=== PATIENT | female | born 1975 | race Caucasian/White ===

== ENCOUNTER 2021-10-15 18:42 | Inpatient (IN) | payer OTHER, MEDICAID, SELFPAY ==
--- NOTE | ~2021-10-15 | XR_ITS ---
EXAMINATION: XR CHEST CLINICAL INFORMATION: Fever COMPARISON: None TECHNIQUE: Frontal view of the chest was obtained. FINDINGS: There is a ill-defined 9 mm rounded opacity seen projecting over the left scapula just beneath posterior fifth left rib. A left upper lobe lung nodule cannot be excluded. Heart size normal. No infiltrates or pleural effusions are seen. XR/XR chest 1V IMPRESSION: Question of left upper lobe pulmonary nodule. CT scan is recommended for further evaluation.
--- NOTE | ~2021-10-15 | XR_ITS ---
EXAMINATION: XR CHEST CLINICAL INFORMATION: Shortness of breath COMPARISON: 10/20/2021 TECHNIQUE: 2 views of the chest were obtained. FINDINGS: Lung volumes are symmetric. There is mild hazy opacity at the right base in the region of the lower lobe, concerning for developing pneumonia. Focal nodular density at the left upper lobe identified previously is less conspicuous on the current exam. No evidence of pneumothorax or pleural effusion. The cardiomediastinal contour is unremarkable. No acute osseous findings are seen. XR/XR chest 2V IMPRESSION: 1. Mild haziness at the right lung base, concerning for developing lower lobe pneumonia. Radiographic followup after treatment/resolution of symptoms is recommended. 2. Previously identified nodular density in the left upper lung is slightly less conspicuous on the current exam. However, as previously noted, further assessment with CT is advised for more definitive evaluation.
[2021-10-15 18:47] VITALS: BP 134/96; PULSE 77; RESP 18; TEMP 37; O2SAT 97; BMI 22.1
[2021-10-15 19:07] LABS: MANUAL DIFF FLAG NO
[2021-10-15 19:13] LABS: Basophils Percent Auto 0.5 % (0-2); Eosinophils Percent Auto 0.2 % (0-4); Hematocrit 44.3 % (37.0-47.0); Hemoglobin 14.4 g/dl (12.0-16.0); Imm Gran Abs Auto 0.01 X10*3/uL (0.00-0.03); Imm Gran Pct Auto 0.2 % (0.0-0.4); Lymphocytes Absolute Auto 1.5 X10*3/uL (1.2-4.9); Lymphocytes Percent Auto 23.2 % (20-40); Mean Corpuscular HGB Conc 32.5 g/dl (31.0-35.0); Mean Platelet Volume 9.7 fL (9.4-12.3); Monocytes Absolute Auto 0.3 X10*3/uL (0.1-1.2); Monocytes Percent Auto 4.5 % (2-11); Neutrophils Absolute Auto 4.5 x10*3/uL (2.0-8.3); Neutrophils Percent Auto 71.4 % (45-73); Platelet Count 252 X10*3/uL (160-400); Red Blood Count 5.75 X10*6/uL (4.20-5.50); Red Cell Distribution Width 15.1 % (11.0-16.0); White Blood Count 6.3 X10*3/uL (4.8-10.8)
[2021-10-15 19:20] LABS: Ethanol < 10 mg/dL
[2021-10-15 19:23] LABS: COVID-19 Test Negative (Negative)
[2021-10-15 19:27] LABS: Alanine Aminotransferase 20 U/L (0-31); Alkaline Phosphatase 92 U/L (39-117); Anion Gap 17 (12-20); Aspartate Amino Transferase 28 U/L (5-31); Bilirubin Total 0.8 mg/dL (0.0-1.0); Blood Urea Nitrogen 17 mg/dL (9-16); Calcium 10.7 mg/dL (8.4-10.2); Carbon Dioxide 28 mmol/L (22-29); Chloride 101 mmol/L (96-108); Creatinine Clr Calc Pharmacy 41.3; Estimated Glomerular Filt Rate 41; Glucose Random 94 mg/dL (60-115); Potassium 5.4 mmol/L (3.3-5.1); Sodium 141 mmol/L (135-145); Total Protein 9.2 g/dL (6.5-8.0)
--- NOTE | 2021-10-15 19:35 | ED_ITS ---
HPI - Psych General Chief Complaint: Psychiatric Symptoms Stated Complaint: Crisis Source: patient Mode of arrival: ambulatory Limitations: no limitations History of Present Illness HPI Narrative: 46-year-old female presents for crisis evaluation for suicidal ideation. Patient states that she wants to overdose on a bunch dope, has had increased depression over the past few weeks. She does not report any auditory visual hallucinations. Does not report any chest pain or pressure palpitations shortness of breath, abdominal pain abdominal distention, dysuria, hematuria, or wounds that will not heal. MD complaint: suicidal ideation, feels depressed, anxiety and substance abuse Onset (ago): unknown Duration: constant and getting worse History of same: Yes Relieving factors: none Exacerbating factors: drug use Context: recent drug abuse Associated psychiatric symptoms: depression and suicidal ideation Associated symptoms: denies other symptoms Treatments prior to arrival: none If self harm: admits thoughts of self harm and has plan Related Data Home Medications Medication Instructions Recorded Confirmed quetiapine 50 mg tablet 1 tab PO BEDTIME 10/15/21 10/15/21 zolpidem 10 mg tablet 1 tab PO BEDTIME 10/15/21 10/15/21 Allergies Allergy/AdvReac Type Severity Reaction Status Date / Time azithromycin Allergy Fever Verified 10/15/21 18:47 lamotrigine [From Lamictal] AdvReac Fever Verified 10/15/21 18:47 Review of Systems Review of Systems: Constitutional: No Fever, No Chills ENT/Mouth: No Ear Pain, No Nasal Congestion, No sore throat Eyes: No Eye Pain, No Swelling, No Redness Cardiovascular: No Chest Pain, No SOB Respiratory: No Cough, No Sputum, No Dyspnea Gastrointestinal: No Nausea, No Vomiting, No Diarrhea, No Hematochezia, No Melena Genitourinary: No Dysuria, No Urinary Frequency, No Hematuria Musculoskeletal: No Myalgias Skin: No Skin Lesions, No rash Neuro: No Weakness, No Numbness, No Paresthesias, No Dizziness, No Headache Psych: positive Anxiety, positive Depression, positive SI, positive polysubstance abuse Heme/Lymph: No Lymphadenopathy Endocrine: No Polyuria, No Polydipsia Yes all other systems are reviewed and are negative PMFSH Past Medical History Attestation statement: The following information was validated with the patient. Source: old records reviewed Social History Social History Advance Directives: No Physical Exam Vital Signs: Vital Signs: Last Vital Signs Temp 98.6 F 10/15/21 18:47 Pulse 77 10/15/21 18:47 Resp 18 10/15/21 18:47 BP 134/96 H 10/15/21 18:47 Pulse Ox 97 10/15/21 18:47 O2 Del Method 10/15/21 18:47 BMI result Body Mass Index 22.1 Appearance: Alert. Oriented X3. Moderate emotional distress. Eyes: Pupils equal, round and reactive to light. Sclera nonicteric. ENT: Pharynx normal. Moist mucous membranes. Neck: Normal inspection. Neck supple. CVS: Normal heart rate and rhythm. Pulses normal. Respiratory: No respiratory distress. Breath sounds normal. Abdomen: Soft and nontender. Skin: Skin warm and dry. Normal skin color. Normal skin turgor. Extremities: No lower extremity edema. Gait well-balanced well coordinated. Neuro: No motor deficit. No sensory deficit. Cranial nerves 2-12 intact. Course Course Course Narrative: 46-year-old female presents for crisis evaluation for suicidal ideation. Patient has a plan to shoot bunch of dope planning to overdose and kill herself. She does have a substance abuse problem, uses opioids and cocaine. She has not presented to this facility for this concern in the past however has presented to multiple area facilities for similar circumstances. Patient will consider detox. Does not report any medical concerns at this time. Will order labs, and crisis eval. 01:40 labs are unremarkable. Toxicology positive for cocaine, fentanyl, and opiates. COVID test is negative. Physician observation started this time. N consult pending. MDM - Psych Differential Diagnosis Differential diagnosis: Likely acute psychosis, suicidal ideation, bipolar disorder, depression, drug-induced psychotic disorder, acute anxiety, post- traumatic stress disorder, substance abuse and mood disorder Medical Records Attestation: I reviewed the patient's medical records. Lab Data Attestation: I reviewed the patient's lab results. Result diagrams: 10/15/21 19:00 10/15/21 19:00 Labs: Lab Results 10/15/21 10/15/21 10/15/21 Range/Units 19:00 19:00 19:00 WBC 6.3 (4.8-10.8) X10*3/uL RBC 5.75 H (4.20-5.50) X10*6/uL Hgb 14.4 (12.0-16.0) g/dl Hct 44.3 (37.0-47.0) % MCV 77.0 L (80.0-98.0) fL MCH 25.0 L (27.0-33.0) pg MCHC 32.5 (31.0-35.0) g/dl RDW 15.1 (11.0-16.0) % Plt Count 252 (160-400) X10*3/uL MPV 9.7 (9.4-12.3) fL Immature Gran % (Auto) 0.2 (0.0-0.4) % Neut % (Auto) 71.4 (45-73) % Lymph % (Auto) 23.2 (20-40) % [place] % (Auto) 4.5 (2-11) % Eos % (Auto) 0.2 (0-4) % Baso % (Auto) 0.5 (0-2) % Lymph # (Auto) 1.5 (1.2-4.9) X10*3/uL [place] # (Auto) 0.3 (0.1-1.2) X10*3/uL Eos # (Auto) 0.0 (0.0-0.4) X10*3/uL Baso # (Auto) 0.0 (0.0-0.2) X10*3/uL Abs Immat Gran (auto) 0.01 (0.00-0.03) X10*3/uL Absolute Neuts (auto) 4.5 (2.0-8.3) x10*3/uL Absolute Nucleated RBC 0.000 (0.0-0.012) X10*3/uL Nucleated RBC % (auto) 0.0 (0.0-0.2) /100WBC Sodium 141 (135-145) mmol/L Potassium 5.4 H (3.3-5.1) mmol/L Chloride 101 (96-108) mmol/L Carbon Dioxide 28 (22-29) mmol/L Anion Gap 17 (12-20) BUN 17 H (9-16) mg/dL Creatinine 1.39 (0.5-1.4) mg/dL Estim Creat Clear Calc 41.3 Estimated GFR 41 Random Glucose 94 (60-115) mg/dL Calcium 10.7 H (8.4-10.2) mg/dL Total Bilirubin 0.8 (0.0-1.0) mg/dL AST 28 (5-31) U/L ALT 20 (0-31) U/L Alkaline Phosphatase 92 (39-117) U/L Total Protein 9.2 H (6.5-8.0) g/dL Albumin 5.0 (3.5-5.0) g/dL Urine Color Urine Appearance Urine pH (5.0-8.0) Ur Specific [place] (1.005-1.025) Urine Protein (NEG-TRACE) MG/DL Urine Glucose (UA) (NEG) MG/DL Urine Ketones (NEG) MG/DL Urine Blood (NEG) Urine Nitrite (NEG) Ur Leukocyte Esterase (NEG) Urine Test (NEGATIVE) Urine Opiates Screen (Not Detect) Urine Fentanyl Screen (Not Detect) Ur Barbiturates Screen (Not Detect) Ur Phencyclidine Scrn (Not Detect) Ur Amphetamines Screen (Not Detect) U Benzodiazepines Scrn (Not Detect) Urine Cocaine Screen (Not Detect) U Marijuana (THC) Screen (Not Detect) Ethyl Alcohol mg/dL COVID-19 (LARS) Negative (Negative) COVID-19 Clin Com See Note 10/15/21 10/15/21 10/15/21 Range/Units 19:00 19:27 19:27 WBC (4.8-10.8) X10*3/uL RBC (4.20-5.50) X10*6/uL Hgb (12.0-16.0) g/dl Hct (37.0-47.0) % MCV (80.0-98.0) fL MCH (27.0-33.0) pg MCHC (31.0-35.0) g/dl RDW (11.0-16.0) % Plt Count (160-400) X10*3/uL MPV (9.4-12.3) fL Immature Gran % (Auto) (0.0-0.4) % Neut % (Auto) (45-73) % Lymph % (Auto) (20-40) % [place] % (Auto) (2-11) % Eos % (Auto) (0-4) % Baso % (Auto) (0-2) % Lymph # (Auto) (1.2-4.9) X10*3/uL [place] # (Auto) (0.1-1.2) X10*3/uL Eos # (Auto) (0.0-0.4) X10*3/uL Baso # (Auto) (0.0-0.2) X10*3/uL Abs Immat Gran (auto) (0.00-0.03) X10*3/uL Absolute Neuts (auto) (2.0-8.3) x10*3/uL Absolute Nucleated RBC (0.0-0.012) X10*3/uL Nucleated RBC % (auto) (0.0-0.2) /100WBC Sodium (135-145) mmol/L Potassium (3.3-5.1) mmol/L Chloride (96-108) mmol/L Carbon Dioxide (22-29) mmol/L Anion Gap (12-20) BUN (9-16) mg/dL Creatinine (0.5-1.4) mg/dL Estim Creat Clear Calc Estimated GFR Random Glucose (60-115) mg/dL Calcium (8.4-10.2) mg/dL Total Bilirubin (0.0-1.0) mg/dL AST (5-31) U/L ALT (0-31) U/L Alkaline Phosphatase (39-117) U/L Total Protein (6.5-8.0) g/dL Albumin (3.5-5.0) g/dL Urine Color YELLOW Urine Appearance CLEAR Urine pH 6.0 (5.0-8.0) Ur Specific [place] >= 1.030 H (1.005-1.025) Urine Protein TRACE (NEG-TRACE) MG/DL Urine Glucose (UA) NEG (NEG) MG/DL Urine Ketones NEG (NEG) MG/DL Urine Blood NEG (NEG) Urine Nitrite NEG (NEG) Ur Leukocyte Esterase NEG (NEG) Urine Test NEGATIVE (NEGATIVE) Urine Opiates Screen (Not Detect) Urine Fentanyl Screen (Not Detect) Ur Barbiturates Screen (Not Detect) Ur Phencyclidine Scrn (Not Detect) Ur Amphetamines Screen (Not Detect) U Benzodiazepines Scrn (Not Detect) Urine Cocaine Screen (Not Detect) U Marijuana (THC) Screen (Not Detect) Ethyl Alcohol < 10 mg/dL COVID-19 (LARS) (Negative) COVID-19 Clin Com 10/15/21 Range/Units 19:27 WBC (4.8-10.8) X10*3/uL RBC (4.20-5.50) X10*6/uL Hgb (12.0-16.0) g/dl Hct (37.0-47.0) % MCV (80.0-98.0) fL MCH (27.0-33.0) pg MCHC (31.0-35.0) g/dl RDW (11.0-16.0) % Plt Count (160-400) X10*3/uL MPV (9.4-12.3) fL Immature Gran % (Auto) (0.0-0.4) % Neut % (Auto) (45-73) % Lymph % (Auto) (20-40) % [place] % (Auto) (2-11) % Eos % (Auto) (0-4) % Baso % (Auto) (0-2) % Lymph # (Auto) (1.2-4.9) X10*3/uL [place] # (Auto) (0.1-1.2) X10*3/uL Eos # (Auto) (0.0-0.4) X10*3/uL Baso # (Auto) (0.0-0.2) X10*3/uL Abs Immat Gran (auto) (0.00-0.03) X10*3/uL Absolute Neuts (auto) (2.0-8.3) x10*3/uL Absolute Nucleated RBC (0.0-0.012) X10*3/uL Nucleated RBC % (auto) (0.0-0.2) /100WBC Sodium (135-145) mmol/L Potassium (3.3-5.1) mmol/L Chloride (96-108) mmol/L Carbon Dioxide (22-29) mmol/L Anion Gap (12-20) BUN (9-16) mg/dL Creatinine (0.5-1.4) mg/dL Estim Creat Clear Calc Estimated GFR Random Glucose (60-115) mg/dL Calcium (8.4-10.2) mg/dL Total Bilirubin (0.0-1.0) mg/dL AST (5-31) U/L ALT (0-31) U/L Alkaline Phosphatase (39-117) U/L Total Protein (6.5-8.0) g/dL Albumin (3.5-5.0) g/dL Urine Color Urine Appearance Urine pH (5.0-8.0) Ur Specific [place] (1.005-1.025) Urine Protein (NEG-TRACE) MG/DL Urine Glucose (UA) (NEG) MG/DL Urine Ketones (NEG) MG/DL Urine Blood (NEG) Urine Nitrite (NEG) Ur Leukocyte Esterase (NEG) Urine Test (NEGATIVE) Urine Opiates Screen POSITIVE H (Not Detect) Urine Fentanyl Screen POSITIVE H (Not Detect) Ur Barbiturates Screen Not Detected (Not Detect) Ur Phencyclidine Scrn Not Detected (Not Detect) Ur Amphetamines Screen Not Detected (Not Detect) U Benzodiazepines Scrn Not Detected (Not Detect) Urine Cocaine Screen POSITIVE H (Not Detect) U Marijuana (THC) Screen Not Detected (Not Detect) Ethyl Alcohol mg/dL COVID-19 (LARS) (Negative) COVID-19 Clin Com Discharge Plan Discharge Clinical Impression: Suicidal ideation, Depression, Drug-induced psychotic disorder, Acute anxiety Patient Disposition: Still a Patient Instructions: Depression (ED), Anxiety (ED), Suicide Prevention (ED) Additional Instructions: Please follow-up with outpatient psychiatry. Please consider detox. Thank you for choosing this emergency department for evaluation. Please follow-up with primary care physician as needed. Return to the emergency department for any new, concerning, or worsening symptoms. Prescriptions: No Action zolpidem 10 mg tablet 1 tab PO BEDTIME quetiapine 50 mg tablet 1 tab PO BEDTIME
[2021-10-15 20:10] LABS: Appearance Urine CLEAR; Color Urine YELLOW; Glucose Urine UA NEG (NEG); Leukocyte Esterase Urine NEG (NEG); Nitrite Urine NEG (NEG); Specific Gravity - Urine >= 1.030 (1.005-1.025); Urine Blood NEG (NEG); Urine Ketones NEG (NEG); Urine Protein TRACE MG/DL (NEG-TRACE)
[2021-10-15 20:31] LABS: Amphetamine Screen Urine Not Detected (Not Detect); Barbiturates, Urine Not Detected (Not Detect); Benzodiazepines Screen Urine Not Detected (Not Detect); Cannabinoid Screen Urine Not Detected (Not Detect); Cocaine Screen Urine POSITIVE (Not Detect); Fentanyl, urine POSITIVE (Not Detect); Opiate Screen Urine POSITIVE (Not Detect); Phencyclidine Screen Urine Not Detected (Not Detect)
[2021-10-15 20:39] LABS: UPreg QC Valid YES; Urine Pregnancy NEGATIVE (NEGATIVE)
--- NOTE | 2021-10-16 05:33 | PC.NURSE ---
Patient slept through the night, no distress observed/reported, well engaged with [facility] clinician, disposition per [facility] is section 12 inpatient bed search, med rec completed/pending provider's approval, behavior appropriate and non concerning at this time, will continue to monitor.
[2021-10-16 06:15] VITALS: BP 124/90; PULSE 59; RESP 16; O2SAT 98
--- NOTE | 2021-10-16 09:28 | PC.NURSE ---
called [facility] to verify patient methadone dose. No response as of . Consulted with Dr. Koch for order. Requesting assistance from recovery team to verify dose.
--- NOTE | 2021-10-16 09:44 | MHC.RECOVSUP ---
Recovery Support note: Patient is a 46 year old Ghanaian speaking female who presented to [facility] due to SI. This leader writer assisted patient's RN in confirming her methadone dose. Deanna at [facility] OT in [place] reports Miladis last dosed yesterday, 10/15, and received 80mg. Form faxed to pharmacy. Discussed with patient's ED provider. Patient's dose will be continued while in the hospital.
[2021-10-16] MEDS: methADONE HCl 20 MG/2 ML ORAL.CONC 80 MG PO (10:19)
[2021-10-16] MEDS: LORazepam 0.5 MG TABLET PO (17:44)
[2021-10-16 20:35] VITALS: BP 119/82; PULSE 61; RESP 20; TEMP 36.7; O2SAT 98
[2021-10-16] MEDS: QUEtiapine Fumarate 50 MG TABLET PO (21:01)
[2021-10-16] MEDS: Zolpidem Tartrate 5 MG TABLET PO (21:01)
--- NOTE | 2021-10-17 | ECG_ITS ---
Test Reason : medical clearance Blood Pressure : / mmHG Vent. Rate : 054 BPM Atrial Rate : 054 BPM P-R Int : 106 ms QRS Dur : 082 ms QT Int : 460 ms P-R-T Axes : 030 046 049 degrees QTc Int : 436 ms Sinus bradycardia with short NM Otherwise normal ECG No previous ECGs available Referred By: Eugenie Harrison Electronically Signed By:ROSALINDA MASTERSON
[2021-10-17 04:23] VITALS: BP 122/65; PULSE 78; RESP 19; TEMP 37.1; O2SAT 98
--- NOTE | 2021-10-17 06:01 | PC.NURSE ---
Patient slept through the night, no distress observed/reported, medication compliant, disposition per [facility] is section 12 inpatient bed search, behavior appropriate and non concerning at this time, VSS, will continue to monitor.
--- NOTE | 2021-10-17 07:36 | PC.NURSE ---
Bkfst eaten. Watching tv in room. alert and oriented
[2021-10-17 07:59] VITALS: BP 109/79; PULSE 72; RESP 15; TEMP 36.7; O2SAT 100
[2021-10-17] MEDS: methADONE HCl 20 MG/2 ML ORAL.CONC 80 MG PO (08:25)
[2021-10-17 09:45] LABS: COVID-19 Test Negative (Negative); IDNOW Serial# 9DB6401D
[2021-10-17] MEDS: LORazepam 0.5 MG TABLET PO ×2 (10:07→17:49)
[2021-10-17 18:00] VITALS: PULSE 61; RESP 18; TEMP 36.3; O2SAT 99
--- NOTE | 2021-10-17 18:11 | PC.NURSE ---
pt requested PRN medication for anxiety, medicated with PRN ativan, resting in bed at this time
--- NOTE | 2021-10-17 18:48 | PC.NURSE ---
pt ate dinner, resting in bed at this time.
[2021-10-17 19:12] VITALS: BP 114/86; PULSE 68; RESP 16; TEMP 36.7; O2SAT 99
[2021-10-17] MEDS: Zolpidem Tartrate 5 MG TABLET PO (22:02)
[2021-10-17] MEDS: QUEtiapine Fumarate 50 MG TABLET PO (22:02)
[2021-10-18 06:28] VITALS: BP 102/60; PULSE 67; RESP 16; TEMP 36.6; O2SAT 98
[2021-10-18 08:35] LABS: Estimated Average Glucose 94 mg/dL; Hemoglobin A1c % 4.9 %
[2021-10-18] MEDS: methADONE HCl 20 MG/2 ML ORAL.CONC 80 MG PO (08:50)
[2021-10-18 08:51] LABS: Cholesterol 170 mg/dL; HDL Cholesterol 28 mg/dL; LDL Cholesterol Calculated 103 mg/dl; Magnesium 1.9 mg/dL (1.6-2.6); Triglycerides 198 mg/dL
[2021-10-18] MEDS: LORazepam 0.5 MG TABLET PO (08:54)
[2021-10-18 09:14] LABS: Free T4 (Free Thyroxine) 0.93 ng/dL (0.71-1.85); Thyroid Stimulating Hormone 6.35 uIU/mL (0.32-4.0)
[2021-10-18 09:59] LABS: Folate 18.6 ng/mL (> or = 4.0); Vitamin B12 613 pg/mL (200-900)
[2021-10-18] MEDS: Sulfamethox/Trimeth 800/160 TABLET 1 TAB PO (14:21)
[2021-10-18] MEDS: Gabapentin 400 MG CAPSULE PO ×2 (14:21→20:11)
[2021-10-18] MEDS: clonazePAM 0.5 MG TABLET PO ×2 (14:21→20:17)
--- NOTE | 2021-10-18 15:46 | P.HPPS_ITS ---
HPI Date of Service: 10/18/21 Chief Complaint: Depression with SI, opiate, cocaine use d/o Sources of Information: patient interviewed, chart reviewed and crisis/core team assessment reviewed HPI Subjective Notes: [place] Warning and Conditional Voluntary Healthcare Proxy: No Guardianship: No Medical Problems Affecting Mental Status: No Narrative: 46 yo female with a history of opiate use disorder, bipolar disorder, PTSD presents to [facility] ER with reports of feeling an increase of depressive sx and SI with plan. Reports OD attempt the day prior to presenting. Recent 12 weeks admission for pulmonary emboli with sepsis. After this long admission she lost much of her life and relapsed on crack/heroin after 5 years of sobriety. She had been living in [place], [place] to be close to her partner of 6 years. She also reports loss of her therapist due to the extended hospitalization. Asking for help and medication adjustments. Pt reports she sniffed 2 bags of heroin herminio use I feel that no one cares about me, no one loves me, I am a burden. Pt asks that we assist her in getting meds back on track, with referrals for new out pt providers and if possible a 14-28 day program for addiction so she can get her sobriety back to baseline. Past Psychiatric History: IP: 3, most recently [place], August 2021 OP: None at this time Detox- hx of 30 day program Medical Evaluation Reviewed: Yes PMF Narrative: Recent admission for 12 weeks for pulmonary emboli. Family History: Substance abuse Mental Health issues Social History: Pt is an only child. Describes her childhood as difficult and traumatic Both parents had substance abuse issues. Father had mental health issues One child, a son Substance History: Heroin, Cocaine, Crack age 23 initiated 2 bags used on 10/15 Trauma History: Affirms, beginning in her childhood Diagnostics Vital Signs (24Hr): Vital Signs - 24 hr 10/17/21 19:12 10/17/21 18:00 10/18/21 06:28 Temperature 98.1 F 97.3 F 97.8 F Pulse Rate 68 61 67 Respiratory Rate 16 18 16 Blood Pressure 114/86 102/60 Pulse Oximetry 99 99 98 Oxygen Delivery Method Room Air Room Air Room Air BMI result Body Mass Index 22.1 Labs Results: 10/15/21 19:00 10/15/21 19:00 Labs: Laboratory Results - last 48 hr 10/17/21 10/18/21 10/18/21 09:21 07:54 07:54 Estimat Average Glucose 94 Hemoglobin A1c % 4.9 Magnesium 1.9 Triglycerides 198 Cholesterol 170 LDL Cholesterol, Calc 103 HDL Cholesterol 28 Vitamin B12 Folate TSH 6.35 H Free T4 0.93 COVID-19 (LARS) Negative COVID-19 Clin Com See Note 10/18/21 07:54 Estimat Average Glucose Hemoglobin A1c % Magnesium Triglycerides Cholesterol LDL Cholesterol, Calc HDL Cholesterol Vitamin B12 613 Folate 18.6 TSH Free T4 COVID-19 (LARS) COVID-19 Clin Com Meds/Allergies Meds Home Medications Medication Instructions Recorded Confirmed Type quetiapine 50 mg tablet 1 tab PO BEDTIME 10/15/21 10/15/21 History zolpidem 10 mg tablet 1 tab PO BEDTIME 10/15/21 10/15/21 History methadone 10 mg tablet 80 mg PO DAILY 10/17/21 10/17/21 History Allergies Allergies Allergy/AdvReac Type Severity Reaction Status Date / Time azithromycin Allergy Fever Verified 10/15/21 18:47 lamotrigine [From Lamictal] AdvReac Fever Verified 10/15/21 18:47 Mental Status Exam Mental Status Exam Patient Appearance: Fatigued Patient Orientation: Person, Place, Time and Situation Level of Consciousness: Alert Patient Behavior: Talkative and Good Eye Contact Mood Description: Withdrawn and Depressed Affect Description: Flat Patient Cognition Impaired: No Ability to Follow Directions: Good Speech Pattern: Spontaneous Speech Memory Description: Intact Hallucinations: None Delusions: Not Present Perceptual Disturbances: Depersonalization and Derealization Thought Process: Rumination Thought Content: positive for [place], positive for Circumstantial, positive for Perseveration and positive for Suicidal Ideation Depressive Symptoms: Diff. Making Decisions, Thoughts of /Suicide and Low Self Esteem Judgement: Fair Assessment & Plan Assessment & Plan (1) Bipolar disorder: Status: Acute Code(s): F31.9 - Bipolar disorder, unspecified (2) PTSD (post-traumatic stress disorder): Status: Acute Code(s): F43.10 - Post-traumatic stress disorder, unspecified (3) Opioid abuse with opioid-induced disorder: Status: Acute Code(s): F11.19 - Opioid abuse with unspecified opioid-induced disorder Plan 46 yo female, s/p suicide attempt prior to admission with relapse of heroin, endorsing SI upon ER admit. Precipitant was a 12 weeks admission for mgt of pulmonary emboli with several resulting losses. Pt hopes to have a full med eval, referrals for out pt care and residential referral if possible. Plan: Re-establish regime Symptom management Current UTI sx with UA that is WNL- Bactrim x 1 dose and re-evaluate. Levothyroxine 50 mcg daily Continue Wellbutrin, Gabapentin, Klonopin, Seroquel, Topiramate, Ambien-last taken 2 weeks ago, will titrate as tolerated. Diagnostics Collateral contacts per pt request. Patient educated on: medication risk/benefits and therapeutic strategies Informed Consent: understands and further education needed Reason for continued inpatient stay Substantial Risk for: harm to self, inability to function, rapid decompensation and med/psych decompensation
[2021-10-18 16:00] VITALS: BP 97/64; PULSE 80; RESP 16; TEMP 36.7; O2SAT 97
[2021-10-18] MEDS: QUEtiapine Fumarate 100 MG TABLET PO (20:11)
[2021-10-18] MEDS: Zolpidem Tartrate 5 MG TABLET PO (20:11)
[2021-10-18 20:15] VITALS: TEMP 38.1
[2021-10-18] MEDS: Acetaminophen 325 MG TABLET 650 MG PO (20:16)
[2021-10-18 23:56] VITALS: TEMP 37.1
--- NOTE | 2021-10-18 23:57 | PC.NURSE ---
Patient approached medication window and c/o mid to upper back pain 6/10 and feeling feverish . Her temporal artery scan temperature showed 100.5 F. Tylenol 650 mg po given and temperature rechecked at the end of 2nd shift, temperature 98.7.
[2021-10-19] MEDS: traZODone HCL 50 MG TABLET PO (00:07)
[2021-10-19] MEDS: LORazepam 0.5 MG TABLET PO ×3 (00:07→17:12)
[2021-10-19] MEDS: hydrOXYzine HCL 25 MG TABLET PO (00:07)
[2021-10-19] MEDS: Levothyroxine Sodium 50 MCG TABLET PO (06:14)
[2021-10-19 06:38] VITALS: BP 107/65; PULSE 90; TEMP 36.8; O2SAT 94
[2021-10-19] MEDS: methADONE HCl 20 MG/2 ML ORAL.CONC 80 MG PO (08:42)
[2021-10-19] MEDS: buPROPion HCl XL 150 MG TAB.ER.24H PO (08:43)
[2021-10-19] MEDS: Topiramate 25 MG TABLET PO (08:43)
[2021-10-19] MEDS: Gabapentin 400 MG CAPSULE PO ×3 (08:43→20:35)
[2021-10-19] MEDS: Ondansetron ODT 8 MG TAB.RAPDIS TRANSLINGU (09:36)
[2021-10-19] MEDS: Nicotine 21 MG PATCH.TD24 TRANSDERMA (11:17)
[2021-10-19] MEDS: clonazePAM 0.5 MG TABLET PO (15:01)
--- NOTE | 2021-10-19 16:01 | P.PNPSI_ITS ---
Subjective Subjective Date of Service: 10/19/21 Reason For Visit: Depression with SI, opiate, cocaine use d/o Subjective Notes: Conditional Voluntary Healthcare Proxy: No Guardianship: No Medical Problems Affecting Mental Status: No Interim History: Reports weakness, T 100.5 this a.m. UTI sx with UA wnl. Discussed Prazosin-BP is not supportive of this currently. [facility] Reports she is currently please with plan of care. Medication Compliance: Yes Side effects from medications: No Attending Groups: Intermittent Review of Systems Acute medical concerns: No Medical Review of Systems: unchanged Review of Systems Psychiatric: Reports anxiety, Reports depression and Reports hopelessness Mental Status Exam Mental Status Exam Patient Appearance: Fatigued Patient Orientation: Person, Place, Time and Situation Level of Consciousness: Alert Patient Behavior: Talkative and Good Eye Contact Mood Description: Withdrawn and Depressed Affect Description: Flat Patient Cognition Impaired: No Ability to Follow Directions: Good Speech Pattern: Spontaneous Speech Memory Description: Intact Hallucinations: None Delusions: Not Present Perceptual Disturbances: Depersonalization and Derealization Thought Process: Rumination Thought Content: positive for [place], positive for Circumstantial, positive for Perseveration and positive for Suicidal Ideation Depressive Symptoms: Diff. Making Decisions, Thoughts of /Suicide and Low Self Esteem Judgement: Fair Diagnostics Vital Signs (24Hr): Vital Signs - 24 hr 10/18/21 23:56 10/18/21 20:15 10/19/21 06:38 Temperature 98.7 F 100.5 F H 98.2 F Pulse Rate 90 Blood Pressure 107/65 Pulse Oximetry 94 BMI result Body Mass Index 22.1 Labs Results: 10/20/21 10:38 10/20/21 10:38 Labs: Laboratory Results - last 48 hr 10/18/21 10/18/21 10/18/21 07:54 07:54 07:54 Estimat Average Glucose 94 Hemoglobin A1c % 4.9 Magnesium 1.9 Triglycerides 198 Cholesterol 170 LDL Cholesterol, Calc 103 HDL Cholesterol 28 Vitamin B12 613 Folate 18.6 TSH 6.35 H Free T4 0.93 Medications Medications Current Medications Acetaminophen (Acetaminophen 325 Mg Tablet) 650 mg PO Q6H PRN PRN Reason: Headache/Pain Mild Scale (1-3) Last Admin: 10/18/21 20:16 Dose: 650 mg Al Hydroxide/Mg Hydroxide (Magnesium Hydrox/Alum Hydrox 30 Ml Oral.Susp) 30 ml PO Q6H PRN PRN Reason: Heartburn/Nausea Bupropion HCl (Bupropion Hcl Xl 150 Mg Tab.Er.24h) 150 mg PO DAILY [facility] Last Admin: 10/19/21 08:43 Dose: 150 mg Clonazepam (Clonazepam 0.5 Mg Tablet) 0.5 mg PO BID PRN PRN Reason: Anxiety Last Admin: 10/19/21 15:01 Dose: 0.5 mg Gabapentin (Gabapentin 400 Mg Capsule) 400 mg PO TID [facility] Last Admin: 10/19/21 15:00 Dose: 400 mg Hydroxyzine HCl (Hydroxyzine Hcl 25 Mg Tablet) 25 mg PO BEDTIME PRN PRN Reason: Anxiety Last Admin: 10/19/21 00:07 Dose: 25 mg Levothyroxine Sodium (Levothyroxine Sodium 50 Mcg Tablet) 50 mcg PO DAILY@0600 [facility] Last Admin: 10/19/21 06:14 Dose: 50 mcg Lorazepam (Lorazepam 0.5 Mg Tablet) 0.5 mg PO Q6H PRN PRN Reason: Anxiety Last Admin: 10/19/21 09:36 Dose: 0.5 mg Magnesium Hydroxide (Milk Of Magnesia 30 Ml Oral.Susp) 30 ml PO DAILY PRN PRN Reason: Constipation Methadone HCl (Methadone Hcl 20 Mg/2 Ml Oral.Conc) 80 mg PO DAILY [facility] Last Admin: 10/19/21 08:42 Dose: 80 mg Nicotine (Nicotine 21 Mg Patch.Td24) 21 mg TRANSDERMA DAILY [facility] Last Admin: 10/19/21 11:17 Dose: 21 mg Nicotine Polacrilex (Nicotine Polacrilex Lozenge 4 Mg Lozenge) 4 mg BUCCAL Q1H PRN PRN Reason: Nicotine Cravings Ondansetron HCl (Ondansetron Odt 8 Mg Tab.Rapdis) 8 mg TRANSLINGU Q8H PRN PRN Reason: nausea Last Admin: 10/19/21 09:36 Dose: 8 mg Quetiapine Fumarate (Quetiapine Fumarate 100 Mg Tablet) 100 mg PO BEDTIME [facility] Last Admin: 10/18/21 20:11 Dose: 100 mg Topiramate (Topiramate 25 Mg Tablet) 25 mg PO DAILY [facility] Last Admin: 10/19/21 08:43 Dose: 25 mg Trazodone HCl (Trazodone Hcl 50 Mg Tablet) 50 mg PO BEDTIME PRN PRN Reason: Insomnia Last Admin: 10/19/21 00:07 Dose: 50 mg Zolpidem Tartrate (Zolpidem Tartrate 5 Mg Tablet) 5 mg PO BEDTIME [facility] Last Admin: 10/18/21 20:11 Dose: 5 mg Allergies Allergies Allergy/AdvReac Type Severity Reaction Status Date / Time azithromycin Allergy Fever Verified 10/15/21 18:47 lamotrigine [From Lamictal] AdvReac Fever Verified 10/15/21 18:47 Assessment & Plan Assessment & Plan (1) Bipolar disorder: Status: Acute Code(s): F31.9 - Bipolar disorder, unspecified (2) PTSD (post-traumatic stress disorder): Status: Acute Code(s): F43.10 - Post-traumatic stress disorder, unspecified (3) Opioid abuse with opioid-induced disorder: Status: Acute Code(s): F11.19 - Opioid abuse with unspecified opioid-induced disorder Plan 46 yo female, s/p suicide attempt prior to admission with relapse of heroin, endorsing SI upon ER admit. Precipitant was a 12 weeks admission for mgt of pulmonary emboli with several resulting losses. Pt hopes to have a full med eval, referrals for out pt care and residential referral if possible. Plan: Re-establish regime Symptom management Current UTI sx with UA that is WNL- Bactrim x 1 dose and re-evaluate. Levothyroxine 50 mcg daily Continue Wellbutrin, Gabapentin, Klonopin, Seroquel, Topiramate, Ambien-last taken 2 weeks ago, will titrate as tolerated. Diagnostics Collateral contacts per pt request. 10/19/21 Continue plan of care. Monitor physical sx. I spent minutes with the patient and/or on the patient floor today, greater than?50% of which was spent counseling/coordinating care. Patient educated on: therapeutic strategies and medical condition Informed Consent: understands and further education needed Reason for contiued inpatient stay Substantial Risk for: med/psych decompensation
[2021-10-19] MEDS: Magnesium Hydrox/Alum Hydrox 30 ML ORAL.SUSP PO (17:12)
[2021-10-19] MEDS: Nicotine Polacrilex Lozenge 4 MG LOZENGE BUCCAL (17:12)
[2021-10-19 18:00] VITALS: BP 100/60; PULSE 97; TEMP 36.4; O2SAT 96
[2021-10-19] MEDS: QUEtiapine Fumarate 100 MG TABLET PO (20:35)
[2021-10-19] MEDS: Zolpidem Tartrate 5 MG TABLET PO (20:35)
[2021-10-20] MEDS: Levothyroxine Sodium 50 MCG TABLET PO (06:29)
[2021-10-20] MEDS: LORazepam 0.5 MG TABLET PO ×2 (06:36→16:01)
[2021-10-20 06:42] VITALS: BP 84/53; PULSE 88; RESP 16; TEMP 37.9; O2SAT 95
[2021-10-20 07:00] VITALS: BMI 22.8
[2021-10-20] MEDS: buPROPion HCl XL 150 MG TAB.ER.24H PO (08:53)
[2021-10-20] MEDS: methADONE HCl 20 MG/2 ML ORAL.CONC 80 MG PO (08:53)
[2021-10-20] MEDS: Gabapentin 400 MG CAPSULE PO ×4 (08:53→20:39)
[2021-10-20] MEDS: Topiramate 25 MG TABLET PO (08:53)
[2021-10-20] MEDS: clonazePAM 0.5 MG TABLET PO ×2 (09:24→21:47)
[2021-10-20] MEDS: Acetaminophen 325 MG TABLET 650 MG PO (09:24)
[2021-10-20 09:44] VITALS: TEMP 39.1
[2021-10-20 10:21] VITALS: BP 115/75; PULSE 110; RESP 18; TEMP 38.4
[2021-10-20 10:42] LABS: MANUAL DIFF FLAG NO
[2021-10-20 10:46] LABS: Basophils Percent Auto 0.2 % (0-2); Eosinophils Absolute Auto 0.1 X10*3/uL (0.0-0.4); Eosinophils Percent Auto 0.9 % (0-4); Hematocrit 38.1 % (37.0-47.0); Hemoglobin 12.3 g/dl (12.0-16.0); Imm Gran Abs Auto 0.01 X10*3/uL (0.00-0.03); Imm Gran Pct Auto 0.2 % (0.0-0.4); Lymphocytes Absolute Auto 0.9 X10*3/uL (1.2-4.9); Lymphocytes Percent Auto 13.8 % (20-40); Mean Corpuscular HGB Conc 32.3 g/dl (31.0-35.0); Mean Corpuscular Hemoglobin 25.6 pg (27.0-33.0); Mean Corpuscular Volume 79.4 fL (80.0-98.0); Mean Platelet Volume 10.3 fL (9.4-12.3); Monocytes Absolute Auto 0.3 X10*3/uL (0.1-1.2); Monocytes Percent Auto 4.9 % (2-11); Neutrophils Absolute Auto 5.2 x10*3/uL (2.0-8.3); Platelet Count 132 X10*3/uL (160-400); Red Cell Distribution Width 14.7 % (11.0-16.0); White Blood Count 6.5 X10*3/uL (4.8-10.8)
[2021-10-20 10:54] LABS: Lactic Acid 1.8 mmol/L (0.5-2.0)
[2021-10-20 11:05] LABS: Alanine Aminotransferase 17 U/L (0-31); Albumin Level 3.8 g/dL (3.5-5.0); Alkaline Phosphatase 79 U/L (39-117); Anion Gap 13 (12-20); Aspartate Amino Transferase 25 U/L (5-31); Bilirubin Direct < 0.2 mg/dL (0.0-0.5); Bilirubin Total 0.3 mg/dL (0.0-1.0); Blood Urea Nitrogen 12 mg/dL (9-16); Calcium 8.8 mg/dL (8.4-10.2); Carbon Dioxide 26 mmol/L (22-29); Chloride 100 mmol/L (96-108); Creatinine Clr Calc Pharmacy 58.1; Estimated Glomerular Filt Rate > 60; Glucose Random 132 mg/dL (60-115); Potassium 4.1 mmol/L (3.3-5.1); Sodium 135 mmol/L (135-145)
[2021-10-20 11:48] LABS: Appearance Urine HAZY; Color Urine YELLOW; Glucose Urine UA NEG (NEG); Leukocyte Esterase Urine TRACE (NEG); Nitrite Urine POS (NEG); PH 8.5 (5.0-8.0); UACC Culture Trigger YES; Urine Blood NEG (NEG); Urine Ketones NEG (NEG); Urine Protein NEG (NEG-TRACE)
[2021-10-20 11:55] LABS: Renal Epithelial Cells Urine 1+ /LPF; Squamous Epithelial Cell Urine 2+ /LPF
[2021-10-20 11:56] LABS: Bacteria Urine 2+ /LPF; RBC Urine 0 /HPF (0)
[2021-10-20 12:43] VITALS: BP 101/64; PULSE 85; RESP 20; TEMP 36.9
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
[2021-10-20 13:27] LABS: Adenovirus PCR Not Detected (Not Detect.); Bordetella parapertussis PCR Not Detected (Not Detect.); Bordetella pertussis PCR Not Detected (Not Detect.); Chlamydia pneumoniae PCR Not Detected (Not Detect.); Coronavirus 229E PCR Not Detected (Not Detect.); Coronavirus HKU1 PCR Not Detected (Not Detect.); Coronavirus NL63 PCR Not Detected (Not Detect.); Coronavirus OC43 PCR Not Detected (Not Detect.); Influenza A PCR Not Detected (Not Detect.); Influenza B PCR Not Detected (Not Detect.); SARS-CoV-2 PCR Not Detected (Not Detect.)
[2021-10-20 13:28] LABS: Human metapneumovirus PCR Not Detected (Not Detect.); Mycoplasma pneumoniae PCR Not Detected (Not Detect.); Parainfluenza 1 PCR Not Detected (Not Detect.); Parainfluenza 2 PCR Not Detected (Not Detect.); Parainfluenza 3 PCR Not Detected (Not Detect.); Parainfluenza 4 PCR Not Detected (Not Detect.); RSV PCR Not Detected (Not Detect.); Rhino/Enterovirus PCR Not Detected (Not Detect.)
[2021-10-20] MEDS: 0.9 % Sodium Chloride 1,000 ML 999 ML IVCONT (15:27)
[2021-10-20] MEDS: cefTRIAXone sodium 1 GM in 0.9 % Sodium Chloride 50 ML IV (15:28)
--- NOTE | 2021-10-20 15:43 | PC.NURSE ---
Iv med and fluids hung at 1529, will be monitored by next shift may THORPE to monitor equipment.
--- NOTE | 2021-10-20 17:31 | PC.NURSE ---
Pt alert and oriented. vss. IV antibiotics (Rocephin) 1gm, done IV line taken off. Lung sounds clear bilaterally. No sign of fluid overload noted.
[2021-10-20 18:00] VITALS: BP 122/79; PULSE 99; RESP 16; TEMP 36.4; O2SAT 99
--- NOTE | 2021-10-20 18:09 | HO.PSYCHPN ---
Subjective Subjective Date of Service: 10/20/21 Reason For Visit: Depression with SI, opiate, cocaine use d/o Subjective Notes: Conditional Voluntary Healthcare Proxy: No Guardianship: No Medical Problems Affecting Mental Status: No Interim History: Pt with elevated temp, chest discomfort. Seen by Dr. Hudson which is much appreciated. +UTI, IV fluids, antibiotics ordered. PLEASE CALL THE HOSPITALIST IF ---FEVER IS > 100.9 ---HYPOTENSIVE WITH SYSTOLIC < 90 ---TACHYCARDIA Pt reports feeling improved-talking with residential programs today, visited by her partner-fluids encouraged. Seroquel will decrease to 75 mg hs per pt request due to daytime sedation. Medication Compliance: Yes Side effects from medications: No Attending Groups: Intermittent Review of Systems UTI, recent PE Medical Review of Systems: unchanged Review of Systems Psychiatric: Reports no additional psychiatric complaints Diagnostics Vital Signs (24Hr): Vital Signs - 24 hr 10/20/21 06:42 10/20/21 09:44 10/20/21 10:21 Temperature 100.2 F 102.4 F H 101.2 F H Pulse Rate 88 110 H Respiratory Rate 16 18 Blood Pressure 84/53 L 115/75 Pulse Oximetry 95 Oxygen Delivery Method Room Air 10/20/21 12:43 Temperature 98.4 F Pulse Rate 85 Respiratory Rate 20 Blood Pressure 101/64 Pulse Oximetry Oxygen Delivery Method BMI result Body Mass Index 22.8 Labs Results: 10/20/21 10:38 10/20/21 10:38 Labs: Laboratory Results - last 48 hr 10/20/21 10/20/21 10/20/21 10:38 10:38 10:38 WBC 6.5 RBC 4.80 Hgb 12.3 Hct 38.1 MCV 79.4 L MCH 25.6 L MCHC 32.3 RDW 14.7 Plt Count 132 L D MPV 10.3 Immature Gran % (Auto) 0.2 Neut % (Auto) 80.0 H Lymph % (Auto) 13.8 L [place] % (Auto) 4.9 Eos % (Auto) 0.9 Baso % (Auto) 0.2 Lymph # (Auto) 0.9 L [place] # (Auto) 0.3 Eos # (Auto) 0.1 Baso # (Auto) 0.0 Abs Immat Gran (auto) 0.01 Absolute Neuts (auto) 5.2 Absolute Nucleated RBC 0.000 Nucleated RBC % (auto) 0.0 Sodium 135 Potassium 4.1 D Chloride 100 Carbon Dioxide 26 Anion Gap 13 BUN 12 Creatinine 0.99 Estim Creat Clear Calc 58.1 Estimated GFR > 60 Random Glucose 132 H Lactic Acid 1.8 Calcium 8.8 D Total Bilirubin 0.3 Direct Bilirubin < 0.2 AST 25 ALT 17 Alkaline Phosphatase 79 Total Protein 7.0 D Albumin 3.8 D Urine Color Urine Appearance Urine pH Ur Specific [place] Urine Protein Urine Glucose (UA) Urine Ketones Urine Blood Urine Nitrite Ur Leukocyte Esterase Urine RBC Urine WBC Ur Squamous Epith Cells Ur Renal Epithelial Cell Urine Bacteria Urine Yeast Respiratory Panel Rinaldi Adenovirus (Rapid PCR) B.pert (TEM-PCR) B.parapertussis DNA PCR C. pneumoniae DNA (PCR) Coronavirus OC43 (PCR) Coronavirus HKU1 (PCR) Coronavirus 229E (PCR) Coronavirus NL63 (PCR) Human Metapneumovir PCR Influenza A (RT-PCR) Influenza B (RT-PCR) M. pneumoniae (PCR) Parainfluenza 1 (PCR) Parainfluenza 2 (PCR) Parainfluenza 3 (PCR) Parainfluenza 4 (PCR) RSV (PCR) Entero/Rhino (PCR) SARS-CoV-2 RNA (RT-PCR) 10/20/21 10/20/21 11:27 11:51 WBC RBC Hgb Hct MCV MCH MCHC RDW Plt Count MPV Immature Gran % (Auto) Neut % (Auto) Lymph % (Auto) [place] % (Auto) Eos % (Auto) Baso % (Auto) Lymph # (Auto) [place] # (Auto) Eos # (Auto) Baso # (Auto) Abs Immat Gran (auto) Absolute Neuts (auto) Absolute Nucleated RBC Nucleated RBC % (auto) Sodium Potassium Chloride Carbon Dioxide Anion Gap BUN Creatinine Estim Creat Clear Calc Estimated GFR Random Glucose Lactic Acid Calcium Total Bilirubin Direct Bilirubin AST ALT Alkaline Phosphatase Total Protein Albumin Urine Color YELLOW Urine Appearance HAZY Urine pH 8.5 H Ur Specific [place] 1.010 Urine Protein NEG Urine Glucose (UA) NEG Urine Ketones NEG Urine Blood NEG Urine Nitrite POS H Ur Leukocyte Esterase TRACE H Urine RBC 0 Urine WBC 10-14 H Ur Squamous Epith Cells 2+ Ur Renal Epithelial Cell 1+ Urine Bacteria 2+ Urine Yeast TRACE Respiratory Panel Rinaldi See Note Adenovirus (Rapid PCR) Not Detected B.pert (TEM-PCR) Not Detected B.parapertussis DNA PCR Not Detected C. pneumoniae DNA (PCR) Not Detected Coronavirus OC43 (PCR) Not Detected Coronavirus HKU1 (PCR) Not Detected Coronavirus 229E (PCR) Not Detected Coronavirus NL63 (PCR) Not Detected Human Metapneumovir PCR Not Detected Influenza A (RT-PCR) Not Detected Influenza B (RT-PCR) Not Detected M. pneumoniae (PCR) Not Detected Parainfluenza 1 (PCR) Not Detected Parainfluenza 2 (PCR) Not Detected Parainfluenza 3 (PCR) Not Detected Parainfluenza 4 (PCR) Not Detected RSV (PCR) Not Detected Entero/Rhino (PCR) Not Detected SARS-CoV-2 RNA (RT-PCR) Not Detected Imaging Radiology Impressions: ITS Impressions Chest X-Ray 10/20/21 10:40 IMPRESSION: Question of left upper lobe pulmonary nodule. CT scan is recommended for further evaluation. Medications Medications Current Medications Acetaminophen (Acetaminophen 325 Mg Tablet) 650 mg PO Q6H PRN PRN Reason: Headache/Pain Mild Scale (1-3) Last Admin: 10/20/21 09:24 Dose: 650 mg Al Hydroxide/Mg Hydroxide (Magnesium Hydrox/Alum Hydrox 30 Ml Oral.Susp) 30 ml PO Q6H PRN PRN Reason: Heartburn/Nausea Last Admin: 10/19/21 17:12 Dose: 30 ml Bupropion HCl (Bupropion Hcl Xl 150 Mg Tab.Er.24h) 150 mg PO DAILY [facility] Last Admin: 10/20/21 08:53 Dose: 150 mg Cefuroxime Axetil (Cefuroxime Axetil 250 Mg Tablet) 250 mg PO Q12H [facility] Stop: 10/26/21 20:01 Clonazepam (Clonazepam 0.5 Mg Tablet) 0.5 mg PO BID PRN PRN Reason: Anxiety Last Admin: 10/20/21 09:24 Dose: 0.5 mg Gabapentin (Gabapentin 400 Mg Capsule) 400 mg PO TID [facility] Last Admin: 10/20/21 14:36 Dose: 400 mg Hydroxyzine HCl (Hydroxyzine Hcl 25 Mg Tablet) 25 mg PO BEDTIME PRN PRN Reason: Anxiety Last Admin: 10/19/21 00:07 Dose: 25 mg Levothyroxine Sodium (Levothyroxine Sodium 50 Mcg Tablet) 50 mcg PO DAILY@0600 [facility] Last Admin: 10/20/21 06:29 Dose: 50 mcg Lorazepam (Lorazepam 0.5 Mg Tablet) 0.5 mg PO Q6H PRN PRN Reason: Anxiety Last Admin: 10/20/21 16:01 Dose: 0.5 mg Magnesium Hydroxide (Milk Of Magnesia 30 Ml Oral.Susp) 30 ml PO DAILY PRN PRN Reason: Constipation Methadone HCl (Methadone Hcl 20 Mg/2 Ml Oral.Conc) 80 mg PO DAILY [facility] Last Admin: 10/20/21 08:53 Dose: 80 mg Nicotine (Nicotine 21 Mg Patch.Td24) 21 mg TRANSDERMA DAILY [facility] Last Admin: 10/20/21 09:25 Dose: Not Given Nicotine Polacrilex (Nicotine Polacrilex Lozenge 4 Mg Lozenge) 4 mg BUCCAL Q1H PRN PRN Reason: Nicotine Cravings Last Admin: 10/19/21 17:12 Dose: 4 mg Omeprazole (Omeprazole 20 Mg Capsule.Dr) 20 mg PO DAILY@30 [facility] Ondansetron HCl (Ondansetron Odt 8 Mg Tab.Rapdis) 8 mg TRANSLINGU Q8H PRN PRN Reason: nausea Last Admin: 10/19/21 09:36 Dose: 8 mg Quetiapine Fumarate (Quetiapine Fumarate 25 Mg Tablet) 75 mg PO BEDTIME [facility] Topiramate (Topiramate 25 Mg Tablet) 25 mg PO DAILY [facility] Last Admin: 10/20/21 08:53 Dose: 25 mg Trazodone HCl (Trazodone Hcl 50 Mg Tablet) 50 mg PO BEDTIME PRN PRN Reason: Insomnia Last Admin: 10/19/21 00:07 Dose: 50 mg Zolpidem Tartrate (Zolpidem Tartrate 5 Mg Tablet) 5 mg PO BEDTIME [facility] Last Admin: 10/19/21 20:35 Dose: 5 mg Allergies Allergies Allergy/AdvReac Type Severity Reaction Status Date / Time azithromycin Allergy Fever Verified 10/15/21 18:47 lamotrigine [From Lamictal] AdvReac Fever Verified 10/15/21 18:47 Assessment & Plan Assessment & Plan (1) Bipolar disorder: Status: Acute Code(s): F31.9 - Bipolar disorder, unspecified (2) PTSD (post-traumatic stress disorder): Status: Acute Code(s): F43.10 - Post-traumatic stress disorder, unspecified (3) Opioid abuse with opioid-induced disorder: Status: Acute Code(s): F11.19 - Opioid abuse with unspecified opioid-induced disorder Plan 46 yo female, s/p suicide attempt prior to admission with relapse of heroin, endorsing SI upon ER admit. Precipitant was a 12 weeks admission for mgt of pulmonary emboli with several resulting losses. Pt hopes to have a full med eval, referrals for out pt care and residential referral if possible. Plan: Re-establish regime Symptom management Current UTI sx with UA that is WNL- Bactrim x 1 dose and re-evaluate. Levothyroxine 50 mcg daily Continue Wellbutrin, Gabapentin, Klonopin, Seroquel, Topiramate, Ambien-last taken 2 weeks ago, will titrate as tolerated. Diagnostics Collateral contacts per pt request. 10/19/21 Continue plan of care. Monitor physical sx. 10/20/21 Decrease Seroquel to 75 mg hs Monitor for exacerbation of medical symptoms I spent minutes with the patient and/or on the patient floor today, greater than?50% of which was spent counseling/coordinating care. Patient educated on: medication risk/benefits and therapeutic strategies Informed Consent: understands and further education needed Reason for contiued inpatient stay Substantial Risk for: med/psych decompensation
[2021-10-20] MEDS: QUEtiapine Fumarate 25 MG TABLET 75 MG PO ×2 (19:42→20:39)
[2021-10-20] MEDS: Zolpidem Tartrate 5 MG TABLET PO ×2 (19:42→20:39)
[2021-10-21 06:00] VITALS: BP 108/63; PULSE 68; RESP 16; TEMP 36.3; O2SAT 97
[2021-10-21] MEDS: Omeprazole 20 MG CAPSULE.DR PO (06:32)
[2021-10-21] MEDS: Levothyroxine Sodium 50 MCG TABLET PO (06:32)
[2021-10-21] MEDS: buPROPion HCl XL 150 MG TAB.ER.24H PO (08:50)
[2021-10-21] MEDS: Topiramate 25 MG TABLET PO (08:50)
[2021-10-21] MEDS: Gabapentin 400 MG CAPSULE PO ×3 (08:51→20:14)
[2021-10-21] MEDS: methADONE HCl 20 MG/2 ML ORAL.CONC 80 MG PO (08:51)
[2021-10-21] MEDS: LORazepam 0.5 MG TABLET PO (09:32)
[2021-10-21] MEDS: clonazePAM 0.5 MG TABLET PO ×2 (14:46→20:13)
--- NOTE | 2021-10-21 15:17 | HO.PSYCHPN ---
Subjective Subjective Date of Service: 10/21/21 Reason For Visit: Depression with SI, opiate, cocaine use d/o Subjective Notes: Conditional Voluntary Healthcare Proxy: No Guardianship: No Medical Problems Affecting Mental Status: No Interim History: Tearful-reports physically feeling improved. Anxious. Pt reports she is on the list for several programs and hopes one will accept her. Medication Compliance: Yes Side effects from medications: No Attending Groups: Yes Review of Systems Acute medical concerns: No Medical Review of Systems: unchanged Review of Systems Psychiatric: Reports anxiety, Reports depression, Reports difficulty concentrating, Reports hopelessness, Reports anhedonia and Reports mood swings Mental Status Exam Mental Status Exam Patient Appearance: Appropriate Patient Orientation: Person, Place, Time and Situation Level of Consciousness: Alert Patient Behavior: Appropriate, Talkative, Cooperative, Good Eye Contact and Crying Mood Description: Depressed Affect Description: Flat Patient Cognition Impaired: No Ability to Follow Directions: Good Speech Pattern: Spontaneous Speech Memory Description: Episodic Impaired Hallucinations: None Delusions: Not Present Perceptual Disturbances: Depersonalization and Derealization Thought Process: Distracted and Rumination Thought Content: positive for Circumstantial and positive for Perseveration Depressive Symptoms: Increased Anxiety, Crying Spells, Loss of Int. in Activity, Increased Fatigue, Thoughts of /Suicide (denies), Low Self Esteem and Difficulty Concentrating Abnormal Motor Activity Signs and Symptoms: Restlessness Judgement: Fair Diagnostics Vital Signs (24Hr): Vital Signs - 24 hr 10/20/21 18:00 10/21/21 06:00 Temperature 97.6 F 97.4 F Pulse Rate 99 68 Respiratory Rate 16 16 Blood Pressure 122/79 108/63 Pulse Oximetry 99 97 Oxygen Delivery Method Room Air BMI result Body Mass Index 22.8 Labs Results: 10/20/21 10:38 10/20/21 10:38 Labs: Laboratory Results - last 48 hr 10/20/21 10/20/21 10/20/21 10:38 10:38 10:38 WBC 6.5 RBC 4.80 Hgb 12.3 Hct 38.1 MCV 79.4 L MCH 25.6 L MCHC 32.3 RDW 14.7 Plt Count 132 L D MPV 10.3 Immature Gran % (Auto) 0.2 Neut % (Auto) 80.0 H Lymph % (Auto) 13.8 L [place] % (Auto) 4.9 Eos % (Auto) 0.9 Baso % (Auto) 0.2 Lymph # (Auto) 0.9 L [place] # (Auto) 0.3 Eos # (Auto) 0.1 Baso # (Auto) 0.0 Abs Immat Gran (auto) 0.01 Absolute Neuts (auto) 5.2 Absolute Nucleated RBC 0.000 Nucleated RBC % (auto) 0.0 Sodium 135 Potassium 4.1 D Chloride 100 Carbon Dioxide 26 Anion Gap 13 BUN 12 Creatinine 0.99 Estim Creat Clear Calc 58.1 Estimated GFR > 60 Random Glucose 132 H Lactic Acid 1.8 Calcium 8.8 D Total Bilirubin 0.3 Direct Bilirubin < 0.2 AST 25 ALT 17 Alkaline Phosphatase 79 Total Protein 7.0 D Albumin 3.8 D Urine Color Urine Appearance Urine pH Ur Specific [place] Urine Protein Urine Glucose (UA) Urine Ketones Urine Blood Urine Nitrite Ur Leukocyte Esterase Urine RBC Urine WBC Ur Squamous Epith Cells Ur Renal Epithelial Cell Urine Bacteria Urine Yeast Respiratory Panel Rinaldi Adenovirus (Rapid PCR) B.pert (TEM-PCR) B.parapertussis DNA PCR C. pneumoniae DNA (PCR) Coronavirus OC43 (PCR) Coronavirus HKU1 (PCR) Coronavirus 229E (PCR) Coronavirus NL63 (PCR) Human Metapneumovir PCR Influenza A (RT-PCR) Influenza B (RT-PCR) M. pneumoniae (PCR) Parainfluenza 1 (PCR) Parainfluenza 2 (PCR) Parainfluenza 3 (PCR) Parainfluenza 4 (PCR) RSV (PCR) Entero/Rhino (PCR) SARS-CoV-2 RNA (RT-PCR) 10/20/21 10/20/21 11:27 11:51 WBC RBC Hgb Hct MCV MCH MCHC RDW Plt Count MPV Immature Gran % (Auto) Neut % (Auto) Lymph % (Auto) [place] % (Auto) Eos % (Auto) Baso % (Auto) Lymph # (Auto) [place] # (Auto) Eos # (Auto) Baso # (Auto) Abs Immat Gran (auto) Absolute Neuts (auto) Absolute Nucleated RBC Nucleated RBC % (auto) Sodium Potassium Chloride Carbon Dioxide Anion Gap BUN Creatinine Estim Creat Clear Calc Estimated GFR Random Glucose Lactic Acid Calcium Total Bilirubin Direct Bilirubin AST ALT Alkaline Phosphatase Total Protein Albumin Urine Color YELLOW Urine Appearance HAZY Urine pH 8.5 H Ur Specific [place] 1.010 Urine Protein NEG Urine Glucose (UA) NEG Urine Ketones NEG Urine Blood NEG Urine Nitrite POS H Ur Leukocyte Esterase TRACE H Urine RBC 0 Urine WBC 10-14 H Ur Squamous Epith Cells 2+ Ur Renal Epithelial Cell 1+ Urine Bacteria 2+ Urine Yeast TRACE Respiratory Panel Rinaldi See Note Adenovirus (Rapid PCR) Not Detected B.pert (TEM-PCR) Not Detected B.parapertussis DNA PCR Not Detected C. pneumoniae DNA (PCR) Not Detected Coronavirus OC43 (PCR) Not Detected Coronavirus HKU1 (PCR) Not Detected Coronavirus 229E (PCR) Not Detected Coronavirus NL63 (PCR) Not Detected Human Metapneumovir PCR Not Detected Influenza A (RT-PCR) Not Detected Influenza B (RT-PCR) Not Detected M. pneumoniae (PCR) Not Detected Parainfluenza 1 (PCR) Not Detected Parainfluenza 2 (PCR) Not Detected Parainfluenza 3 (PCR) Not Detected Parainfluenza 4 (PCR) Not Detected RSV (PCR) Not Detected Entero/Rhino (PCR) Not Detected SARS-CoV-2 RNA (RT-PCR) Not Detected Imaging Radiology Impressions: ITS Impressions Chest X-Ray 10/20/21 10:40 IMPRESSION: Question of left upper lobe pulmonary nodule. CT scan is recommended for further evaluation. Medications Medications Current Medications Acetaminophen (Acetaminophen 325 Mg Tablet) 650 mg PO Q6H PRN PRN Reason: Headache/Pain Mild Scale (1-3) Last Admin: 10/20/21 09:24 Dose: 650 mg Al Hydroxide/Mg Hydroxide (Magnesium Hydrox/Alum Hydrox 30 Ml Oral.Susp) 30 ml PO Q6H PRN PRN Reason: Heartburn/Nausea Last Admin: 10/19/21 17:12 Dose: 30 ml Bupropion HCl (Bupropion Hcl Xl 150 Mg Tab.Er.24h) 150 mg PO DAILY [facility] Last Admin: 10/21/21 08:50 Dose: 150 mg Cefuroxime Axetil (Cefuroxime Axetil 250 Mg Tablet) 250 mg PO Q12H [facility] Stop: 10/26/21 20:01 Last Admin: 10/21/21 08:51 Dose: 250 mg Clonazepam (Clonazepam 0.5 Mg Tablet) 0.5 mg PO BID PRN PRN Reason: Anxiety Last Admin: 10/21/21 14:46 Dose: 0.5 mg Gabapentin (Gabapentin 400 Mg Capsule) 400 mg PO TID [facility] Last Admin: 10/21/21 14:46 Dose: 400 mg Hydroxyzine HCl (Hydroxyzine Hcl 25 Mg Tablet) 25 mg PO BEDTIME PRN PRN Reason: Anxiety Last Admin: 10/19/21 00:07 Dose: 25 mg Levothyroxine Sodium (Levothyroxine Sodium 50 Mcg Tablet) 50 mcg PO DAILY@0600 [facility] Last Admin: 10/21/21 06:32 Dose: 50 mcg Lorazepam (Lorazepam 0.5 Mg Tablet) 0.5 mg PO Q6H PRN PRN Reason: Anxiety Last Admin: 10/21/21 09:32 Dose: 0.5 mg Magnesium Hydroxide (Milk Of Magnesia 30 Ml Oral.Susp) 30 ml PO DAILY PRN PRN Reason: Constipation Methadone HCl (Methadone Hcl 20 Mg/2 Ml Oral.Conc) 80 mg PO DAILY [facility] Last Admin: 10/21/21 08:51 Dose: 80 mg Nicotine (Nicotine 21 Mg Patch.Td24) 21 mg TRANSDERMA DAILY [facility] Last Admin: 10/21/21 10:22 Dose: Not Given Nicotine Polacrilex (Nicotine Polacrilex Lozenge 4 Mg Lozenge) 4 mg BUCCAL Q1H PRN PRN Reason: Nicotine Cravings Last Admin: 10/19/21 17:12 Dose: 4 mg Omeprazole (Omeprazole 20 Mg Capsule.Dr) 20 mg PO DAILY@0630 [facility] Last Admin: 10/21/21 06:32 Dose: 20 mg Ondansetron HCl (Ondansetron Odt 8 Mg Tab.Rapdis) 8 mg TRANSLINGU Q8H PRN PRN Reason: nausea Last Admin: 10/19/21 09:36 Dose: 8 mg Quetiapine Fumarate (Quetiapine Fumarate 25 Mg Tablet) 75 mg PO BEDTIME [facility] Last Admin: 10/20/21 20:39 Dose: 75 mg Topiramate (Topiramate 25 Mg Tablet) 25 mg PO DAILY [facility] Last Admin: 10/21/21 08:50 Dose: 25 mg Trazodone HCl (Trazodone Hcl 50 Mg Tablet) 50 mg PO BEDTIME PRN PRN Reason: Insomnia Last Admin: 10/19/21 00:07 Dose: 50 mg Zolpidem Tartrate (Zolpidem Tartrate 5 Mg Tablet) 5 mg PO BEDTIME [facility] Last Admin: 10/20/21 20:39 Dose: 5 mg Allergies Allergies Allergy/AdvReac Type Severity Reaction Status Date / Time azithromycin Allergy Fever Verified 10/15/21 18:47 lamotrigine [From Lamictal] AdvReac Fever Verified 10/15/21 18:47 Assessment & Plan Assessment & Plan (1) Bipolar disorder: Status: Acute Code(s): F31.9 - Bipolar disorder, unspecified (2) PTSD (post-traumatic stress disorder): Status: Acute Code(s): F43.10 - Post-traumatic stress disorder, unspecified (3) Opioid abuse with opioid-induced disorder: Status: Acute Code(s): F11.19 - Opioid abuse with unspecified opioid-induced disorder Plan 46 yo female, s/p suicide attempt prior to admission with relapse of heroin, endorsing SI upon ER admit. Precipitant was a 12 weeks admission for mgt of pulmonary emboli with several resulting losses. Pt hopes to have a full med eval, referrals for out pt care and residential referral if possible. Plan: Re-establish regime Symptom management Current UTI sx with UA that is WNL- Bactrim x 1 dose and re-evaluate. Levothyroxine 50 mcg daily Continue Wellbutrin, Gabapentin, Klonopin, Seroquel, Topiramate, Ambien-last taken 2 weeks ago, will titrate as tolerated. Diagnostics Collateral contacts per pt request. 10/19/21 Continue plan of care. Monitor physical sx. 10/20/21 Decrease Seroquel to 75 mg hs Monitor for exacerbation of medical symptoms 10/21/21 Discontinue Ambien Lorazeapm. Continue Klonopin I spent minutes with the patient and/or on the patient floor today, greater than?50% of which was spent counseling/coordinating care. Patient educated on: therapeutic strategies Informed Consent: understands and further education needed Reason for contiued inpatient stay Substantial Risk for: inability to function and med/psych decompensation
[2021-10-21 18:33] VITALS: BP 121/82; PULSE 78; RESP 16; TEMP 36.7; O2SAT 97
[2021-10-21] MEDS: traZODone HCL 50 MG TABLET PO (20:13)
[2021-10-21] MEDS: QUEtiapine Fumarate 25 MG TABLET 75 MG PO (20:14)
[2021-10-22] MEDS: Levothyroxine Sodium 50 MCG TABLET PO (05:05)
[2021-10-22] MEDS: Omeprazole 20 MG CAPSULE.DR PO (05:05)
[2021-10-22 06:00] VITALS: BP 102/63; PULSE 89; TEMP 36.6; O2SAT 98
[2021-10-22] MEDS: buPROPion HCl XL 150 MG TAB.ER.24H PO (09:12)
[2021-10-22] MEDS: Gabapentin 400 MG CAPSULE PO ×3 (09:12→20:57)
[2021-10-22] MEDS: methADONE HCl 20 MG/2 ML ORAL.CONC 80 MG PO (09:12)
[2021-10-22] MEDS: Topiramate 25 MG TABLET PO (09:12)
[2021-10-22] MEDS: Ondansetron ODT 8 MG TAB.RAPDIS TRANSLINGU (09:58)
[2021-10-22] MEDS: clonazePAM 0.5 MG TABLET PO ×2 (10:49→20:58)
--- NOTE | 2021-10-22 14:31 | P.PNPSI_ITS ---
Subjective Subjective Date of Service: 10/22/21 Reason For Visit: Depression with SI, opiate, cocaine use d/o Interim History: Met with patient. Chart reviewed. Discussed with Nursing. Overall patient reports that her sleep has been broken. Is finding it difficult to let go of the past get frustrated by same. Reports still feels anxious but depression is better. Intermittent suicidal thoughts but much less frequent and intense. Was asking around Ambien and why this was discontinued. Did note this was discontinued yesterday by primary team and patient can discuss this with him after the weekend. Medication Compliance: Yes Side effects from medications: No Attending Groups: Yes Review of Systems Acute medical concerns: No Review of Systems Review of Systems Unremarkable Mental Status Exam Mental Status Exam Narrative: Pleasant. Engaged. Organized. Anxious. No SI. No HI. No psychosis. No agitation. Insight and judgment okay Diagnostics Vital Signs (24Hr): Vital Signs - 24 hr 10/21/21 18:33 10/22/21 06:00 Temperature 98.1 F 97.8 F Pulse Rate 78 89 Respiratory Rate 16 Blood Pressure 121/82 102/63 Pulse Oximetry 97 98 Oxygen Delivery Method Room Air Room Air BMI result Body Mass Index 22.8 Labs Results: 10/20/21 10:38 10/20/21 10:38 Imaging Radiology Impressions: ITS Impressions Chest X-Ray 10/20/21 10:40 IMPRESSION: Question of left upper lobe pulmonary nodule. CT scan is recommended for further evaluation. Medications Medications Current Medications Acetaminophen (Acetaminophen 325 Mg Tablet) 650 mg PO Q6H PRN PRN Reason: Headache/Pain Mild Scale (1-3) Last Admin: 10/20/21 09:24 Dose: 650 mg Al Hydroxide/Mg Hydroxide (Magnesium Hydrox/Alum Hydrox 30 Ml Oral.Susp) 30 ml PO Q6H PRN PRN Reason: Heartburn/Nausea Last Admin: 10/19/21 17:12 Dose: 30 ml Bupropion HCl (Bupropion Hcl Xl 150 Mg Tab.Er.24h) 150 mg PO DAILY [facility] Last Admin: 10/22/21 09:12 Dose: 150 mg Cefuroxime Axetil (Cefuroxime Axetil 250 Mg Tablet) 250 mg PO Q12H [facility] Stop: 10/26/21 20:01 Last Admin: 10/22/21 09:12 Dose: 250 mg Clonazepam (Clonazepam 0.5 Mg Tablet) 0.5 mg PO BID PRN PRN Reason: Anxiety Last Admin: 10/22/21 10:49 Dose: 0.5 mg Gabapentin (Gabapentin 400 Mg Capsule) 400 mg PO TID [facility] Last Admin: 10/22/21 09:12 Dose: 400 mg Hydroxyzine HCl (Hydroxyzine Hcl 25 Mg Tablet) 25 mg PO BEDTIME PRN PRN Reason: Anxiety Last Admin: 10/19/21 00:07 Dose: 25 mg Levothyroxine Sodium (Levothyroxine Sodium 50 Mcg Tablet) 50 mcg PO DAILY@0600 [facility] Last Admin: 10/22/21 05:05 Dose: 50 mcg Magnesium Hydroxide (Milk Of Magnesia 30 Ml Oral.Susp) 30 ml PO DAILY PRN PRN Reason: Constipation Methadone HCl (Methadone Hcl 20 Mg/2 Ml Oral.Conc) 80 mg PO DAILY [facility] Last Admin: 10/22/21 09:12 Dose: 80 mg Nicotine (Nicotine 21 Mg Patch.Td24) 21 mg TRANSDERMA DAILY [facility] Last Admin: 10/22/21 09:30 Dose: Not Given Nicotine Polacrilex (Nicotine Polacrilex Lozenge 4 Mg Lozenge) 4 mg BUCCAL Q1H PRN PRN Reason: Nicotine Cravings Last Admin: 10/19/21 17:12 Dose: 4 mg Omeprazole (Omeprazole 20 Mg Capsule.Dr) 20 mg PO DAILY@0630 [facility] Last Admin: 10/22/21 05:05 Dose: 20 mg Ondansetron HCl (Ondansetron Odt 8 Mg Tab.Rapdis) 8 mg TRANSLINGU Q8H PRN PRN Reason: nausea Last Admin: 10/22/21 09:58 Dose: 8 mg Quetiapine Fumarate (Quetiapine Fumarate 25 Mg Tablet) 75 mg PO BEDTIME [facility] Last Admin: 10/21/21 20:14 Dose: 75 mg Topiramate (Topiramate 25 Mg Tablet) 25 mg PO DAILY [facility] Last Admin: 10/22/21 09:12 Dose: 25 mg Trazodone HCl (Trazodone Hcl 50 Mg Tablet) 50 mg PO BEDTIME PRN PRN Reason: Insomnia Last Admin: 10/21/21 20:13 Dose: 50 mg Allergies Allergies Allergy/AdvReac Type Severity Reaction Status Date / Time azithromycin Allergy Fever Verified 10/15/21 18:47 lamotrigine [From Lamictal] AdvReac Fever Verified 10/15/21 18:47 Assessment & Plan Assessment & Plan (1) Bipolar disorder: Status: Acute Code(s): F31.9 - Bipolar disorder, unspecified (2) PTSD (post-traumatic stress disorder): Status: Acute Code(s): F43.10 - Post-traumatic stress disorder, unspecified (3) Opioid abuse with opioid-induced disorder: Status: Acute Code(s): F11.19 - Opioid abuse with unspecified opioid-induced disorder Plan 46 yo female, s/p suicide attempt prior to admission with relapse of heroin, endorsing SI upon ER admit. Precipitant was a 12 weeks admission for mgt of pulmonary emboli with several resulting losses. Pt hopes to have a full med eval, referrals for out pt care and residential referral if possible. Plan: Re-establish regime Symptom management Current UTI sx with UA that is WNL- Bactrim x 1 dose and re-evaluate. Levothyroxine 50 mcg daily Continue Wellbutrin, Gabapentin, Klonopin, Seroquel, Topiramate, Ambien-last taken 2 weeks ago, will titrate as tolerated. Diagnostics Collateral contacts per pt request. 10/19/21 Continue plan of care. Monitor physical sx. 10/20/21 Decrease Seroquel to 75 mg hs Monitor for exacerbation of medical symptoms 10/21/21 Discontinue Ambien, Lorazeapm. Continue Klonopin : No changes to current regimen I spent minutes with the patient and/or on the patient floor today, g reater than?50% of which was spent counseling/coordinating care. Reason for contiued inpatient stay Substantial Risk for: harm to self
[2021-10-22] MEDS: hydrOXYzine HCL 25 MG TABLET PO (16:34)
[2021-10-22 18:00] VITALS: BP 100/75; PULSE 89; RESP 18; TEMP 36.6; O2SAT 95
[2021-10-22] MEDS: QUEtiapine Fumarate 25 MG TABLET 75 MG PO (20:58)
[2021-10-23] MEDS: Ondansetron ODT 8 MG TAB.RAPDIS TRANSLINGU (03:20)
[2021-10-23] MEDS: Levothyroxine Sodium 50 MCG TABLET PO (06:23)
[2021-10-23] MEDS: Omeprazole 20 MG CAPSULE.DR PO (06:23)
[2021-10-23 06:44] VITALS: BP 96/57; PULSE 70; RESP 16; TEMP 36.7; O2SAT 94
[2021-10-23] MEDS: Gabapentin 400 MG CAPSULE PO ×3 (08:45→20:08)
[2021-10-23] MEDS: Topiramate 25 MG TABLET PO (08:45)
[2021-10-23] MEDS: methADONE HCl 20 MG/2 ML ORAL.CONC 80 MG PO (08:45)
[2021-10-23] MEDS: buPROPion HCl XL 150 MG TAB.ER.24H PO (08:45)
[2021-10-23] MEDS: clonazePAM 0.5 MG TABLET PO (10:09)
--- NOTE | 2021-10-23 12:11 | P.PNPSI_ITS ---
Subjective Subjective Date of Service: 10/23/21 Reason For Visit: Depression with SI, opiate, cocaine use d/o Interim History: Sleep remains problematic. Aware that she can discuss Ambien medication with primary team on Sunday. Reports to prazosin was helpful in the past and we will schedule this tonight at 2 mg. Also reports clonidine helpful for anxiety in the past. Reports trazodone gives restless leg syndrome. Otherwise, still feels anxious but depression is better. Intermittent suicidal thoughts but much less frequent and intense. . Medication Compliance: Yes Side effects from medications: No Attending Groups: Yes Review of Systems Acute medical concerns: No Review of Systems Review of Systems Unremarkable Mental Status Exam Mental Status Exam Narrative: Pleasant. Engaged. Organized. Anxious. No SI. No HI. No psychosis. No agitation. Insight and judgment okay Diagnostics Vital Signs (24Hr): Vital Signs - 24 hr 10/22/21 18:00 10/23/21 06:44 Temperature 98 F 98.1 F Pulse Rate 89 70 Respiratory Rate 18 16 Blood Pressure 100/75 96/57 L Pulse Oximetry 95 94 Oxygen Delivery Method Room Air Room Air BMI result Body Mass Index 22.8 Labs Results: 10/20/21 10:38 10/20/21 10:38 Imaging Radiology Impressions: ITS Impressions Chest X-Ray 10/20/21 10:40 IMPRESSION: Question of left upper lobe pulmonary nodule. CT scan is recommended for further evaluation. Medications Medications Current Medications Acetaminophen (Acetaminophen 325 Mg Tablet) 650 mg PO Q6H PRN PRN Reason: Headache/Pain Mild Scale (1-3) Last Admin: 10/20/21 09:24 Dose: 650 mg Al Hydroxide/Mg Hydroxide (Magnesium Hydrox/Alum Hydrox 30 Ml Oral.Susp) 30 ml PO Q6H PRN PRN Reason: Heartburn/Nausea Last Admin: 10/19/21 17:12 Dose: 30 ml Bupropion HCl (Bupropion Hcl Xl 150 Mg Tab.Er.24h) 150 mg PO DAILY PATRICK Last Admin: 10/23/21 08:45 Dose: 150 mg Cefuroxime Axetil (Cefuroxime Axetil 250 Mg Tablet) 250 mg PO Q12H [facility] Stop: 10/26/21 20:01 Last Admin: 10/23/21 08:45 Dose: 250 mg Clonazepam (Clonazepam 0.5 Mg Tablet) 0.5 mg PO BID PRN PRN Reason: Anxiety Last Admin: 10/23/21 10:09 Dose: 0.5 mg Gabapentin (Gabapentin 400 Mg Capsule) 400 mg PO TID [facility] Last Admin: 10/23/21 08:45 Dose: 400 mg Hydroxyzine HCl (Hydroxyzine Hcl 25 Mg Tablet) 25 mg PO BEDTIME PRN PRN Reason: Anxiety Last Admin: 10/22/21 16:34 Dose: 25 mg Levothyroxine Sodium (Levothyroxine Sodium 50 Mcg Tablet) 50 mcg PO DAILY@0600 [facility] Last Admin: 10/23/21 06:23 Dose: 50 mcg Magnesium Hydroxide (Milk Of Magnesia 30 Ml Oral.Susp) 30 ml PO DAILY PRN PRN Reason: Constipation Methadone HCl (Methadone Hcl 20 Mg/2 Ml Oral.Conc) 80 mg PO DAILY [facility] Last Admin: 10/23/21 08:45 Dose: 80 mg Nicotine (Nicotine 21 Mg Patch.Td24) 21 mg TRANSDERMA DAILY [facility] Last Admin: 10/23/21 08:58 Dose: Not Given Nicotine Polacrilex (Nicotine Polacrilex Lozenge 4 Mg Lozenge) 4 mg BUCCAL Q1H PRN PRN Reason: Nicotine Cravings Last Admin: 10/19/21 17:12 Dose: 4 mg Omeprazole (Omeprazole 20 Mg Capsule.Dr) 20 mg PO DAILY@0630 [facility] Last Admin: 10/23/21 06:23 Dose: 20 mg Ondansetron HCl (Ondansetron Odt 8 Mg Tab.Rapdis) 8 mg TRANSLINGU Q8H PRN PRN Reason: nausea Last Admin: 10/23/21 03:20 Dose: 8 mg Quetiapine Fumarate (Quetiapine Fumarate 25 Mg Tablet) 75 mg PO BEDTIME [facility] Last Admin: 10/22/21 20:58 Dose: 75 mg Topiramate (Topiramate 25 Mg Tablet) 25 mg PO DAILY [facility] Last Admin: 10/23/21 08:45 Dose: 25 mg Trazodone HCl (Trazodone Hcl 50 Mg Tablet) 50 mg PO BEDTIME PRN PRN Reason: Insomnia Last Admin: 10/21/21 20:13 Dose: 50 mg Allergies Allergies Allergy/AdvReac Type Severity Reaction Status Date / Time azithromycin Allergy Fever Verified 10/15/21 18:47 lamotrigine [From Lamictal] AdvReac Fever Verified 10/15/21 18:47 Assessment & Plan Assessment & Plan (1) Bipolar disorder: Status: Acute Code(s): F31.9 - Bipolar disorder, unspecified (2) PTSD (post-traumatic stress disorder): Status: Acute Code(s): F43.10 - Post-traumatic stress disorder, unspecified (3) Opioid abuse with opioid-induced disorder: Status: Acute Code(s): F11.19 - Opioid abuse with unspecified opioid-induced disorder Plan 46 yo female, s/p suicide attempt prior to admission with relapse of heroin, endorsing SI upon ER admit. Precipitant was a 12 weeks admission for mgt of pulmonary emboli with several resulting losses. Pt hopes to have a full med eval, referrals for out pt care and residential referral if possible. Plan: Re-establish regime Symptom management Current UTI sx with UA that is WNL- Bactrim x 1 dose and re-evaluate. Levothyroxine 50 mcg daily Continue Wellbutrin, Gabapentin, Klonopin, Seroquel, Topiramate, Ambien-last taken 2 weeks ago, will titrate as tolerated. Diagnostics Collateral contacts per pt request. 10/19/21 Continue plan of care. Monitor physical sx. 10/20/21 Decrease Seroquel to 75 mg hs Monitor for exacerbation of medical symptoms 10/21/21 Discontinue Jose Quintanillaeapm. Continue Klonopin 10/23/2021: At prazosin 2 mg at bedtime and clonidine 0.1 mg as needed. Discontinue trazodone as reports restlessness on same in the past. I spent minutes with the patient and/or on the patient floor today, greater than?50% of which was spent counseling/coordinating care. Reason for contiued inpatient stay Substantial Risk for: inability to function
[2021-10-23] MEDS: cloNIDine HCL 0.1 MG TABLET PO (17:03)
[2021-10-23 17:04] VITALS: BP 107/74; PULSE 78; RESP 16; TEMP 36.8; O2SAT 98
[2021-10-23] MEDS: Prazosin HCL 1 MG CAPSULE 2 MG PO (20:08)
[2021-10-23] MEDS: QUEtiapine Fumarate 25 MG TABLET 75 MG PO (20:09)
[2021-10-24 06:00] VITALS: BP 82/49; PULSE 68; TEMP 36.5; O2SAT 96
[2021-10-24] MEDS: Levothyroxine Sodium 50 MCG TABLET PO (06:34)
[2021-10-24] MEDS: Omeprazole 20 MG CAPSULE.DR PO (06:34)
[2021-10-24] MEDS: buPROPion HCl XL 150 MG TAB.ER.24H PO (08:44)
[2021-10-24] MEDS: methADONE HCl 20 MG/2 ML ORAL.CONC 80 MG PO (08:44)
[2021-10-24] MEDS: Topiramate 25 MG TABLET PO (08:44)
[2021-10-24] MEDS: Gabapentin 400 MG CAPSULE PO ×3 (08:44→20:17)
[2021-10-24] MEDS: clonazePAM 0.5 MG TABLET PO (09:53)
[2021-10-24] MEDS: cloNIDine HCL 0.1 MG TABLET PO (14:29)
[2021-10-24 14:32] VITALS: BP 111/69; PULSE 95
--- NOTE | 2021-10-24 15:45 | HO.PSYCHPN ---
Subjective Subjective Date of Service: 10/24/21 Reason For Visit: Depression with SI, opiate, cocaine use d/o Interim History: Sleep remains problematic, With prazosin and Seroquel 75 mg. Aware that she can discuss Ambien medication with primary team on Sunday. Otherwise, still feels anxious but depression is better. no psychosis. No agitation. Getting on well with roommate. Intermittent suicidal thoughts but much less frequent and intense. Medication Compliance: Yes Side effects from medications: No Attending Groups: Yes Review of Systems Acute medical concerns: No Review of Systems Review of Systems Unremarkable Mental Status Exam Mental Status Exam Narrative: Pleasant. Engaged. Organized. Anxious. No SI. No HI. No psychosis. No agitation. Insight and judgment okay Diagnostics Vital Signs (24Hr): Vital Signs - 24 hr 10/23/21 17:04 10/24/21 06:00 10/24/21 14:32 Temperature 98.2 F 97.7 F Pulse Rate 78 68 95 Respiratory Rate 16 Blood Pressure 107/74 82/49 L 111/69 Pulse Oximetry 98 96 Oxygen Delivery Method Room Air Room Air BMI result Body Mass Index 22.8 Labs Results: 10/20/21 10:38 10/20/21 10:38 Imaging Radiology Impressions: ITS Impressions Chest X-Ray 10/20/21 10:40 IMPRESSION: Question of left upper lobe pulmonary nodule. CT scan is recommended for further evaluation. Medications Medications Current Medications Acetaminophen (Acetaminophen 325 Mg Tablet) 650 mg PO Q6H PRN PRN Reason: Headache/Pain Mild Scale (1-3) Last Admin: 10/20/21 09:24 Dose: 650 mg Al Hydroxide/Mg Hydroxide (Magnesium Hydrox/Alum Hydrox 30 Ml Oral.Susp) 30 ml PO Q6H PRN PRN Reason: Heartburn/Nausea Last Admin: 10/19/21 17:12 Dose: 30 ml Bupropion HCl (Bupropion Hcl Xl 150 Mg Tab.Er.24h) 150 mg PO DAILY PATRICK Last Admin: 10/24/21 08:44 Dose: 150 mg Cefuroxime Axetil (Cefuroxime Axetil 250 Mg Tablet) 250 mg PO Q12H [facility] Stop: 10/26/21 20:01 Last Admin: 10/24/21 08:44 Dose: 250 mg Clonazepam (Clonazepam 0.5 Mg Tablet) 0.5 mg PO BID PRN PRN Reason: Anxiety Last Admin: 10/24/21 09:53 Dose: 0.5 mg Clonidine HCl (Clonidine Hcl 0.1 Mg Tablet) 0.1 mg PO TID PRN; Protocol PRN Reason: agitation Last Admin: 10/24/21 14:29 Dose: 0.1 mg Gabapentin (Gabapentin 400 Mg Capsule) 400 mg PO TID [facility] Last Admin: 10/24/21 14:26 Dose: 400 mg Hydroxyzine HCl (Hydroxyzine Hcl 25 Mg Tablet) 25 mg PO BEDTIME PRN PRN Reason: Anxiety Last Admin: 10/22/21 16:34 Dose: 25 mg Levothyroxine Sodium (Levothyroxine Sodium 50 Mcg Tablet) 50 mcg PO DAILY@0600 [facility] Last Admin: 10/24/21 06:34 Dose: 50 mcg Magnesium Hydroxide (Milk Of Magnesia 30 Ml Oral.Susp) 30 ml PO DAILY PRN PRN Reason: Constipation Methadone HCl (Methadone Hcl 20 Mg/2 Ml Oral.Conc) 80 mg PO DAILY [facility] Last Admin: 10/24/21 08:44 Dose: 80 mg Nicotine (Nicotine 21 Mg Patch.Td24) 21 mg TRANSDERMA DAILY [facility] Last Admin: 10/24/21 08:45 Dose: Not Given Nicotine Polacrilex (Nicotine Polacrilex Lozenge 4 Mg Lozenge) 4 mg BUCCAL Q1H PRN PRN Reason: Nicotine Cravings Last Admin: 10/19/21 17:12 Dose: 4 mg Omeprazole (Omeprazole 20 Mg Capsule.Dr) 20 mg PO DAILY@0630 [facility] Last Admin: 10/24/21 06:34 Dose: 20 mg Ondansetron HCl (Ondansetron Odt 8 Mg Tab.Rapdis) 8 mg TRANSLINGU Q8H PRN PRN Reason: nausea Last Admin: 10/23/21 03:20 Dose: 8 mg Prazosin HCl (Prazosin Hcl 1 Mg Capsule) 2 mg PO BEDTIME [facility]; Protocol Last Admin: 10/23/21 20:08 Dose: 2 mg Quetiapine Fumarate (Quetiapine Fumarate 25 Mg Tablet) 75 mg PO BEDTIME [facility] Last Admin: 10/23/21 20:09 Dose: 75 mg Topiramate (Topiramate 25 Mg Tablet) 25 mg PO DAILY [facility] Last Admin: 10/24/21 08:44 Dose: 25 mg Allergies Allergies Allergy/AdvReac Type Severity Reaction Status Date / Time azithromycin Allergy Fever Verified 10/15/21 18:47 lamotrigine [From Lamictal] AdvReac Fever Verified 10/15/21 18:47 Assessment & Plan Assessment & Plan (1) Bipolar disorder: Status: Acute Code(s): F31.9 - Bipolar disorder, unspecified (2) PTSD (post-traumatic stress disorder): Status: Acute Code(s): F43.10 - Post-traumatic stress disorder, unspecified (3) Opioid abuse with opioid-induced disorder: Status: Acute Code(s): F11.19 - Opioid abuse with unspecified opioid-induced disorder Plan 46 yo female, s/p suicide attempt prior to admission with relapse of heroin, endorsing SI upon ER admit. Precipitant was a 12 weeks admission for mgt of pulmonary emboli with several resulting losses. Pt hopes to have a full med eval, referrals for out pt care and residential referral if possible. Plan: Re-establish regime Symptom management Current UTI sx with UA that is WNL- Bactrim x 1 dose and re-evaluate. Levothyroxine 50 mcg daily Continue Wellbutrin, Gabapentin, Klonopin, Seroquel, Topiramate, Ambien-last taken 2 weeks ago, will titrate as tolerated. Diagnostics Collateral contacts per pt request. 10/19/21 Continue plan of care. Monitor physical sx. 10/20/21 Decrease Seroquel to 75 mg hs Monitor for exacerbation of medical symptoms 10/21/21 Discontinue Ambien, Lorazeapm. Continue Klonopin 10/23/2021: At prazosin 2 mg at bedtime and clonidine 0.1 mg as needed. Discontinue trazodone as reports restlessness on same in the past. 10/24: Increase Seroquel to 100 mg at bedtime I spent minutes with the patient and/or on the patient floor today, greater than?50% of which was spent counseling/coordinating care. Reason for contiued inpatient stay Substantial Risk for: harm to self
[2021-10-24 16:54] VITALS: BP 113/66; PULSE 75; RESP 16; TEMP 36.5; O2SAT 99
[2021-10-24] MEDS: QUEtiapine Fumarate 100 MG TABLET PO (20:16)
[2021-10-24] MEDS: Prazosin HCL 1 MG CAPSULE 2 MG PO (20:17)
[2021-10-25 06:00] VITALS: BP 98/60; PULSE 68; RESP 16; TEMP 36.6; O2SAT 97
[2021-10-25] MEDS: Omeprazole 20 MG CAPSULE.DR PO (06:58)
[2021-10-25] MEDS: Levothyroxine Sodium 50 MCG TABLET PO (06:58)
[2021-10-25] MEDS: methADONE HCl 20 MG/2 ML ORAL.CONC 80 MG PO (08:14)
[2021-10-25] MEDS: Topiramate 25 MG TABLET PO (08:14)
[2021-10-25] MEDS: buPROPion HCl XL 150 MG TAB.ER.24H PO (08:14)
[2021-10-25] MEDS: Gabapentin 400 MG CAPSULE PO ×3 (08:14→20:51)
[2021-10-25] MEDS: clonazePAM 0.5 MG TABLET PO (10:08)
--- NOTE | 2021-10-25 17:04 | P.PNPSI_ITS ---
Subjective Subjective Date of Service: 10/25/21 Reason For Visit: Depression with SI, opiate, cocaine use d/o Subjective Notes: Conditional Voluntary Healthcare Proxy: No Guardianship: No Medical Problems Affecting Mental Status: No Interim History: Anxious about placement- Are you going to throw me out on the street . I am afraid . Pt accepted for an interview this afternoon-reports great relief and a decrease in her anxiety. Medication Compliance: Yes Side effects from medications: No Attending Groups: Yes Review of Systems Acute medical concerns: No Medical Review of Systems: unchanged Review of Systems Psychiatric: Reports anxiety, Reports difficulty concentrating and Reports mood swings Mental Status Exam Mental Status Exam Patient Appearance: Appropriate Patient Orientation: Person, Place, Time and Situation Level of Consciousness: Alert Patient Behavior: Talkative and Good Eye Contact Mood Description: Anxious and Apprehensive Affect Description: Apprehensive Patient Cognition Impaired: No Ability to Follow Directions: Good Speech Pattern: Spontaneous Speech Memory Description: Intact Hallucinations: None Delusions: Not Present Perceptual Disturbances: Derealization Thought Process: Distracted Thought Content: positive for Circumstantial Depressive Symptoms: Increased Anxiety Abnormal Motor Activity Signs and Symptoms: Restlessness Judgement: Good Diagnostics Vital Signs (24Hr): Vital Signs - 24 hr 10/25/21 06:00 Temperature 97.9 F Pulse Rate 68 Respiratory Rate 16 Blood Pressure 98/60 Pulse Oximetry 97 BMI result Body Mass Index 22.8 Labs Results: 10/20/21 10:38 10/20/21 10:38 Imaging Radiology Impressions: ITS Impressions Chest X-Ray 10/20/21 10:40 IMPRESSION: Question of left upper lobe pulmonary nodule. CT scan is recommended for further evaluation. Medications Medications Current Medications Acetaminophen (Acetaminophen 325 Mg Tablet) 650 mg PO Q6H PRN PRN Reason: Headache/Pain Mild Scale (1-3) Last Admin: 10/20/21 09:24 Dose: 650 mg Al Hydroxide/Mg Hydroxide (Magnesium Hydrox/Alum Hydrox 30 Ml Oral.Susp) 30 ml PO Q6H PRN PRN Reason: Heartburn/Nausea Last Admin: 10/19/21 17:12 Dose: 30 ml Bupropion HCl (Bupropion Hcl Xl 150 Mg Tab.Er.24h) 150 mg PO DAILY PATRICK Last Admin: 10/25/21 08:14 Dose: 150 mg Cefuroxime Axetil (Cefuroxime Axetil 250 Mg Tablet) 250 mg PO Q12H [facility] Stop: 10/26/21 20:01 Last Admin: 10/25/21 08:14 Dose: 250 mg Clonazepam (Clonazepam 0.5 Mg Tablet) 0.5 mg PO BID PRN PRN Reason: Anxiety Last Admin: 10/25/21 10:08 Dose: 0.5 mg Clonidine HCl (Clonidine Hcl 0.1 Mg Tablet) 0.1 mg PO TID PRN; Protocol PRN Reason: agitation Last Admin: 10/24/21 14:29 Dose: 0.1 mg Gabapentin (Gabapentin 400 Mg Capsule) 400 mg PO TID PATRICK Last Admin: 10/25/21 14:20 Dose: 400 mg Hydroxyzine HCl (Hydroxyzine Hcl 25 Mg Tablet) 25 mg PO BEDTIME PRN PRN Reason: Anxiety Last Admin: 10/22/21 16:34 Dose: 25 mg Levothyroxine Sodium (Levothyroxine Sodium 50 Mcg Tablet) 50 mcg PO DAILY@0600 [facility] Last Admin: 10/25/21 06:58 Dose: 50 mcg Magnesium Hydroxide (Milk Of Magnesia 30 Ml Oral.Susp) 30 ml PO DAILY PRN PRN Reason: Constipation Methadone HCl (Methadone Hcl 20 Mg/2 Ml Oral.Conc) 80 mg PO DAILY [facility] Last Admin: 10/25/21 08:14 Dose: 80 mg Nicotine (Nicotine 21 Mg Patch.Td24) 21 mg TRANSDERMA DAILY [facility] Last Admin: 10/25/21 08:15 Dose: Not Given Nicotine Polacrilex (Nicotine Polacrilex Lozenge 4 Mg Lozenge) 4 mg BUCCAL Q1H PRN PRN Reason: Nicotine Cravings Last Admin: 10/19/21 17:12 Dose: 4 mg Omeprazole (Omeprazole 20 Mg Capsule.Dr) 20 mg PO DAILY@0630 [facility] Last Admin: 10/25/21 06:58 Dose: 20 mg Ondansetron HCl (Ondansetron Odt 8 Mg Tab.Rapdis) 8 mg TRANSLINGU Q8H PRN PRN Reason: nausea Last Admin: 10/23/21 03:20 Dose: 8 mg Prazosin HCl (Prazosin Hcl 1 Mg Capsule) 2 mg PO BEDTIME [facility]; Protocol Last Admin: 10/24/21 20:17 Dose: 2 mg Quetiapine Fumarate (Quetiapine Fumarate 100 Mg Tablet) 100 mg PO BEDTIME [facility] Last Admin: 10/24/21 20:16 Dose: 100 mg Topiramate (Topiramate 25 Mg Tablet) 25 mg PO DAILY [facility] Last Admin: 10/25/21 08:14 Dose: 25 mg Allergies Allergies Allergy/AdvReac Type Severity Reaction Status Date / Time azithromycin Allergy Fever Verified 10/15/21 18:47 lamotrigine [From Lamictal] AdvReac Fever Verified 10/15/21 18:47 Assessment & Plan Assessment & Plan (1) Bipolar disorder: Status: Acute Code(s): F31.9 - Bipolar disorder, unspecified (2) PTSD (post-traumatic stress disorder): Status: Acute Code(s): F43.10 - Post-traumatic stress disorder, unspecified (3) Opioid abuse with opioid-induced disorder: Status: Acute Code(s): F11.19 - Opioid abuse with unspecified opioid-induced disorder Plan 46 yo female, s/p suicide attempt prior to admission with relapse of heroin, endorsing SI upon ER admit. Precipitant was a 12 weeks admission for mgt of pulmonary emboli with several resulting losses. Pt hopes to have a full med eval, referrals for out pt care and residential referral if possible. Plan: Re-establish regime Symptom management Current UTI sx with UA that is WNL- Bactrim x 1 dose and re-evaluate. Levothyroxine 50 mcg daily Continue Wellbutrin, Gabapentin, Klonopin, Seroquel, Topiramate, Ambien-last taken 2 weeks ago, will titrate as tolerated. Diagnostics Collateral contacts per pt request. 10/19/21 Continue plan of care. Monitor physical sx. 10/20/21 Decrease Seroquel to 75 mg hs Monitor for exacerbation of medical symptoms 10/21/21 Discontinue Ambien, Lorazeapm. Continue Klonopin 10/23/2021: At prazosin 2 mg at bedtime and clonidine 0.1 mg as needed. Di scontinue trazodone as reports restlessness on same in the past. 10/24: Increase Seroquel to 100 mg at bedtime 10/25/21: Continue current regime I spent minutes with the patient and/or on the patient floor today, greater than?50% of which was spent counseling/coordinating care. Patient educated on: medication risk/benefits and therapeutic strategies Informed Consent: understands Reason for contiued inpatient stay Substantial Risk for: inability to function and rapid decompensation
[2021-10-25] MEDS: cloNIDine HCL 0.1 MG TABLET PO (18:02)
[2021-10-25 20:39] VITALS: BP 102/62; PULSE 81; TEMP 36.4
[2021-10-25] MEDS: QUEtiapine Fumarate 100 MG TABLET PO (20:51)
[2021-10-25] MEDS: Prazosin HCL 1 MG CAPSULE 2 MG PO (20:51)
[2021-10-26] MEDS: hydrOXYzine HCL 25 MG TABLET PO (00:48)
[2021-10-26] MEDS: clonazePAM 0.5 MG TABLET PO ×3 (00:48→17:00)
[2021-10-26 06:00] VITALS: BP 103/68; PULSE 69; TEMP 36.5; O2SAT 96
[2021-10-26] MEDS: Omeprazole 20 MG CAPSULE.DR PO (06:37)
[2021-10-26] MEDS: Levothyroxine Sodium 50 MCG TABLET PO (06:37)
[2021-10-26] MEDS: methADONE HCl 20 MG/2 ML ORAL.CONC 80 MG PO (09:09)
[2021-10-26] MEDS: Gabapentin 400 MG CAPSULE PO (09:09)
[2021-10-26] MEDS: Topiramate 25 MG TABLET PO (09:09)
[2021-10-26] MEDS: buPROPion HCl XL 150 MG TAB.ER.24H PO (09:10)
[2021-10-26] MEDS: Gabapentin 300 MG CAPSULE 600 MG PO ×2 (14:05→20:11)
--- NOTE | 2021-10-26 15:59 | P.PNPSI_ITS ---
Subjective Subjective Date of Service: 10/26/21 Reason For Visit: Depression with SI, opiate, cocaine use d/o Subjective Notes: Conditional Voluntary Healthcare Proxy: No Guardianship: No Medical Problems Affecting Mental Status: No Interim History: Pt accepted for placement on 10/28. She is relieved. Reports to team of SOB during the night, describes GERD sx however, hx asthma. Discussed increasing Seroquel to 150 mg and Gabapentin to 600 mg tid. Reports she is sleeping better overall with d/c of Trazodone (restless legs) Medication Compliance: Yes Side effects from medications: No Attending Groups: Yes Review of Systems Acute medical concerns: No Review of Systems Psychiatric: Reports no additional psychiatric complaints Mental Status Exam Mental Status Exam Patient Appearance: Appropriate Patient Orientation: Person, Place, Time and Situation Level of Consciousness: Alert Patient Behavior: Cooperative and Good Eye Contact Mood Description: Appropriate Affect Description: Appropriate Patient Cognition Impaired: No Ability to Follow Directions: Good Speech Pattern: Spontaneous Speech Memory Description: Intact Hallucinations: None Delusions: Not Present Thought Process: Goal Oriented Thought Content: positive for Goal Oriented Judgement: Good Diagnostics Vital Signs (24Hr): Vital Signs - 24 hr 10/25/21 20:39 10/26/21 06:00 Temperature 97.5 F 97.7 F Pulse Rate 81 69 Blood Pressure 102/62 103/68 Pulse Oximetry 96 Oxygen Delivery Method Room Air BMI result Body Mass Index 22.8 Labs Results: 10/20/21 10:38 10/20/21 10:38 Imaging Radiology Impressions: ITS Impressions Chest X-Ray 10/20/21 10:40 IMPRESSION: Question of left upper lobe pulmonary nodule. CT scan is recommended for further evaluation. Medications Medications Current Medications Acetaminophen (Acetaminophen 325 Mg Tablet) 650 mg PO Q6H PRN PRN Reason: Headache/Pain Mild Scale (1-3) Last Admin: 10/20/21 09:24 Dose: 650 mg Al Hydroxide/Mg Hydroxide (Magnesium Hydrox/Alum Hydrox 30 Ml Oral.Susp) 30 ml PO Q6H PRN PRN Reason: Heartburn/Nausea Last Admin: 10/19/21 17:12 Dose: 30 ml Bupropion HCl (Bupropion Hcl Xl 150 Mg Tab.Er.24h) 150 mg PO DAILY PATRICK Last Admin: 10/26/21 09:10 Dose: 150 mg Cefuroxime Axetil (Cefuroxime Axetil 250 Mg Tablet) 250 mg PO Q12H [facility] Stop: 10/26/21 20:01 Last Admin: 10/26/21 09:09 Dose: 250 mg Clonazepam (Clonazepam 0.5 Mg Tablet) 0.5 mg PO BID PRN PRN Reason: Anxiety Last Admin: 10/26/21 10:18 Dose: 0.5 mg Clonidine HCl (Clonidine Hcl 0.1 Mg Tablet) 0.1 mg PO TID PRN; Protocol PRN Reason: agitation Last Admin: 10/25/21 18:02 Dose: 0.1 mg Gabapentin (Gabapentin 300 Mg Capsule) 600 mg PO TID PATRICK Last Admin: 10/26/21 14:05 Dose: 600 mg Hydroxyzine HCl (Hydroxyzine Hcl 25 Mg Tablet) 25 mg PO BEDTIME PRN PRN Reason: Anxiety Last Admin: 10/26/21 00:48 Dose: 25 mg Levothyroxine Sodium (Levothyroxine Sodium 50 Mcg Tablet) 50 mcg PO DAILY@0600 [facility] Last Admin: 10/26/21 06:37 Dose: 50 mcg Magnesium Hydroxide (Milk Of Magnesia 30 Ml Oral.Susp) 30 ml PO DAILY PRN PRN Reason: Constipation Methadone HCl (Methadone Hcl 20 Mg/2 Ml Oral.Conc) 80 mg PO DAILY [facility] Last Admin: 10/26/21 09:09 Dose: 80 mg Nicotine (Nicotine 21 Mg Patch.Td24) 21 mg TRANSDERMA DAILY [facility] Last Admin: 10/26/21 09:15 Dose: Not Given Nicotine Polacrilex (Nicotine Polacrilex Lozenge 4 Mg Lozenge) 4 mg BUCCAL Q1H PRN PRN Reason: Nicotine Cravings Last Admin: 10/19/21 17:12 Dose: 4 mg Omeprazole (Omeprazole 20 Mg Capsule.Dr) 20 mg PO DAILY@0630 [facility] Last Admin: 10/26/21 06:37 Dose: 20 mg Ondansetron HCl (Ondansetron Odt 8 Mg Tab.Rapdis) 8 mg TRANSLINGU Q8H PRN PRN Reason: nausea Last Admin: 10/23/21 03:20 Dose: 8 mg Prazosin HCl (Prazosin Hcl 1 Mg Capsule) 2 mg PO BEDTIME [facility]; Protocol Last Admin: 10/25/21 20:51 Dose: 2 mg Quetiapine Fumarate (Quetiapine Fumarate 50 Mg Tablet) 150 mg PO BEDTIME [facility] Topiramate (Topiramate 25 Mg Tablet) 25 mg PO DAILY [facility] Last Admin: 10/26/21 09:09 Dose: 25 mg Allergies Allergies Allergy/AdvReac Type Severity Reaction Status Date / Time azithromycin Allergy Fever Verified 10/15/21 18:47 lamotrigine [From Lamictal] AdvReac Fever Verified 10/15/21 18:47 Assessment & Plan Assessment & Plan (1) Bipolar disorder: Status: Acute Code(s): F31.9 - Bipolar disorder, unspecified (2) PTSD (post-traumatic stress disorder): Status: Acute Code(s): F43.10 - Post-traumatic stress disorder, unspecified (3) Opioid abuse with opioid-induced disorder: Status: Acute Code(s): F11.19 - Opioid abuse with unspecified opioid-induced disorder Plan 46 yo female, s/p suicide attempt prior to admission with relapse of heroin, endorsing SI upon ER admit. Precipitant was a 12 weeks admission for mgt of pulmonary emboli with several resulting losses. Pt hopes to have a full med eval, referrals for out pt care and residential referral if possible. Plan: Re-establish regime Symptom management Current UTI sx with UA that is WNL- Bactrim x 1 dose and re-evaluate. Levothyroxine 50 mcg daily Continue Wellbutrin, Gabapentin, Klonopin, Seroquel, Topiramate, Ambien-last taken 2 weeks ago, will titrate as tolerated. Diagnostics Collateral contacts per pt request. 10/19/21 Continue plan of care. Monitor physical sx. 10/20/21 Decrease Seroquel to 75 mg hs Monitor for exacerbation of medical symptoms 10/21/21 Discontinue Ambien, Lorazeapm. Continue Klonopin 10/23/2021: At prazosin 2 mg at bedtime and clonidine 0.1 mg as needed. Discontinue trazodone as reports restlessness on same in the past. 10/24: Increase Seroquel to 100 mg at bedtime 10/26/21: Increase Seroquel to 150 mg, Increase Gabapentin to 600 mg tid I spent minutes with the patient and/or on the patient floor today, greater than?50% of which was spent counseling/coordinating care. Patient educated on: medication risk/benefits and therapeutic strategies Informed Consent: understands Reason for contiued inpatient stay Substantial Risk for: inability to function and rapid decompensation
[2021-10-26 17:48] LABS: COVID-19 Test Negative (Negative); IDNOW Serial# 16C4AD1C
[2021-10-26 18:00] VITALS: BP 104/67; PULSE 84; TEMP 36.7; O2SAT 98
[2021-10-26] MEDS: QUEtiapine Fumarate 50 MG TABLET 150 MG PO (20:11)
[2021-10-26] MEDS: Prazosin HCL 1 MG CAPSULE 2 MG PO (20:11)
--- NOTE | 2021-10-27 | ECG_ITS ---
Test Reason : SOB Blood Pressure : / mmHG Vent. Rate : 082 BPM Atrial Rate : 082 BPM P-R Int : 122 ms QRS Dur : 084 ms QT Int : 400 ms P-R-T Axes : 026 033 028 degrees QTc Int : 467 ms Normal sinus rhythm Normal ECG When compared with ECG of 17-OCT-2021 10:00, Vent. rate has increased BY 28 BPM Referred By: Keeley Stanley Electronically Signed By:Merritt Sutton
[2021-10-27 06:00] VITALS: BP 220/63; PULSE 82; TEMP 37.3; O2SAT 94
[2021-10-27] MEDS: Levothyroxine Sodium 50 MCG TABLET PO (06:22)
[2021-10-27] MEDS: Omeprazole 20 MG CAPSULE.DR PO (06:22)
[2021-10-27] MEDS: buPROPion HCl XL 150 MG TAB.ER.24H PO (09:12)
[2021-10-27] MEDS: Gabapentin 300 MG CAPSULE 600 MG PO ×3 (09:12→20:05)
[2021-10-27] MEDS: Topiramate 25 MG TABLET PO (09:13)
[2021-10-27] MEDS: clonazePAM 0.5 MG TABLET PO ×2 (09:22→20:06)
[2021-10-27] MEDS: methADONE HCl 20 MG/2 ML ORAL.CONC 80 MG PO (09:55)
--- NOTE | 2021-10-27 13:19 | P.PNIM_ITS ---
Subjective Subjective Date of Service: 10/27/21 Interval History: re-consulted for respiratory symptoms / chest pain. Pt seen and examined on the unit. Her RN is present. Pt reports feeling unwell since I last saw her. She reports breathing issues. She states that she was on albuterol and a maintenance inhaler (which she cannot remember) for her asthma. She reports a cough which occurs at night. Endorses a sour taste in her mouth as well. Denies prior diagnosis of GERD. Also she denies any chest pain, reports it is more soreness in the back. Denies anginal symptoms. Review of Systems negative except interval history Physical Exam Vital Signs: Vital Signs: Last Vital Signs Temp 99.2 F 10/27/21 06:00 Pulse 82 10/27/21 06:00 Resp 16 10/25/21 06:00 BP 220/63 H 10/27/21 06:00 Pulse Ox 94 10/27/21 06:00 O2 Del Method 10/27/21 06:00 BMI result Body Mass Index 22.8 Const: Other: General - no acute distress, appears comfortable Cardiovascular - regular rate and rhythm, S1-S2 Lungs - normal respiratory effort, clear to auscultation bilaterally, no wheezing Abdomen - soft, nontender, no rebound or guarding Extremities - no edema bilaterally Neuro - awake and alert, no focal deficits Objective Data Active Medications Acetaminophen (Acetaminophen 325 Mg Tablet) 650 mg PO Q6H PRN PRN Reason: Headache/Pain Mild Scale (1-3) Last Admin: 10/20/21 09:24 Dose: 650 mg Documented By: ROHAN Al Hydroxide/Mg Hydroxide (Magnesium Hydrox/Alum Hydrox 30 Ml Oral.Susp) 30 ml PO Q6H PRN PRN Reason: Heartburn/Nausea Last Admin: 10/19/21 17:12 Dose: 30 ml Documented By: RENE Bupropion HCl (Bupropion Hcl Xl 150 Mg Tab.Er.24h) 150 mg PO DAILY PATRICK Last Admin: 10/27/21 09:12 Dose: 150 mg Documented By: DESIRE Clonazepam (Clonazepam 0.5 Mg Tablet) 0.5 mg PO BID PRN PRN Reason: Anxiety Last Admin: 10/27/21 09:22 Dose: 0.5 mg Documented By: DESIRE Clonidine HCl (Clonidine Hcl 0.1 Mg Tablet) 0.1 mg PO TID PRN; Protocol PRN Reason: agitation Last Admin: 10/25/21 18:02 Dose: 0.1 mg Documented By: KELLI Comments: 105/72, 76 Gabapentin (Gabapentin 300 Mg Capsule) 600 mg PO TID [facility] Last Admin: 10/27/21 09:12 Dose: 600 mg Documented By: DESIRE Hydroxyzine HCl (Hydroxyzine Hcl 25 Mg Tablet) 25 mg PO BEDTIME PRN PRN Reason: Anxiety Last Admin: 10/26/21 00:48 Dose: 25 mg Documented By: KARLEE Levothyroxine Sodium (Levothyroxine Sodium 50 Mcg Tablet) 50 mcg PO DAILY@0600 [facility] Last Admin: 10/27/21 06:22 Dose: 50 mcg Documented By: SHAVON Magnesium Hydroxide (Milk Of Magnesia 30 Ml Oral.Susp) 30 ml PO DAILY PRN PRN Reason: Constipation Methadone HCl (Methadone Hcl 20 Mg/2 Ml Oral.Conc) 80 mg PO DAILY [facility] Last Admin: 10/27/21 09:55 Dose: 80 mg Documented By: DESIRE Nicotine (Nicotine 21 Mg Patch.Td24) 21 mg TRANSDERMA DAILY [facility] Last Admin: 10/27/21 09:19 Dose: Not Given Documented By: DESIRE Non-Admin Reason: Patient Refused Nicotine Polacrilex (Nicotine Polacrilex Lozenge 4 Mg Lozenge) 4 mg BUCCAL Q1H PRN PRN Reason: Nicotine Cravings Last Admin: 10/19/21 17:12 Dose: 4 mg Documented By: RENE Omeprazole (Omeprazole 20 Mg Capsule.Dr) 20 mg PO DAILY@0630 [facility] Last Admin: 10/27/21 06:22 Dose: 20 mg Documented By: SHAVON Ondansetron HCl (Ondansetron Odt 8 Mg Tab.Rapdis) 8 mg TRANSLINGU Q8H PRN PRN Reason: nausea Last Admin: 10/23/21 03:20 Dose: 8 mg Documented By: YOSEF Prazosin HCl (Prazosin Hcl 1 Mg Capsule) 2 mg PO BEDTIME [facility]; Protocol Last Admin: 10/26/21 20:11 Dose: 2 mg Documented By: KARLEE Quetiapine Fumarate (Quetiapine Fumarate 50 Mg Tablet) 150 mg PO BEDTIME [facility] Last Admin: 10/26/21 20:11 Dose: 150 mg Documented By: KARLEE Topiramate (Topiramate 25 Mg Tablet) 25 mg PO DAILY [facility] Last Admin: 10/27/21 09:13 Dose: 25 mg Documented By: DESIRE Labs CBC & Chem 7: 10/27/21 13:14 10/27/21 13:14 Labs: Laboratory Results - last 24 hr 10/26/21 17:15 COVID-19 (LARS) Negative COVID-19 Clin Com See Note Assessment and Plan (1) Pneumonia: Status: Acute Plan 46 yo F who is admitted to . Medical consult requested for multiple issues. Patient's lung are clear on exam. CXR completed and pending official read, but I do not see any major infiltrates. As far has her cough goes -- this seems to be triggered by GERD symptoms. Can continue PPI In regards to her asthma -- she was on a PRN albuterol and an inhalers which she cannot recall the name of previously. Her med claim history does not show either. She is not wheezing -- can use PRN albuterol INH (ordered). Lastly, the patients blood pressure this morning was reported as 220/63. I think this is a false reading as BP taken during my exam was in her usual range of low 100s/60s-70s range. Addendum: CXR read as concerning for developing RLL pneumonia. Clinically she does not have signs/symptoms to suggest this as she is afebrile, has no leukocytosis, is not tachypneic/hypoxic, no productive cough. However she is a smoker and does complain of back pain. Can give doxy 100mg bid x 7 days empirically. Monitor for fevers and deteriorating respiratory status. The above recommendations have been relayed to the primary provider. Will sign off. Please reconsult if any questions Quality Stroke Does the patient have a stroke diagnosis?: No VTE Prior VTE?: No VTE Risk Level:: Medical - low VTE Device Contraindication: Treatment Not Indicated VTE Drug Contraindication: Treatment Not Indicated
[2021-10-27 13:20] LABS: MANUAL DIFF FLAG NO
[2021-10-27 13:21] LABS: Basophils Percent Auto 0.2 % (0-2); Eosinophils Absolute Auto 0.1 X10*3/uL (0.0-0.4); Hematocrit 37.3 % (37.0-47.0); Imm Gran Abs Auto 0.03 X10*3/uL (0.00-0.03); Imm Gran Pct Auto 0.5 % (0.0-0.4); Lymphocytes Absolute Auto 1.5 X10*3/uL (1.2-4.9); Lymphocytes Percent Auto 23.7 % (20-40); Mean Corpuscular HGB Conc 32.2 g/dl (31.0-35.0); Mean Corpuscular Hemoglobin 25.3 pg (27.0-33.0); Mean Corpuscular Volume 78.5 fL (80.0-98.0); Mean Platelet Volume 9.7 fL (9.4-12.3); Monocytes Absolute Auto 0.5 X10*3/uL (0.1-1.2); Monocytes Percent Auto 8.7 % (2-11); Neutrophils Percent Auto 64.9 % (45-73); Platelet Count 178 X10*3/uL (160-400); Red Blood Count 4.75 X10*6/uL (4.20-5.50); Red Cell Distribution Width 14.6 % (11.0-16.0); White Blood Count 6.1 X10*3/uL (4.8-10.8)
[2021-10-27 13:37] LABS: Alanine Aminotransferase 19 U/L (0-31); Albumin Level 4.1 g/dL (3.5-5.0); Alkaline Phosphatase 78 U/L (39-117); Anion Gap 14 (12-20); Aspartate Amino Transferase 24 U/L (5-31); Bilirubin Total 0.5 mg/dL (0.0-1.0); Blood Urea Nitrogen 19 mg/dL (9-16); Calcium 9.6 mg/dL (8.4-10.2); Carbon Dioxide 27 mmol/L (22-29); Chloride 102 mmol/L (96-108); Creatinine Clr Calc Pharmacy 60.5; Estimated Glomerular Filt Rate > 60; Glucose Random 81 mg/dL (60-115); Potassium 4.7 mmol/L (3.3-5.1); Sodium 138 mmol/L (135-145); Total Protein 7.6 g/dL (6.5-8.0)
[2021-10-27] MEDS: cloNIDine HCL 0.1 MG TABLET PO (14:53)
--- NOTE | 2021-10-27 15:08 | P.PNPSI_ITS ---
Subjective Subjective Date of Service: 10/27/21 Reason For Visit: Depression with SI, opiate, cocaine use d/o Subjective Notes: Conditional Voluntary Healthcare Proxy: No Guardianship: No Medical Problems Affecting Mental Status: No Interim History: Pt preparing for discharge to [facility] on 10/28. Reporting physical sx of URI with cough, low grade temp, SOB especially at night, chills. Dr. Hudson consulted with pt. We completed a chest xray and the radiologist believes there to be a developing pneumonia with afebrile status, no hypoxia, no increase in wbc and clear lungs. We decided to begin doxycycline 100 mg bid for 7 days. Pt in agreement-as she just spent several weeks medically admitted with PE. Pt anxious but excited to transition to [facility] program on 10/29. Medication Compliance: Yes Side effects from medications: No Attending Groups: Yes Review of Systems Acute medical concerns: Yes as noted above Medical Review of Systems: unchanged Review of Systems: as noted above Review of Systems Psychiatric: Reports anxiety Mental Status Exam Mental Status Exam Patient Appearance: Appropriate Patient Orientation: Person, Place, Time and Situation Level of Consciousness: Alert Patient Behavior: Talkative and Good Eye Contact Mood Description: Anxious Affect Description: Apprehensive Patient Cognition Impaired: No Ability to Follow Directions: Good Speech Pattern: Spontaneous Speech Memory Description: Intact Hallucinations: None Delusions: Not Present Thought Process: Intact and Goal Oriented Thought Content: positive for Intact and positive for Goal Oriented Judgement: Good Diagnostics Vital Signs (24Hr): Vital Signs - 24 hr 10/26/21 18:00 10/27/21 06:00 Temperature 98.1 F 99.2 F Pulse Rate 84 82 Blood Pressure 104/67 220/63 H Pulse Oximetry 98 94 Oxygen Delivery Method Room Air Room Air BMI result Body Mass Index 22.8 Labs Results: 10/27/21 13:14 10/27/21 13:14 Labs: Laboratory Results - last 48 hr 10/26/21 10/27/21 10/27/21 17:15 13:14 13:14 WBC 6.1 RBC 4.75 Hgb 12.0 Hct 37.3 MCV 78.5 L MCH 25.3 L MCHC 32.2 RDW 14.6 Plt Count 178 D MPV 9.7 Immature Gran % (Auto) 0.5 H Neut % (Auto) 64.9 Lymph % (Auto) 23.7 [place] % (Auto) 8.7 Eos % (Auto) 2.0 Baso % (Auto) 0.2 Lymph # (Auto) 1.5 [place] # (Auto) 0.5 Eos # (Auto) 0.1 Baso # (Auto) 0.0 Abs Immat Gran (auto) 0.03 Absolute Neuts (auto) 4.0 Absolute Nucleated RBC 0.000 Nucleated RBC % (auto) 0.0 Sodium 138 Potassium 4.7 Chloride 102 Carbon Dioxide 27 Anion Gap 14 BUN 19 H D Creatinine 0.95 Estim Creat Clear Calc 60.5 Estimated GFR > 60 Random Glucose 81 Calcium 9.6 D Total Bilirubin 0.5 AST 24 ALT 19 Alkaline Phosphatase 78 Total Protein 7.6 Albumin 4.1 COVID-19 (LARS) Negative COVID-19 Clin Com See Note Imaging Radiology Impressions: ITS Impressions Chest X-Ray 10/20/21 10:40 IMPRESSION: Question of left upper lobe pulmonary nodule. CT scan is recommended for further evaluation. Chest X-Ray 10/27/21 12:38 IMPRESSION: 1. Mild haziness at the right lung base, concerning for developing lower lobe pneumonia. Radiographic followup after treatment/resolution of symptoms is recommended. 2. Previously identified nodular density in the left upper lung is slightly less conspicuous on the current exam. However, as previously noted, further assessment with CT is advised for more definitive evaluation. Medications Medications Current Medications Acetaminophen (Acetaminophen 325 Mg Tablet) 650 mg PO Q6H PRN PRN Reason: Headache/Pain Mild Scale (1-3) Last Admin: 10/20/21 09:24 Dose: 650 mg Al Hydroxide/Mg Hydroxide (Magnesium Hydrox/Alum Hydrox 30 Ml Oral.Susp) 30 ml PO Q6H PRN PRN Reason: Heartburn/Nausea Last Admin: 10/19/21 17:12 Dose: 30 ml Albuterol Sulfate (Albuterol Sulfate 90 Mcg 8 Gm Inhaler) 2 puff INHALE Q6H PRN PRN Reason: Wheezing Bupropion HCl (Bupropion Hcl Xl 150 Mg Tab.Er.24h) 150 mg PO DAILY PATRICK Last Admin: 10/27/21 09:12 Dose: 150 mg Clonazepam (Clonazepam 0.5 Mg Tablet) 0.5 mg PO BID PRN PRN Reason: Anxiety Last Admin: 10/27/21 09:22 Dose: 0.5 mg Clonidine HCl (Clonidine Hcl 0.1 Mg Tablet) 0.1 mg PO TID PRN; Protocol PRN Reason: agitation Last Admin: 10/27/21 14:53 Dose: 0.1 mg Clotrimazole (Clotrimazole 10 Mg Gisselle) 10 mg MUCOUS MEM TID [facility] Doxycycline Hyclate (Doxycycline Hyclate 100 Mg Tablet) 100 mg PO Q12H [facility] Stop: 11/04/21 14:59 Last Admin: 10/27/21 14:47 Dose: 100 mg Gabapentin (Gabapentin 300 Mg Capsule) 600 mg PO TID [facility] Last Admin: 10/27/21 14:47 Dose: 600 mg Hydroxyzine HCl (Hydroxyzine Hcl 25 Mg Tablet) 25 mg PO BEDTIME PRN PRN Reason: Anxiety Last Admin: 10/26/21 00:48 Dose: 25 mg Levothyroxine Sodium (Levothyroxine Sodium 50 Mcg Tablet) 50 mcg PO DAILY@0600 [facility] Last Admin: 10/27/21 06:22 Dose: 50 mcg Magnesium Hydroxide (Milk Of Magnesia 30 Ml Oral.Susp) 30 ml PO DAILY PRN PRN Reason: Constipation Methadone HCl (Methadone Hcl 20 Mg/2 Ml Oral.Conc) 80 mg PO DAILY [facility] Last Admin: 10/27/21 09:55 Dose: 80 mg Nicotine (Nicotine 21 Mg Patch.Td24) 21 mg TRANSDERMA DAILY [facility] Last Admin: 10/27/21 09:19 Dose: Not Given Nicotine Polacrilex (Nicotine Polacrilex Lozenge 4 Mg Lozenge) 4 mg BUCCAL Q1H PRN PRN Reason: Nicotine Cravings Last Admin: 10/19/21 17:12 Dose: 4 mg Omeprazole (Omeprazole 20 Mg Capsule.Dr) 20 mg PO DAILY@0630 [facility] Last Admin: 10/27/21 06:22 Dose: 20 mg Ondansetron HCl (Ondansetron Odt 8 Mg Tab.Rapdis) 8 mg TRANSLINGU Q8H PRN PRN Reason: nausea Last Admin: 10/23/21 03:20 Dose: 8 mg Prazosin HCl (Prazosin Hcl 1 Mg Capsule) 2 mg PO BEDTIME [facility]; Protocol Last Admin: 10/26/21 20:11 Dose: 2 mg Quetiapine Fumarate (Quetiapine Fumarate 50 Mg Tablet) 150 mg PO BEDTIME [facility] Last Admin: 10/26/21 20:11 Dose: 150 mg Topiramate (Topiramate 25 Mg Tablet) 25 mg PO DAILY PATRICK Last Admin: 10/27/21 09:13 Dose: 25 mg Allergies Allergies Allergy/AdvReac Type Severity Reaction Status Date / Time azithromycin Allergy Fever Verified 10/15/21 18:47 lamotrigine [From Lamictal] AdvReac Fever Verified 10/15/21 18:47 trazodone AdvReac Restless Verified 10/26/21 21:27 legs Assessment & Plan Assessment & Plan (1) Pneumonia: Status: Acute Code(s): J18.9 - Pneumonia, unspecified organism Plan 46 yo F who is admitted to . Medical consult requested for multiple issues. Patient's lung are clear on exam. CXR completed and pending official read, but I do not see any major infiltrates. As far has her cough goes -- this seems to be triggered by GERD symptoms. Can continue PPI In regards to her asthma -- she was on a PRN albuterol and an inhalers which she cannot recall the name of previously. Her med claim history does not show either. She is not wheezing -- can use PRN albuterol INH (ordered). Lastly, the patients blood pressure this morning was reported as 220/63. I think this is a false reading as BP taken during my exam was in her usual range of low 100s/60s-70s range. Addendum: CXR read as concerning for developing RLL pneumonia. Clinically she does not have signs/symptoms to suggest this as she is afebrile, has no leukocytosis, is not tachypneic/hypoxic, no productive cough. However she is a smoker and does complain of back pain. Can give doxy 100mg bid x 7 days empirically. Monitor for fevers and deteriorating respiratory status. The above recommendations have been relayed to the primary provider. Will sign off. Please reconsult if any questions 10/27/21: Doxycycline 100 mg bid Discharge to [facility] on 10/28/21 I spent minutes with the patient and/or on the patient floor today, gr eater than?50% of which was spent counseling/coordinating care. Patient educated on: therapeutic strategies Informed Consent: understands Reason for contiued inpatient stay Substantial Risk for: stable for discharge
[2021-10-27] MEDS: hydrOXYzine HCL 25 MG TABLET PO (16:39)
[2021-10-27] MEDS: QUEtiapine Fumarate 50 MG TABLET 150 MG PO (20:04)
[2021-10-27] MEDS: Prazosin HCL 1 MG CAPSULE 2 MG PO (20:05)
[2021-10-27] MEDS: Albuterol Sulfate 90 MCG 8 GM INHALER 2 PUFF INHALE (20:36)
[2021-10-27] MEDS: Ondansetron ODT 8 MG TAB.RAPDIS TRANSLINGU (20:40)
[2021-10-28 06:00] VITALS: BP 112/70; PULSE 87; RESP 16; TEMP 36.5; O2SAT 97
[2021-10-28] MEDS: Levothyroxine Sodium 50 MCG TABLET PO (06:17)
[2021-10-28] MEDS: Omeprazole 20 MG CAPSULE.DR PO (06:17)
[2021-10-28] MEDS: buPROPion HCl XL 150 MG TAB.ER.24H PO (08:39)
[2021-10-28] MEDS: Gabapentin 300 MG CAPSULE 600 MG PO (08:39)
[2021-10-28] MEDS: Topiramate 25 MG TABLET PO (08:39)
[2021-10-28] MEDS: methADONE HCl 20 MG/2 ML ORAL.CONC 80 MG PO (08:39)
[2021-10-28] MEDS: clonazePAM 0.5 MG TABLET PO (09:19)
--- NOTE | 2021-10-28 15:28 | PM.PSYDC ---
DS: Providers Provider Date of Service: 10/28/21 Date of admission: 10/17/21 15:19 Date of discharge: 10/28/21 Primary care physician: Unknown Physician Admitting clinician: Keeley Stanley Attending physician on admission: Jeff Pacheco Consults: 10/20/21 09:08 Consult to Hospitalist Routine Consulting Provider: Hospitalist Reason For Exam: recent PE w/sepsis, fever, CP 10/27/21 11:46 Consult to Hospitalist Routine Consulting Provider: Hospitalist Reason For Exam: Chest discomfort, Recent PE, SOB, hx asthma Attending physician on discharge: Jeff Pacheco Discharging clinician: Keeley Stanley DS: Diagnosis Discharge Diagnosis (1) Pneumonia: Status: Acute DS: Medications Discharge Medications Home Medications: Home Medications Medication Instructions Recorded Confirmed methadone 10 mg tablet 80 mg PO DAILY 10/17/21 10/17/21 Previous Rx's Medication Instructions Recorded albuterol sulfate 90 mcg/actuation 2 puff inhalation Q6H PRN Wheezing 10/28/21 aerosol inhaler (Ventolin HFA) #1 inhaler bupropion HCl 150 mg 24 hr tablet, 150 mg PO DAILY #30 tabs 10/28/21 extended release clonazepam 0.5 mg tablet 0.5 mg PO BID PRN Anxiety #30 tabs 10/28/21 clonidine HCl 0.1 mg tablet 0.1 mg PO TID PRN agitation #90 10/28/21 tabs doxycycline hyclate 100 mg tablet 100 mg PO Q12H #14 tabs 10/28/21 gabapentin 300 mg capsule 600 mg PO TID #90 caps 10/28/21 hydroxyzine HCl 25 mg tablet 25 mg PO BEDTIME PRN Anxiety #30 10/28/21 tabs levothyroxine 50 mcg tablet 50 mcg PO DAILY@0600 #30 tabs 10/28/21 nicotine (polacrilex) 4 mg buccal 4 mg buccal Q1H PRN Nicotine 10/28/21 lozenge Cravings #60 ea nicotine 21 mg/24 hr daily 21 mg transdermal DAILY #30 ea 10/28/21 transdermal patch omeprazole 20 mg capsule,delayed 20 mg PO DAILY@0630 #30 caps 10/28/21 release prazosin 1 mg capsule 2 mg PO BEDTIME #60 caps 10/28/21 quetiapine 50 mg tablet 150 mg PO BEDTIME #90 tabs 10/28/21 topiramate 25 mg tablet 25 mg PO DAILY #30 tabs 10/28/21 Mental Status Exam Mental Status Exam Patient Appearance: Appropriate Patient Orientation: Person, Place, Time and Situation Level of Consciousness: Alert Patient Behavior: Talkative and Good Eye Contact Mood Description: Anxious Affect Description: Apprehensive Patient Cognition Impaired: No Ability to Follow Directions: Good Speech Pattern: Spontaneous Speech Memory Description: Intact Hallucinations: None Delusions: Not Present Thought Process: Intact and Goal Oriented Thought Content: positive for Intact and positive for Goal Oriented Judgement: Good Data Data Completed and Pending Completed studies during hospitalization [Text1]: 10/26/21 10/27/21 10/27/21 17:15 13:14 13:14 WBC 6.1 RBC 4.75 Hgb 12.0 Hct 37.3 MCV 78.5 L MCH 25.3 L MCHC 32.2 RDW 14.6 Plt Count 178 D MPV 9.7 Immature Gran % (Auto) 0.5 H Neut % (Auto) 64.9 Lymph % (Auto) 23.7 [place] % (Auto) 8.7 Eos % (Auto) 2.0 Baso % (Auto) 0.2 Lymph # (Auto) 1.5 [place] # (Auto) 0.5 Eos # (Auto) 0.1 Baso # (Auto) 0.0 Abs Immat Gran (auto) 0.03 Absolute Neuts (auto) 4.0 Absolute Nucleated RBC 0.000 Nucleated RBC % (auto) 0.0 Sodium 138 Potassium 4.7 Chloride 102 Carbon Dioxide 27 Anion Gap 14 BUN 19 H D Creatinine 0.95 Estim Creat Clear Calc 60.5 Estimated GFR > 60 Random Glucose 81 Calcium 9.6 D Total Bilirubin 0.5 AST 24 ALT 19 Alkaline Phosphatase 78 Total Protein 7.6 Albumin 4.1 COVID-19 (LARS) Negative COVID-19 Clin Com See Note 10/20/21 12:20 Blood - Venous Blood Culture - Final No growth after 5 days. 10/20/21 12:20 Blood - Venous Blood Culture - Final No growth after 5 days. 10/20/21 Unknown Urine clean catch - Urine de la cruz top Urine Culture - Final Escherichia coli Imaging Diagnostic Imaging Impressions Chest X-Ray 10/20/21 10:40 IMPRESSION: Question of left upper lobe pulmonary nodule. CT scan is recommended for further evaluation. Chest X-Ray 10/27/21 12:38 IMPRESSION: 1. Mild haziness at the right lung base, concerning for developing lower lobe pneumonia. Radiographic followup after treatment/resolution of symptoms is recommended. 2. Previously identified nodular density in the left upper lung is slightly less conspicuous on the current exam. However, as previously noted, further assessment with CT is advised for more definitive evaluation. DS: Summary Hospital Course Hospital Course: Admission to in patient psychiatry for exacerbation of symptoms of bipolar disorder, PTSD, Opiate Dependence. Pt reported SI in context of a 12 week admission for pulmonary emboli in the [facility]. Reported relapse after 5 years of sobriety due to discouragement from medical issues. Pt requested ongoing medical care, re-establishment of regime and referral to a assisted addiction program to assist her in re-establishing a sober pattern of living. Pt was followed carefully by hospitalist team with antibiotic therapy, diagnostics and close monitoring post pulmonary emboli. Medications were adjusted for symptom mgt and referrals were made for residential care and out patient ongoing therapy and psychopharmacology. Time spent discussing smoking cessation with patient: 3 to 10 minutes Status at Discharge Functional status at discharge: independent ambulation Overall status at discharge: patient is progressing back to baseline Time Spent with Patient Time attestation: Total time spent providing and/or coordinating discharge services: 35 Time spent: Greater than 30 minutes Discharge Plan Discharge Patient Disposition: Xfer Inpatient Rehab Fac Discharge Diagnosis: Bipolar Disorer PTSD Opiate Use Disorder Pneumonia-resolving Referrals: Physician,Unknown J [Primary Care Provider] - 1 Week (NO APPNT MADE, PT ATTENDING REHAB, ON GOING CARE PROVIDED) Discharge Medications: New clonidine HCl 0.1 mg Tablet 0.1 mg PO TID PRN (Reason: agitation) Qty: 90 0RF Protocol: Hold for SBP< HOLD for SBP < : 90 prazosin 1 mg Capsule 2 mg PO BEDTIME Qty: 60 0RF Protocol: Hold for SBP< HOLD for SBP < : 90 nicotine 21 mg/24 hr Patch 24 Hour 21 mg transdermal DAILY Qty: 30 0RF albuterol sulfate [Ventolin HFA] 90 mcg/actuation Hfa Aerosol Inhaler 2 puff inhalation Q6H PRN (Reason: Wheezing) Qty: 1 0RF doxycycline hyclate 100 mg Tablet 100 mg PO Q12H Qty: 14 0RF nicotine (polacrilex) 4 mg Lozenge 4 mg buccal Q1H PRN (Reason: Nicotine Cravings) Qty: 60 0RF clonazepam 0.5 mg Tablet 0.5 mg PO BID PRN (Reason: Anxiety) Qty: 30 1RF topiramate 25 mg Tablet 25 mg PO DAILY Qty: 30 0RF levothyroxine 50 mcg Tablet 50 mcg PO DAILY@0600 Qty: 30 0RF gabapentin 300 mg Capsule 600 mg PO TID Qty: 90 0RF omeprazole 20 mg Capsule,Delayed Release(Dr/Ec) 20 mg PO DAILY@0630 Qty: 30 0RF hydroxyzine HCl 25 mg Tablet 25 mg PO BEDTIME PRN (Reason: Anxiety) Qty: 30 0RF bupropion HCl 150 mg Tablet Extended Release 24 Hr 150 mg PO DAILY Qty: 30 0RF quetiapine 50 mg Tablet 150 mg PO BEDTIME Qty: 90 0RF Continued methadone 10 mg Tablet 80 mg PO DAILY Discontinued zolpidem 10 mg tablet 1 tab PO BEDTIME quetiapine 50 mg tablet 1 tab PO BEDTIME Discharge Orders: Discharge Order (Routine); Ordered 10/28/21 Ordered By: Keeley Stanley Diet: Advance to usual diet Activity on Discharge: As tolerated Stand Alone Forms: Patient Portal Discharge page, Community Support Activity Restrictions/Additional Instructions: Please follow-up with outpatient psychiatry. Please consider detox. Thank you for choosing this emergency department for evaluation. Please follow-up with primary care physician as needed. Return to the emergency department for any new, concerning, or worsening symptoms. Care Plan Goals: Mood stabilization Sobriety Health Concerns: Bipolar Disorder PTSD Opiate Use Disorder Resolving Pneumonia Plan of Treatment: Take medications as directed Attend follow up appointments Participate in residential program plan of care Call/Return as needed Assessment: non psychotic, non suicidal Patient Instructions: Depression (ED), Anxiety (ED), Suicide Prevention (ED) Discharge Date/Time: 10/28/21 10:24
== END 2021-10-28 10:24 | DRG 753 ==
LOC: HO.ED 10-17 07:10 → HO.PM5 10-17 15:23
PROVIDERS: Emergency Medicine; Family Medicine; Nurse Practitioner Family; Admitting Provider Psychiatry & Neurology Psychiatry; Emergency Provider Emergency Medicine Emergency Medical Services; Visit Provider Clinical Nurse Specialist Psychiatric/Mental Health, Adult
DX: F31.9 Bipolar disorder, unspecified (principal); J18.9 Pneumonia, unspecified organism; R45.851 Suicidal ideations; F11.20 Opioid dependence, uncomplicated; N39.0 Urinary tract infection, site not specified; F43.10 Post-traumatic stress disorder, unspecified; F17.210 Nicotine dependence, cigarettes, uncomplicated; Z71.6 Tobacco abuse counseling; Z20.822 Contact with and (suspected) exposure to COVID-19; Z86.711 Personal history of pulmonary embolism; Z91.51 Personal history of suicidal behavior; Z88.8 Allergy status to other drugs, medicaments and biological substances; Z79.890 Hormone replacement therapy; Z79.899 Other long term (current) drug therapy
CPT/HCPCS: 36415; 71045; 71046; 80048; 80053; 80061; 80076; 80307; 81001; 81003; 81025; 82077; 82607; 82746; 83036; 83605; 83735; 84439; 84443; 85025; 87040; 87086; 87088; 87186; 87633; 87635; 93005; 99285; J0696

== ENCOUNTER 2022-12-11 12:49 | Inpatient (IN) | payer OTHER, SELFPAY ==
--- NOTE | 2022-12-11 | ECG_ITS ---
Test Reason : MEDICAL CLEARANCE Blood Pressure : / mmHG Vent. Rate : 049 BPM Atrial Rate : 049 BPM P-R Int : 144 ms QRS Dur : 086 ms QT Int : 536 ms P-R-T Axes : 030 034 050 degrees QTc Int : 484 ms Sinus bradycardia Prolonged QT Abnormal ECG When compared with ECG of 27-OCT-2021 13:55, Vent. rate has decreased BY 33 BPM Referred By: Nuno Hernandez Electronically Signed By:HELIO CASPER
--- NOTE | ~2022-12-11 | XR_ITS ---
EXAMINATION: XR WRIST, RIGHT XR HAND, RIGHT CLINICAL INFORMATION: Right wrist pain. COMPARISON: None available. TECHNIQUE: 4 views of the right hand/wrist were obtained. FINDINGS: Mildly displaced scaphoid fracture at the level of the waist. Small approximately 2 mm well-corticated osseous fragment adjacent to the ulnar surface of the distal interphalangeal joint of the fourth digit, favoring to represent a degenerative osteophyte. No significant soft tissue abnormality. No unexpected radiopaque foreign bodies. XR/XR hand wrist RT IMPRESSION: 1. Mildly displaced scaphoid fracture. 2. Small 2 mm well-corticated osseous fragment adjacent to the fourth DIP, most likely a degenerative osteophyte, correlate with point tenderness.
--- NOTE | ~2022-12-11 | XR_ITS ---
EXAMINATION: XR CHEST CLINICAL INFORMATION: Follow up with nipple markers. COMPARISON: 12/19/2022, 10/27/2021, and 10/20/2021. TECHNIQUE: 2 views of the chest were obtained. FINDINGS: 2 views of the chest performed with nipple markers in place. There does appear to be a persistence of a 7 mm density overlying the dorsal aspect of the right 9th rib, which does not correspond to the nipple. This could be related to combination of rib and vasculature, however a nodule cannot be excluded and CT scan of the chest would be of help in further evaluation. There is noted to be some scarring along the right minor fissure. No definite acute parenchymal disease identified. No pneumothorax or pleural effusion. Heart normal size. No evidence of pulmonary edema. XR/XR chest 2V IMPRESSION: Persistence of 7 mm density right lower lung, which does not appear to correspond to the right nipple. CT scan would be of help in further evaluation.
--- NOTE | ~2022-12-11 | XR_ITS ---
EXAMINATION: XR CHEST CLINICAL INFORMATION: Cough COMPARISON: Previous chest x-ray October 2021 TECHNIQUE: 2 views of the chest were obtained. FINDINGS: The cardiac and mediastinal contours are stable. The previously questioned left upper lobe nodule is no longer seen. There is a nodular opacity at the right lung base overlying the anterior seventh right rib and diaphragm. This measures 7 mm. The lungs are otherwise clear. No pleural effusion or pneumothorax. Bony structures are unremarkable. XR/XR chest 2V IMPRESSION: Question 7 mm nodule at the right lung base. Follow-up chest x-ray with nipple markers recommended. Previously questioned left upper lobe nodule on 2021 exams no longer appreciated.
[2022-12-11 13:05] VITALS: BP 131/77; PULSE 95; RESP 16; TEMP 36.1; O2SAT 95; BMI 22.9
--- NOTE | 2022-12-11 13:16 | PC.NURSE ---
pt here reporting SI with plan due to significant life stressor. pt has depression and SI hx. 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 pt moved to the area 2 years ago with her boyfriend from [place], stating she has no friends or family to lean on right now. pt reports hx of heroin use to which she has been clean x3 years. pt admits to relapsing 2 weeks ago and using crack when her boyfriend left her, with last use 3-4 days ago. pt is on methadone, took her dose today and brought lock box with methadone - secured in pt's locker. pt sts getting methadone from [facility]. pt has been sleeping more and has had decreased PO intake stating she thinks she has lost about 20 lbs. pt a&o x4, pleasant, calm, and cooperative. pt changed over to hospital attire and pt belongings secured in Locker [address]. currently in Room 3, in bed, watching tv. awaiting provider for evaluation. all pt needs met graham
[2022-12-11 13:27] VITALS: RESP 16
[2022-12-11 14:00] VITALS: RESP 14
[2022-12-11 14:03] LABS: Appearance Urine Cloudy; Color Urine Dark Yellow; Glucose Urine UA Negative (Negative); Leukocyte Esterase Urine Trace (Negative); Nitrite Urine Negative (Negative); PH 5.5 (5.0-9.0); Specific Gravity - Urine 1.025 (1.005-1.025); UMIC TRIGGER UACC YES; Urine Blood Negative (Negative); Urine Ketones Trace mg/dL (Negative); Urine Protein Trace mg/dL (Neg-Trace)
[2022-12-11 14:08] LABS: Bacteria Urine 4+ (None Seen); RBC Urine 0-2 /HPF (0-2); Squamous Epithelial Cell Urine >20 /HPF (0-2); UACC Culture Trigger YES
[2022-12-11 14:16] LABS: Acetaminophen LAB < 17 mcg/mL (<30); Alanine Aminotransferase 10 U/L (0-31); Albumin Level 3.8 g/dL (3.5-5.0); Alkaline Phosphatase 74 U/L (39-117); Anion Gap 14 (12-20); Aspartate Amino Transferase 19 U/L (5-31); Bilirubin Total 0.3 mg/dL (0.0-1.0); Blood Urea Nitrogen 7 mg/dL (9-16); Calcium 9.4 mg/dL (8.4-10.2); Carbon Dioxide 24 mmol/L (22-29); Chloride 108 mmol/L (96-108); Creatinine Clr Calc Pharmacy 61.1; Estimated Glomerular Filt Rate > 60; Ethanol < 10 mg/dL; Glucose Random 64 mg/dL (60-115); Magnesium 1.7 mg/dL (1.6-2.6); Potassium 3.7 mmol/L (3.3-5.1); Salicylate < 5.0 mg/dL (15-30); Sodium 142 mmol/L (135-145)
[2022-12-11 14:35] LABS: Fentanyl, urine Not Detected (Not Detect)
[2022-12-11 14:50] LABS: Amphetamine Screen Urine Not Detected (Not Detect); Barbiturates, Urine Not Detected (Not Detect); Benzodiazepines Screen Urine Not Detected (Not Detect); Cannabinoid Screen Urine POSITIVE (Not Detect); Cocaine Screen Urine POSITIVE (Not Detect); Opiate Screen Urine Not Detected (Not Detect); Phencyclidine Screen Urine Not Detected (Not Detect)
[2022-12-11 14:56] LABS: MANUAL DIFF FLAG NO
[2022-12-11 14:57] LABS: Basophils Percent Auto 0.5 % (0-2); Eosinophils Absolute Auto 0.1 X10*3/uL (0.0-0.4); Eosinophils Percent Auto 3.1 % (0-4); Hematocrit 41.1 % (37.0-47.0); Hemoglobin 13.6 g/dl (12.0-16.0); Lymphocytes Absolute Auto 1.6 X10*3/uL (1.2-4.9); Mean Corpuscular HGB Conc 33.1 g/dl (31.0-35.0); Mean Corpuscular Volume 75.7 fL (80.0-98.0); Mean Platelet Volume 10.6 fL (9.4-12.3); Monocytes Absolute Auto 0.2 X10*3/uL (0.1-1.2); Monocytes Percent Auto 4.8 % (2-11); Neutrophils Absolute Auto 2.3 x10*3/uL (2.0-8.3); Neutrophils Percent Auto 54.6 % (45-73); Platelet Count 159 X10*3/uL (160-400); Red Blood Count 5.43 X10*6/uL (4.20-5.50); Red Cell Distribution Width 14.2 % (11.0-16.0); White Blood Count 4.2 X10*3/uL (4.8-10.8)
--- NOTE | 2022-12-11 15:36 | ED.GENADULT ---
HPI - General Adult General Chief complaint: Psychiatric Symptoms Stated complaint: SI Time Seen by Provider: 12/11/22 13:01 Source: patient Mode of arrival: ambulatory Limitations: no limitations History of Present Illness HPI narrative: Patient is a 47 year old female with a history of PTSD, bipolar disorder, depression and substance abuse presenting with suicidal ideations. Patient explains that she has had depression for many years but has had an increase in her depression and suicidal ideations recently since her boyfriend of 6 years left her. Patient explains that her symptoms include feeling down, sleeping more, and has had suicidal ideations. Patient states she would end her life by doing a lot of dope. Patient has a history of substance abuse but claims she has been clean until one week ago when she relapsed and did crack. Denies homicidal ideations. Patient also states she wants a sore on her back and her right wrist examined which she states is sprained. Patient states she is taking medications for her depression but feels that it is not working. Related Data Home Medications Medication Instructions Recorded Confirmed methadone 10 mg tablet 80 mg PO DAILY 10/17/21 10/17/21 Previous Rx's Medication Instructions Recorded albuterol sulfate 90 mcg/actuation 2 puff inhalation Q6H PRN Wheezing 10/28/21 aerosol inhaler (Ventolin HFA) #1 inhaler bupropion HCl 150 mg 24 hr tablet, 150 mg PO DAILY #30 tabs 10/28/21 extended release clonazepam 0.5 mg tablet 0.5 mg PO BID PRN Anxiety #30 tabs 10/28/21 clonidine HCl 0.1 mg tablet 0.1 mg PO TID PRN agitation #90 10/28/21 tabs doxycycline hyclate 100 mg tablet 100 mg PO Q12H #14 tabs 10/28/21 gabapentin 300 mg capsule 600 mg PO TID #90 caps 10/28/21 hydroxyzine HCl 25 mg tablet 25 mg PO BEDTIME PRN Anxiety #30 10/28/21 tabs levothyroxine 50 mcg tablet 50 mcg PO DAILY@0600 #30 tabs 10/28/21 nicotine (polacrilex) 4 mg buccal 4 mg buccal Q1H PRN Nicotine 10/28/21 lozenge Cravings #60 ea nicotine 21 mg/24 hr daily 21 mg transdermal DAILY #30 ea 10/28/21 transdermal patch omeprazole 20 mg capsule,delayed 20 mg PO DAILY@0630 #30 caps 10/28/21 release prazosin 1 mg capsule 2 mg PO BEDTIME #60 caps 10/28/21 quetiapine 50 mg tablet 150 mg PO BEDTIME #90 tabs 10/28/21 topiramate 25 mg tablet 25 mg PO DAILY #30 tabs 10/28/21 gabapentin 600 mg tablet 600 mg PO TID #15 tabs 11/14/21 Allergies Allergy/AdvReac Type Severity Reaction Status Date / Time azithromycin Allergy Fever Verified 10/15/21 18:47 lamotrigine [From Lamictal] AdvReac Fever Verified 10/15/21 18:47 trazodone AdvReac Restless Verified 10/26/21 21:27 legs Review of Systems Review of Systems: Constitutional : No Weight loss, No Fever, No Chills, No Fatigue, No Malaise ENT/Mouth : No sore throat, No Rhinorrhea Eyes: No Eye Pain, No Swelling, No Redness Cardiovascular : No Chest Pain, No SOB, No Dyspnea on Exertion, No Orthopnea, No Edema, No Palpitations Respiratory : No Cough, No Sputum, No Wheezing Gastrointestinal : No Nausea, No Vomiting, No Diarrhea, No Constipation, No abdominal Pain, No Hematochezia, No Melena Genitourinary : No Dysuria, No Urinary Frequency, No Hematuria, Musculoskeletal : +joint pain of right wrist secondary to sprain, No other joint pain, No Myalgias, No Joint Swelling Skin : +small skin lesions, No rash Neuro : No Weakness, No Numbness, No Dizziness, No Headache Psych : +depression, anxiety, suicidal ideations. No homicidal ideations. All other systems reviewed and are negative Yes all other systems are reviewed and are negative [facility] Past Medical History Attestation statement: The following information was validated with the patient. Source: old records reviewed and nursing notes reviewed Social History Social History Household Members: Significant Other Housing: Apartment Do you presently have visiting nurse or other home services: No Patient Tobacco Use Status: Current everyday Tobacco user Tobacco use type: Cigarette Cigarettes Per Day: 10 Years Smoked: 36 Smoked in Last 30 Days: Yes e-Cigarette/Vaping Use: Never Used Second Hand Smoke Exposure: No Use of substances other than those prescribed or required for medical reasons: Yes Substance Use Type: Crack/Cocaine Last Used Substance: Days (ago) Advance Directives: No service: No Sexual orientation: Straight/Heterosexual Physical Exam ED Vital Signs: Vital Signs - 24 hr 12/11/22 13:05 12/11/22 13:27 12/11/22 14:00 Temperature 97.0 F Pulse Rate 95 Respiratory Rate 16 16 14 Blood Pressure 131/77 Pulse Oximetry 95 Oxygen Delivery Method Room Air BMI result Body Mass Index 22.9 VSS Appearance: Alert.? Oriented X3.? No acute distress.? Head: Normocephalic, atraumatic, no step-offs or deformities Eyes: Pupils equal, round and reactive to light.? CVS: Normal heart rate and rhythm.? Pulses normal.? Respiratory: No respiratory distress.? Breath sounds normal.? Abdomen: Soft and nontender.? Skin: Skin warm and dry.? Normal skin color.? Normal skin turgor.?Small quarter sized abrasion to the lower midback without drainage or signs of infection. Extremities: +THIAGO wrap to the right wrist secondary to a sprain, full range of motion, painless b/l. Radial pulses 2+ and symmetric, cap refil < 2 seconds, motor and sensory function of the extremities intact. No wrist drop. No lower extremity edema.? No calf ttp. 5/5 strength to bilateral upper and lower extremities Back: No midline tenderness, no C-spine tenderness, full range of motion Neuro: Oriented X 3.? No motor deficit.? No sensory deficit. CN 2-12 intact Course Reevaluation(s) Reevaluation #1: CBC unremarkable. Chemistry no acute findings requiring intervention. UA with infection 4+ bacteria, will treat with Ceftin. Salicylates, acetaminophen and ethanol negative. Cocaine and marijuana positive. At this time patient to be placed into observation to allow more time to be evaluated by behavioral health team. At time observation started common cooperative no acute distress will continue monitor Time: 16:07 Reevaluation #2: in patient bed search, SI with plan recent relapse. Time: 16:18 Medical Decision Making Medical Decision Making MDM Narrative: 47 year old female presenting with depression and suicidal ideations with a plan. No acute findings on exam. This is likely depression as patient has a history of depression and is experiencing her typical symptoms. Not likely metabolic or electrolyte derangements as labs are normal. Wrist plain likely sprain or strain unlikely fracture, dislocation, neurovascular compromise, threat to Rinaldi, arterial or venous occlusion. And lesion on back likely small healing abrasion, no signs of osteomyelitis, necrosis, SJS, TEn, gangrene. Plan: Medical clearance Differential Diagnosis Differential Diagnoses: The differential diagnosis associated with the presentation includes This is likely depression as patient has a history of depression and is experiencing her typical symptoms. Not likely metabolic or electrolyte derangements as labs are normal. Wrist plain likely sprain or strain unlikely fracture, dislocation, neurovascular compromise, threat to Rinaldi, arterial or venous occlusion. And lesion on back likely small healing abrasion, no signs of osteomyelitis, necrosis, SJS, TEn, gangrene. Admission/Observation Consideration of admission/observation: Escalation of care including admission/observation considered Not indicated. Lab Data MDM Lab Attestation statement: I reviewed the patient's lab results. CBC and CMP grossly normal. Urine studies significant for a urinary tract infection and patient will be treated. 12/11/22 14:47 12/11/22 13:54 Labs: Lab Results 12/11/22 12/11/22 12/11/22 Range/Units 13:54 13:54 13:54 WBC (4.8-10.8) X10*3/uL RBC (4.20-5.50) X10*6/uL Hgb (12.0-16.0) g/dl Hct (37.0-47.0) % MCV (80.0-98.0) fL MCH (27.0-33.0) pg MCHC (31.0-35.0) g/dl RDW (11.0-16.0) % Plt Count (160-400) X10*3/uL MPV (9.4-12.3) fL Immature Gran % (Auto) (0.0-0.4) % Neut % (Auto) (45-73) % Lymph % (Auto) (20-40) % [place] % (Auto) (2-11) % Eos % (Auto) (0-4) % Baso % (Auto) (0-2) % Lymph # (Auto) (1.2-4.9) X10*3/uL [place] # (Auto) (0.1-1.2) X10*3/uL Eos # (Auto) (0.0-0.4) X10*3/uL Baso # (Auto) (0.0-0.2) X10*3/uL Abs Immat Gran (auto) (0.00-0.03) X10*3/uL Absolute Neuts (auto) (2.0-8.3) x10*3/uL Absolute Nucleated RBC (0.0-0.012) X10*3/uL Nucleated RBC % (auto) (0.0-0.2) /100WBC Sodium 142 (135-145) mmol/L Potassium 3.7 D (3.3-5.1) mmol/L Chloride 108 (96-108) mmol/L Carbon Dioxide 24 (22-29) mmol/L Anion Gap 14 (12-20) BUN 7 L (9-16) mg/dL Creatinine 0.89 (0.5-1.4) mg/dL Estim Creat Clear Calc 61.1 Estimated GFR > 60 Random Glucose 64 (60-115) mg/dL Calcium 9.4 (8.4-10.2) mg/dL Magnesium 1.7 (1.6-2.6) mg/dL Total Bilirubin 0.3 (0.0-1.0) mg/dL AST 19 (5-31) U/L ALT 10 (0-31) U/L Alkaline Phosphatase 74 (39-117) U/L Total Protein 7.0 (6.5-8.0) g/dL Albumin 3.8 (3.5-5.0) g/dL Urine Color Dark Yellow Urine Appearance Cloudy Urine pH 5.5 (5.0-9.0) Ur Specific [place] 1.025 (1.005-1.025) Urine Protein Trace (Neg-Trace) mg/dL Urine Glucose (UA) Negative (Negative) mg/dL Urine Ketones Trace (Negative) mg/dL Urine Blood Negative (Negative) Urine Nitrite Negative (Negative) Ur Leukocyte Esterase Trace H (Negative) Urine RBC 0-2 (0-2) /HPF Urine WBC 11-20 H (0-5) /HPF Ur Squamous Epith Cells >20 (0-2) /HPF Urine Bacteria 4+ (None Seen) Hyaline Casts 3-5 (0-2) /LPF Salicylates < 5.0 L (15-30) mg/dL Urine Opiates Screen (Not Detect) Urine Fentanyl Screen (Not Detect) Acetaminophen < 17 (<30) mcg/mL Ur Barbiturates Screen (Not Detect) Ur Phencyclidine Scrn (Not Detect) Ur Amphetamines Screen (Not Detect) U Benzodiazepines Scrn (Not Detect) Urine Cocaine Screen (Not Detect) U Marijuana (THC) Screen (Not Detect) Ethyl Alcohol < 10 mg/dL 12/11/22 12/11/22 Range/Units 13:54 14:47 WBC 4.2 L (4.8-10.8) X10*3/uL RBC 5.43 (4.20-5.50) X10*6/uL Hgb 13.6 (12.0-16.0) g/dl Hct 41.1 (37.0-47.0) % MCV 75.7 L (80.0-98.0) fL MCH 25.0 L (27.0-33.0) pg MCHC 33.1 (31.0-35.0) g/dl RDW 14.2 (11.0-16.0) % Plt Count 159 L (160-400) X10*3/uL MPV 10.6 (9.4-12.3) fL Immature Gran % (Auto) 0.0 (0.0-0.4) % Neut % (Auto) 54.6 (45-73) % Lymph % (Auto) 37.0 (20-40) % [place] % (Auto) 4.8 (2-11) % Eos % (Auto) 3.1 (0-4) % Baso % (Auto) 0.5 (0-2) % Lymph # (Auto) 1.6 (1.2-4.9) X10*3/uL [place] # (Auto) 0.2 (0.1-1.2) X10*3/uL Eos # (Auto) 0.1 (0.0-0.4) X10*3/uL Baso # (Auto) 0.0 (0.0-0.2) X10*3/uL Abs Immat Gran (auto) 0.00 (0.00-0.03) X10*3/uL Absolute Neuts (auto) 2.3 (2.0-8.3) x10*3/uL Absolute Nucleated RBC 0.000 (0.0-0.012) X10*3/uL Nucleated RBC % (auto) 0.0 (0.0-0.2) /100WBC Sodium (135-145) mmol/L Potassium (3.3-5.1) mmol/L Chloride (96-108) mmol/L Carbon Dioxide (22-29) mmol/L Anion Gap (12-20) BUN (9-16) mg/dL Creatinine (0.5-1.4) mg/dL Estim Creat Clear Calc Estimated GFR Random Glucose (60-115) mg/dL Calcium (8.4-10.2) mg/dL Magnesium (1.6-2.6) mg/dL Total Bilirubin (0.0-1.0) mg/dL AST (5-31) U/L ALT (0-31) U/L Alkaline Phosphatase (39-117) U/L Total Protein (6.5-8.0) g/dL Albumin (3.5-5.0) g/dL Urine Color Urine Appearance Urine pH (5.0-9.0) Ur Specific [place] (1.005-1.025) Urine Protein (Neg-Trace) mg/dL Urine Glucose (UA) (Negative) mg/dL Urine Ketones (Negative) mg/dL Urine Blood (Negative) Urine Nitrite (Negative) Ur Leukocyte Esterase (Negative) Urine RBC (0-2) /HPF Urine WBC (0-5) /HPF Ur Squamous Epith Cells (0-2) /HPF Urine Bacteria (None Seen) Hyaline Casts (0-2) /LPF Salicylates (15-30) mg/dL Urine Opiates Screen Not Detected (Not Detect) Urine Fentanyl Screen Not Detected (Not Detect) Acetaminophen (<30) mcg/mL Ur Barbiturates Screen Not Detected (Not Detect) Ur Phencyclidine Scrn Not Detected (Not Detect) Ur Amphetamines Screen Not Detected (Not Detect) U Benzodiazepines Scrn Not Detected (Not Detect) Urine Cocaine Screen POSITIVE H (Not Detect) U Marijuana (THC) Screen POSITIVE H (Not Detect) Ethyl Alcohol mg/dL Prescription Management I considered prescription management with: Antibiotic One time dose ceftin for UTI. Core Measures AMI core measures followed: Yes Measure exclusions: not indicated Critical Care Time Critical Care Time Critical Care Time: No Discharge Plan Discharge Clinical Impression: Suicidal ideation, Depression Patient Disposition: Still a Patient Instructions: Depression (ED), Suicide Prevention (ED) Additional Instructions: Take your medications as prescribed. If you were prescribed antibiotics today, it is important that you take your medication to their entirety, do not skip any doses, do not finish them early. Follow-up with your primary care provider this week. Return to the emergency department with new or worsening symptoms. Such as fevers, chills, chest pain, shortness of breath, nausea, vomiting, dizziness, headache, vision changes, lethargy In case of emergency call 911 Prescriptions: No Action methadone 10 mg Tablet 80 mg PO DAILY clonidine HCl 0.1 mg Tablet 0.1 mg PO TID PRN (Reason: agitation) Qty: 90 0RF Protocol: Hold for SBP< HOLD for SBP < : 90 prazosin 1 mg Capsule 2 mg PO BEDTIME Qty: 60 0RF Protocol: Hold for SBP< HOLD for SBP < : 90 nicotine 21 mg/24 hr Patch 24 Hour 21 mg transdermal DAILY Qty: 30 0RF albuterol sulfate [Ventolin HFA] 90 mcg/actuation Hfa Aerosol Inhaler 2 puff inhalation Q6H PRN (Reason: Wheezing) Qty: 1 0RF doxycycline hyclate 100 mg Tablet 100 mg PO Q12H Qty: 14 0RF nicotine (polacrilex) 4 mg Lozenge 4 mg buccal Q1H PRN (Reason: Nicotine Cravings) Qty: 60 0RF clonazepam 0.5 mg Tablet 0.5 mg PO BID PRN (Reason: Anxiety) Qty: 30 1RF topiramate 25 mg Tablet 25 mg PO DAILY Qty: 30 0RF levothyroxine 50 mcg Tablet 50 mcg PO DAILY@0600 Qty: 30 0RF gabapentin 300 mg Capsule 600 mg PO TID Qty: 90 0RF omeprazole 20 mg Capsule,Delayed Release(Dr/Ec) 20 mg PO DAILY@0630 Qty: 30 0RF hydroxyzine HCl 25 mg Tablet 25 mg PO BEDTIME PRN (Reason: Anxiety) Qty: 30 0RF bupropion HCl 150 mg Tablet Extended Release 24 Hr 150 mg PO DAILY Qty: 30 0RF quetiapine 50 mg Tablet 150 mg PO BEDTIME Qty: 90 0RF gabapentin 600 mg tablet 600 mg PO TID Qty: 15 0RF Interventions: [place]-Suicide Risk Severity Scale Last Done: 12/11/22 13:12
--- NOTE | 2022-12-11 16:32 | PC.NURSE ---
pt at x-ray with [facility] [employer] and security
[2022-12-11 19:29] LABS: COVID-19 Test Negative (Negative); IDNOW Serial# 08D9AD1C
--- NOTE | 2022-12-11 19:57 | HE.PHANOTE ---
Methadone verification Pharmacy has received the methadone verification from [facility]. Patient brought in take home bottles from [facility] for 12/07/22-12/12/22. Patient last took methadone 130 mg on 12/11/22. Katty Lopez, PharmD
[2022-12-11 20:09] VITALS: BP 126/88; PULSE 50; RESP 16; TEMP 36.6; O2SAT 97
[2022-12-11 23:00] VITALS: BP 153/93; PULSE 70; RESP 16; TEMP 35.8; O2SAT 97
[2022-12-11] MEDS: hydrOXYzine HCL 25 MG TABLET PO (23:53)
[2022-12-11] MEDS: Acetaminophen 325 MG TABLET 650 MG PO (23:53)
--- NOTE | 2022-12-12 | ECG_ITS ---
Test Reason : qtc check Blood Pressure : / mmHG Vent. Rate : 043 BPM Atrial Rate : 043 BPM P-R Int : 126 ms QRS Dur : 084 ms QT Int : 522 ms P-R-T Axes : 022 044 047 degrees QTc Int : 441 ms Marked sinus bradycardia Abnormal ECG When compared with ECG of 11-DEC-2022 19:53, QT has shortened Heart rate has decreased Referred By: Emelina Avila Electronically Signed By:HELIO CASPER
[2022-12-12 00:36] VITALS: BMI 24.0
--- NOTE | 2022-12-12 03:05 | PC.ADMIT ---
Patient admitted to [facility] from [facility] on 12/11/22 on a CV for SI with plan to overdose on heroin. Patient has recent stressors including breaking? up with her boyfriend of 6 years. She reports that she has been clean from all narcotics up until one week ago, when she started using crack/cocaine. Patient is on methadone daily (130mg). She has had multiple suicide attempts in the past, and last inpatient admission being Summer 2021.? She reports severe depression, poor appetite, losing 20 pounds within the last few months. She continues to have suicidal thoughts, but acknowledges that she is safe here. Denies HI/AH/VH. Upon arrival to the unit, patient is pleasant and cooperative with admission process. Releases of information completed. Patient declines to participate in a safety tool, stating ?I don?t think I will need that.? Skin and contraband check completed, patient has raised red area on low back, just above coccyx area. Med compliant. Methadone verification form completed.
--- NOTE | 2022-12-12 06:36 | HE.PHANOTE ---
METHADONE VERIFICATION FORM RECEIVED FOR 130MG FROM [facility]. LAST DOSE 12/11
[2022-12-12] MEDS: Omeprazole 20 MG CAPSULE.DR PO (07:56)
[2022-12-12] MEDS: Levothyroxine Sodium 50 MCG TABLET PO (07:57)
[2022-12-12] MEDS: buPROPion HCl XL 300 MG TAB.ER.24H PO (07:57)
[2022-12-12] MEDS: methADONE HCl 20 MG/2 ML ORAL.CONC 130 MG PO (08:00)
[2022-12-12 08:03] VITALS: BP 142/86; PULSE 52; RESP 14; TEMP 36; O2SAT 100
[2022-12-12] MEDS: hydrOXYzine HCL 25 MG TABLET PO (08:55)
[2022-12-12 09:01] LABS: Estimated Average Glucose 97 mg/dL
[2022-12-12 09:06] LABS: Alanine Aminotransferase 9 U/L (0-31); Albumin Level 4.1 g/dL (3.5-5.0); Alkaline Phosphatase 75 U/L (39-117); Anion Gap 13 (12-20); Aspartate Amino Transferase 17 U/L (5-31); Bilirubin Total 0.4 mg/dL (0.0-1.0); Blood Urea Nitrogen 12 mg/dL (9-16); Calcium 9.8 mg/dL (8.4-10.2); Carbon Dioxide 28 mmol/L (22-29); Chloride 105 mmol/L (96-108); Cholesterol 135 mg/dL (<200); Creatinine Clr Calc Pharmacy 61.8; Estimated Glomerular Filt Rate > 60; Glucose Fasting 98 mg/dL (60-99); HDL Cholesterol 29 mg/dL (>40); LDL Cholesterol Calculated 68 mg/dL (<100); Potassium 5.1 mmol/L (3.3-5.1); Sodium 141 mmol/L (135-145); Total Protein 7.4 g/dL (6.5-8.0); Triglycerides 191 mg/dL (<150)
[2022-12-12 09:20] LABS: Thyroid Stimulating Hormone 12.04 uIU/mL (0.32-4.0)
[2022-12-12 09:32] LABS: Folate 8.9 ng/mL (> or = 4.0); Vitamin B12 313 pg/mL (200-900)
[2022-12-12] MEDS: Gabapentin 400 MG CAPSULE 800 MG PO ×3 (09:42→20:14)
[2022-12-12] MEDS: clonazePAM 0.5 MG TABLET PO (14:13)
[2022-12-12] MEDS: QUEtiapine Fumarate 25 MG TABLET PO (14:13)
--- NOTE | 2022-12-12 18:24 | HO.PSYADMNOT ---
HPI Date of Service: 12/12/22 Chief Complaint: SI Sources of Information: patient interviewed, chart reviewed and crisis/core team assessment reviewed HPI Subjective Notes: Segura Warning and Conditional Voluntary Healthcare Proxy: No Guardianship: No Medical Problems Affecting Mental Status: No Narrative: 47 yo female to ER with her employment coach reporting SI with plan to overdose on Heroin. Pt reports her partner of six years left their relationship recently for another woman a few days ago. Pt relapsed on crack after being sober for one year. Currently on 130 mg Methadone with take home status. Hx of past attempts, most recent 2017 at her home in [place]. Reports taking medications as prescribed. Recent loss has been such a shock and devastation that pt reports feeling numb and unable to move forward. She moved to this area to be with her ex and supported him during incarceration. She does not know how to recover from this loss. Past Psychiatric History: IP: 3, [place], August 2021,[facility] 2021 OP: No current therapist, sees Dr. Mobley Ladysmith for psychopharmacology Detox- hx of 30 day program Medical Evaluation Reviewed: Yes PMF Family History: Substance abuse Mental Health issues Social History: Pt is an only child. Describes her childhood as difficult and traumatic Both parents had substance abuse issues. Father had mental health issues One child, a son Legal- hx of ~9 years of incarceration for various issues. Substance History: Sober ~ 1 year with relapse recently when her relationship ended Trauma History: Affirms, beginning in her childhood Diagnostics Vital Signs (24Hr): Vital Signs - 24 hr 12/11/22 20:09 12/11/22 23:00 12/12/22 08:03 Temperature 97.8 F 96.5 F L 96.8 F Pulse Rate 50 70 52 Respiratory Rate 16 16 14 Blood Pressure 126/88 153/93 H 142/86 H Pulse Oximetry 97 97 100 Oxygen Delivery Method Room Air Room Air Room Air BMI result Body Mass Index 24.0 Labs 12/11/22 14:47 12/12/22 08:23 Labs: Laboratory Results - last 48 hr 12/11/22 12/11/22 12/11/22 13:54 13:54 13:54 WBC RBC Hgb Hct MCV MCH MCHC RDW Plt Count MPV Immature Gran % (Auto) Neut % (Auto) Lymph % (Auto) [place] % (Auto) Eos % (Auto) Baso % (Auto) Lymph # (Auto) [place] # (Auto) Eos # (Auto) Baso # (Auto) Abs Immat Gran (auto) Absolute Neuts (auto) Absolute Nucleated RBC Nucleated RBC % (auto) Sodium 142 Potassium 3.7 D Chloride 108 Carbon Dioxide 24 Anion Gap 14 BUN 7 L Creatinine 0.89 Estim Creat Clear Calc 61.1 Estimated GFR > 60 Random Glucose 64 Fasting Glucose Estimat Average Glucose Hemoglobin A1c % Calcium 9.4 Magnesium 1.7 Total Bilirubin 0.3 AST 19 ALT 10 Alkaline Phosphatase 74 Total Protein 7.0 Albumin 3.8 Triglycerides Cholesterol LDL Cholesterol, Calc HDL Cholesterol Vitamin B12 Folate TSH Urine Color Dark Yellow Urine Appearance Cloudy Urine pH 5.5 Ur Specific [place] 1.025 Urine Protein Trace Urine Glucose (UA) Negative Urine Ketones Trace Urine Blood Negative Urine Nitrite Negative Ur Leukocyte Esterase Trace H Urine RBC 0-2 Urine WBC 11-20 H Ur Squamous Epith Cells >20 Urine Bacteria 4+ Hyaline Casts 3-5 Salicylates < 5.0 L Urine Opiates Screen Urine Fentanyl Screen Acetaminophen < 17 Ur Barbiturates Screen Ur Phencyclidine Scrn Ur Amphetamines Screen U Benzodiazepines Scrn Urine Cocaine Screen U Marijuana (THC) Screen Ethyl Alcohol < 10 COVID-19 (LARS) COVID-19 Clin Com 12/11/22 12/11/22 12/11/22 13:54 14:47 19:04 WBC 4.2 L RBC 5.43 Hgb 13.6 Hct 41.1 MCV 75.7 L MCH 25.0 L MCHC 33.1 RDW 14.2 Plt Count 159 L MPV 10.6 Immature Gran % (Auto) 0.0 Neut % (Auto) 54.6 Lymph % (Auto) 37.0 [place] % (Auto) 4.8 Eos % (Auto) 3.1 Baso % (Auto) 0.5 Lymph # (Auto) 1.6 [place] # (Auto) 0.2 Eos # (Auto) 0.1 Baso # (Auto) 0.0 Abs Immat Gran (auto) 0.00 Absolute Neuts (auto) 2.3 Absolute Nucleated RBC 0.000 Nucleated RBC % (auto) 0.0 Sodium Potassium Chloride Carbon Dioxide Anion Gap BUN Creatinine Estim Creat Clear Calc Estimated GFR Random Glucose Fasting Glucose Estimat Average Glucose Hemoglobin A1c % Calcium Magnesium Total Bilirubin AST ALT Alkaline Phosphatase Total Protein Albumin Triglycerides Cholesterol LDL Cholesterol, Calc HDL Cholesterol Vitamin B12 Folate TSH Urine Color Urine Appearance Urine pH Ur Specific [place] Urine Protein Urine Glucose (UA) Urine Ketones Urine Blood Urine Nitrite Ur Leukocyte Esterase Urine RBC Urine WBC Ur Squamous Epith Cells Urine Bacteria Hyaline Casts Salicylates Urine Opiates Screen Not Detected Urine Fentanyl Screen Not Detected Acetaminophen Ur Barbiturates Screen Not Detected Ur Phencyclidine Scrn Not Detected Ur Amphetamines Screen Not Detected U Benzodiazepines Scrn Not Detected Urine Cocaine Screen POSITIVE H U Marijuana (THC) Screen POSITIVE H Ethyl Alcohol COVID-19 (LARS) Negative COVID-19 Clin Com See Note 12/12/22 12/12/22 12/12/22 08: 08: 08:23 WBC RBC Hgb Hct MCV MCH MCHC RDW Plt Count MPV Immature Gran % (Auto) Neut % (Auto) Lymph % (Auto) [place] % (Auto) Eos % (Auto) Baso % (Auto) Lymph # (Auto) [place] # (Auto) Eos # (Auto) Baso # (Auto) Abs Immat Gran (auto) Absolute Neuts (auto) Absolute Nucleated RBC Nucleated RBC % (auto) Sodium 141 Potassium 5.1 D Chloride 105 Carbon Dioxide 28 Anion Gap 13 BUN 12 Creatinine 0.88 Estim Creat Clear Calc 61.8 Estimated GFR > 60 Random Glucose Fasting Glucose 98 Estimat Average Glucose 97 Hemoglobin A1c % 5.0 Calcium 9.8 Magnesium Total Bilirubin 0.4 AST 17 ALT 9 Alkaline Phosphatase 75 Total Protein 7.4 Albumin 4.1 Triglycerides 191 H Cholesterol 135 LDL Cholesterol, Calc 68 HDL Cholesterol 29 L Vitamin B12 313 Folate 8.9 TSH 12.04 H Urine Color Urine Appearance Urine pH Ur Specific [place] Urine Protein Urine Glucose (UA) Urine Ketones Urine Blood Urine Nitrite Ur Leukocyte Esterase Urine RBC Urine WBC Ur Squamous Epith Cells Urine Bacteria Hyaline Casts Salicylates Urine Opiates Screen Urine Fentanyl Screen Acetaminophen Ur Barbiturates Screen Ur Phencyclidine Scrn Ur Amphetamines Screen U Benzodiazepines Scrn Urine Cocaine Screen U Marijuana (THC) Screen Ethyl Alcohol COVID-19 (LARS) COVID-19 Clin Com Imaging Radiology Impressions: ITS Impressions Hand/Wrist X-Ray 12/11/22 16:32 IMPRESSION: 1. Mildly displaced scaphoid fracture. 2. Small 2 mm well-corticated osseous fragment adjacent to the fourth DIP, most likely a degenerative osteophyte, correlate with point tenderness. Meds/Allergies Meds Home Medications Medication Instructions Recorded Confirmed Type methadone 10 mg tablet 130 mg PO DAILY 10/17/21 12/11/22 History bupropion HCl 150 mg 24 hr tablet, 150 mg PO DAILY 12/11/22 12/11/22 History extended release bupropion HCl 300 mg 24 hr tablet, 300 mg PO DAILY 12/11/22 12/11/22 History extended release clonazepam 0.5 mg tablet 0.5 mg PO BID 12/11/22 12/11/22 History gabapentin 800 mg tablet 800 mg PO TID 12/11/22 12/11/22 History hydroxyzine pamoate 25 mg capsule 25 mg PO BID 12/11/22 12/11/22 History prazosin 2 mg capsule 2 mg PO BEDTIME 12/11/22 12/11/22 History quetiapine 50 mg tablet 50 mg PO BEDTIME 12/11/22 12/11/22 History Allergies Allergies Allergy/AdvReac Type Severity Reaction Status Date / Time azithromycin Allergy Fever Verified 10/15/21 18:47 lamotrigine [From Lamictal] AdvReac Fever Verified 10/15/21 18:47 trazodone AdvReac Restless Verified 10/26/21 21:27 legs Mental Status Exam Mental Status Exam Patient Appearance: Fatigued Patient Orientation: Person, Place, Time and Situation Level of Consciousness: Alert Patient Behavior: Talkative and Good Eye Contact Mood Description: Withdrawn and Depressed Affect Description: Flat Patient Cognition Impaired: No Ability to Follow Directions: Fair Speech Pattern: Spontaneous Speech Memory Description: Intact Hallucinations: None Delusions: Not Present Perceptual Disturbances: Depersonalization and Derealization Thought Process: Rumination Thought Content: positive for Perseveration and positive for Suicidal Ideation Depressive Symptoms: Isolating-Friends/Family, Increased Fatigue, Thoughts of /Suicide and Loss of Energy Judgement: Fair Assessment & Plan Assessment & Plan (1) PTSD (post-traumatic stress disorder): Status: Acute Code(s): F43.10 - Post-traumatic stress disorder, unspecified (2) Bipolar disorder: Status: Acute Code(s): F31.9 - Bipolar disorder, unspecified (3) Opioid abuse with opioid-induced disorder: Status: Acute Code(s): F11.19 - Opioid abuse with unspecified opioid-induced disorder Plan 47 yo female, history of PTSD, Bipolar depression, Opiate Use Disorder, currently on Methadone with relapse after approximately one year of sobriety due to a precipitous break up with partner of six years. Pt with increase in depression, SI with plan and intent. Plan: Continue current medication regime Full milieu Collateral contacts Review of diagnostics Grief/Loss counseling Patient educated on: therapeutic strategies Informed Consent: understands Reason for continued inpatient stay Substantial Risk for: harm to self and rapid decompensation Statement Statement: I have reviewed the history and physical and performed a pertinent examination on my patient. No changes have occurred unless specified. If the History and Physical was not performed prior to admission, the Hospitalist's service will be consulted for completing the admission physical. Time Spent With Patient Time: Total time managing care of this patient today ____ minutes.
[2022-12-12 19:30] VITALS: BP 133/84; PULSE 51; RESP 16; TEMP 36.3; O2SAT 98
[2022-12-12] MEDS: Prazosin HCL 1 MG CAPSULE 2 MG PO (20:14)
[2022-12-12] MEDS: QUEtiapine Fumarate 100 MG TABLET PO (20:16)
[2022-12-13] MEDS: Levothyroxine Sodium 50 MCG TABLET PO (06:01)
[2022-12-13] MEDS: Gabapentin 400 MG CAPSULE 800 MG PO ×3 (08:33→19:56)
[2022-12-13] MEDS: buPROPion HCl XL 300 MG TAB.ER.24H PO (08:34)
[2022-12-13] MEDS: Omeprazole 20 MG CAPSULE.DR PO (08:34)
[2022-12-13] MEDS: methADONE HCl 20 MG/2 ML ORAL.CONC 130 MG PO (08:35)
[2022-12-13 09:28] VITALS: BP 132/91; PULSE 65; RESP 16; TEMP 36.2; O2SAT 100
[2022-12-13] MEDS: clonazePAM 0.5 MG TABLET PO ×2 (10:51→19:58)
--- NOTE | 2022-12-13 13:01 | P.PNPSI_ITS ---
Subjective Subjective Date of Service: 12/13/22 Reason For Visit: SI Subjective Notes: Conditional Voluntary Healthcare Proxy: No Guardianship: No Medical Problems Affecting Mental Status: No Interim History: I am ready to talk Discussed her loss. Prior to admit reports SIBS-carved ex-boyfriend's initials in her thigh with a razor (no infection noted), picking at tattoo with his name on her arm and scrape it away . Encouraged to have this done professionally. Review of meds. Wellbutrin has not been helpful. Discussed options, review of dosages. Medication Compliance: Yes Side effects from medications: No Attending Groups: Yes Review of Systems Acute medical concerns: No Medical Review of Systems: unchanged Mental Status Exam Mental Status Exam Patient Appearance: Fatigued Patient Orientation: Person, Place, Time and Situation Level of Consciousness: Alert Patient Behavior: Talkative and Good Eye Contact Mood Description: Withdrawn and Depressed Affect Description: Flat Patient Cognition Impaired: No Ability to Follow Directions: Fair Speech Pattern: Spontaneous Speech Memory Description: Intact Hallucinations: None Delusions: Not Present Perceptual Disturbances: Depersonalization and Derealization Thought Process: Rumination Thought Content: positive for Perseveration and positive for Suicidal Ideation Depressive Symptoms: Isolating-Friends/Family, Increased Fatigue, Thoughts of /Suicide and Loss of Energy Judgement: Fair Diagnostics Vital Signs (24Hr): Vital Signs - 24 hr 12/12/22 19:30 12/13/22 09:28 Temperature 97.3 F 97.2 F Pulse Rate 51 65 Respiratory Rate 16 16 Blood Pressure 133/84 132/91 H Pulse Oximetry 98 100 Oxygen Delivery Method Room Air BMI result Body Mass Index 24.0 Labs 12/11/22 14:47 12/12/22 08:23 Labs: Laboratory Results - last 48 hr 12/11/22 12/11/22 12/11/22 13:54 13:54 13:54 WBC RBC Hgb Hct MCV MCH MCHC RDW Plt Count MPV Immature Gran % (Auto) Neut % (Auto) Lymph % (Auto) [place] % (Auto) Eos % (Auto) Baso % (Auto) Lymph # (Auto) [place] # (Auto) Eos # (Auto) Baso # (Auto) Abs Immat Gran (auto) Absolute Neuts (auto) Absolute Nucleated RBC Nucleated RBC % (auto) Sodium 142 Potassium 3.7 D Chloride 108 Carbon Dioxide 24 Anion Gap 14 BUN 7 L Creatinine 0.89 Estim Creat Clear Calc 61.1 Estimated GFR > 60 Random Glucose 64 Fasting Glucose Estimat Average Glucose Hemoglobin A1c % Calcium 9.4 Magnesium 1.7 Total Bilirubin 0.3 AST 19 ALT 10 Alkaline Phosphatase 74 Total Protein 7.0 Albumin 3.8 Triglycerides Cholesterol LDL Cholesterol, Calc HDL Cholesterol Vitamin B12 Folate TSH Urine Color Dark Yellow Urine Appearance Cloudy Urine pH 5.5 Ur Specific [place] 1.025 Urine Protein Trace Urine Glucose (UA) Negative Urine Ketones Trace Urine Blood Negative Urine Nitrite Negative Ur Leukocyte Esterase Trace H Urine RBC 0-2 Urine WBC 11-20 H Ur Squamous Epith Cells >20 Urine Bacteria 4+ Hyaline Casts 3-5 Salicylates < 5.0 L Urine Opiates Screen Urine Fentanyl Screen Acetaminophen < 17 Ur Barbiturates Screen Ur Phencyclidine Scrn Ur Amphetamines Screen U Benzodiazepines Scrn Urine Cocaine Screen U Marijuana (THC) Screen Ethyl Alcohol < 10 COVID-19 (LARS) COVID-19 Clin Com 12/11/22 12/11/22 12/11/22 13:54 14:47 19:04 WBC 4.2 L RBC 5.43 Hgb 13.6 Hct 41.1 MCV 75.7 L MCH 25.0 L MCHC 33.1 RDW 14.2 Plt Count 159 L MPV 10.6 Immature Gran % (Auto) 0.0 Neut % (Auto) 54.6 Lymph % (Auto) 37.0 [place] % (Auto) 4.8 Eos % (Auto) 3.1 Baso % (Auto) 0.5 Lymph # (Auto) 1.6 [place] # (Auto) 0.2 Eos # (Auto) 0.1 Baso # (Auto) 0.0 Abs Immat Gran (auto) 0.00 Absolute Neuts (auto) 2.3 Absolute Nucleated RBC 0.000 Nucleated RBC % (auto) 0.0 Sodium Potassium Chloride Carbon Dioxide Anion Gap BUN Creatinine Estim Creat Clear Calc Estimated GFR Random Glucose Fasting Glucose Estimat Average Glucose Hemoglobin A1c % Calcium Magnesium Total Bilirubin AST ALT Alkaline Phosphatase Total Protein Albumin Triglycerides Cholesterol LDL Cholesterol, Calc HDL Cholesterol Vitamin B12 Folate TSH Urine Color Urine Appearance Urine pH Ur Specific [place] Urine Protein Urine Glucose (UA) Urine Ketones Urine Blood Urine Nitrite Ur Leukocyte Esterase Urine RBC Urine WBC Ur Squamous Epith Cells Urine Bacteria Hyaline Casts Salicylates Urine Opiates Screen Not Detected Urine Fentanyl Screen Not Detected Acetaminophen Ur Barbiturates Screen Not Detected Ur Phencyclidine Scrn Not Detected Ur Amphetamines Screen Not Detected U Benzodiazepines Scrn Not Detected Urine Cocaine Screen POSITIVE H U Marijuana (THC) Screen POSITIVE H Ethyl Alcohol COVID-19 (LARS) Negative COVID-19 Clin Com See Note 12/12/22 12/12/22 12/12/22 08:23 08:23 08:23 WBC RBC Hgb Hct MCV MCH MCHC RDW Plt Count MPV Immature Gran % (Auto) Neut % (Auto) Lymph % (Auto) [place] % (Auto) Eos % (Auto) Baso % (Auto) Lymph # (Auto) [place] # (Auto) Eos # (Auto) Baso # (Auto) Abs Immat Gran (auto) Absolute Neuts (auto) Absolute Nucleated RBC Nucleated RBC % (auto) Sodium 141 Potassium 5.1 D Chloride 105 Carbon Dioxide 28 Anion Gap 13 BUN 12 Creatinine 0.88 Estim Creat Clear Calc 61.8 Estimated GFR > 60 Random Glucose Fasting Glucose 98 Estimat Average Glucose 97 Hemoglobin A1c % 5.0 Calcium 9.8 Magnesium Total Bilirubin 0.4 AST 17 ALT 9 Alkaline Phosphatase 75 Total Protein 7.4 Albumin 4.1 Triglycerides 191 H Cholesterol 135 LDL Cholesterol, Calc 68 HDL Cholesterol 29 L Vitamin B12 313 Folate 8.9 TSH 12.04 H Urine Color Urine Appearance Urine pH Ur Specific [place] Urine Protein Urine Glucose (UA) Urine Ketones Urine Blood Urine Nitrite Ur Leukocyte Esterase Urine RBC Urine WBC Ur Squamous Epith Cells Urine Bacteria Hyaline Casts Salicylates Urine Opiates Screen Urine Fentanyl Screen Acetaminophen Ur Barbiturates Screen Ur Phencyclidine Scrn Ur Amphetamines Screen U Benzodiazepines Scrn Urine Cocaine Screen U Marijuana (THC) Screen Ethyl Alcohol COVID-19 (LARS) COVID-19 Clin Com Imaging Radiology Impressions: ITS Impressions Hand/Wrist X-Ray 12/11/22 16:32 IMPRESSION: 1. Mildly displaced scaphoid fracture. 2. Small 2 mm well-corticated osseous fragment adjacent to the fourth DIP, most likely a degenerative osteophyte, correlate with point tenderness. Medications Medications Current Medications Acetaminophen (Acetaminophen 325 Mg Tablet) 650 mg PO Q6H PRN PRN Reason: Headache/Pain Mild Scale (1-3) Last Admin: 12/11/22 23:53 Dose: 650 mg Al Hydroxide/Mg Hydroxide (Magnesium Hydrox/Alum Hydrox 30 Ml Oral.Susp) 30 ml PO Q6H PRN PRN Reason: Heartburn/Nausea Albuterol Sulfate (Albuterol Sulfate 90 Mcg 8 Gm Inhaler) 2 puff INHALE Q6H PRN PRN Reason: Wheezing Bupropion HCl (Bupropion Hcl Xl 300 Mg Tab.Er.24h) 300 mg PO DAILY [facility] Last Admin: 12/13/22 08:34 Dose: 300 mg Cefuroxime Axetil (Cefuroxime Axetil 250 Mg Tablet) 250 mg PO BID [facility] Last Admin: 12/13/22 08:34 Dose: 250 mg Clonazepam (Clonazepam 0.5 Mg Tablet) 0.5 mg PO BID PRN PRN Reason: Anxiety Last Admin: 12/13/22 10:51 Dose: 0.5 mg Gabapentin (Gabapentin 400 Mg Capsule) 800 mg PO TID [facility] Last Admin: 12/13/22 08:33 Dose: 800 mg Hydroxyzine HCl (Hydroxyzine Hcl 25 Mg Tablet) 25 mg PO Q6H PRN PRN Reason: Anxiety Last Admin: 12/12/22 08:55 Dose: 25 mg Levothyroxine Sodium (Levothyroxine Sodium 50 Mcg Tablet) 50 mcg PO DAILY@0600 [facility] Last Admin: 12/13/22 06:01 Dose: 50 mcg Magnesium Hydroxide (Milk Of Magnesia 30 Ml Oral.Susp) 30 ml PO DAILY PRN PRN Reason: Constipation Methadone HCl (Methadone Hcl 20 Mg/2 Ml Oral.Conc) 130 mg PO DAILY [facility] Last Admin: 12/13/22 08:35 Dose: 130 mg Nicotine (Nicotine 21 Mg Patch.Td24) 21 mg TRANSDERMA DAILY [facility] Last Admin: 12/13/22 09:16 Dose: Not Given Omeprazole (Omeprazole 20 Mg Capsule.Dr) 20 mg PO DAILY [facility] Last Admin: 12/13/22 08:34 Dose: 20 mg Prazosin HCl (Prazosin Hcl 1 Mg Capsule) 2 mg PO BEDTIME [facility]; Protocol Last Admin: 12/12/22 20:14 Dose: 2 mg Quetiapine Fumarate (Quetiapine Fumarate 100 Mg Tablet) 100 mg PO BEDTIME [facility] Last Admin: 12/12/22 20:16 Dose: 100 mg Quetiapine Fumarate (Quetiapine Fumarate 25 Mg Tablet) 25 mg PO QID PRN PRN Reason: anxiety Last Admin: 12/12/22 14:13 Dose: 25 mg Allergies Allergies Allergy/AdvReac Type Severity Reaction Status Date / Time azithromycin Allergy Fever Verified 10/15/21 18:47 lamotrigine [From Lamictal] AdvReac Fever Verified 10/15/21 18:47 trazodone AdvReac Restless Verified 10/26/21 21:27 legs Assessment & Plan Assessment & Plan (1) Suicidal ideation: Status: Acute Code(s): R45.851 - Suicidal ideations (2) PTSD (post-traumatic stress disorder): Status: Acute Code(s): F43.10 - Post-traumatic stress disorder, unspecified (3) Bipolar disorder: Status: Acute Code(s): F31.9 - Bipolar disorder, unspecified Plan 12/13/22 Discontinue Wellbutrin Cymbalta 20 mg a.m. Klonopin 1 mg daily prn in addition to 0.5 mg bid prn Patient educated on: medication risk/benefits and therapeutic strategies Informed Consent: understands Reason for continued inpatient stay Substantial Risk for: harm to self, inability to function and rapid decompensation Time Spent With Patient Time: Total time managing care of this patient today ____ minutes.
[2022-12-13] MEDS: clonazePAM 1 MG TABLET PO (14:11)
[2022-12-13] MEDS: Acetaminophen 325 MG TABLET 650 MG PO (18:02)
[2022-12-13] MEDS: hydrOXYzine HCL 25 MG TABLET PO ×2 (18:03→23:42)
[2022-12-13 19:55] VITALS: BP 114/66; PULSE 61; TEMP 36.4
[2022-12-13] MEDS: QUEtiapine Fumarate 100 MG TABLET PO (19:58)
[2022-12-13] MEDS: Prazosin HCL 1 MG CAPSULE 2 MG PO (20:00)
[2022-12-13] MEDS: QUEtiapine Fumarate 25 MG TABLET PO (23:42)
[2022-12-14] MEDS: Levothyroxine Sodium 50 MCG TABLET PO (06:24)
[2022-12-14 07:00] VITALS: BMI 24.5
[2022-12-14 08:00] VITALS: BP 102/75; PULSE 67; RESP 18; TEMP 36.3; O2SAT 97
[2022-12-14] MEDS: Omeprazole 20 MG CAPSULE.DR PO (08:52)
[2022-12-14] MEDS: Gabapentin 400 MG CAPSULE 800 MG PO ×3 (08:53→20:29)
[2022-12-14] MEDS: DULoxetine HCl 20 MG CAPSULE.DR PO (08:53)
[2022-12-14] MEDS: clonazePAM 1 MG TABLET PO (08:53)
[2022-12-14] MEDS: methADONE HCl 20 MG/2 ML ORAL.CONC 130 MG PO (08:54)
[2022-12-14] MEDS: clonazePAM 0.5 MG TABLET PO (14:29)
[2022-12-14] MEDS: QUEtiapine Fumarate 25 MG TABLET PO (16:45)
--- NOTE | 2022-12-14 17:08 | PC.NURSE ---
Pt C/O anxiety 10/30, PRN Seroquel 25mg given pending results.
[2022-12-14 18:00] VITALS: BP 96/65; PULSE 65; RESP 16; TEMP 35.9; O2SAT 98
--- NOTE | 2022-12-14 18:07 | P.PNPSI_ITS ---
Subjective Subjective Date of Service: 12/14/22 Reason For Visit: SI Subjective Notes: Conditional Voluntary Healthcare Proxy: No Guardianship: No Medical Problems Affecting Mental Status: No Interim History: Pt is talking with team about discharge planning. This is overwhelming for her. Education provided. She remains suicidal. Today difficult as ex-partner is attempting to make contact. Discussed medication options. Demetrius reviewed. Appears sedate from Methadone. Medication Compliance: Yes Side effects from medications: No Attending Groups: Yes Review of Systems Acute medical concerns: No Medical Review of Systems: unchanged Mental Status Exam Mental Status Exam Patient Appearance: Fatigued Patient Orientation: Person, Place, Time and Situation Level of Consciousness: Alert Patient Behavior: Talkative and Good Eye Contact Mood Description: Withdrawn and Depressed Affect Description: Flat Patient Cognition Impaired: No Ability to Follow Directions: Fair Speech Pattern: Spontaneous Speech Memory Description: Intact Hallucinations: None Delusions: Not Present Perceptual Disturbances: Depersonalization and Derealization Thought Process: Rumination Thought Content: positive for Perseveration and positive for Suicidal Ideation Depressive Symptoms: Isolating-Friends/Family, Increased Fatigue, Thoughts of /Suicide and Loss of Energy Judgement: Fair Diagnostics Vital Signs (24Hr): Vital Signs - 24 hr 12/13/22 19:55 12/14/22 08:00 Temperature 97.6 F 97.4 F Pulse Rate 61 67 Respiratory Rate 18 Blood Pressure 114/66 102/75 Pulse Oximetry 97 Oxygen Delivery Method Room Air BMI result Body Mass Index 24.5 Labs 12/11/22 14:47 12/12/22 08:23 Imaging Radiology Impressions: ITS Impressions Hand/Wrist X-Ray 12/11/22 16:32 IMPRESSION: 1. Mildly displaced scaphoid fracture. 2. Small 2 mm well-corticated osseous fragment adjacent to the fourth DIP, most likely a degenerative osteophyte, correlate with point tenderness. Medications Medications Current Medications Acetaminophen (Acetaminophen 325 Mg Tablet) 650 mg PO Q6H PRN PRN Reason: Headache/Pain Mild Scale (1-3) Last Admin: 12/13/22 18:02 Dose: 650 mg Al Hydroxide/Mg Hydroxide (Magnesium Hydrox/Alum Hydrox 30 Ml Oral.Susp) 30 ml PO Q6H PRN PRN Reason: Heartburn/Nausea Albuterol Sulfate (Albuterol Sulfate 90 Mcg 8 Gm Inhaler) 2 puff INHALE Q6H PRN PRN Reason: Wheezing Cefuroxime Axetil (Cefuroxime Axetil 250 Mg Tablet) 250 mg PO BID COUNT [facility]CLUDES [facility] Last Admin: 12/14/22 08:53 Dose: 250 mg Clonazepam (Clonazepam 0.5 Mg Tablet) 0.5 mg PO BID PRN PRN Reason: Anxiety Last Admin: 12/14/22 14:29 Dose: 0.5 mg Clonazepam (Clonazepam 1 Mg Tablet) 1 mg PO DAILY PRN PRN Reason: anxiety Last Admin: 12/14/22 08:53 Dose: 1 mg Duloxetine HCl (Duloxetine Hcl 20 Mg Capsule.Dr) 20 mg PO DAILY [facility] Last Admin: 12/14/22 08:53 Dose: 20 mg Gabapentin (Gabapentin 400 Mg Capsule) 800 mg PO TID COUNT [facility] Last Admin: 12/14/22 14:29 Dose: 800 mg Hydroxyzine HCl (Hydroxyzine Hcl 25 Mg Tablet) 25 mg PO Q6H PRN PRN Reason: Anxiety Last Admin: 12/13/22 23:42 Dose: 25 mg Levothyroxine Sodium (Levothyroxine Sodium 50 Mcg Tablet) 50 mcg PO DAILY@0600 [facility] Last Admin: 12/14/22 06:24 Dose: 50 mcg Magnesium Hydroxide (Milk Of Magnesia 30 Ml Oral.Susp) 30 ml PO DAILY PRN PRN Reason: Constipation Methadone HCl (Methadone Hcl 20 Mg/2 Ml Oral.Conc) 130 mg PO DAILY [facility] Last Admin: 12/14/22 08:54 Dose: 130 mg Nicotine (Nicotine 21 Mg Patch.Td24) 21 mg TRANSDERMA DAILY COUNT [facility] Last Admin: 12/14/22 08:52 Dose: Not Given Omeprazole (Omeprazole 20 Mg Capsule.Dr) 20 mg PO DAILY COUNT [facility]CLUD[facility] Last Admin: 12/14/22 08:52 Dose: 20 mg Prazosin HCl (Prazosin Hcl 1 Mg Capsule) 2 mg PO BEDTIME [facility]; Protocol Last Admin: 12/13/22 20:00 Dose: 2 mg Quetiapine Fumarate (Quetiapine Fumarate 25 Mg Tablet) 25 mg PO QID PRN PRN Reason: anxiety Last Admin: 12/14/22 16:45 Dose: 25 mg Quetiapine Fumarate (Quetiapine Fumarate 50 Mg Tablet) 150 mg PO BEDTIME [facility] Allergies Allergies Allergy/AdvReac Type Severity Reaction Status Date / Time azithromycin Allergy Fever Verified 10/15/21 18:47 lamotrigine [From Lamictal] AdvReac Fever Verified 10/15/21 18:47 trazodone AdvReac Restless Verified 10/26/21 21:27 legs Assessment & Plan Assessment & Plan (1) Suicidal ideation: Status: Acute Code(s): R45.851 - Suicidal ideations (2) PTSD (post-traumatic stress disorder): Status: Acute Code(s): F43.10 - Post-traumatic stress disorder, unspecified (3) Bipolar disorder: Status: Acute Code(s): F31.9 - Bipolar disorder, unspecified Plan 12/13/22 Discontinue Wellbutrin Cymbalta 20 mg a.m. Klonopin 1 mg daily prn in addition to 0.5 mg bid prn 12/14/22 Continue current regime and plan of care. Patient educated on: medication risk/benefits, substance abuse, therapeutic strategies and medical condition Informed Consent: understands Reason for continued inpatient stay Substantial Risk for: rapid decompensation Time Spent With Patient Time: Total time managing care of this patient today ____ minutes.
[2022-12-14] MEDS: QUEtiapine Fumarate 50 MG TABLET 150 MG PO (20:29)
[2022-12-14] MEDS: Prazosin HCL 1 MG CAPSULE 2 MG PO (20:29)
[2022-12-15] MEDS: Levothyroxine Sodium 50 MCG TABLET PO (06:32)
[2022-12-15 08:45] VITALS: BP 102/66; PULSE 89; RESP 16; TEMP 36.8; O2SAT 95
[2022-12-15] MEDS: Omeprazole 20 MG CAPSULE.DR PO (08:48)
[2022-12-15] MEDS: Gabapentin 400 MG CAPSULE 800 MG PO ×3 (08:48→20:00)
[2022-12-15] MEDS: DULoxetine HCl 20 MG CAPSULE.DR PO (08:49)
[2022-12-15] MEDS: methADONE HCl 20 MG/2 ML ORAL.CONC 130 MG PO (08:50)
[2022-12-15] MEDS: clonazePAM 1 MG TABLET PO (09:18)
[2022-12-15] MEDS: Milk of Magnesia 30 ML ORAL.SUSP PO (09:26)
--- NOTE | 2022-12-15 10:23 | P.PNPSI_ITS ---
Subjective Subjective Date of Service: 12/15/22 Reason For Visit: SI Subjective Notes: Conditional Voluntary Healthcare Proxy: No Guardianship: No Medical Problems Affecting Mental Status: No Interim History: I felt so suicidal yesterday Discussed ex partner calling to find her and her mixture of feelings, thoughts, anger on this issue. Reflective on the pros/cons of the relationship. Reports constipation-fleet, dulcolax prn ordered Discussed Geodon-she would like to trial, 20 mg to begin. Medication Compliance: Yes Side effects from medications: Yes (constipation) Attending Groups: Yes Review of Systems Acute medical concerns: No Medical Review of Systems: unchanged Mental Status Exam Mental Status Exam Patient Appearance: Fatigued Patient Orientation: Person, Place, Time and Situation Level of Consciousness: Alert Patient Behavior: Talkative and Good Eye Contact Mood Description: Withdrawn and Depressed Affect Description: Flat Patient Cognition Impaired: No Ability to Follow Directions: Fair Speech Pattern: Spontaneous Speech Memory Description: Intact Hallucinations: None Delusions: Not Present Perceptual Disturbances: Depersonalization and Derealization Thought Process: Rumination Thought Content: positive for Perseveration and positive for Suicidal Ideation Depressive Symptoms: Isolating-Friends/Family, Increased Fatigue, Thoughts of /Suicide and Loss of Energy Judgement: Fair Diagnostics Vital Signs (24Hr): Vital Signs - 24 hr 12/14/22 18:00 12/15/22 08:45 Temperature 96.7 F L 98.3 F Pulse Rate 65 89 Respiratory Rate 16 16 Blood Pressure 96/65 102/66 Pulse Oximetry 98 95 Oxygen Delivery Method Room Air Room Air BMI result Body Mass Index 24.5 Labs 12/11/22 14:47 12/12/22 08:23 Imaging Radiology Impressions: ITS Impressions Hand/Wrist X-Ray 12/11/22 16:32 IMPRESSION: 1. Mildly displaced scaphoid fracture. 2. Small 2 mm well-corticated osseous fragment adjacent to the fourth DIP, most likely a degenerative osteophyte, correlate with point tenderness. Medications Medications Current Medications Acetaminophen (Acetaminophen 325 Mg Tablet) 650 mg PO Q6H PRN PRN Reason: Headache/Pain Mild Scale (1-3) Last Admin: 12/13/22 18:02 Dose: 650 mg Al Hydroxide/Mg Hydroxide (Magnesium Hydrox/Alum Hydrox 30 Ml Oral.Susp) 30 ml PO Q6H PRN PRN Reason: Heartburn/Nausea Albuterol Sulfate (Albuterol Sulfate 90 Mcg 8 Gm Inhaler) 2 puff INHALE Q6H PRN PRN Reason: Wheezing Cefuroxime Axetil (Cefuroxime Axetil 250 Mg Tablet) 250 mg PO BID [facility] Last Admin: 12/15/22 08:48 Dose: 250 mg Clonazepam (Clonazepam 0.5 Mg Tablet) 0.5 mg PO BID PRN PRN Reason: Anxiety Last Admin: 12/14/22 14:29 Dose: 0.5 mg Clonazepam (Clonazepam 1 Mg Tablet) 1 mg PO DAILY PRN PRN Reason: anxiety Last Admin: 12/15/22 09:18 Dose: 1 mg Duloxetine HCl (Duloxetine Hcl 20 Mg Capsule.Dr) 20 mg PO DAILY [facility] Last Admin: 12/15/22 08:49 Dose: 20 mg Gabapentin (Gabapentin 400 Mg Capsule) 800 mg PO TID [facility] Last Admin: 12/15/22 08:48 Dose: 800 mg Hydroxyzine HCl (Hydroxyzine Hcl 25 Mg Tablet) 25 mg PO Q6H PRN PRN Reason: Anxiety Last Admin: 12/13/22 23:42 Dose: 25 mg Levothyroxine Sodium (Levothyroxine Sodium 50 Mcg Tablet) 50 mcg PO DAILY@0600 [facility] Last Admin: 12/15/22 06:32 Dose: 50 mcg Magnesium Hydroxide (Milk Of Magnesia 30 Ml Oral.Susp) 30 ml PO DAILY PRN PRN Reason: Constipation Last Admin: 12/15/22 09:26 Dose: 30 ml Methadone HCl (Methadone Hcl 20 Mg/2 Ml Oral.Conc) 130 mg PO DAILY [facility] Last Admin: 12/15/22 08:50 Dose: 130 mg Nicotine (Nicotine 21 Mg Patch.Td24) 21 mg TRANSDERMA DAILY [facility] Last Admin: 12/15/22 09:40 Dose: Not Given Omeprazole (Omeprazole 20 Mg Capsule.Dr) 20 mg PO DAILY [facility] Last Admin: 12/15/22 08:48 Dose: 20 mg Prazosin HCl (Prazosin Hcl 1 Mg Capsule) 2 mg PO BEDTIME [facility]; Protocol Last Admin: 12/14/22 20:29 Dose: 2 mg Quetiapine Fumarate (Quetiapine Fumarate 25 Mg Tablet) 25 mg PO QID PRN PRN Reason: anxiety Last Admin: 12/14/22 16:45 Dose: 25 mg Quetiapine Fumarate (Quetiapine Fumarate 50 Mg Tablet) 150 mg PO BEDTIME [facility] Last Admin: 12/14/22 20:29 Dose: 150 mg Allergies Allergies Allergy/AdvReac Type Severity Reaction Status Date / Time azithromycin Allergy Fever Verified 10/15/21 18:47 lamotrigine [From Lamictal] AdvReac Fever Verified 10/15/21 18:47 trazodone AdvReac Restless Verified 10/26/21 21:27 legs Assessment & Plan Assessment & Plan (1) Suicidal ideation: Status: Acute Code(s): R45.851 - Suicidal ideations (2) PTSD (post-traumatic stress disorder): Status: Acute Code(s): F43.10 - Post-traumatic stress disorder, unspecified (3) Bipolar disorder: Status: Acute Code(s): F31.9 - Bipolar disorder, unspecified Plan 12/13/22 Discontinue Wellbutrin Cymbalta 20 mg a.m. Klonopin 1 mg daily prn in addition to 0.5 mg bid prn 12/14/22 Continue current regime and plan of care. 12/15/22 Fleet x 1 Dulcolax prn Geodon 20 mg 1900 (trial, with LTG of replacing Seroquel) Patient educated on: medication risk/benefits Informed Consent: understands Reason for continued inpatient stay Substantial Risk for: rapid decompensation Time Spent With Patient Time: Total time managing care of this patient today ____ minutes.
[2022-12-15] MEDS: Mineral OiL enema 133 ML ENEMA PR (14:41)
[2022-12-15] MEDS: QUEtiapine Fumarate 25 MG TABLET PO (14:41)
[2022-12-15] MEDS: clonazePAM 0.5 MG TABLET PO (16:17)
[2022-12-15] MEDS: Ziprasidone 20 MG CAPSULE PO (18:24)
[2022-12-15 19:56] VITALS: BP 119/66; PULSE 61; RESP 16; TEMP 36.1; O2SAT 96
[2022-12-15] MEDS: Prazosin HCL 1 MG CAPSULE 2 MG PO (20:00)
[2022-12-15] MEDS: QUEtiapine Fumarate 50 MG TABLET 150 MG PO (20:00)
[2022-12-15] MEDS: Docusate Sodium 100 MG CAPSULE PO (20:00)
[2022-12-16] MEDS: QUEtiapine Fumarate 25 MG TABLET PO ×2 (01:18→13:23)
[2022-12-16] MEDS: hydrOXYzine HCL 25 MG TABLET PO (01:19)
[2022-12-16] MEDS: Levothyroxine Sodium 50 MCG TABLET PO (06:15)
[2022-12-16] MEDS: Gabapentin 400 MG CAPSULE 800 MG PO ×3 (08:12→20:16)
[2022-12-16] MEDS: Omeprazole 20 MG CAPSULE.DR PO (08:12)
[2022-12-16 08:13] VITALS: BP 114/75; PULSE 67; RESP 16; TEMP 36.6; O2SAT 100
[2022-12-16] MEDS: Docusate Sodium 100 MG CAPSULE PO ×3 (08:13→20:15)
[2022-12-16] MEDS: methADONE HCl 20 MG/2 ML ORAL.CONC 130 MG PO (08:13)
[2022-12-16] MEDS: DULoxetine HCl 20 MG CAPSULE.DR PO (08:13)
[2022-12-16] MEDS: clonazePAM 1 MG TABLET PO (08:25)
[2022-12-16] MEDS: clonazePAM 0.5 MG TABLET PO (13:23)
--- NOTE | 2022-12-16 13:41 | P.PNPSI_ITS ---
Subjective Subjective Date of Service: 12/16/22 Reason For Visit: SI Subjective Notes: Conditional Voluntary Medical Problems Affecting Mental Status: No Interim History: Met with patient. Discussed with Nursing. Chart reviewed. Noted sedation yesterday. Today alert and oriented without issue. Ongoing constipation. Will do another Fleet enema today, increase Colace and add senna at nighttime. Magnesium citrate unavailable due to national shortage. Otherwise back on thyroid medication which he had been off for 3 months which is likely contributing to constipation. Is feeling mood improving. Reports being 100% suicidal when she came in and now 30% suicidal. No hallucinations. No paranoia. Feeling safe and well cared for. No other medication concerns. Medication Compliance: Yes Side effects from medications: No Attending Groups: Yes Review of Systems Acute medical concerns: No Review of Systems Review of Systems Constipation Mental Status Exam Mental Status Exam Patient Appearance: Fatigued Patient Orientation: Person, Place, Time and Situation Level of Consciousness: Alert Patient Behavior: Talkative and Good Eye Contact Mood Description: Withdrawn and Relaxed Affect Description: Anxious Patient Cognition Impaired: No Ability to Follow Directions: Fair Speech Pattern: Spontaneous Speech Memory Description: Intact Hallucinations: None Delusions: Not Present Thought Process: Rumination Thought Content: positive for Perseveration and positive for Suicidal Ideation Depressive Symptoms: Isolating-Friends/Family, Increased Fatigue and Thoughts of /Suicide Judgement: Fair Diagnostics Vital Signs (24Hr): Vital Signs - 24 hr 12/15/22 19:56 12/16/22 08:13 Temperature 97.0 F 98 F Pulse Rate 61 67 Respiratory Rate 16 16 Blood Pressure 119/66 114/75 Pulse Oximetry 96 100 Oxygen Delivery Method Room Air Room Air BMI result Body Mass Index 24.5 Labs 12/11/22 14:47 12/12/22 08:23 Imaging Radiology Impressions: ITS Impressions Hand/Wrist X-Ray 12/11/22 16:32 IMPRESSION: 1. Mildly displaced scaphoid fracture. 2. Small 2 mm well-corticated osseous fragment adjacent to the fourth DIP, most likely a degenerative osteophyte, correlate with point tenderness. Medications Medications Current Medications Acetaminophen (Acetaminophen 325 Mg Tablet) 650 mg PO Q6H PRN PRN Reason: Headache/Pain Mild Scale (1-3) Last Admin: 12/13/22 18:02 Dose: 650 mg Al Hydroxide/Mg Hydroxide (Magnesium Hydrox/Alum Hydrox 30 Ml Oral.Susp) 30 ml PO Q6H PRN PRN Reason: Heartburn/Nausea Albuterol Sulfate (Albuterol Sulfate 90 Mcg 8 Gm Inhaler) 2 puff INHALE Q6H PRN PRN Reason: Wheezing Bisacodyl (Bisacodyl 5 Mg Tablet.Dr) 10 mg PO DAILY PRN PRN Reason: Constipation Cefuroxime Axetil (Cefuroxime Axetil 250 Mg Tablet) 250 mg PO BID [facility] Last Admin: 12/16/22 08:13 Dose: 250 mg Clonazepam (Clonazepam 0.5 Mg Tablet) 0.5 mg PO BID PRN PRN Reason: Anxiety Last Admin: 12/16/22 13:23 Dose: 0.5 mg Clonazepam (Clonazepam 1 Mg Tablet) 1 mg PO DAILY PRN PRN Reason: anxiety Last Admin: 12/16/22 08:25 Dose: 1 mg Docusate Sodium (Docusate Sodium 100 Mg Capsule) 100 mg PO TID [facility] Duloxetine HCl (Duloxetine Hcl 20 Mg Capsule.Dr) 20 mg PO DAILY [facility] Last Admin: 12/16/22 08:13 Dose: 20 mg Gabapentin (Gabapentin 400 Mg Capsule) 800 mg PO TID [facility] Last Admin: 12/16/22 08:12 Dose: 800 mg Hydroxyzine HCl (Hydroxyzine Hcl 25 Mg Tablet) 25 mg PO Q6H PRN PRN Reason: Anxiety Last Admin: 12/16/22 01:19 Dose: 25 mg Levothyroxine Sodium (Levothyroxine Sodium 50 Mcg Tablet) 50 mcg PO DAILY@0600 [facility] Last Admin: 12/16/22 06:15 Dose: 50 mcg Magnesium Hydroxide (Milk Of Magnesia 30 Ml Oral.Susp) 30 ml PO DAILY PRN PRN Reason: Constipation Last Admin: 12/15/22 09:26 Dose: 30 ml Methadone HCl (Methadone Hcl 20 Mg/2 Ml Oral.Conc) 130 mg PO DAILY [facility] Last Admin: 12/16/22 08:13 Dose: 130 mg Nicotine (Nicotine 21 Mg Patch.Td24) 21 mg TRANSDERMA DAILY [facility] Last Admin: 12/16/22 11:12 Dose: Not Given Omeprazole (Omeprazole 20 Mg Capsule.Dr) 20 mg PO DAILY [facility] Last Admin: 12/16/22 08:12 Dose: 20 mg Prazosin HCl (Prazosin Hcl 1 Mg Capsule) 2 mg PO BEDTIME [facility]; Protocol Last Admin: 12/15/22 20:00 Dose: 2 mg Quetiapine Fumarate (Quetiapine Fumarate 25 Mg Tablet) 25 mg PO QID PRN PRN Reason: anxiety Last Admin: 12/16/22 13:23 Dose: 25 mg Quetiapine Fumarate (Quetiapine Fumarate 50 Mg Tablet) 150 mg PO BEDTIME [facility] Last Admin: 12/15/22 20:00 Dose: 150 mg Senna (Senna [place] Extract Oral Syrup 15 Ml Syrup) 15 ml PO BEDTIME [facility] Ziprasidone (Ziprasidone 20 Mg Capsule) 20 mg PO 1900 [facility] Last Admin: 12/15/22 18:24 Dose: 20 mg Allergies Allergies Allergy/AdvReac Type Severity Reaction Status Date / Time azithromycin Allergy Fever Verified 10/15/21 18:47 lamotrigine [From Lamictal] AdvReac Fever Verified 10/15/21 18:47 trazodone AdvReac Restless Verified 10/26/21 21:27 legs Assessment & Plan Assessment & Plan (1) Suicidal ideation: Status: Acute Code(s): R45.851 - Suicidal ideations (2) PTSD (post-traumatic stress disorder): Status: Acute Code(s): F43.10 - Post-traumatic stress disorder, unspecified (3) Bipolar disorder: Status: Acute Code(s): F31.9 - Bipolar disorder, unspecified Plan 12/13/22 Discontinue Wellbutrin Cymbalta 20 mg a.m. Klonopin 1 mg daily prn in addition to 0.5 mg bid prn 12/14/22 Continue current regime and plan of care. 12/15/22 Fleet x 1 Dulcolax prn Geodon 20 mg 1900 (trial, with LTG of replacing Seroquel) 12/16/2022: Increase Colace, scheduled senna, Fleet enema x1. No magnesium citrate due to national shortage. Reason for continued inpatient stay Substantial Risk for: harm to self Time Spent With Patient Time: Total time managing care of this patient today ____ minutes.
[2022-12-16] MEDS: Mineral OiL enema 133 ML ENEMA PR (13:45)
[2022-12-16 18:00] VITALS: BP 124/78; PULSE 68; RESP 16; TEMP 36.6; O2SAT 98
[2022-12-16] MEDS: Prazosin HCL 1 MG CAPSULE 2 MG PO (20:15)
[2022-12-16] MEDS: QUEtiapine Fumarate 50 MG TABLET 150 MG PO (20:15)
[2022-12-16] MEDS: Ziprasidone 20 MG CAPSULE PO (20:17)
[2022-12-17] MEDS: Levothyroxine Sodium 50 MCG TABLET PO (06:15)
[2022-12-17] MEDS: Omeprazole 20 MG CAPSULE.DR PO (08:18)
[2022-12-17] MEDS: DULoxetine HCl 20 MG CAPSULE.DR PO (08:18)
[2022-12-17] MEDS: Gabapentin 400 MG CAPSULE 800 MG PO ×3 (08:18→19:19)
[2022-12-17] MEDS: Docusate Sodium 100 MG CAPSULE PO ×2 (08:18→19:19)
[2022-12-17] MEDS: methADONE HCl 20 MG/2 ML ORAL.CONC 130 MG PO (08:19)
[2022-12-17 08:39] VITALS: BP 130/67; PULSE 77; RESP 16; TEMP 36.3; O2SAT 97
[2022-12-17] MEDS: clonazePAM 1 MG TABLET PO (08:44)
[2022-12-17] MEDS: Acetaminophen 325 MG TABLET 650 MG PO (08:48)
[2022-12-17] MEDS: Benztropine Mesylate 1 MG TABLET PO ×2 (11:43→19:18)
--- NOTE | 2022-12-17 12:35 | HO.PSYCHPN ---
Subjective Subjective Date of Service: 12/17/22 Reason For Visit: SI Interim History: Met with patient. Discussed with Nursing. C/O muscle spasms. discussed agustin PEREZ and give cogentin. Otherwise, alert and oriented without issue, had bowel movement yesterday. Mood gradually improving. Much less suicidal. No hallucinations. No paranoia. Feeling safe and well cared for. No other medication concerns. Medication Compliance: Yes Side effects from medications: No Attending Groups: Yes Review of Systems Acute medical concerns: No Review of Systems Review of Systems muscle spasm Mental Status Exam Mental Status Exam Patient Appearance: Fatigued Patient Orientation: Person, Place, Time and Situation Level of Consciousness: Alert Patient Behavior: Talkative and Good Eye Contact Mood Description: Withdrawn and Relaxed Affect Description: Anxious Patient Cognition Impaired: No Ability to Follow Directions: Fair Speech Pattern: Spontaneous Speech Memory Description: Intact Diagnostics Vital Signs (24Hr): Vital Signs - 24 hr 12/16/22 18:00 12/17/22 08:39 Temperature 97.8 F 97.4 F Pulse Rate 68 77 Respiratory Rate 16 16 Blood Pressure 124/78 130/67 Pulse Oximetry 98 97 Oxygen Delivery Method Room Air Room Air BMI result Body Mass Index 24.5 Labs 12/11/22 14:47 12/12/22 08:23 Imaging Radiology Impressions: ITS Impressions Hand/Wrist X-Ray 12/11/22 16:32 IMPRESSION: 1. Mildly displaced scaphoid fracture. 2. Small 2 mm well-corticated osseous fragment adjacent to the fourth DIP, most likely a degenerative osteophyte, correlate with point tenderness. Medications Medications Current Medications Acetaminophen (Acetaminophen 325 Mg Tablet) 650 mg PO Q6H PRN PRN Reason: Headache/Pain Mild Scale (1-3) Last Admin: 12/17/22 08:48 Dose: 650 mg Al Hydroxide/Mg Hydroxide (Magnesium Hydrox/Alum Hydrox 30 Ml Oral.Susp) 30 ml PO Q6H PRN PRN Reason: Heartburn/Nausea Albuterol Sulfate (Albuterol Sulfate 90 Mcg 8 Gm Inhaler) 2 puff INHALE Q6H PRN PRN Reason: Wheezing Benztropine Mesylate (Benztropine Mesylate 1 Mg Tablet) 1 mg PO BID [facility] Stop: 12/19/22 11:34 Last Admin: 12/17/22 11:43 Dose: 1 mg Bisacodyl (Bisacodyl 5 Mg Tablet.Dr) 10 mg PO DAILY PRN PRN Reason: Constipation Cefuroxime Axetil (Cefuroxime Axetil 250 Mg Tablet) 250 mg PO BID [facility] Last Admin: 12/17/22 08:18 Dose: 250 mg Clonazepam (Clonazepam 0.5 Mg Tablet) 0.5 mg PO BID PRN PRN Reason: Anxiety Last Admin: 12/16/22 13:23 Dose: 0.5 mg Clonazepam (Clonazepam 1 Mg Tablet) 1 mg PO DAILY PRN PRN Reason: anxiety Last Admin: 12/17/22 08:44 Dose: 1 mg Docusate Sodium (Docusate Sodium 100 Mg Capsule) 100 mg PO TID [facility] Last Admin: 12/17/22 08:18 Dose: 100 mg Duloxetine HCl (Duloxetine Hcl 20 Mg Capsule.Dr) 20 mg PO DAILY [facility] Last Admin: 12/17/22 08:18 Dose: 20 mg Gabapentin (Gabapentin 400 Mg Capsule) 800 mg PO TID [facility] Last Admin: 12/17/22 08:18 Dose: 800 mg Hydroxyzine HCl (Hydroxyzine Hcl 25 Mg Tablet) 25 mg PO Q6H PRN PRN Reason: Anxiety Last Admin: 12/16/22 01:19 Dose: 25 mg Ibuprofen (Ibuprofen 600 Mg Tablet) 600 mg PO Q6H PRN PRN Reason: pain not relieved by tylenol Levothyroxine Sodium (Levothyroxine Sodium 50 Mcg Tablet) 50 mcg PO DAILY@0600 [facility] Last Admin: 12/17/22 06:15 Dose: 50 mcg Magnesium Hydroxide (Milk Of Magnesia 30 Ml Oral.Susp) 30 ml PO DAILY PRN PRN Reason: Constipation Last Admin: 12/15/22 09:26 Dose: 30 ml Methadone HCl (Methadone Hcl 20 Mg/2 Ml Oral.Conc) 130 mg PO DAILY [facility] Last Admin: 12/17/22 08:19 Dose: 130 mg Nicotine (Nicotine 21 Mg Patch.Td24) 21 mg TRANSDERMA DAILY [facility] Last Admin: 12/17/22 10:06 Dose: Not Given Omeprazole (Omeprazole 20 Mg Capsule.Dr) 20 mg PO DAILY [facility] Last Admin: 12/17/22 08:18 Dose: 20 mg Prazosin HCl (Prazosin Hcl 1 Mg Capsule) 2 mg PO BEDTIME [facility]; Protocol Last Admin: 12/16/22 20:15 Dose: 2 mg Quetiapine Fumarate (Quetiapine Fumarate 25 Mg Tablet) 25 mg PO QID PRN PRN Reason: anxiety Last Admin: 12/16/22 13:23 Dose: 25 mg Quetiapine Fumarate (Quetiapine Fumarate 50 Mg Tablet) 150 mg PO BEDTIME [facility] Last Admin: 12/16/22 20:15 Dose: 150 mg Senna (Senna [place] Extract Oral Syrup 15 Ml Syrup) 15 ml PO BEDTIME [facility] Last Admin: 12/16/22 20:26 Dose: Not Given Allergies Allergies Allergy/AdvReac Type Severity Reaction Status Date / Time azithromycin Allergy Fever Verified 10/15/21 18:47 lamotrigine [From Lamictal] AdvReac Fever Verified 10/15/21 18:47 trazodone AdvReac Restless Verified 10/26/21 21:27 legs Assessment & Plan Assessment & Plan (1) Suicidal ideation: Status: Acute Code(s): R45.851 - Suicidal ideations (2) PTSD (post-traumatic stress disorder): Status: Acute Code(s): F43.10 - Post-traumatic stress disorder, unspecified (3) Bipolar disorder: Status: Acute Code(s): F31.9 - Bipolar disorder, unspecified Plan 12/13/22 Discontinue Wellbutrin Cymbalta 20 mg a.m. Klonopin 1 mg daily prn in addition to 0.5 mg bid prn 12/14/22 Continue current regime and plan of care. 12/15/22 Fleet x 1 Dulcolax prn Geodon 20 mg 1900 (trial, with LTG of replacing Seroquel) 12/16/2022: Increase Colace, scheduled senna, Fleet enema x1. No magnesium citrate due to national shortage. 12/17: stop geodon (muscle spasm) and give cogentin x 2 days Reason for continued inpatient stay Substantial Risk for: harm to self Time Spent With Patient Time: Total time managing care of this patient today ____ minutes.
[2022-12-17] MEDS: clonazePAM 0.5 MG TABLET PO (14:05)
[2022-12-17 18:00] VITALS: BP 124/68; PULSE 68; RESP 16; TEMP 36.4; O2SAT 98
[2022-12-17] MEDS: QUEtiapine Fumarate 50 MG TABLET 150 MG PO (19:18)
[2022-12-17] MEDS: Prazosin HCL 1 MG CAPSULE 2 MG PO (19:19)
[2022-12-18] MEDS: Levothyroxine Sodium 50 MCG TABLET PO (06:25)
[2022-12-18] MEDS: methADONE HCl 20 MG/2 ML ORAL.CONC 130 MG PO (09:20)
[2022-12-18] MEDS: DULoxetine HCl 20 MG CAPSULE.DR PO (09:21)
[2022-12-18] MEDS: Ibuprofen 600 MG TABLET PO (09:21)
[2022-12-18] MEDS: Docusate Sodium 100 MG CAPSULE PO ×3 (09:21→19:39)
[2022-12-18] MEDS: Gabapentin 400 MG CAPSULE 800 MG PO ×3 (09:21→19:39)
[2022-12-18] MEDS: Benztropine Mesylate 1 MG TABLET PO ×2 (09:22→19:38)
[2022-12-18] MEDS: Omeprazole 20 MG CAPSULE.DR PO (09:22)
[2022-12-18 09:30] VITALS: BP 92/71; PULSE 84; RESP 18; TEMP 36.2; O2SAT 95
[2022-12-18] MEDS: clonazePAM 1 MG TABLET PO (09:53)
[2022-12-18] MEDS: clonazePAM 0.5 MG TABLET PO ×2 (14:57→19:43)
--- NOTE | 2022-12-18 16:25 | P.PNPSI_ITS ---
Subjective Subjective Date of Service: 12/18/22 Reason For Visit: SI Subjective Notes: Conditional Voluntary Healthcare Proxy: No Guardianship: No Medical Problems Affecting Mental Status: No Interim History: Discussed SE from Geodon 20 mg, one dose, over the weekend-reports spasm of muscles, fever reported and headache. Review of SE profile (Annamaria) that was given to her last week. Pt discussed use of Benztropine for two days and discussed a clonidine trial. Will trial 0.1 mg, 1/2 tab in the a.m. to begin 12/19 for focus. Discussed a conversation with her son over the weekend who was accusatory regarding her sobriety. Ex-partner is continuing to contact pt's friends. Discussed discharge, tentative 12/21. Will review with the team. Medication Compliance: Yes Side effects from medications: Yes (Demetrius) Attending Groups: Yes Review of Systems Acute medical concerns: No Medical Review of Systems: unchanged Mental Status Exam Mental Status Exam Patient Appearance: Fatigued Patient Orientation: Person, Place, Time and Situation Level of Consciousness: Alert Patient Behavior: Appropriate, Cooperative and Good Eye Contact Mood Description: Constricted Affect Description: Constricted Patient Cognition Impaired: No Ability to Follow Directions: Good Speech Pattern: Spontaneous Speech Memory Description: Intact Hallucinations: None Delusions: Not Present Perceptual Disturbances: Depersonalization and Derealization Thought Process: Rumination Thought Content: positive for Circumstantial, positive for Perseveration and positive for Suicidal Ideation (denies) Depressive Symptoms: Thoughts of /Suicide (denies) Judgement: Good Diagnostics Vital Signs (24Hr): Vital Signs - 24 hr 12/17/22 18:00 12/18/22 09:30 Temperature 97.6 F 97.2 F Pulse Rate 68 84 Respiratory Rate 16 18 Blood Pressure 124/68 92/71 Pulse Oximetry 98 95 Oxygen Delivery Method Room Air Room Air BMI result Body Mass Index 24.5 Labs 12/11/22 14:47 12/12/22 08:23 Imaging Radiology Impressions: ITS Impressions Hand/Wrist X-Ray 12/11/22 16:32 IMPRESSION: 1. Mildly displaced scaphoid fracture. 2. Small 2 mm well-corticated osseous fragment adjacent to the fourth DIP, most likely a degenerative osteophyte, correlate with point tenderness. Medications Medications Current Medications Acetaminophen (Acetaminophen 325 Mg Tablet) 650 mg PO Q6H PRN PRN Reason: Headache/Pain Mild Scale (1-3) Last Admin: 12/17/22 08:48 Dose: 650 mg Al Hydroxide/Mg Hydroxide (Magnesium Hydrox/Alum Hydrox 30 Ml Oral.Susp) 30 ml PO Q6H PRN PRN Reason: Heartburn/Nausea Albuterol Sulfate (Albuterol Sulfate 90 Mcg 8 Gm Inhaler) 2 puff INHALE Q6H PRN PRN Reason: Wheezing Benztropine Mesylate (Benztropine Mesylate 1 Mg Tablet) 1 mg PO BID [facility] Stop: 12/19/22 11:34 Last Admin: 12/18/22 09:22 Dose: 1 mg Bisacodyl (Bisacodyl 5 Mg Tablet.Dr) 10 mg PO DAILY PRN PRN Reason: Constipation Cefuroxime Axetil (Cefuroxime Axetil 250 Mg Tablet) 250 mg PO BID [facility] Last Admin: 12/18/22 09:22 Dose: 250 mg Clonazepam (Clonazepam 0.5 Mg Tablet) 0.5 mg PO BID PRN PRN Reason: Anxiety Last Admin: 12/18/22 14:57 Dose: 0.5 mg Clonidine HCl (Clonidine Hcl 0.1 Mg Tablet) 0.05 mg PO DAILY [facility]; Protocol Docusate Sodium (Docusate Sodium 100 Mg Capsule) 100 mg PO TID [facility] Last Admin: 12/18/22 14:51 Dose: 100 mg Duloxetine HCl (Duloxetine Hcl 20 Mg Capsule.Dr) 20 mg PO DAILY [facility] Last Admin: 12/18/22 09:21 Dose: 20 mg Gabapentin (Gabapentin 400 Mg Capsule) 800 mg PO TID [facility] Last Admin: 12/18/22 14:51 Dose: 800 mg Hydroxyzine HCl (Hydroxyzine Hcl 25 Mg Tablet) 25 mg PO Q6H PRN PRN Reason: Anxiety Last Admin: 12/16/22 01:19 Dose: 25 mg Ibuprofen (Ibuprofen 600 Mg Tablet) 600 mg PO Q6H PRN PRN Reason: pain not relieved by tylenol Last Admin: 12/18/22 09:21 Dose: 600 mg Levothyroxine Sodium (Levothyroxine Sodium 50 Mcg Tablet) 50 mcg PO DAILY@0600 [facility] Last Admin: 12/18/22 06:25 Dose: 50 mcg Magnesium Hydroxide (Milk Of Magnesia 30 Ml Oral.Susp) 30 ml PO DAILY PRN PRN Reason: Constipation Last Admin: 12/15/22 09:26 Dose: 30 ml Methadone HCl (Methadone Hcl 20 Mg/2 Ml Oral.Conc) 130 mg PO DAILY [facility] Last Admin: 12/18/22 09:20 Dose: 130 mg Nicotine (Nicotine 21 Mg Patch.Td24) 21 mg TRANSDERMA DAILY [facility] Last Admin: 12/18/22 09:22 Dose: Not Given Omeprazole (Omeprazole 20 Mg Capsule.Dr) 20 mg PO DAILY [facility] Last Admin: 12/18/22 09:22 Dose: 20 mg Prazosin HCl (Prazosin Hcl 1 Mg Capsule) 2 mg PO BEDTIME [facility]; Protocol Last Admin: 12/17/22 19:19 Dose: 2 mg Quetiapine Fumarate (Quetiapine Fumarate 25 Mg Tablet) 25 mg PO QID PRN PRN Reason: anxiety Last Admin: 12/16/22 13:23 Dose: 25 mg Quetiapine Fumarate (Quetiapine Fumarate 50 Mg Tablet) 150 mg PO BEDTIME [facility] Last Admin: 12/17/22 19:18 Dose: 150 mg Senna (Senna [place] Extract Oral Syrup 15 Ml Syrup) 15 ml PO BEDTIME [facility] Last Admin: 12/17/22 19:20 Dose: Not Given Allergies Allergies Allergy/AdvReac Type Severity Reaction Status Date / Time azithromycin Allergy Fever Verified 10/15/21 18:47 lamotrigine [From Lamictal] AdvReac Fever Verified 10/15/21 18:47 trazodone AdvReac Restless Verified 10/26/21 21:27 legs Assessment & Plan Assessment & Plan (1) Suicidal ideation: Status: Acute Code(s): R45.851 - Suicidal ideations (2) PTSD (post-traumatic stress disorder): Status: Acute Code(s): F43.10 - Post-traumatic stress disorder, unspecified (3) Bipolar disorder: Status: Acute Code(s): F31.9 - Bipolar disorder, unspecified Plan 12/13/22 Discontinue Wellbutrin Cymbalta 20 mg a.m. Klonopin 1 mg daily prn in addition to 0.5 mg bid prn 12/14/22 Continue current regime and plan of care. 12/15/22 Fleet x 1 Dulcolax prn Geodon 20 mg 1900 (trial, with LTG of replacing Seroquel) 12/16/2022: Increase Colace, scheduled senna, Fleet enema x1. No magnesium citrate due to national shortage. 12/17: stop geodon (muscle spasm) and give cogentin x 2 days 12/18/22 Clonidine 0.05 mg a.m. Patient educated on: therapeutic strategies Informed Consent: understands Reason for continued inpatient stay Substantial Risk for: rapid decompensation Time Spent With Patient Time: Total time managing care of this patient today ____ minutes.
[2022-12-18 18:00] VITALS: BP 132/68; PULSE 96; RESP 16; TEMP 36.6; O2SAT 98
[2022-12-18] MEDS: Prazosin HCL 1 MG CAPSULE 2 MG PO (19:39)
[2022-12-18] MEDS: QUEtiapine Fumarate 50 MG TABLET 150 MG PO (19:39)
[2022-12-19] MEDS: Levothyroxine Sodium 50 MCG TABLET PO (06:30)
[2022-12-19] MEDS: methADONE HCl 20 MG/2 ML ORAL.CONC 130 MG PO (09:01)
[2022-12-19] MEDS: Gabapentin 400 MG CAPSULE 800 MG PO ×3 (09:03→20:33)
[2022-12-19] MEDS: DULoxetine HCl 20 MG CAPSULE.DR PO (09:03)
[2022-12-19] MEDS: clonazePAM 0.5 MG TABLET PO ×2 (09:04→20:40)
[2022-12-19] MEDS: Benztropine Mesylate 1 MG TABLET PO (09:04)
[2022-12-19] MEDS: Omeprazole 20 MG CAPSULE.DR PO ×2 (09:04→17:02)
[2022-12-19] MEDS: Docusate Sodium 100 MG CAPSULE PO ×2 (09:04→14:54)
[2022-12-19 11:45] VITALS: BP 95/63; PULSE 64; RESP 20; O2SAT 98
[2022-12-19] MEDS: Ondansetron ODT 4 MG TAB.RAPDIS TRANSLINGU (14:54)
[2022-12-19 17:51] LABS: COVID-19 Test Negative (Negative); IDNOW Serial# 08D9AD1C
--- NOTE | 2022-12-19 19:25 | HO.PSYCHPN ---
Subjective Subjective Date of Service: 12/19/22 Reason For Visit: SI Subjective Notes: Conditional Voluntary Healthcare Proxy: No Guardianship: No Medical Problems Affecting Mental Status: No Interim History: Pt experiencing sedation, cough, some vomiting, urinary incontinence. COVID ordered, CXR ordered, repeat Urine Culture ordered. Seroquel decreased to 100 mg HS. Await results. Pt has refused CSS. She prefers IOP-team is in process of referral Medication Compliance: Yes Side effects from medications: Yes (??) Attending Groups: Yes Review of Systems Acute medical concerns: No Medical Review of Systems: unchanged Mental Status Exam Mental Status Exam Patient Appearance: Fatigued Patient Orientation: Person, Place, Time and Situation Level of Consciousness: Alert Patient Behavior: Appropriate, Cooperative and Good Eye Contact Mood Description: Constricted Affect Description: Constricted Patient Cognition Impaired: No Ability to Follow Directions: Good Speech Pattern: Spontaneous Speech Memory Description: Intact Hallucinations: None Delusions: Not Present Perceptual Disturbances: Depersonalization and Derealization Thought Process: Rumination Thought Content: positive for Circumstantial, positive for Perseveration and positive for Suicidal Ideation (denies) Depressive Symptoms: Thoughts of /Suicide (denies) Judgement: Good Diagnostics Vital Signs (24Hr): Vital Signs - 24 hr 12/19/22 11:45 Pulse Rate 64 Respiratory Rate 20 Blood Pressure 95/63 Pulse Oximetry 98 Oxygen Delivery Method Room Air BMI result Body Mass Index 24.5 Labs 12/11/22 14:47 12/12/22 08:23 Labs: Laboratory Results - last 48 hr 12/19/22 17:00 COVID-19 ([facility]) Negative COVID-19 Clin Com See Note Imaging Radiology Impressions: ITS Impressions Hand/Wrist X-Ray 12/11/22 16:32 IMPRESSION: 1. Mildly displaced scaphoid fracture. 2. Small 2 mm well-corticated osseous fragment adjacent to the fourth DIP, most likely a degenerative osteophyte, correlate with point tenderness. Medications Medications Current Medications Acetaminophen (Acetaminophen 325 Mg Tablet) 650 mg PO Q6H PRN PRN Reason: Headache/Pain Mild Scale (1-3) Last Admin: 12/17/22 08:48 Dose: 650 mg Al Hydroxide/Mg Hydroxide (Magnesium Hydrox/Alum Hydrox 30 Ml Oral.Susp) 30 ml PO Q6H PRN PRN Reason: Heartburn/Nausea Albuterol Sulfate (Albuterol Sulfate 90 Mcg 8 Gm Inhaler) 2 puff INHALE Q6H PRN PRN Reason: Wheezing Bisacodyl (Bisacodyl 5 Mg Tablet.Dr) 10 mg PO DAILY PRN PRN Reason: Constipation Cefuroxime Axetil (Cefuroxime Axetil 250 Mg Tablet) 250 mg PO BID [facility] Last Admin: 12/19/22 09:04 Dose: 250 mg Clonazepam (Clonazepam 0.5 Mg Tablet) 0.5 mg PO BID PRN PRN Reason: Anxiety Last Admin: 12/19/22 09:04 Dose: 0.5 mg Clonazepam (Clonazepam 1 Mg Tablet) 1 mg PO DAILY PRN PRN Reason: Anxiety Docusate Sodium (Docusate Sodium 100 Mg Capsule) 100 mg PO TID [facility] Last Admin: 12/19/22 14:54 Dose: 100 mg Duloxetine HCl (Duloxetine Hcl 20 Mg Capsule.Dr) 20 mg PO DAILY [facility] Last Admin: 12/19/22 09:03 Dose: 20 mg Gabapentin (Gabapentin 400 Mg Capsule) 800 mg PO TID [facility] Last Admin: 12/19/22 14:54 Dose: 800 mg Hydroxyzine HCl (Hydroxyzine Hcl 25 Mg Tablet) 25 mg PO Q6H PRN PRN Reason: Anxiety Last Admin: 12/16/22 01:19 Dose: 25 mg Ibuprofen (Ibuprofen 600 Mg Tablet) 600 mg PO Q6H PRN PRN Reason: pain not relieved by tylenol Last Admin: 12/18/22 09:21 Dose: 600 mg Levothyroxine Sodium (Levothyroxine Sodium 50 Mcg Tablet) 50 mcg PO DAILY@0600 [facility] Last Admin: 12/19/22 06:30 Dose: 50 mcg Magnesium Hydroxide (Milk Of Magnesia 30 Ml Oral.Susp) 30 ml PO DAILY PRN PRN Reason: Constipation Last Admin: 12/15/22 09:26 Dose: 30 ml Methadone HCl (Methadone Hcl 20 Mg/2 Ml Oral.Conc) 130 mg PO DAILY [facility] Last Admin: 12/19/22 09:01 Dose: 130 mg Nicotine (Nicotine 21 Mg Patch.Td24) 21 mg TRANSDERMA DAILY [facility] Last Admin: 12/19/22 09:07 Dose: Not Given Omeprazole (Omeprazole 20 Mg Capsule.Dr) 20 mg PO BID@0630,1630 [facility] Last Admin: 12/19/22 17:02 Dose: 20 mg Ondansetron HCl (Ondansetron Odt 4 Mg Tab.Rapdis) 4 mg TRANSLINGU Q8H PRN PRN Reason: nausea Last Admin: 12/19/22 14:54 Dose: 4 mg Prazosin HCl (Prazosin Hcl 1 Mg Capsule) 2 mg PO BEDTIME [facility]; Protocol Last Admin: 12/18/22 19:39 Dose: 2 mg Quetiapine Fumarate (Quetiapine Fumarate 25 Mg Tablet) 25 mg PO QID PRN PRN Reason: anxiety Last Admin: 12/16/22 13:23 Dose: 25 mg Quetiapine Fumarate (Quetiapine Fumarate 100 Mg Tablet) 100 mg PO BEDTIME [facility] Senna (Senna [place] Extract Oral Syrup 15 Ml Syrup) 15 ml PO BEDTIME [facility] Last Admin: 12/18/22 19:40 Dose: Not Given Allergies Allergies Allergy/AdvReac Type Severity Reaction Status Date / Time azithromycin Allergy Fever Verified 10/15/21 18:47 lamotrigine [From Lamictal] AdvReac Fever Verified 10/15/21 18:47 trazodone AdvReac Restless Verified 10/26/21 21:27 legs geodon AdvReac Severe spasm, Uncoded 12/18/22 17:11 headache, fever Assessment & Plan Assessment & Plan (1) Suicidal ideation: Status: Acute Code(s): R45.851 - Suicidal ideations (2) PTSD (post-traumatic stress disorder): Status: Acute Code(s): F43.10 - Post-traumatic stress disorder, unspecified (3) Bipolar disorder: Status: Acute Code(s): F31.9 - Bipolar disorder, unspecified Plan 12/13/22 Discontinue Wellbutrin Cymbalta 20 mg a.m. Klonopin 1 mg daily prn in addition to 0.5 mg bid prn 12/14/22 Continue current regime and plan of care. 12/15/22 Fleet x 1 Dulcolax prn Geodon 20 mg 1900 (trial, with LTG of replacing Seroquel) 12/16/2022: Increase Colace, scheduled senna, Fleet enema x1. No magnesium citrate due to national shortage. 12/17: stop geodon (muscle spasm) and give cogentin x 2 days 12/18/22 Clonidine 0.05 mg a.m. 12/19/22 DC Clonidine-not given this a.m. due to sedation Decrease Seroquel to 100 mg HS (admission dosage) Repeat Urine Culture Chest X Ray COVID testing-negative Patient educated on: medication risk/benefits and therapeutic strategies Informed Consent: understands Reason for continued inpatient stay Substantial Risk for: rapid decompensation Time Spent With Patient Time: Total time managing care of this patient today ____ minutes.
[2022-12-19 20:30] VITALS: BP 147/80; PULSE 56; TEMP 36.2
[2022-12-19] MEDS: QUEtiapine Fumarate 100 MG TABLET PO (20:35)
[2022-12-19] MEDS: Prazosin HCL 1 MG CAPSULE 2 MG PO (20:35)
[2022-12-19] MEDS: hydrOXYzine HCL 25 MG TABLET PO (20:40)
--- NOTE | 2022-12-19 22:43 | PC.NURSE ---
At approximately 2225 pt was seen being helped to her room by another pt. Pt is sedated and falling asleep while standing up. Pt redirected to her bedroom.
[2022-12-20] MEDS: Levothyroxine Sodium 50 MCG TABLET PO (06:06)
[2022-12-20] MEDS: Omeprazole 20 MG CAPSULE.DR PO ×2 (06:07→17:08)
[2022-12-20] MEDS: Docusate Sodium 100 MG CAPSULE PO ×3 (08:27→19:34)
[2022-12-20] MEDS: Gabapentin 400 MG CAPSULE 800 MG PO ×3 (08:27→19:36)
[2022-12-20] MEDS: methADONE HCl 20 MG/2 ML ORAL.CONC 130 MG PO (08:28)
[2022-12-20] MEDS: clonazePAM 1 MG TABLET PO (08:28)
[2022-12-20 09:19] VITALS: BP 111/73; PULSE 64; RESP 16; TEMP 36.6; O2SAT 97
[2022-12-20] MEDS: hydrOXYzine HCL 25 MG TABLET PO (10:44)
[2022-12-20] MEDS: clonazePAM 0.5 MG TABLET PO ×2 (14:42→19:33)
--- NOTE | 2022-12-20 18:43 | P.PNPSI_ITS ---
Subjective Subjective Date of Service: 12/20/22 Reason For Visit: SI Subjective Notes: Conditional Voluntary Healthcare Proxy: No Guardianship: No Medical Problems Affecting Mental Status: No Interim History: Reports feeling some improvement today. Will discontinue Cymbalta Unsure about discharge-we will see how she is doing Continues to report feeling sedate and tired. Full med review COVID negative. Chest xray positive-repeat with markers to clarify result. Urine culture is pending Medication Compliance: Yes Side effects from medications: Yes (sedation) Attending Groups: Yes Review of Systems Acute medical concerns: No Medical Review of Systems: unchanged Mental Status Exam Mental Status Exam Patient Appearance: Fatigued Patient Orientation: Person, Place, Time and Situation Level of Consciousness: Alert Patient Behavior: Appropriate, Cooperative and Good Eye Contact Mood Description: Constricted Affect Description: Constricted Patient Cognition Impaired: No Ability to Follow Directions: Good Speech Pattern: Spontaneous Speech Memory Description: Intact Hallucinations: None Delusions: Not Present Perceptual Disturbances: Depersonalization and Derealization Thought Process: Rumination Thought Content: positive for Circumstantial, positive for Perseveration and positive for Suicidal Ideation (denies) Depressive Symptoms: Thoughts of /Suicide (denies) Judgement: Good Diagnostics Vital Signs (24Hr): Vital Signs - 24 hr 12/19/22 20:30 12/20/22 09:19 Temperature 97.2 F 97.9 F Pulse Rate 56 64 Respiratory Rate 16 Blood Pressure 147/80 H 111/73 Pulse Oximetry 97 Oxygen Delivery Method Room Air BMI result Body Mass Index 24.5 Labs 12/11/22 14:47 12/12/22 08:23 Labs: Laboratory Results - last 48 hr 12/19/22 17:00 COVID-19 ([facility]) Negative COVID-19 Clin Com See Note Imaging Radiology Impressions: ITS Impressions Hand/Wrist X-Ray 12/11/22 16:32 IMPRESSION: 1. Mildly displaced scaphoid fracture. 2. Small 2 mm well-corticated osseous fragment adjacent to the fourth DIP, most likely a degenerative osteophyte, correlate with point tenderness. Chest X-Ray 12/19/22 17:57 IMPRESSION: Question 7 mm nodule at the right lung base. Follow-up chest x-ray with nipple markers recommended. Previously questioned left upper lobe nodule on 2021 exams no longer appreciated. Medications Medications Current Medications Acetaminophen (Acetaminophen 325 Mg Tablet) 650 mg PO Q6H PRN PRN Reason: Headache/Pain Mild Scale (1-3) Last Admin: 12/17/22 08:48 Dose: 650 mg Al Hydroxide/Mg Hydroxide (Magnesium Hydrox/Alum Hydrox 30 Ml Oral.Susp) 30 ml PO Q6H PRN PRN Reason: Heartburn/Nausea Albuterol Sulfate (Albuterol Sulfate 90 Mcg 8 Gm Inhaler) 2 puff INHALE Q6H PRN PRN Reason: Wheezing Bisacodyl (Bisacodyl 5 Mg Tablet.Dr) 10 mg PO DAILY PRN PRN Reason: Constipation Cefuroxime Axetil (Cefuroxime Axetil 250 Mg Tablet) 250 mg PO BID [facility] Last Admin: 12/20/22 08:27 Dose: 250 mg Clonazepam (Clonazepam 0.5 Mg Tablet) 0.5 mg PO BID PRN PRN Reason: Anxiety Last Admin: 12/20/22 14:42 Dose: 0.5 mg Clonazepam (Clonazepam 1 Mg Tablet) 1 mg PO DAILY PRN PRN Reason: Anxiety Last Admin: 12/20/22 08:28 Dose: 1 mg Docusate Sodium (Docusate Sodium 100 Mg Capsule) 100 mg PO TID [facility] Last Admin: 12/20/22 14:41 Dose: 100 mg Gabapentin (Gabapentin 400 Mg Capsule) 800 mg PO TID [facility] Last Admin: 12/20/22 14:41 Dose: 800 mg Hydroxyzine HCl (Hydroxyzine Hcl 25 Mg Tablet) 25 mg PO Q6H PRN PRN Reason: Anxiety Last Admin: 12/20/22 10:44 Dose: 25 mg Ibuprofen (Ibuprofen 600 Mg Tablet) 600 mg PO Q6H PRN PRN Reason: pain not relieved by tylenol Last Admin: 12/18/22 09:21 Dose: 600 mg Levothyroxine Sodium (Levothyroxine Sodium 50 Mcg Tablet) 50 mcg PO DAILY@0600 [facility] Last Admin: 12/20/22 06:06 Dose: 50 mcg Magnesium Hydroxide (Milk Of Magnesia 30 Ml Oral.Susp) 30 ml PO DAILY PRN PRN Reason: Constipation Last Admin: 12/15/22 09:26 Dose: 30 ml Methadone HCl (Methadone Hcl 20 Mg/2 Ml Oral.Conc) 130 mg PO DAILY [facility] Last Admin: 12/20/22 08:28 Dose: 130 mg Nicotine (Nicotine 21 Mg Patch.Td24) 21 mg TRANSDERMA DAILY [facility] Last Admin: 12/20/22 09:46 Dose: Not Given Omeprazole (Omeprazole 20 Mg Capsule.Dr) 20 mg PO BID@0630,1630 [facility] Last Admin: 12/20/22 17:08 Dose: 20 mg Ondansetron HCl (Ondansetron Odt 4 Mg Tab.Rapdis) 4 mg TRANSLINGU Q8H PRN PRN Reason: nausea Last Admin: 12/19/22 14:54 Dose: 4 mg Prazosin HCl (Prazosin Hcl 1 Mg Capsule) 2 mg PO BEDTIME [facility]; Protocol Last Admin: 12/19/22 20:35 Dose: 2 mg Quetiapine Fumarate (Quetiapine Fumarate 25 Mg Tablet) 25 mg PO QID PRN PRN Reason: anxiety Last Admin: 12/16/22 13:23 Dose: 25 mg Quetiapine Fumarate (Quetiapine Fumarate 100 Mg Tablet) 100 mg PO BEDTIME [facility] Last Admin: 12/19/22 20:35 Dose: 100 mg Senna (Senna [place] Extract Oral Syrup 15 Ml Syrup) 15 ml PO BEDTIME [facility] Last Admin: 12/19/22 20:38 Dose: Not Given Allergies Allergies Allergy/AdvReac Type Severity Reaction Status Date / Time azithromycin Allergy Fever Verified 10/15/21 18:47 lamotrigine [From Lamictal] AdvReac Fever Verified 10/15/21 18:47 trazodone AdvReac Restless Verified 10/26/21 21:27 legs geodon AdvReac Severe spasm, Uncoded 12/18/22 17:11 headache, fever Assessment & Plan Assessment & Plan (1) Suicidal ideation: Status: Acute Code(s): R45.851 - Suicidal ideations (2) PTSD (post-traumatic stress disorder): Status: Acute Code(s): F43.10 - Post-traumatic stress disorder, unspecified (3) Bipolar disorder: Status: Acute Code(s): F31.9 - Bipolar disorder, unspecified Plan 12/13/22 Discontinue Wellbutrin Cymbalta 20 mg a.m. Klonopin 1 mg daily prn in addition to 0.5 mg bid prn 12/14/22 Continue current regime and plan of care. 12/15/22 Fleet x 1 Dulcolax prn Geodon 20 mg 1900 (trial, with LTG of replacing Seroquel) 12/16/2022: Increase Colace, scheduled senna, Fleet enema x1. No magnesium citrate due to national shortage. 12/17: stop geodon (muscle spasm) and give cogentin x 2 days 12/18/22 Clonidine 0.05 mg a.m. 12/19/22 DC Clonidine-not given this a.m. due to sedation Decrease Seroquel to 100 mg HS (admission dosage) Repeat Urine Culture Chest X Ray COVID testing-negative 12/20/22 Discontinue Cymbalta Repeat CXR with markers for clarification Patient educated on: medication risk/benefits and medical condition Informed Consent: understands Reason for continued inpatient stay Substantial Risk for: rapid decompensation Time Spent With Patient Time: Total time managing care of this patient today ____ minutes.
[2022-12-20 19:20] VITALS: BP 118/71; PULSE 63; TEMP 36.2
[2022-12-20] MEDS: QUEtiapine Fumarate 100 MG TABLET PO (19:33)
[2022-12-20] MEDS: Prazosin HCL 1 MG CAPSULE 2 MG PO (19:34)
[2022-12-20] MEDS: Albuterol Sulfate 90 MCG 8 GM INHALER 2 PUFF INHALE (21:52)
[2022-12-21] MEDS: Levothyroxine Sodium 50 MCG TABLET PO (05:38)
[2022-12-21] MEDS: Omeprazole 20 MG CAPSULE.DR PO (05:38)
[2022-12-21 08:00] VITALS: BP 148/77; PULSE 83; RESP 16; TEMP 36.8; O2SAT 95
[2022-12-21] MEDS: Gabapentin 400 MG CAPSULE 800 MG PO (08:04)
[2022-12-21] MEDS: Docusate Sodium 100 MG CAPSULE PO (08:04)
[2022-12-21] MEDS: methADONE HCl 20 MG/2 ML ORAL.CONC 130 MG PO (08:05)
[2022-12-21] MEDS: clonazePAM 1 MG TABLET PO (08:05)
[2022-12-21 08:55] LABS: MANUAL DIFF FLAG NO
[2022-12-21 09:04] LABS: Basophils Percent Auto 0.6 % (0-2); Eosinophils Absolute Auto 0.2 X10*3/uL (0.0-0.4); Eosinophils Percent Auto 5.2 % (0-4); Hematocrit 37.9 % (37.0-47.0); Hemoglobin 12.3 g/dl (12.0-16.0); Imm Gran Abs Auto 0.01 X10*3/uL (0.00-0.03); Imm Gran Pct Auto 0.3 % (0.0-0.4); Lymphocytes Absolute Auto 1.3 X10*3/uL (1.2-4.9); Mean Corpuscular HGB Conc 32.5 g/dl (31.0-35.0); Mean Platelet Volume 10.2 fL (9.4-12.3); Monocytes Absolute Auto 0.3 X10*3/uL (0.1-1.2); Monocytes Percent Auto 7.9 % (2-11); Neutrophils Absolute Auto 1.7 x10*3/uL (2.0-8.3); Platelet Count 147 X10*3/uL (160-400); Red Blood Count 4.92 X10*6/uL (4.20-5.50); Red Cell Distribution Width 13.8 % (11.0-16.0); White Blood Count 3.4 X10*3/uL (4.8-10.8)
[2022-12-21 09:35] LABS: Alanine Aminotransferase 9 U/L (0-31); Albumin Level 3.8 g/dL (3.5-5.0); Alkaline Phosphatase 86 U/L (39-117); Anion Gap 13 (12-20); Aspartate Amino Transferase 15 U/L (5-31); Bilirubin Total 0.3 mg/dL (0.0-1.0); Blood Urea Nitrogen 13 mg/dL (9-16); Calcium 9.4 mg/dL (8.4-10.2); Carbon Dioxide 28 mmol/L (22-29); Chloride 101 mmol/L (96-108); Creatinine Clr Calc Pharmacy 77.6; Estimated Glomerular Filt Rate > 60; Glucose Random 119 mg/dL (60-115); Potassium 3.7 mmol/L (3.3-5.1); Sodium 138 mmol/L (135-145); Total Protein 6.9 g/dL (6.5-8.0)
--- NOTE | 2022-12-21 21:21 | PM.PSYDC ---
DS: Providers Provider Date of Service: 12/21/22 Date of admission: 12/11/22 21:36 Date of discharge: 12/21/22 Primary care physician: Unknown Physician Admitting clinician: Keeley Stanley Attending physician on admission: Jeff Pacheco Attending physician on discharge: Jeff Pacheco Discharging clinician: Keeley Stanley DS: Diagnosis Discharge Diagnosis (1) Suicidal ideation: Status: Resolved (2) PTSD (post-traumatic stress disorder): Status: Acute (3) Bipolar disorder: Status: Acute DS: Medications Discharge Medications Home Medications: Home Medications Medication Instructions Recorded Confirmed methadone 10 mg tablet 130 mg PO DAILY 10/17/21 12/11/22 Previous Rx's Medication Instructions Recorded albuterol sulfate 90 mcg/actuation 2 puff inhalation Q6H PRN Wheezing 12/21/22 aerosol inhaler (Ventolin HFA) #1 inhaler clonazepam 0.5 mg tablet 0.5 mg PO BID #14 tabs 12/21/22 clonazepam 1 mg tablet 1 mg PO DAILY PRN Anxiety #7 tabs 12/21/22 docusate sodium 100 mg capsule 100 mg PO TID #90 caps 12/21/22 gabapentin 800 mg tablet 800 mg PO TID #21 tabs 12/21/22 hydroxyzine pamoate 25 mg capsule 25 mg PO BID #30 caps 12/21/22 levothyroxine 50 mcg tablet 50 mcg PO DAILY@0600 #30 tabs 12/21/22 nicotine (polacrilex) 4 mg buccal 4 mg buccal Q1H PRN Nicotine 12/21/22 lozenge Cravings #60 ea nicotine 21 mg/24 hr daily 21 mg transdermal DAILY #30 ea 12/21/22 transdermal patch omeprazole 20 mg capsule,delayed 20 mg PO DAILY@0630 #30 caps 12/21/22 release prazosin 2 mg capsule 2 mg PO BEDTIME #30 caps 12/21/22 quetiapine 100 mg tablet 100 mg PO BEDTIME #15 tabs 12/21/22 quetiapine 25 mg tablet 25 mg PO QID PRN anxiety #30 tabs 12/21/22 senna leaf extract 176 mg/5 mL 15 ml PO BEDTIME #10 multiple units 12/21/22 oral syrup (senna) Mental Status Exam Mental Status Exam Patient Appearance: Fatigued Patient Orientation: Person, Place, Time and Situation Level of Consciousness: Alert Patient Behavior: Appropriate, Cooperative and Good Eye Contact Mood Description: Constricted Affect Description: Constricted Patient Cognition Impaired: No Ability to Follow Directions: Good Speech Pattern: Spontaneous Speech Memory Description: Intact Hallucinations: None Delusions: Not Present Perceptual Disturbances: Depersonalization and Derealization Thought Process: Rumination Thought Content: positive for Circumstantial, positive for Perseveration and positive for Suicidal Ideation (denies) Depressive Symptoms: Thoughts of /Suicide (denies) Judgement: Good Data Data Completed and Pending Completed studies during hospitalization [Text1]: 12/19/22 12/21/22 12/21/22 17:00 08:25 08:25 WBC 3.4 L RBC 4.92 Hgb 12.3 Hct 37.9 MCV 77.0 L MCH 25.0 L MCHC 32.5 RDW 13.8 Plt Count 147 L MPV 10.2 Immature Gran % (Auto) 0.3 Neut % (Auto) 49.0 Lymph % (Auto) 37.0 [place] % (Auto) 7.9 Eos % (Auto) 5.2 H Baso % (Auto) 0.6 Lymph # (Auto) 1.3 [place] # (Auto) 0.3 Eos # (Auto) 0.2 Baso # (Auto) 0.0 Abs Immat Gran (auto) 0.01 Absolute Neuts (auto) 1.7 L Absolute Nucleated RBC 0.000 Nucleated RBC % (auto) 0.0 Sodium 138 Potassium 3.7 D Chloride 101 Carbon Dioxide 28 Anion Gap 13 BUN 13 Creatinine 0.76 Estim Creat Clear Calc 77.6 Estimated GFR > 60 Random Glucose 119 H Calcium 9.4 Total Bilirubin 0.3 AST 15 ALT 9 Alkaline Phosphatase 86 Total Protein 6.9 Albumin 3.8 COVID-19 (LARS) Negative COVID-19 Clin Com See Note 12/19/22 17:00 Urine clean catch - Clean Catch Midstream Urine Culture - Final Streptococcus viridans group 12/11/22 Unknown Urine clean catch - Urine de la cruz top Urine Culture - Final No growth. Imaging Diagnostic Imaging Impressions Hand/Wrist X-Ray 12/11/22 16:32 IMPRESSION: 1. Mildly displaced scaphoid fracture. 2. Small 2 mm well-corticated osseous fragment adjacent to the fourth DIP, most likely a degenerative osteophyte, correlate with point tenderness. Chest X-Ray 12/19/22 17:57 IMPRESSION: Question 7 mm nodule at the right lung base. Follow-up chest x-ray with nipple markers recommended. Previously questioned left upper lobe nodule on 2021 exams no longer appreciated. Chest X-Ray 12/20/22 16:44 IMPRESSION: Persistence of 7 mm density right lower lung, which does not appear to correspond to the right nipple. CT scan would be of help in further evaluation. DS: Summary Hospital Course Hospital Course: Admission to adult psychiatry for exacerbation of PTSD, Bipolar Disorder with SI. Pt reports one year of sobriety with Methadone with recent relapse on cocaine. Precipitant is sudden ending of a six year relationship with partner. Pt completed detox. Medication regime was assessed, adjusted and re-established. Pt utilized the milieu to strengthen coping skills and gather support. She will attend [facility] and return to her apartment at this time, possibly considering CSS in the near future. Time spent discussing smoking cessation with patient: 3 to 10 minutes Status at Discharge Functional status at discharge: independent ambulation Overall status at discharge: patient is progressing back to baseline Time Spent with Patient Time attestation: Total time managing care of this patient today ____ minutes. Time spent: Greater than 30 minutes Discharge Plan Discharge Anticipated Discharge Date/Time: 12/21/22 12:08 Patient Disposition: Home, Self-Care Discharge Diagnosis: Bipolar Disorder PTSD Opiate Use Disorder, Methadone Maintenance Referrals: [facility] [Other] - 01/08/23 11:00 am (With Jenny - Telehealth) [facility]ication Management Dr. Neville [Other] - 01/09/23 3:30 pm (Telehealth) [facility] [Other] - 1 Week (Membership is voluntary and services are designed to meet each individual?s needs. [facility] are accredited by [employer] and guarantee a right to: A place to come Meaningful work Meaningful relationships A place to return) [facility] [Other] - 1 Week (Membership is voluntary and services are designed to meet each individual?s needs. [facility] are accredited by [employer] and guarantee a right to: A place to come Meaningful work Meaningful relationships A place to return) [facility] [Other] - 12/28/22 11:00 am (IN OFFICE) Discharge Medications: Continued methadone 10 mg Tablet 130 mg PO DAILY Rx Instructions: Kristy LEONE at [facility] confirmed dose of Methadone 130mg on 12/29/22 @0900 Discontinued nicotine 21 mg/24 hr Patch 24 Hour 21 mg transdermal DAILY Qty: 30 0RF albuterol sulfate [Ventolin HFA] 90 mcg/actuation Hfa Aerosol Inhaler 2 puff inhalation Q6H PRN (Reason: Wheezing) Qty: 1 0RF nicotine (polacrilex) 4 mg Lozenge 4 mg buccal Q1H PRN (Reason: Nicotine Cravings) Qty: 60 0RF levothyroxine 50 mcg Tablet 50 mcg PO DAILY@0600 Qty: 30 0RF omeprazole 20 mg Capsule,Delayed Release(Dr/Ec) 20 mg PO DAILY@0630 Qty: 30 0RF clonazepam 0.5 mg tablet 0.5 mg PO BID gabapentin 800 mg tablet 800 mg PO TID prazosin 2 mg capsule 2 mg PO BEDTIME hydroxyzine pamoate 25 mg capsule 25 mg PO BID bupropion HCl 300 mg tablet extended release 24 hr 300 mg PO DAILY bupropion HCl 150 mg tablet extended release 24 hr 150 mg PO DAILY quetiapine 50 mg tablet 50 mg PO BEDTIME No Action promethazine 25 mg Tablet 25 mg PO Q8H PRN (Reason: Nausea) 30 Days Qty: 30 0RF olanzapine 7.5 mg Tablet 7.5 mg PO BEDTIME 30 Days Qty: 30 1RF melatonin 5 mg tablet 5 mg PO BEDTIME PRN (Reason: sleep) 30 Days Qty: 30 0RF clonazepam 0.5 mg tablet 0.5 mg PO BID 30 Days Qty: 60 0RF albuterol sulfate [Ventolin HFA] 90 mcg/actuation Hfa Aerosol Inhaler 2 puff inhalation Q6H PRN (Reason: Wheezing) 30 Days Qty: 1 1RF quetiapine 25 mg Tablet 25 mg PO QID PRN (Reason: anxiety) 30 Days Qty: 90 1RF gabapentin 800 mg tablet 800 mg PO TID 30 Days Qty: 90 0RF levothyroxine 50 mcg Tablet 50 mcg PO DAILY@0600 30 Days Qty: 30 1RF nicotine 21 mg/24 hr Patch 24 Hour 21 mg transdermal DAILY 28 Days Qty: 28 1RF docusate sodium 100 mg Capsule 100 mg PO TID 30 Days Qty: 90 0RF omeprazole 20 mg Capsule,Delayed Release(Dr/Ec) 20 mg PO DAILY@0630 30 Days Qty: 30 1RF prazosin 2 mg capsule 2 mg PO BEDTIME 30 Days Qty: 30 1RF hydroxyzine pamoate 25 mg capsule 25 mg PO BID 30 Days Qty: 60 1RF Vraylar 3 mg capsule 3 mg PO DAILY 30 Days Qty: 30 1RF lisdexamfetamine 10 mg capsule 10 mg PO DAILY 30 Days Qty: 30 0RF Rx Instructions: Partial Fill upon patient request. Discharge Orders: Discharge Order (Routine); Ordered 12/21/22 Ordered By: Keeley Stanley Diet: Advance to usual diet Activity on Discharge: As tolerated Stand Alone Forms: Patient Portal Discharge page, Community Support Activity Restrictions/Additional Instructions: Take your medications as prescribed. If you were prescribed antibiotics today, it is important that you take your medication to their entirety, do not skip any doses, do not finish them early. Follow-up with your primary care provider this week. Return to the emergency department with new or worsening symptoms. Such as fevers, chills, chest pain, shortness of breath, nausea, vomiting, dizziness, headache, vision changes, lethargy In case of emergency call 911 Care Plan Goals: Mood and behavioral stabilization Sobriety Health Concerns: Mood and behavioral stabilization Sobriety Plan of Treatment: Take medications as directed Follow up with your scheduled appointments Assessment: Pt interviewed prior to discharge and found to be fully oriented and without SI/HI. Pt has insight and demonstrates good judgment in terms of wanting to pursue treatment. Pt is not in imminent risk of harm to self or others and has a safety plan that includes presenting to the closest ER or calling 911 if feeling unsafe. Pt has been observed closely by nursing and unit staff throughout admission. Pt has not engaged in any behaviors that suggest dangerousness to self or others and has demonstrated appropriate behaviors and impulse control. Pt reports apprehension regarding discharge, however, feels she must give this a trial to regain her confidence. Patient Instructions: Depression (ED), Suicide Prevention (ED) Discharge Date/Time: 12/21/22 11:45
== END 2022-12-21 11:45 | disposition home or self-care (01) | DRG 753 ==
LOC: HO.ED 16:02 → HO.PM5 21:47
PROVIDERS: Physician Assistant; Social Worker; Admitting Provider Psychiatry & Neurology Psychiatry; Emergency Provider Emergency Medicine; Visit Provider Clinical Nurse Specialist Psychiatric/Mental Health, Adult
DX: F31.9 Bipolar disorder, unspecified (principal); R45.851 Suicidal ideations; F43.10 Post-traumatic stress disorder, unspecified; F11.20 Opioid dependence, uncomplicated; F17.210 Nicotine dependence, cigarettes, uncomplicated; Z20.822 Contact with and (suspected) exposure to COVID-19; Z91.52 Personal history of nonsuicidal self-harm; Z79.890 Hormone replacement therapy; Z79.899 Other long term (current) drug therapy
CPT/HCPCS: 36415; 71046; 73110; 73130; 80053; 80061; 80143; 80179; 80307; 81001; 81003; 82607; 82746; 83036; 83735; 84443; 85025; 87086; 87635; 93005; 99285; S9485

== ENCOUNTER → 2022-12-11 21:36 | Outpatient (BNV) | payer OTHER, SELFPAY | PROVIDERS: Admitting Provider Psychiatry & Neurology Psychiatry; Emergency Provider Emergency Medicine; Visit Provider Clinical Nurse Specialist Psychiatric/Mental Health, Adult | DX: F31.4 Bipolar disorder, current episode depressed, severe, without psychotic features (principal); R45.851 Suicidal ideations; F43.11 Post-traumatic stress disorder, acute | CPT/HCPCS: 99231; 99232; 99233 ==

== ENCOUNTER 2022-12-29 16:07 | Inpatient (IN) | payer OTHER, MEDICAID, SELFPAY ==
[2022-12-29 16:41] VITALS: BP 123/77; PULSE 78; RESP 18; TEMP 36.4; O2SAT 93; BMI 25.6
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
[2022-12-29] MEDS: clonazePAM 1 MG TABLET PO (18:12)
[2022-12-29] MEDS: QUEtiapine Fumarate 25 MG TABLET PO (18:12)
[2022-12-29 18:17] LABS: UPreg QC Valid YES; Urine Pregnancy NEGATIVE (NEGATIVE)
[2022-12-29 18:20] LABS: Amphetamine Screen Urine Not Detected (Not Detect); Barbiturates, Urine Not Detected (Not Detect); Benzodiazepines Screen Urine POSITIVE (Not Detect); Cannabinoid Screen Urine POSITIVE (Not Detect); Cocaine Screen Urine POSITIVE (Not Detect); Fentanyl, urine POSITIVE (Not Detect); Opiate Screen Urine POSITIVE (Not Detect); Phencyclidine Screen Urine Not Detected (Not Detect)
[2022-12-29 18:25] LABS: Appearance Urine Hazy; Color Urine Yellow; Glucose Urine UA Negative (Negative); Leukocyte Esterase Urine Small (1+) (Negative); Nitrite Urine Negative (Negative); Specific Gravity - Urine >= 1.030 (1.005-1.025); UMIC TRIGGER UACC YES; Urine Blood Negative (Negative); Urine Ketones Negative (Negative); Urine Protein 30 (1+) mg/dL (Neg-Trace)
[2022-12-29 18:31] LABS: MANUAL DIFF FLAG NO
[2022-12-29 18:32] LABS: Basophils Percent Auto 0.3 % (0-2); Eosinophils Percent Auto 1.2 % (0-4); Hematocrit 38.3 % (37.0-47.0); Hemoglobin 12.5 g/dl (12.0-16.0); Imm Gran Abs Auto 0.01 X10*3/uL (0.00-0.03); Imm Gran Pct Auto 0.3 % (0.0-0.4); Mean Corpuscular HGB Conc 32.6 g/dl (31.0-35.0); Mean Corpuscular Hemoglobin 25.1 pg (27.0-33.0); Mean Corpuscular Volume 76.8 fL (80.0-98.0); Mean Platelet Volume 9.8 fL (9.4-12.3); Monocytes Absolute Auto 0.2 X10*3/uL (0.1-1.2); Monocytes Percent Auto 6.8 % (2-11); Neutrophils Percent Auto 60.4 % (45-73); Platelet Count 152 X10*3/uL (160-400); Red Blood Count 4.99 X10*6/uL (4.20-5.50); Red Cell Distribution Width 14.4 % (11.0-16.0); White Blood Count 3.2 X10*3/uL (4.8-10.8)
[2022-12-29 18:38] LABS: Bacteria Urine 1+ (None Seen); Hyaline Casts Urine 0-2 /LPF (0-2); RBC Urine 0-2 /HPF (0-2); Squamous Epithelial Cell Urine 0-2 /HPF (0-2); UACC Culture Trigger YES
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
[2022-12-29 19:01] LABS: Acetaminophen LAB < 17 mcg/mL (<30); Alanine Aminotransferase 10 U/L (0-31); Albumin Level 4.3 g/dL (3.5-5.0); Alkaline Phosphatase 63 U/L (39-117); Anion Gap 10 (12-20); Aspartate Amino Transferase 20 U/L (5-31); Bilirubin Direct 0.3 mg/dL (0.0-0.5); Bilirubin Total 0.7 mg/dL (0.0-1.0); Blood Urea Nitrogen 11 mg/dL (9-16); Calcium 9.2 mg/dL (8.4-10.2); Carbon Dioxide 28 mmol/L (22-29); Chloride 103 mmol/L (96-108); Creatinine Clr Calc Pharmacy 60.8; Estimated Glomerular Filt Rate 60; Ethanol < 10 mg/dL; Glucose Random 71 mg/dL (60-115); Potassium 3.8 mmol/L (3.3-5.1); Salicylate < 5.0 mg/dL (15-30); Sodium 137 mmol/L (135-145); Total Protein 7.7 g/dL (6.5-8.0)
--- NOTE | 2022-12-29 20:35 | HE.PHANOTE ---
Methadone [facility] has received the methadone verification form from Marisela. Patient last received 130 mg for GIANNI Alexander on 12/29/22 @ 0900. Confirmed with Kristy at the clinic. Katty Lopez, [place]
[2022-12-29] MEDS: Gabapentin 400 MG CAPSULE 800 MG PO (21:05)
[2022-12-29] MEDS: QUEtiapine Fumarate 100 MG TABLET PO (21:05)
[2022-12-29] MEDS: Prazosin HCL 1 MG CAPSULE 2 MG PO (21:05)
[2022-12-29] MEDS: Docusate Sodium 100 MG CAPSULE PO (21:05)
[2022-12-29] MEDS: clonazePAM 0.5 MG TABLET PO (21:06)
[2022-12-29] MEDS: hydrOXYzine HCL 25 MG TABLET PO (21:06)
[2022-12-29 21:07] VITALS: BP 101/62; PULSE 59
--- NOTE | 2022-12-29 21:14 | MHC.CARE ---
Pt is a follow up for tomorrow morning when she is more coherent. Pt is being held on a section 12 until she can be seen in the morning.
[2022-12-30] MEDS: Levothyroxine Sodium 50 MCG TABLET PO (05:21)
[2022-12-30] MEDS: Omeprazole 20 MG CAPSULE.DR PO (05:21)
[2022-12-30 05:34] VITALS: BP 132/81; PULSE 73; RESP 16; TEMP 37.2; O2SAT 99
--- NOTE | 2022-12-30 06:25 | PC.NURSE ---
Patient slept through the night, no distress observed/reported, medication compliant, behavior non concerning, patient was placed on section 12 by care team, disposition pending will be reevaluated, VSS, labs completed/resulted, will continue to monitor.
[2022-12-30] MEDS: Docusate Sodium 100 MG CAPSULE PO ×3 (09:40→20:21)
[2022-12-30] MEDS: hydrOXYzine HCL 25 MG TABLET PO ×2 (09:40→20:21)
[2022-12-30] MEDS: Gabapentin 400 MG CAPSULE 800 MG PO ×3 (09:40→20:21)
[2022-12-30] MEDS: clonazePAM 0.5 MG TABLET PO ×2 (09:41→20:21)
[2022-12-30] MEDS: methADONE HCl 20 MG/2 ML ORAL.CONC 130 MG PO (09:41)
[2022-12-30] MEDS: Nitrofurantoin Monohyd/M-Cryst 100 MG CAPSULE PO ×2 (09:42→20:21)
[2022-12-30] MEDS: QUEtiapine Fumarate 25 MG TABLET PO (10:42)
--- NOTE | 2022-12-30 12:20 | PC.NURSE ---
pt ambulatory to bathroom, calm and cooperative, offers no complaints to this RN. Respirations even and unlabored, skin pwd, alert and oriented x4
[2022-12-30] MEDS: clonazePAM 1 MG TABLET PO (16:10)
--- NOTE | 2022-12-30 17:03 | PC.NURSE ---
oob ambulating to bathroom, provided with food and fluids per patients request.
--- NOTE | 2022-12-30 17:42 | MHC.CARE ---
[facility] Assessment was faxed to [facility], [facility] and [facility]. No facility said they were reviewing but will f/u tomorrow 12/31
[2022-12-30 20:12] VITALS: BP 114/72; PULSE 54; RESP 16; TEMP 36.3; O2SAT 97
[2022-12-30] MEDS: QUEtiapine Fumarate 100 MG TABLET PO (20:21)
[2022-12-30] MEDS: Prazosin HCL 1 MG CAPSULE 2 MG PO (20:21)
--- NOTE | 2022-12-31 | ECG_ITS ---
Test Reason : med clearance Blood Pressure : / mmHG Vent. Rate : 053 BPM Atrial Rate : 053 BPM P-R Int : 156 ms QRS Dur : 088 ms QT Int : 514 ms P-R-T Axes : 033 043 049 degrees QTc Int : 482 ms Sinus bradycardia Prolonged QT Abnormal ECG When compared with ECG of 12-DEC-2022 12:48, QT has lengthened Referred By: Sofie Ritchie Electronically Signed By:HELIO CASPER
[2022-12-31 03:15] VITALS: BP 107/77; PULSE 90; RESP 17; TEMP 36.3; O2SAT 97
[2022-12-31] MEDS: Omeprazole 20 MG CAPSULE.DR PO (06:14)
[2022-12-31] MEDS: Levothyroxine Sodium 50 MCG TABLET PO (06:14)
--- NOTE | 2022-12-31 06:41 | PC.NURSE ---
Patient slept through the night, no distress observed/reported, VSS, medication compliant, disposition per care team is inpatient bed search, labs completed/resulted, behavior non concerning, will continue to monitor.
[2022-12-31] MEDS: Gabapentin 400 MG CAPSULE 800 MG PO ×3 (08:19→20:18)
[2022-12-31] MEDS: hydrOXYzine HCL 25 MG TABLET PO ×2 (08:20→20:17)
[2022-12-31] MEDS: methADONE HCl 20 MG/2 ML ORAL.CONC 130 MG PO (08:20)
[2022-12-31] MEDS: clonazePAM 0.5 MG TABLET PO ×2 (08:20→20:18)
[2022-12-31] MEDS: Nitrofurantoin Monohyd/M-Cryst 100 MG CAPSULE PO ×2 (08:22→20:18)
[2022-12-31] MEDS: QUEtiapine Fumarate 25 MG TABLET PO ×2 (10:30→14:54)
[2022-12-31 19:09] LABS: COVID-19 Test Negative (Negative); IDNOW Serial# 9DB6401D
[2022-12-31 20:02] VITALS: BP 115/73; PULSE 61; RESP 16; TEMP 36.6; O2SAT 97
[2022-12-31] MEDS: QUEtiapine Fumarate 100 MG TABLET PO (20:17)
[2022-12-31] MEDS: Docusate Sodium 100 MG CAPSULE PO (20:17)
[2022-12-31] MEDS: Prazosin HCL 1 MG CAPSULE 2 MG PO (20:17)
[2023-01-01] MEDS: QUEtiapine Fumarate 25 MG TABLET PO (01:20)
[2023-01-01 01:24] VITALS: BP 129/76; PULSE 65; RESP 16; TEMP 36.6; O2SAT 98
[2023-01-01] MEDS: Omeprazole 20 MG CAPSULE.DR PO (06:18)
[2023-01-01] MEDS: Levothyroxine Sodium 50 MCG TABLET PO (06:18)
--- NOTE | 2023-01-01 06:23 | PC.NURSE ---
Patient slept through the night, no distress observed/reported, VSS, medication compliant, disposition per care team is inpatient bed search, pre-accepted to [facility] per care team, labs completed/resulted, behavior non concerning, will continue to monitor.
[2023-01-01 08:34] VITALS: BP 149/88; PULSE 73; RESP 13; TEMP 36.7; O2SAT 98
[2023-01-01] MEDS: methADONE HCl 20 MG/2 ML ORAL.CONC 130 MG PO (08:34)
[2023-01-01] MEDS: Docusate Sodium 100 MG CAPSULE PO ×3 (08:35→20:38)
[2023-01-01] MEDS: hydrOXYzine HCL 25 MG TABLET PO ×2 (08:35→20:38)
[2023-01-01] MEDS: clonazePAM 0.5 MG TABLET PO ×2 (08:35→20:38)
[2023-01-01] MEDS: Gabapentin 400 MG CAPSULE 800 MG PO ×3 (08:35→20:38)
[2023-01-01] MEDS: Nitrofurantoin Monohyd/M-Cryst 100 MG CAPSULE PO ×2 (08:44→20:38)
--- NOTE | 2023-01-01 12:18 | PC.NURSE ---
Miladis was OOB this morning and was adherent with her scheduled AM medications. Miladis was then visible in the POD milieu socializing and coloring. Miladis has had a good appetite and is eating 100% of meals plus asking for multiple snacks. at 1215 Miladis req/rec PRN Quetiapine for anxiety with pending effect. Pleasant when engaged. No behavioral concerns. Staff will continue to monitor for safety and comfort.
[2023-01-01] MEDS: clonazePAM 1 MG TABLET PO (16:21)
[2023-01-01 16:35] VITALS: BP 121/82; PULSE 65; RESP 15; O2SAT 99
[2023-01-01 20:30] VITALS: BP 146/87; PULSE 77; TEMP 36; O2SAT 97
[2023-01-01] MEDS: Prazosin HCL 1 MG CAPSULE 2 MG PO (20:38)
[2023-01-01] MEDS: QUEtiapine Fumarate 100 MG TABLET PO (20:38)
--- NOTE | 2023-01-01 21:04 | PC.NURSE ---
Patient agreed to flu shot but wanted to wait until Sunday morning.
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
[2023-01-02] MEDS: Omeprazole 20 MG CAPSULE.DR PO (06:21)
[2023-01-02] MEDS: Levothyroxine Sodium 50 MCG TABLET PO (06:21)
[2023-01-02] MEDS: clonazePAM 1 MG TABLET PO (06:38)
[2023-01-02 08:15] VITALS: BP 143/90; PULSE 80; RESP 18; TEMP 36.3; O2SAT 98
[2023-01-02] MEDS: methADONE HCl 20 MG/2 ML ORAL.CONC 130 MG PO (08:39)
[2023-01-02] MEDS: Docusate Sodium 100 MG CAPSULE PO ×3 (08:41→21:47)
[2023-01-02] MEDS: Nitrofurantoin Monohyd/M-Cryst 100 MG CAPSULE PO ×2 (08:41→21:47)
[2023-01-02] MEDS: hydrOXYzine HCL 25 MG TABLET PO ×2 (08:41→21:47)
[2023-01-02] MEDS: Gabapentin 400 MG CAPSULE 800 MG PO ×3 (08:42→21:47)
[2023-01-02] MEDS: clonazePAM 0.5 MG TABLET PO ×2 (08:42→21:47)
[2023-01-02] MEDS: QUEtiapine Fumarate 25 MG TABLET PO ×2 (11:29→17:59)
[2023-01-02] MEDS: OLANZapine 5 MG TABLET PO ×2 (11:30→17:59)
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
[2023-01-02 18:00] VITALS: BP 118/80; PULSE 87; TEMP 36.4; O2SAT 97
[2023-01-02] MEDS: QUEtiapine Fumarate 100 MG TABLET PO (21:47)
[2023-01-02] MEDS: Prazosin HCL 1 MG CAPSULE 2 MG PO (21:47)
--- NOTE | 2023-01-02 21:54 | PC.NURSE ---
Patient spoke with this director underwriter sales and reported her anxiety is 8/10 and her depression is 9/10 on a 0-10 scale with 10 being the worst. She said sleeping helps her. She did not attend any groups, did eat dinner and take her medications. No SI, HI,AH, OR VH, feels safe on the unit. Patient had mentioned earlier that she was angry with ex-boyfriend and said I hope his current girlfriend isn't wearing my nice clothes. I had a lot of nice clothes.
[2023-01-03] MEDS: Omeprazole 20 MG CAPSULE.DR PO (06:29)
[2023-01-03] MEDS: Levothyroxine Sodium 50 MCG TABLET PO (06:29)
[2023-01-03] MEDS: Nitrofurantoin Monohyd/M-Cryst 100 MG CAPSULE PO ×2 (08:40→19:41)
[2023-01-03] MEDS: hydrOXYzine HCL 25 MG TABLET PO ×2 (08:40→19:41)
[2023-01-03] MEDS: Docusate Sodium 100 MG CAPSULE PO ×3 (08:41→19:41)
[2023-01-03] MEDS: Gabapentin 400 MG CAPSULE 800 MG PO ×3 (08:41→19:40)
[2023-01-03] MEDS: clonazePAM 0.5 MG TABLET PO ×2 (08:41→18:05)
[2023-01-03] MEDS: methADONE HCl 20 MG/2 ML ORAL.CONC 130 MG PO (08:41)
[2023-01-03] MEDS: OLANZapine 5 MG TABLET PO ×2 (09:45→19:41)
[2023-01-03] MEDS: clonazePAM 1 MG TABLET PO (12:11)
[2023-01-03] MEDS: QUEtiapine Fumarate 25 MG TABLET PO ×2 (13:57→19:41)
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
[2023-01-03 18:00] VITALS: BP 117/72; PULSE 60; TEMP 35.9; O2SAT 93
[2023-01-03] MEDS: Prazosin HCL 1 MG CAPSULE 2 MG PO (19:40)
[2023-01-04] MEDS: Levothyroxine Sodium 50 MCG TABLET PO (06:18)
[2023-01-04] MEDS: clonazePAM 0.5 MG TABLET PO ×2 (06:20→18:50)
[2023-01-04 07:45] VITALS: BP 123/96; PULSE 82; RESP 16; TEMP 36.6; O2SAT 98
[2023-01-04] MEDS: methADONE HCl 20 MG/2 ML ORAL.CONC 130 MG PO (09:00)
[2023-01-04] MEDS: hydrOXYzine HCL 25 MG TABLET PO ×2 (09:01→20:18)
[2023-01-04] MEDS: Nitrofurantoin Monohyd/M-Cryst 100 MG CAPSULE PO ×2 (09:01→20:19)
[2023-01-04] MEDS: Gabapentin 400 MG CAPSULE 800 MG PO ×3 (09:01→20:19)
[2023-01-04] MEDS: Docusate Sodium 100 MG CAPSULE PO ×3 (09:01→20:19)
[2023-01-04] MEDS: Omeprazole 20 MG CAPSULE.DR PO (09:51)
[2023-01-04] MEDS: OLANZapine 2.5 MG TABLET PO (09:56)
[2023-01-04] MEDS: QUEtiapine Fumarate 25 MG TABLET PO (12:26)
[2023-01-04 18:00] VITALS: BP 115/86; PULSE 72; TEMP 36.7; O2SAT 96
[2023-01-04 18:47] VITALS: BMI 25.8
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
[2023-01-04] MEDS: Prazosin HCL 1 MG CAPSULE 2 MG PO (20:19)
[2023-01-04] MEDS: Melatonin 3 MG TABLET 6 MG PO (20:19)
[2023-01-04] MEDS: OLANZapine 10 MG TABLET PO (20:19)
--- NOTE | 2023-01-04 21:36 | PM.EVENT ---
Event Note Date of Service: 01/04/23 Event Note: Medical consult for 47-year-old female patient with PMH of opioid abuse and dependence, MDD with SI who reported sudden onset left eye pain. Patient seen in her room where she is sleeping comfortably and had to be awoken. At time of interview patient denied left eye pain and said ?it's all better now.? Patient declined physical examination. Pt knows to report return of eye pain or change to eyesight. Thank you for allowing us to participate in the care of this patient. Signing off at this time. Please let us know if there are any acute complaints or questions. Time Spent With Patient Time: Total time managing care of this patient today ____ minutes.
[2023-01-05] MEDS: Levothyroxine Sodium 50 MCG TABLET PO (06:18)
[2023-01-05] MEDS: Omeprazole 20 MG CAPSULE.DR PO (06:46)
[2023-01-05 08:05] VITALS: BP 114/83; PULSE 77; RESP 18; TEMP 36.4; O2SAT 97
[2023-01-05] MEDS: hydrOXYzine HCL 25 MG TABLET PO ×2 (08:16→20:18)
[2023-01-05] MEDS: methADONE HCl 20 MG/2 ML ORAL.CONC 130 MG PO (08:17)
[2023-01-05] MEDS: Docusate Sodium 100 MG CAPSULE PO ×3 (08:18→20:18)
[2023-01-05] MEDS: Nitrofurantoin Monohyd/M-Cryst 100 MG CAPSULE PO (08:19)
[2023-01-05] MEDS: Gabapentin 400 MG CAPSULE 800 MG PO ×3 (08:19→20:17)
[2023-01-05] MEDS: clonazePAM 0.5 MG TABLET PO ×2 (08:27→18:47)
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
[2023-01-05] MEDS: OLANZapine 2.5 MG TABLET PO (12:56)
[2023-01-05] MEDS: QUEtiapine Fumarate 25 MG TABLET PO ×2 (12:56)
[2023-01-05 18:00] VITALS: BP 136/88; PULSE 69; RESP 18; TEMP 36.4; O2SAT 96
[2023-01-05] MEDS: Prazosin HCL 1 MG CAPSULE 2 MG PO (20:17)
[2023-01-05] MEDS: Melatonin 3 MG TABLET 6 MG PO (20:17)
[2023-01-05] MEDS: QUEtiapine Fumarate 50 MG TABLET PO (20:18)
[2023-01-05] MEDS: OLANZapine 10 MG TABLET PO (20:18)
[2023-01-06] MEDS: clonazePAM 0.5 MG TABLET PO ×2 (01:20→09:23)
[2023-01-06] MEDS: QUEtiapine Fumarate 25 MG TABLET PO (01:21)
[2023-01-06] MEDS: Omeprazole 20 MG CAPSULE.DR PO (06:45)
[2023-01-06] MEDS: Levothyroxine Sodium 50 MCG TABLET PO (06:45)
[2023-01-06 07:40] VITALS: BP 110/78; PULSE 84; RESP 18; TEMP 36.6; O2SAT 98
[2023-01-06] MEDS: hydrOXYzine HCL 25 MG TABLET PO ×2 (08:25→20:21)
[2023-01-06] MEDS: Docusate Sodium 100 MG CAPSULE PO ×3 (08:25→20:21)
[2023-01-06] MEDS: Gabapentin 400 MG CAPSULE 800 MG PO ×3 (08:25→20:21)
[2023-01-06] MEDS: methADONE HCl 20 MG/2 ML ORAL.CONC 130 MG PO (08:26)
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
[2023-01-06] MEDS: metroNIDAZOLE 500 MG TABLET 2000 MG PO (13:23)
[2023-01-06] MEDS: Nystatin Oral Susp 500,000 UNIT/5 ML ORAL.SUSP 400000 UNIT PO (18:34)
[2023-01-06 20:19] VITALS: BP 122/74; PULSE 65; RESP 16; TEMP 36.7
[2023-01-06] MEDS: OLANZapine 10 MG TABLET PO (20:21)
[2023-01-06] MEDS: Prazosin HCL 1 MG CAPSULE 2 MG PO (20:21)
[2023-01-06] MEDS: QUEtiapine Fumarate 50 MG TABLET PO (20:21)
[2023-01-07] MEDS: Levothyroxine Sodium 50 MCG TABLET PO (05:51)
[2023-01-07] MEDS: clonazePAM 0.5 MG TABLET PO ×3 (06:37→19:45)
[2023-01-07] MEDS: Omeprazole 20 MG CAPSULE.DR PO (06:37)
[2023-01-07 08:11] VITALS: BP 119/75; PULSE 75; RESP 16; TEMP 36.4; O2SAT 96
[2023-01-07] MEDS: Docusate Sodium 100 MG CAPSULE PO ×2 (08:22→19:45)
[2023-01-07] MEDS: hydrOXYzine HCL 25 MG TABLET PO ×2 (08:22→19:45)
[2023-01-07] MEDS: Gabapentin 400 MG CAPSULE 800 MG PO ×3 (08:22→19:44)
[2023-01-07] MEDS: methADONE HCl 20 MG/2 ML ORAL.CONC 130 MG PO (08:22)
[2023-01-07] MEDS: OLANZapine 2.5 MG TABLET PO ×2 (09:59→14:21)
[2023-01-07] MEDS: Nicotine 21 MG PATCH.TD24 TRANSDERMA (09:59)
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
[2023-01-07] MEDS: QUEtiapine Fumarate 25 MG TABLET PO (13:03)
[2023-01-07] MEDS: Promethazine HCL 25 MG TABLET PO (14:21)
[2023-01-07 17:36] VITALS: BP 121/91; PULSE 68; RESP 16; TEMP 37.2; O2SAT 97
[2023-01-07 19:40] VITALS: BP 143/89; PULSE 94; RESP 18
[2023-01-07] MEDS: QUEtiapine Fumarate 50 MG TABLET PO (19:44)
[2023-01-07] MEDS: Prazosin HCL 1 MG CAPSULE 2 MG PO (19:44)
[2023-01-07] MEDS: Melatonin 3 MG TABLET 6 MG PO (19:44)
[2023-01-07] MEDS: OLANZapine 10 MG TABLET PO (19:45)
[2023-01-08] MEDS: Omeprazole 20 MG CAPSULE.DR PO (04:56)
[2023-01-08] MEDS: clonazePAM 0.5 MG TABLET PO ×3 (04:56→20:38)
[2023-01-08] MEDS: Acetaminophen 325 MG TABLET 650 MG PO (04:56)
[2023-01-08] MEDS: Levothyroxine Sodium 50 MCG TABLET PO (04:56)
[2023-01-08 05:01] VITALS: BP 137/87; PULSE 111; TEMP 36.7
[2023-01-08 07:45] VITALS: BP 118/88; PULSE 114; RESP 18; TEMP 37; O2SAT 94
[2023-01-08] MEDS: Gabapentin 400 MG CAPSULE 800 MG PO ×3 (08:23→20:37)
[2023-01-08] MEDS: Docusate Sodium 100 MG CAPSULE PO ×3 (08:23→20:37)
[2023-01-08] MEDS: hydrOXYzine HCL 25 MG TABLET PO ×2 (08:23→20:38)
[2023-01-08] MEDS: Escitalopram Oxalate 5 MG TABLET PO (08:23)
[2023-01-08] MEDS: methADONE HCl 20 MG/2 ML ORAL.CONC 130 MG PO (08:23)
[2023-01-08] MEDS: Nicotine 21 MG PATCH.TD24 TRANSDERMA (08:25)
--- NOTE | 2023-01-08 09:00 | ECG_ITS ---
Test Reason : qt prolongation Blood Pressure : / mmHG Vent. Rate : 095 BPM Atrial Rate : 095 BPM P-R Int : 118 ms QRS Dur : 082 ms QT Int : 390 ms P-R-T Axes : 031 037 027 degrees QTc Int : 490 ms Normal sinus rhythm Nonspecific T wave abnormality Prolonged QT Abnormal ECG When compared with ECG of 31-DEC-2022 20:23, Vent. rate has increased BY [address] now depressed in Anterior leads Nonspecific T wave abnormality, worse in Inferior leads Nonspecific T wave abnormality now evident in Anterolateral leads Referred By: Keeley Stanley Electronically Signed By:HELIO CASPER
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
[2023-01-08] MEDS: OLANZapine 2.5 MG TABLET PO ×2 (09:55→13:18)
[2023-01-08] MEDS: Magnesium Hydrox/Alum Hydrox 30 ML ORAL.SUSP PO (10:53)
[2023-01-08] MEDS: QUEtiapine Fumarate 25 MG TABLET PO (13:18)
[2023-01-08] MEDS: Cariprazine HCl 3 MG CAPSULE PO (16:33)
[2023-01-08 18:23] VITALS: BP 129/68; PULSE 93; RESP 18; TEMP 36.4; O2SAT 94
[2023-01-08] MEDS: Prazosin HCL 1 MG CAPSULE 2 MG PO (20:37)
[2023-01-08] MEDS: Melatonin 3 MG TABLET 6 MG PO (20:38)
[2023-01-08] MEDS: QUEtiapine Fumarate 50 MG TABLET PO (20:38)
[2023-01-08] MEDS: OLANZapine 10 MG TABLET PO (20:38)
[2023-01-09 06:00] VITALS: BP 149/84; PULSE 93; RESP 16; TEMP 36.8; O2SAT 97
[2023-01-09] MEDS: Omeprazole 20 MG CAPSULE.DR PO (06:28)
[2023-01-09] MEDS: Levothyroxine Sodium 50 MCG TABLET PO (06:28)
[2023-01-09] MEDS: Docusate Sodium 100 MG CAPSULE PO ×3 (08:19→20:26)
[2023-01-09] MEDS: Gabapentin 400 MG CAPSULE 800 MG PO ×3 (08:19→20:26)
[2023-01-09] MEDS: Cariprazine HCl 3 MG CAPSULE PO (08:19)
[2023-01-09] MEDS: Escitalopram Oxalate 5 MG TABLET PO (08:20)
[2023-01-09] MEDS: hydrOXYzine HCL 25 MG TABLET PO ×2 (08:20→20:27)
[2023-01-09] MEDS: methADONE HCl 20 MG/2 ML ORAL.CONC 130 MG PO (08:21)
[2023-01-09] MEDS: clonazePAM 0.5 MG TABLET PO ×2 (08:24→20:27)
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
[2023-01-09] MEDS: QUEtiapine Fumarate 25 MG TABLET PO (14:34)
[2023-01-09] MEDS: Promethazine HCL 25 MG TABLET PO (17:20)
[2023-01-09 18:25] VITALS: BP 115/72; PULSE 78; TEMP 36.9; O2SAT 96
--- NOTE | 2023-01-09 19:52 | MHC.RECOVSUP ---
? Reason for consult:OPI o? Current location:[place]? o? Identified substance use concern:? -? Support ?? Intervention: o? Community resources provided ? Plan: Outpatient services (hitting coach) ? ? Additional information:RC met with this pt and discussed treatment options, pt stated she would like to be connected with resources and the recovery community. provided this pt with resources and contact information, to complete a referrral for a RC.
[2023-01-09 20:23] VITALS: BP 115/72
[2023-01-09] MEDS: Nystatin Oral Susp 500,000 UNIT/5 ML ORAL.SUSP 200000 UNIT BUCCAL (20:24)
[2023-01-09] MEDS: Prazosin HCL 1 MG CAPSULE 2 MG PO (20:26)
[2023-01-09] MEDS: QUEtiapine Fumarate 50 MG TABLET PO (20:26)
[2023-01-09] MEDS: Melatonin 3 MG TABLET 6 MG PO (20:26)
[2023-01-09] MEDS: OLANZapine 10 MG TABLET PO (20:27)
[2023-01-10] MEDS: Levothyroxine Sodium 50 MCG TABLET PO (06:10)
[2023-01-10] MEDS: Omeprazole 20 MG CAPSULE.DR PO (06:10)
[2023-01-10] MEDS: clonazePAM 0.5 MG TABLET PO ×3 (06:12→20:20)
[2023-01-10] MEDS: methADONE HCl 20 MG/2 ML ORAL.CONC 130 MG PO (08:18)
[2023-01-10] MEDS: Escitalopram Oxalate 5 MG TABLET PO (08:18)
[2023-01-10] MEDS: Cariprazine HCl 3 MG CAPSULE PO (08:18)
[2023-01-10] MEDS: Nicotine 21 MG PATCH.TD24 TRANSDERMA (08:19)
[2023-01-10] MEDS: Gabapentin 400 MG CAPSULE 800 MG PO ×3 (08:19→20:19)
[2023-01-10] MEDS: Docusate Sodium 100 MG CAPSULE PO ×3 (08:19→20:20)
[2023-01-10] MEDS: hydrOXYzine HCL 25 MG TABLET PO ×2 (08:19→20:20)
[2023-01-10] MEDS: Nicotine Polacrilex Lozenge 4 MG LOZENGE BUCCAL (08:43)
[2023-01-10 08:58] VITALS: BP 121/59; PULSE 82; RESP 16; TEMP 36.4; O2SAT 96
[2023-01-10] MEDS: OLANZapine 2.5 MG TABLET PO (11:34)
[2023-01-10] MEDS: Promethazine HCL 25 MG TABLET PO (13:08)
[2023-01-10] MEDS: QUEtiapine Fumarate 25 MG TABLET PO (13:54)
[2023-01-10 14:31] LABS: TSH reflex Free T4 2.66 uIU/mL (0.32-4.0)
[2023-01-10 16:15] VITALS: BP 118/91; PULSE 83; RESP 16; TEMP 36.5; O2SAT 94
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
[2023-01-10] MEDS: Prazosin HCL 1 MG CAPSULE 2 MG PO (20:20)
[2023-01-10] MEDS: OLANZapine 7.5 MG TABLET PO (20:20)
[2023-01-11] MEDS: Omeprazole 20 MG CAPSULE.DR PO (06:26)
[2023-01-11] MEDS: Levothyroxine Sodium 50 MCG TABLET PO (06:26)
[2023-01-11 08:10] VITALS: BP 118/81; PULSE 90; RESP 20; TEMP 36.1; O2SAT 96
[2023-01-11] MEDS: methADONE HCl 20 MG/2 ML ORAL.CONC 130 MG PO (08:18)
[2023-01-11] MEDS: clonazePAM 0.5 MG TABLET PO ×2 (08:20→14:27)
[2023-01-11] MEDS: hydrOXYzine HCL 25 MG TABLET PO (08:20)
[2023-01-11] MEDS: Docusate Sodium 100 MG CAPSULE PO ×2 (08:21→14:27)
[2023-01-11] MEDS: Cariprazine HCl 3 MG CAPSULE PO (08:21)
[2023-01-11] MEDS: Gabapentin 400 MG CAPSULE 800 MG PO ×2 (08:21→14:27)
[2023-01-11] MEDS: Promethazine HCL 25 MG TABLET PO (08:51)
[2023-01-11] MEDS: QUEtiapine Fumarate 25 MG TABLET PO (11:03)
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
[2023-01-11] MEDS: Naloxone HCl Nasal TAKE HOME 4 MG SPRAY 8 MG NOSTRILALT (14:28)
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
== END 2023-01-11 15:45 | disposition home or self-care (01) | DRG 753 ==
LOC: HO.ED 19:23 → HO.PM5 01-01 16:00
PROVIDERS: Emergency Medicine Emergency Medical Services; Admitting Provider Psychiatry & Neurology Psychiatry; Emergency Provider Emergency Medicine; Visit Provider Clinical Nurse Specialist Psychiatric/Mental Health, Adult
DX: F31.30 Bipolar disorder, current episode depressed, mild or moderate severity, unspecified (principal); R45.851 Suicidal ideations; F11.20 Opioid dependence, uncomplicated; F43.10 Post-traumatic stress disorder, unspecified; N39.0 Urinary tract infection, site not specified; B96.20 Unspecified Escherichia coli [E. coli] as the cause of diseases classified elsewhere; F19.10 Other psychoactive substance abuse, uncomplicated; F17.210 Nicotine dependence, cigarettes, uncomplicated; Z71.6 Tobacco abuse counseling; Z91.51 Personal history of suicidal behavior; Z20.822 Contact with and (suspected) exposure to COVID-19; Z79.890 Hormone replacement therapy; Z79.899 Other long term (current) drug therapy
CPT/HCPCS: 36415; 80048; 80076; 80143; 80179; 80307; 81001; 81025; 84443; 85025; 87086; 87088; 87186; 87635; 93005; 99285; S9485

== ENCOUNTER → 2023-01-01 15:42 | Outpatient (BNV) | payer OTHER, SELFPAY | PROVIDERS: Admitting Provider Psychiatry & Neurology Psychiatry; Emergency Provider Emergency Medicine; Visit Provider Clinical Nurse Specialist Psychiatric/Mental Health, Adult | DX: F31.76 Bipolar disorder, in full remission, most recent episode depressed (principal); F43.11 Post-traumatic stress disorder, acute; F11.19 Opioid abuse with unspecified opioid-induced disorder | CPT/HCPCS: 99231; 99232 ==

== ENCOUNTER 2023-01-24 15:36 | Inpatient (IN) | payer OTHER, MEDICAID, SELFPAY ==
[2023-01-24 15:56] VITALS: BP 123/82; PULSE 74; RESP 16; TEMP 36.1; O2SAT 94; BMI 26.5
--- NOTE | 2023-01-24 15:56 | ED_ITS ---
HPI - Psych General Chief Complaint: Psychiatric Symptoms Stated Complaint: SI Time Seen by Provider: 01/24/23 16:04 Source: patient Mode of arrival: ambulatory Limitations: no limitations History of Present Illness HPI Narrative: 47 yo female with PMH of bipolar, PTSD states she is feeling hopeless and wants to overdose on drugs and kill herself. She used a sharp edge to abrade her L forearm. She took her methadone dose today. Found with needle, crack pipe and had drug baggies in her bra. MD complaint: suicidal ideation and feels depressed Onset (ago): week(s) Duration: getting worse History of same: Yes Relieving factors: none Exacerbating factors: drug use Context: significant life stressor Associated psychiatric symptoms: depression and suicidal ideation Associated symptoms: denies other symptoms Treatments prior to arrival: none If self harm: admits thoughts of self harm and has plan Related Data Home Medications Medication Instructions Recorded Confirmed methadone 10 mg tablet 130 mg PO DAILY 10/17/21 12/29/22 Previous Rx's Medication Instructions Recorded albuterol sulfate 90 mcg/actuation 2 puff inhalation Q6H PRN Wheezing 01/11/23 aerosol inhaler (Ventolin HFA) 30 days #1 inhaler cariprazine 3 mg capsule (Vraylar) 3 mg PO DAILY 30 days #30 caps 01/11/23 clonazepam 0.5 mg tablet 0.5 mg PO BID 30 days #60 tabs 01/11/23 docusate sodium 100 mg capsule 100 mg PO TID 30 days #90 caps 01/11/23 gabapentin 800 mg tablet 800 mg PO TID 30 days #90 tabs 01/11/23 hydroxyzine pamoate 25 mg capsule 25 mg PO BID 30 days #60 caps 01/11/23 levothyroxine 50 mcg tablet 50 mcg PO DAILY@0600 30 days #30 01/11/23 tabs lisdexamfetamine 10 mg capsule 10 mg PO DAILY 30 days #30 caps 01/11/23 melatonin 5 mg tablet 5 mg PO BEDTIME PRN sleep 30 days 01/11/23 #30 tabs nicotine 21 mg/24 hr daily 21 mg transdermal DAILY 28 days 01/11/23 transdermal patch #28 ea olanzapine 7.5 mg tablet 7.5 mg PO BEDTIME 30 days #30 tabs 01/11/23 omeprazole 20 mg capsule,delayed 20 mg PO DAILY@0630 30 days #30 01/11/23 release caps prazosin 2 mg capsule 2 mg PO BEDTIME 30 days #30 caps 01/11/23 promethazine 25 mg tablet 25 mg PO Q8H PRN Nausea 30 days 01/11/23 #30 tabs quetiapine 25 mg tablet 25 mg PO QID PRN anxiety 30 days 01/11/23 #90 tabs Allergies Allergy/AdvReac Type Severity Reaction Status Date / Time azithromycin Allergy Fever Verified 01/24/23 15:58 lamotrigine [From Lamictal] AdvReac Fever Verified 01/24/23 15:58 trazodone AdvReac Restless Verified 01/24/23 15:58 legs geodon AdvReac Severe spasm, Uncoded 01/24/23 15:58 headache, fever Review of Systems 2 Review of Systems: Constitutional : No Fever, No Chills ENT/Mouth : No Ear Pain, No Nasal Congestion, No sore throat Eyes: No Eye Pain, No Swelling, No Redness Cardiovascular : No Chest Pain, No SOB Respiratory : No Cough, No Sputum, No Dyspnea Gastrointestinal : No Nausea, No Vomiting, No Diarrhea, No Hematochezia, No Melena Genitourinary : No Dysuria, No Urinary Frequency, No Hematuria Musculoskeletal : No Myalgias Skin : No Skin Lesions, No rash Neuro : No Weakness, No Numbness, No Paresthesias, No Dizziness, No Headache Psych : positive Anxiety, positive Depression, positive SI no HI Heme/Lymph: No Lymphadenopathy Endocrine : No Polyuria, No Polydipsia All other systems reviewed and are negative PMFSH Past Medical History Attestation statement: The following information was validated with the patient. Medical History Opioid abuse with opioid-induced disorder PTSD (post-traumatic stress disorder) Bipolar disorder Social History Social History Household Members: None Housing: Apartment Do you presently have visiting nurse or other home services: No Patient Tobacco Use Status: Current everyday Tobacco user Tobacco use type: Cigarette Cigarette Packs Per Day: 0.25 Cigarettes Per Day: 5 Years Smoked: 30 e-Cigarette/Vaping Use: Currently Using Second Hand Smoke Exposure: Yes Substance Use Type: Crack/Cocaine, Heroin, Marijuana and Caffiene Advance Directives: No Advance Directives Information Provided: No service: No Sexual orientation: Straight/Heterosexual Physical Exam 2 Vital Signs: Vital Signs: Last Vital Signs Temp 96.9 F 01/24/23 15:56 Pulse 74 01/24/23 15:56 Resp 16 01/24/23 15:56 BP 123/82 01/24/23 15:56 Pulse Ox 94 01/24/23 15:56 O2 Del Method Room Air 01/24/23 15:56 BMI result Body Mass Index 26.5 Appearance: Alert. Oriented X3. No acute distress. Eyes: Pupils equal, round and reactive to light. ENT: Pharynx normal. Neck: Normal inspection. Neck supple. CVS: Normal heart rate and rhythm. Pulses normal. Respiratory: No respiratory distress. Breath sounds normal. Abdomen: Soft and nontender. Skin: Skin warm and dry. Normal skin color. Normal skin turgor. Extremities: No lower extremity edema. superficial abrasions L forearm Neuro: Oriented X 3. No motor deficit. No sensory deficit. CN 2-12 intact Course Course Course Narrative: RME: 47yo F with a history of PTSD, bipolar disorder, depression and substance abuse presenting to ED c/o depression with suicidal ideation w/plan to shoot up with heroin. Admits to recent attempt that wasnt successful Labs, tox screen, CARE consult ordered Full HPI, ROS and PE to be performed by primary ED provider. Reevaluation(s) Reevaluation #1: Physician observation started at 433pm. Patient placed in physician observation because the patient needed more time for CARE team to assess the need for psych admission. At the time observation was started the patient's vitals were stable, patient is alert and oriented but slightly anxious Neuro: nonfocal, CV RRR, Lungs clear Medical Decision Making Medical Decision Making MDM Narrative: 47 yo female with PTSD, bipolar and drug abuse here with c/o SI and plans to overdose - she was found with drug paraphernalia at this time will obtain labs and consult CARE team. Differential Diagnosis Differential Diagnoses: The differential diagnosis associated with the presentation includes drug abuse, SI, poor social support Admission/Observation Consideration of admission/observation: Escalation of care including admission/observation considered observe until CARE team can see patient Consult Healthcare Provider Management of the patient was discussed with: Behavioral Health Provider Lab Data [facility] Lab Attestation statement: I reviewed the patient's lab results. 01/24/23 16:06 01/24/23 16:06 Labs: Lab Results 01/24/23 01/24/23 Range/Units 16:06 16:22 WBC 3.4 L (4.8-10.8) X10*3/uL RBC 4.75 (4.20-5.50) X10*6/uL Hgb 12.1 (12.0-16.0) g/dl Hct 36.3 L (37.0-47.0) % MCV 76.4 L (80.0-98.0) fL MCH 25.5 L (27.0-33.0) pg MCHC 33.3 (31.0-35.0) g/dl RDW 14.6 (11.0-16.0) % Plt Count 170 (160-400) X10*3/uL MPV 9.3 L (9.4-12.3) fL Absolute Nucleated RBC 0.000 (0.0-0.012) X10*3/uL Nucleated RBC % (auto) 0.0 (0.0-0.2) /100WBC Urine Color Yellow Urine Appearance Hazy Urine pH 6.0 (5.0-9.0) Ur Specific Galliano >= 1.030 H (1.005-1.025) Urine Protein Trace (Neg-Trace) mg/dL Urine Glucose (UA) Negative (Negative) mg/dL Urine Ketones Negative (Negative) mg/dL Urine Blood Negative (Negative) Urine Nitrite Negative (Negative) Ur Leukocyte Esterase Negative (Negative) Urine Test NEGATIVE (NEGATIVE) Salicylates < 5.0 L (15-30) mg/dL Acetaminophen < 17 (<30) mcg/mL External Record Review External record reviewed: Inpatient record Social Determinants Patient?s care significantly limited by Social Determinants of Health including: Inadequate housing, Low income, Alcoholism and drug addiction in family and Problems related to primary support group Discharge Plan Discharge Clinical Impression: Suicidal ideation Patient Disposition: Still a Patient Prescriptions: No Action methadone 10 mg Tablet 130 mg PO DAILY Rx Instructions: Kristy LEONE at [facility] confirmed dose of Methadone 130mg on 12/29/22 @0900 promethazine 25 mg Tablet 25 mg PO Q8H PRN (Reason: Nausea) 30 Days Qty: 30 0RF olanzapine 7.5 mg Tablet 7.5 mg PO BEDTIME 30 Days Qty: 30 1RF melatonin 5 mg tablet 5 mg PO BEDTIME PRN (Reason: sleep) 30 Days Qty: 30 0RF clonazepam 0.5 mg tablet 0.5 mg PO BID 30 Days Qty: 60 0RF albuterol sulfate [Ventolin HFA] 90 mcg/actuation Hfa Aerosol Inhaler 2 puff inhalation Q6H PRN (Reason: Wheezing) 30 Days Qty: 1 1RF quetiapine 25 mg Tablet 25 mg PO QID PRN (Reason: anxiety) 30 Days Qty: 90 1RF gabapentin 800 mg tablet 800 mg PO TID 30 Days Qty: 90 0RF levothyroxine 50 mcg Tablet 50 mcg PO DAILY@0600 30 Days Qty: 30 1RF nicotine 21 mg/24 hr Patch 24 Hour 21 mg transdermal DAILY 28 Days Qty: 28 1RF docusate sodium 100 mg Capsule 100 mg PO TID 30 Days Qty: 90 0RF omeprazole 20 mg Capsule,Delayed Release(Dr/Ec) 20 mg PO DAILY@0630 30 Days Qty: 30 1RF prazosin 2 mg capsule 2 mg PO BEDTIME 30 Days Qty: 30 1RF hydroxyzine pamoate 25 mg capsule 25 mg PO BID 30 Days Qty: 60 1RF Vraylar 3 mg capsule 3 mg PO DAILY 30 Days Qty: 30 1RF lisdexamfetamine 10 mg capsule 10 mg PO DAILY 30 Days Qty: 30 0RF Rx Instructions: Partial Fill upon patient request.
[2023-01-24 16:14] LABS: Hematocrit 36.3 % (37.0-47.0); Hemoglobin 12.1 g/dl (12.0-16.0); Mean Corpuscular HGB Conc 33.3 g/dl (31.0-35.0); Mean Corpuscular Hemoglobin 25.5 pg (27.0-33.0); Mean Corpuscular Volume 76.4 fL (80.0-98.0); Mean Platelet Volume 9.3 fL (9.4-12.3); Platelet Count 170 X10*3/uL (160-400); Red Blood Count 4.75 X10*6/uL (4.20-5.50); Red Cell Distribution Width 14.6 % (11.0-16.0); White Blood Count 3.4 X10*3/uL (4.8-10.8)
[2023-01-24 16:31] LABS: Acetaminophen LAB < 17 mcg/mL (<30); Salicylate < 5.0 mg/dL (15-30)
[2023-01-24 16:32] LABS: UPreg QC Valid YES; Urine Pregnancy NEGATIVE (NEGATIVE)
[2023-01-24 16:33] LABS: Appearance Urine Hazy; Color Urine Yellow; Glucose Urine UA Negative (Negative); Leukocyte Esterase Urine Negative (Negative); Nitrite Urine Negative (Negative); Specific Gravity - Urine >= 1.030 (1.005-1.025); Urine Blood Negative (Negative); Urine Ketones Negative (Negative); Urine Protein Trace mg/dL (Neg-Trace)
[2023-01-24 16:37] LABS: Alanine Aminotransferase 16 U/L (0-31); Albumin Level 4.4 g/dL (3.5-5.0); Alkaline Phosphatase 71 U/L (39-117); Anion Gap 15 (12-20); Aspartate Amino Transferase 33 U/L (5-31); Bilirubin Direct 0.2 mg/dL (0.0-0.5); Bilirubin Total 0.7 mg/dL (0.0-1.0); Blood Urea Nitrogen 11 mg/dL (9-16); Calcium 9.4 mg/dL (8.4-10.2); Carbon Dioxide 23 mmol/L (22-29); Chloride 105 mmol/L (96-108); Estimated Glomerular Filt Rate > 60; Glucose Random 74 mg/dL (60-115); Potassium 3.7 mmol/L (3.3-5.1); Sodium 139 mmol/L (135-145); Total Protein 7.8 g/dL (6.5-8.0)
[2023-01-24 16:37] LABS: Amphetamine Screen Urine Not Detected (Not Detect); Barbiturates, Urine Not Detected (Not Detect); Benzodiazepines Screen Urine POSITIVE (Not Detect); Cannabinoid Screen Urine POSITIVE (Not Detect); Cocaine Screen Urine POSITIVE (Not Detect); Fentanyl, urine POSITIVE (Not Detect); Opiate Screen Urine POSITIVE (Not Detect); Phencyclidine Screen Urine Not Detected (Not Detect)
[2023-01-24 16:38] LABS: Bacteria Urine Trace (None Seen); Hyaline Casts Urine 0-2 /LPF (0-2); RBC Urine 0-2 /HPF (0-2); Squamous Epithelial Cell Urine 0-2 /HPF (0-2); WBC Urine 0-5 /HPF (0-5)
[2023-01-24] MEDS: LORazepam 1 MG TABLET PO (16:41)
[2023-01-24 17:19] LABS: Ethanol < 10 mg/dL
--- NOTE | 2023-01-24 17:29 | PC.NURSE ---
Miladis arrived as a walk in who self presented for SI in the context of recent drug abuse and hopelessness. Miladis reports she recently discharged from our inpatient unit and has been struggling since. Methadone dose confirmed with GIANNI, last dose 01/24/23 @ 0728 for 135mg's confirmed by Kristy Paulson LPN. Miladis was given 1mg Lorazepam on admission for 12/31 anxiety with moderate effect. Miladis reports she will be safe while in the hospital. On skin assessment during admission a small bag of white powder wrapped in paper was found by this magazine writer in [employer]. It was destroyed by security.
[2023-01-24 17:32] VITALS: BP 128/78; PULSE 82; RESP 18
--- NOTE | 2023-01-24 18:37 | ECG_ITS ---
Test Reason : medical cleareance Blood Pressure : / mmHG Vent. Rate : 054 BPM Atrial Rate : 054 BPM P-R Int : 130 ms QRS Dur : 090 ms QT Int : 518 ms P-R-T Axes : 031 037 052 degrees QTc Int : 491 ms Sinus bradycardia with sinus arrhythmia Prolonged QT Abnormal ECG When compared with ECG of 08-JAN-2023 09:21, Vent. rate has decreased BY 41 BPM Nonspecific T wave abnormality, improved in Inferior leads Nonspecific T wave abnormality no longer evident in Lateral leads Referred By: Linda Corbin Electronically Signed By:HELIO CASPER
[2023-01-24 19:00] LABS: IDNOW Serial# 6674DD1D
[2023-01-24 19:01] LABS: COVID-19 Test Negative (Negative)
--- NOTE | 2023-01-24 19:52 | HE.PHANOTE ---
RE: methadone Received last dose verification form; GIANNI last dose of 135mg on 01/24/23 @3150
--- NOTE | 2023-01-25 05:30 | PC.NURSE ---
Patient slept through whole evening and night, no distress observed/reported, disposition per care team is pending, med rec completed/pending provider's approval, VSS, behavior non concerning, will continue to monitor.
[2023-01-25 05:55] VITALS: BP 116/74; PULSE 59; RESP 16; TEMP 36.4; O2SAT 97
--- NOTE | 2023-01-25 07:31 | PC.NURSE ---
patient appears to remain asleep at present respirations are even and unlabored patient appears in no distress
[2023-01-25 15:58] VITALS: BP 129/87; PULSE 70; RESP 18; O2SAT 98
--- NOTE | 2023-01-25 16:20 | PHA.MEDREC ---
Pharmacy Consult ? Medication Reconciliation Pharmacy has reviewed the medication reconciliation completed by Marisela based on claim history.
[2023-01-25 16:50] VITALS: BP 130/87; PULSE 75; RESP 16; TEMP 36.4; O2SAT 98
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
[2023-01-25 20:20] VITALS: BP 126/100; PULSE 69; RESP 18; TEMP 36.2; O2SAT 98
[2023-01-26 08:00] VITALS: BP 130/87; PULSE 71; RESP 16; TEMP 37.1; O2SAT 97
--- NOTE | 2023-01-26 12:15 | HO.PSYADMNOT ---
HPI Date of Service: 01/26/23 Chief Complaint: SI HPI Narrative: per CARE team assessment, pt self-presented to ED c/o SI with plan to overdose on heroin. she had also produced an abrasion on her arm with a sharp object. she also was found to have concealed a needle, a crack pipe, and some drug baggies in her bra. she reported poor sleep and appetite, nightmares and flashbacks. she informed staff she had recently become homeless. on interview with MD on psych unit pt endorsed insomnia, anergia/amotivation, guilt, anergia, decreased concentration, adequate appetite, and SI. she identified as her three target symptoms depression, housing, and recovery. she was informed housing cannot be much helped, but she is interested in following up with referrals to [facility] and using that as a stepping stone to housing. re depression, she agreed to start wellbutrin XL 150 mg daily, which she has been helped on in the past per her report. for sleep and depression she agreed to start remeron (also which has been helpful for her in the past) at bedtime. lastly, to address opioid craving, she requested to increase methadone from 135 mg daily to 140 mg daily, which was accommodated. she also c/o itchy rash on palms and chest as well as recent h/o abnml CXR. MD agreed to enter hospitalist consult. Past Psychiatric History: IP: 3, [facility], August 2021,[facility] 2021, 11/2022. reports h/o about 10 inpatient stays. SA: reports h/o 4 SA. OD on her mother's pills at 16 yo, cutting x1, 2 other via intentional OD on heroin. SIB: h/o cutting, hitting self. MRE cutting the other day. OP: sees Dr. Mobley [place] for psychopharmacology. believes she was recently assigned a therapist through [facility]. reports Dx of PTSD, ADHD, Bipolar Disorder/MDD. Medical Evaluation Reviewed: Yes [facility] Medical History Opioid abuse with opioid-induced disorder PTSD (post-traumatic stress disorder) Bipolar disorder Family History: mother - depression, opioids father - depression, opioids, polysubstance abuse Social History: Pt is an only child. Describes her childhood as difficult and traumatic. Born in [place], raised [place] by mother/step-father Both parents had substance abuse issues. Mother 2005. No contact with step-father Father had mental health issues One child, a son Legal- hx of ~9 years of incarceration for various issues. Substance History: h/o detoxes/rehabs tobacco - 5-10 cigs/day alcohol - denies cannabis - uses 1 x/wk cocaine - crack cocaine daily opioids - IV heroin, daily stimulants - has Rx for vyvanse benzos - has script for klonopin. denies use of other benzos or not taking medication as prescribed. Trauma History: Affirms, beginning in her childhood Diagnostics Vital Signs (24Hr): Vital Signs - 24 hr 01/25/23 15:58 01/25/23 16:50 01/25/23 20:20 Temperature 97.5 F 97.2 F Pulse Rate 70 75 69 Respiratory Rate 18 16 18 Blood Pressure 129/87 130/87 126/100 H Pulse Oximetry 98 98 98 Oxygen Delivery Method Room Air Room Air Room Air BMI result Body Mass Index 26.5 Labs 01/24/23 16:06 01/24/23 16:06 Labs: Laboratory Results - last 48 hr 01/24/23 01/24/23 01/24/23 16:06 16:22 18:40 WBC 3.4 L RBC 4.75 Hgb 12.1 Hct 36.3 L MCV 76.4 L MCH 25.5 L MCHC 33.3 RDW 14.6 Plt Count 170 MPV 9.3 L Absolute Nucleated RBC 0.000 Nucleated RBC % (auto) 0.0 Sodium 139 Potassium 3.7 Chloride 105 Carbon Dioxide 23 Anion Gap 15 BUN 11 Creatinine 0.72 Estim Creat Clear Calc 85.0 Estimated GFR > 60 Random Glucose 74 Calcium 9.4 Total Bilirubin 0.7 Direct Bilirubin 0.2 AST 33 H ALT 16 Alkaline Phosphatase 71 Total Protein 7.8 Albumin 4.4 Urine Color Yellow Urine Appearance Hazy Urine pH 6.0 Ur Specific [place] >= 1.030 H Urine Protein Trace Urine Glucose (UA) Negative Urine Ketones Negative Urine Blood Negative Urine Nitrite Negative Ur Leukocyte Esterase Negative Urine RBC 0-2 Urine WBC 0-5 Ur Squamous Epith Cells 0-2 Urine Bacteria Trace Hyaline Casts 0-2 Urine Test NEGATIVE Salicylates < 5.0 L Urine Opiates Screen POSITIVE H Urine Fentanyl Screen POSITIVE H Acetaminophen < 17 Ur Barbiturates Screen Not Detected Ur Phencyclidine Scrn Not Detected Ur Amphetamines Screen Not Detected U Benzodiazepines Scrn POSITIVE H Urine Cocaine Screen POSITIVE H U Marijuana (THC) Screen POSITIVE H Ethyl Alcohol < 10 COVID-19 (LARS) Negative COVID-19 Clin Com See Note Meds/Allergies Meds Home Medications Medication Instructions Recorded Confirmed Type cariprazine 3 mg capsule (Vraylar) 3 mg PO DAILY 01/24/23 01/24/23 History clonazepam 0.5 mg tablet 0.5 mg PO BID 01/24/23 01/24/23 History gabapentin 800 mg tablet 800 mg PO TID 01/24/23 01/24/23 History levothyroxine 50 mcg tablet 50 mcg PO QAM 01/24/23 01/24/23 History lisdexamfetamine 10 mg capsule 10 mg PO DAILY 01/24/23 01/24/23 History (Vyvanse) methadone 5 mg/5 mL oral solution 135 mg PO DAILY 01/24/23 01/24/23 History prazosin 2 mg capsule 2 mg PO BEDTIME 01/24/23 01/24/23 History quetiapine 25 mg tablet 25 mg PO QID PRN anxiety 01/24/23 01/24/23 History Allergies Allergies Allergy/AdvReac Type Severity Reaction Status Date / Time azithromycin Allergy Fever Verified 01/24/23 15:58 lamotrigine [From Lamictal] AdvReac Fever Verified 01/24/23 15:58 trazodone AdvReac Restless Verified 01/24/23 15:58 legs geodon AdvReac Severe spasm, Uncoded 01/24/23 15:58 headache, fever Mental Status Exam Mental Status Exam Narrative: Pt is alert and oriented; behavior is cooperative, friendly and calm; patient is not in distress; dressed in casual attire with adequate hygiene; mood is described as tired, anxious, and lonely and affect congruent, normo-intense, non-labile; eye contact appropriate; Speech is normal rate, volume and prosody and not pressured; no psychomotor retardation present; thought process is organized and goal directed; Thought content is on menta healthcare and sobriety; otherwise pertinent to relevant topics and without any delusional content, paranoid ideations or grandiosity; +SI. no HI/AVH. There is no evidence of perceptual disturbance. Patients insight and judgment fair. Assessment & Plan Assessment & Plan (1) PTSD (post-traumatic stress disorder): Status: Acute Code(s): F43.10 - Post-traumatic stress disorder, unspecified (2) Bipolar disorder: Status: Acute Code(s): F31.9 - Bipolar disorder, unspecified Plan obtain hospitalist consult re dermatologic complaints as well as recent h/o abnml CXR with suggestion to perhaps obtain chest CT. start wellbutrin XL 150 mg daily for depression. start remeron 15 mg QHS for depression and insomnia, MR X 1. increase methadone to 140 mg daily (from 135) due to craving and recent heroin use. utox benzo positive is c/w taking more than 2 mg klonopin daily; pt is prescribed 1 mg daily and had urine POS tox screen. referrals for CSS. Patient educated on: diagnosis and medication risk/benefits Reason for continued inpatient stay Substantial Risk for: harm to self, inability to function and rapid decompensation Statement Statement: I have reviewed the history and physical and performed a pertinent examination on my patient. No changes have occurred unless specified. If the History and Physical was not performed prior to admission, the Hospitalist's service will be consulted for completing the admission physical. Time Spent With Patient Time: Total time managing care of this patient today __55__ minutes.
--- NOTE | 2023-01-26 17:31 | PM.EVENT ---
Event Note Date of Service: 01/26/23 Event Note: Patient admitted to Psychiatry with consult placed to hospitalist service for ?dermatology complaint? and for evaluation of abnormal chest x-ray. On exam, patient shows evidence of atopic dermatitis on hands, particular on the fingernails. Please continue with oral antihistamine (Vistaril). Apply triamcinolone cream daily to affected areas and utilize emollient cream nightly for moisture. Chest x-ray findings from 12/20 require outpatient follow-up with PCP for possible pulmonary nodule. Further investigation with chest CT deferred to outpatient. Time Spent With Patient Time: Total time managing care of this patient today ____ minutes.
[2023-01-26 19:20] VITALS: BP 148/92; PULSE 70; RESP 15; TEMP 36.5; O2SAT 96
[2023-01-27 08:00] VITALS: BP 125/94; PULSE 83; RESP 16; TEMP 36.6; O2SAT 95
[2023-01-27 11:35] VITALS: BP 139/92; PULSE 80
--- NOTE | 2023-01-27 12:18 | HO.PSYCHPN ---
Subjective Subjective Date of Service: 01/27/23 Reason For Visit: SI Interim History: Patient seen and discussed. Patient has been increasingly anxious related to another patient on the unit who is highly agitated and she feels it is triggering her PTSD symptoms. She is also reactive to the patient's behaviors and becomes dysregulated and hostile in return. She feels the PRN medications have not been helpful. She says she has responded well to Clonidine in the past. She requests her Omeprazole be restarted due to heartburn. She denies SI/HI/AVH Review of Systems Review of Systems Constitutional : No Fever, No Chills ENT/Mouth : No Ear Pain, No Nasal Congestion, No sore throat Eyes: No Eye Pain, No Swelling, No Redness Cardiovascular : No Chest Pain, No SOB Respiratory : No Cough, No Sputum, No Dyspnea Gastrointestinal : No Nausea, No Vomiting, No Diarrhea, No Hematochezia, No Melena Genitourinary : No Dysuria, No Urinary Frequency, No Hematuria Musculoskeletal : No Myalgias Skin : No Skin Lesions, No rash Neuro : No Weakness, No Numbness, No Paresthesias, No Dizziness, No Headache Psych : positive Anxiety, positive Depression, positive SI no HI Heme/Lymph: No Lymphadenopathy Endocrine : No Polyuria, No Polydipsia All other systems reviewed and are negative Mental Status Exam Mental Status Exam Narrative: Pt is alert and oriented; behavior is cooperative, friendly and calm; patient is not in distress; dressed in casual attire with adequate hygiene; mood is described as tired, anxious, and lonely and affect congruent, normo-intense, non-labile; eye contact appropriate; Speech is normal rate, volume and prosody and not pressured; no psychomotor retardation present; thought process is organized and goal directed; Thought content is on menta healthcare and sobriety; otherwise pertinent to relevant topics and without any delusional content, paranoid ideations or grandiosity; +SI. no HI/AVH. There is no evidence of perceptual disturbance. Patients insight and judgment fair. Diagnostics Vital Signs (24Hr): Vital Signs - 24 hr 01/26/23 19:20 01/27/23 08:00 01/27/23 11:35 Temperature 97.7 F 97.9 F Pulse Rate 70 83 80 Respiratory Rate 15 16 Blood Pressure 148/92 H 125/94 H 139/92 H Pulse Oximetry 96 95 Oxygen Delivery Method Room Air Room Air BMI result Body Mass Index 26.5 Labs 01/24/23 16:06 01/24/23 16:06 Medications Medications Current Medications Acetaminophen (Acetaminophen 325 Mg Tablet) 650 mg PO Q6H PRN PRN Reason: Headache/Pain Mild Scale (1-3) Last Admin: 01/27/23 08:31 Dose: 650 mg Al Hydroxide/Mg Hydroxide (Magnesium Hydrox/Alum Hydrox 30 Ml Oral.Susp) 30 ml PO Q6H PRN PRN Reason: Heartburn/Nausea Last Admin: 01/27/23 11:42 Dose: 30 ml Bupropion HCl (Bupropion Hcl Xl 150 Mg Tab.Er.24h) 150 mg PO DAILY [facility] Last Admin: 01/27/23 08:26 Dose: 150 mg Cariprazine (Cariprazine Hcl 3 Mg Capsule) 3 mg PO DAILY [facility] Last Admin: 01/27/23 08:27 Dose: 3 mg Clonazepam (Clonazepam 0.5 Mg Tablet) 0.5 mg PO BID [facility] Last Admin: 01/27/23 08:26 Dose: 0.5 mg Clonidine HCl (Clonidine Hcl 0.1 Mg Tablet) 0.1 mg PO TID PRN; Protocol PRN Reason: Anxiety Last Admin: 01/27/23 11:36 Dose: 0.1 mg Gabapentin (Gabapentin 400 Mg Capsule) 800 mg PO TID [facility] Last Admin: 01/27/23 08:26 Dose: 800 mg Hydroxyzine HCl (Hydroxyzine Hcl 25 Mg Tablet) 25 mg PO Q6H PRN PRN Reason: Anxiety, itch, rash Last Admin: 01/26/23 18:49 Dose: 25 mg Levothyroxine Sodium (Levothyroxine Sodium 50 Mcg Tablet) 50 mcg PO DAILY [facility] Last Admin: 01/27/23 08:27 Dose: 50 mcg Magnesium Hydroxide (Milk Of Magnesia 30 Ml Oral.Susp) 30 ml PO DAILY PRN PRN Reason: Constipation Methadone HCl (Methadone Hcl 20 Mg/2 Ml Oral.Conc) 140 mg PO DAILY [facility] Last Admin: 01/27/23 08:28 Dose: 140 mg Mirtazapine (Mirtazapine 15 Mg Tablet) 15 mg PO BEDTIME [facility] Last Admin: 01/26/23 19:49 Dose: 15 mg Mirtazapine (Mirtazapine 15 Mg Tablet) 15 mg PO BEDTIME PRN PRN Reason: insomnia Multi-Ingred Cream/Lotion/Oil/Oint (Mineral Oil/Petrolatum,White 106 Gm Tube) 1 appl TOPICAL BEDTIME [facility]; Protocol Last Admin: 01/26/23 19:51 Dose: 1 appl Nicotine (Nicotine 14 Mg Patch.Td24) 14 mg TRANSDERMA DAILY PRN PRN Reason: smoking cessation Nicotine Polacrilex (Nicotine Polacrilex 2 Mg Gum) 4 mg BUCCAL Q2H PRN PRN Reason: Nicotine Cravings Nicotine Polacrilex (Nicotine Polacrilex Lozenge 4 Mg Lozenge) 4 mg BUCCAL Q2H PRN PRN Reason: Nicotine Cravings Last Admin: 01/26/23 12:35 Dose: 4 mg Non-Formulary Medication (Lisdexamfetamine [Vyvanse]) 10 mg PO DAILY [facility] Omeprazole (Omeprazole 20 Mg Capsule.Dr) 20 mg PO DAILY@0630 [facility] Prazosin HCl (Prazosin Hcl 1 Mg Capsule) 2 mg PO BEDTIME [facility]; Protocol Last Admin: 01/26/23 19:49 Dose: 2 mg Promethazine HCl (Promethazine Hcl 25 Mg Tablet) 25 mg PO Q8H PRN PRN Reason: Nausea and Vomiting Last Admin: 01/27/23 10:49 Dose: 25 mg Quetiapine Fumarate (Quetiapine Fumarate 25 Mg Tablet) 25 mg PO QID PRN PRN Reason: anxiety Last Admin: 01/27/23 08:25 Dose: 25 mg Triamcinolone Acetonide (Triamcinolone Acet 0.1 % Cream 15 Gm Tube) 1 appl TOPICAL DAILY [facility]; Protocol Last Admin: 01/27/23 08:47 Dose: 1 appl Allergies Allergies Allergy/AdvReac Type Severity Reaction Status Date / Time azithromycin Allergy Fever Verified 01/24/23 15:58 lamotrigine [From Lamictal] AdvReac Fever Verified 01/24/23 15:58 trazodone AdvReac Restless Verified 01/24/23 15:58 legs geodon AdvReac Severe spasm, Uncoded 01/24/23 15:58 headache, fever Assessment & Plan Assessment & Plan (1) PTSD (post-traumatic stress disorder): Status: Acute Code(s): F43.10 - Post-traumatic stress disorder, unspecified (2) Bipolar disorder: Status: Acute Code(s): F31.9 - Bipolar disorder, unspecified Plan obtain hospitalist consult re dermatologic complaints as well as recent h/o abnml CXR with suggestion to perhaps obtain chest CT. start wellbutrin XL 150 mg daily for depression. start remeron 15 mg QHS for depression and insomnia, MR X 1. increase methadone to 140 mg daily (from 135) due to craving and recent heroin use. utox benzo positive is c/w taking more than 2 mg klonopin daily; pt is prescribed 1 mg daily and had urine POS tox screen. referrals for CSS. 01/27: Clonidine 0.1 mg TID PRN anxiety. Restart Omeprazole. Reason for continued inpatient stay Substantial Risk for: harm to self, inability to function and rapid decompensation Time Spent With Patient Time: Total time managing care of this patient today ____ minutes.
[2023-01-27 20:15] VITALS: BP 131/80; PULSE 63; RESP 18; TEMP 36.8; O2SAT 96
[2023-01-28 06:00] VITALS: BP 112/81; PULSE 91; RESP 16; TEMP 36.9; O2SAT 95
--- NOTE | 2023-01-28 19:09 | HO.PSYCHPN ---
Subjective Subjective Date of Service: 01/28/23 Reason For Visit: SI Interim History: Patient seen and discussed. Patient reports having a genital HSV symptoms that started yesterday. She is requesting Acyclovir. She says the stress has been increasing. She has been getting depressed and has been hitting herself on the face. She denies any SI. Says she didn't sleep and requesting to go back on Seroquel rather than Ambien. She denies SI/HI/AVH Review of Systems Review of Systems Constitutional : No Fever, No Chills ENT/Mouth : No Ear Pain, No Nasal Congestion, No sore throat Eyes: No Eye Pain, No Swelling, No Redness Cardiovascular : No Chest Pain, No SOB Respiratory : No Cough, No Sputum, No Dyspnea Gastrointestinal : No Nausea, No Vomiting, No Diarrhea, No Hematochezia, No Melena Genitourinary : No Dysuria, No Urinary Frequency, No Hematuria Musculoskeletal : No Myalgias Skin : No Skin Lesions, No rash Neuro : No Weakness, No Numbness, No Paresthesias, No Dizziness, No Headache Psych : positive Anxiety, positive Depression, positive SI no HI Heme/Lymph: No Lymphadenopathy Endocrine : No Polyuria, No Polydipsia All other systems reviewed and are negative Mental Status Exam Mental Status Exam Narrative: Pt is alert and oriented; behavior is cooperative, friendly and calm; patient is not in distress; dressed in casual attire with adequate hygiene; mood is described as tired, anxious, and lonely and affect congruent, normo-intense, non-labile; eye contact appropriate; Speech is normal rate, volume and prosody and not pressured; no psychomotor retardation present; thought process is organized and goal directed; Thought content is on menta healthcare and sobriety; otherwise pertinent to relevant topics and without any delusional content, paranoid ideations or grandiosity; +SI. no HI/AVH. There is no evidence of perceptual disturbance. Patients insight and judgment fair. Diagnostics Vital Signs (24Hr): Vital Signs - 24 hr 01/27/23 20:15 01/28/23 06:00 Temperature 98.3 F 98.4 F Pulse Rate 63 91 Respiratory Rate 18 16 Blood Pressure 131/80 112/81 Pulse Oximetry 96 95 Oxygen Delivery Method Room Air Room Air BMI result Body Mass Index 26.5 Labs 01/24/23 16:06 01/24/23 16:06 Medications Medications Current Medications Acetaminophen (Acetaminophen 325 Mg Tablet) 650 mg PO Q6H PRN PRN Reason: Headache/Pain Mild Scale (1-3) Last Admin: 01/27/23 08:31 Dose: 650 mg Acyclovir (Acyclovir 200 Mg Capsule) 400 mg PO BID [facility] Al Hydroxide/Mg Hydroxide (Magnesium Hydrox/Alum Hydrox 30 Ml Oral.Susp) 30 ml PO Q6H PRN PRN Reason: Heartburn/Nausea Last Admin: 01/27/23 11:42 Dose: 30 ml Bupropion HCl (Bupropion Hcl Xl 150 Mg Tab.Er.24h) 150 mg PO DAILY [facility] Last Admin: 01/28/23 08:22 Dose: 150 mg Cariprazine (Cariprazine Hcl 3 Mg Capsule) 3 mg PO DAILY [facility] Last Admin: 01/28/23 08:23 Dose: 3 mg Clonazepam (Clonazepam 0.5 Mg Tablet) 0.5 mg PO BID [facility] Last Admin: 01/28/23 08:23 Dose: 0.5 mg Clonidine HCl (Clonidine Hcl 0.1 Mg Tablet) 0.1 mg PO TID PRN; Protocol PRN Reason: Anxiety Last Admin: 01/28/23 11:21 Dose: 0.1 mg Gabapentin (Gabapentin 400 Mg Capsule) 800 mg PO TID [facility] Last Admin: 01/28/23 15:48 Dose: 800 mg Hydroxyzine HCl (Hydroxyzine Hcl 25 Mg Tablet) 25 mg PO Q6H PRN PRN Reason: Anxiety, itch, rash Last Admin: 01/26/23 18:49 Dose: 25 mg Ibuprofen (Ibuprofen 600 Mg Tablet) 600 mg PO Q6H PRN PRN Reason: Pain, Moderate(Pain Scale 4-6) Last Admin: 01/28/23 11:27 Dose: 600 mg Levothyroxine Sodium (Levothyroxine Sodium 50 Mcg Tablet) 50 mcg PO DAILY@0600 [facility] Last Admin: 01/28/23 06:32 Dose: 50 mcg Magnesium Hydroxide (Milk Of Magnesia 30 Ml Oral.Susp) 30 ml PO DAILY PRN PRN Reason: Constipation Methadone HCl (Methadone Hcl 20 Mg/2 Ml Oral.Conc) 140 mg PO DAILY [facility] Last Admin: 01/28/23 08:25 Dose: 140 mg Multi-Ingred Cream/Lotion/Oil/Oint (Mineral Oil/Petrolatum,White 106 Gm Tube) 1 appl TOPICAL BEDTIME [facility]; Protocol Last Admin: 01/27/23 20:06 Dose: 1 appl Nicotine (Nicotine 14 Mg Patch.Td24) 14 mg TRANSDERMA DAILY PRN PRN Reason: smoking cessation Nicotine Polacrilex (Nicotine Polacrilex 2 Mg Gum) 4 mg BUCCAL Q2H PRN PRN Reason: Nicotine Cravings Nicotine Polacrilex (Nicotine Polacrilex Lozenge 4 Mg Lozenge) 4 mg BUCCAL Q2H PRN PRN Reason: Nicotine Cravings Last Admin: 01/26/23 12:35 Dose: 4 mg Non-Formulary Medication (Lisdexamfetamine [Vyvanse]) 10 mg PO DAILY [facility] Omeprazole (Omeprazole 20 Mg Capsule.Dr) 20 mg PO DAILY@0630 [facility] Last Admin: 01/28/23 08:23 Dose: 20 mg Prazosin HCl (Prazosin Hcl 1 Mg Capsule) 2 mg PO BEDTIME [facility]; Protocol Last Admin: 01/27/23 20:03 Dose: 2 mg Promethazine HCl (Promethazine Hcl 25 Mg Tablet) 25 mg PO Q8H PRN PRN Reason: Nausea and Vomiting Last Admin: 01/28/23 11:27 Dose: 25 mg Quetiapine Fumarate (Quetiapine Fumarate 25 Mg Tablet) 25 mg PO QID PRN PRN Reason: anxiety Last Admin: 01/28/23 12:38 Dose: 25 mg Quetiapine Fumarate (Quetiapine Fumarate 100 Mg Tablet) 100 mg PO BEDTIME [facility] Triamcinolone Acetonide (Triamcinolone Acet 0.1 % Cream 15 Gm Tube) 1 appl TOPICAL DAILY [facility]; Protocol Last Admin: 01/28/23 08:42 Dose: 1 appl Allergies Allergies Allergy/AdvReac Type Severity Reaction Status Date / Time azithromycin Allergy Fever Verified 01/24/23 15:58 lamotrigine [From Lamictal] AdvReac Fever Verified 01/24/23 15:58 trazodone AdvReac Restless Verified 01/24/23 15:58 legs geodon AdvReac Severe spasm, Uncoded 01/24/23 15:58 headache, fever Assessment & Plan Assessment & Plan (1) PTSD (post-traumatic stress disorder): Status: Acute Code(s): F43.10 - Post-traumatic stress disorder, unspecified (2) Bipolar disorder: Status: Acute Code(s): F31.9 - Bipolar disorder, unspecified Plan obtain hospitalist consult re dermatologic complaints as well as recent h/o abnml CXR with suggestion to perhaps obtain chest CT. start wellbutrin XL 150 mg daily for depression. start remeron 15 mg QHS for depression and insomnia, MR X 1. increase methadone to 140 mg daily (from 135) due to craving and recent heroin use. utox benzo positive is c/w taking more than 2 mg klonopin daily; pt is prescribed 1 mg daily and had urine POS tox screen. referrals for CSS. 01/27: Clonidine 0.1 mg TID PRN anxiety. Restart Omeprazole. 01/28: DC Remeron. restart Seroquel 100 mg HS. Reason for continued inpatient stay Substantial Risk for: harm to self and rapid decompensation Time Spent With Patient Time: Total time managing care of this patient today ____ minutes.
[2023-01-28 19:50] VITALS: BP 112/75; PULSE 72; RESP 20; TEMP 36.5; O2SAT 98
[2023-01-29 08:30] VITALS: BP 123/85; PULSE 74; TEMP 36.2; O2SAT 97
--- NOTE | 2023-01-29 11:38 | HO.PSYCHPN ---
Subjective Subjective Date of Service: 01/29/23 Reason For Visit: SI Subjective Notes: Conditional Voluntary Healthcare Proxy: No Guardianship: No Interim History: Patient was seen and discussed in round. Records and plans were reviewed. She has been doing better but yesterday was set and had some crying spells. She hit herself in the forehead. She continues to have some anxiety. She is using the p.r.n. is a factive Kierra. Eating and sleeping adequately. No changes were made today. No SI Medication Compliance: Yes Side effects from medications: No Attending Groups: Yes Review of Systems Review of Systems All other systems reviewed and are negative Yes all other systems are reviewed and are negative Mental Status Exam Mental Status Exam Narrative: In today's visit she is alert, oriented and pleasant. Normal speech. Good eye contact. Affect is appropriate and varied. She is not upset and tearful. No signs of psychosis. No SI. Cognitively intact. Judgment is intact Diagnostics Vital Signs (24Hr): Vital Signs - 24 hr 01/28/23 19:50 01/29/23 08:30 Temperature 97.7 F 97.2 F Pulse Rate 72 74 Respiratory Rate 20 Blood Pressure 112/75 123/85 Pulse Oximetry 98 97 Oxygen Delivery Method Room Air Room Air BMI result Body Mass Index 26.5 Labs 01/24/23 16:06 01/24/23 16:06 Medications Medications Current Medications Acetaminophen (Acetaminophen 325 Mg Tablet) 650 mg PO Q6H PRN PRN Reason: Headache/Pain Mild Scale (1-3) Last Admin: 01/27/23 08:31 Dose: 650 mg Acyclovir (Acyclovir 200 Mg Capsule) 400 mg PO BID [facility] Last Admin: 01/29/23 08:07 Dose: 400 mg Al Hydroxide/Mg Hydroxide (Magnesium Hydrox/Alum Hydrox 30 Ml Oral.Susp) 30 ml PO Q6H PRN PRN Reason: Heartburn/Nausea Last Admin: 01/27/23 11:42 Dose: 30 ml Bupropion HCl (Bupropion Hcl Xl 150 Mg Tab.Er.24h) 150 mg PO DAILY [facility] Last Admin: 01/29/23 08:07 Dose: 150 mg Cariprazine (Cariprazine Hcl 3 Mg Capsule) 3 mg PO DAILY [facility] Last Admin: 01/29/23 08:07 Dose: 3 mg Clonazepam (Clonazepam 0.5 Mg Tablet) 0.5 mg PO BID [facility] Last Admin: 01/29/23 08:07 Dose: 0.5 mg Clonidine HCl (Clonidine Hcl 0.1 Mg Tablet) 0.1 mg PO TID PRN; Protocol PRN Reason: Anxiety Last Admin: 01/29/23 08:46 Dose: 0.1 mg Gabapentin (Gabapentin 400 Mg Capsule) 800 mg PO TID [facility] Last Admin: 01/29/23 08:08 Dose: 800 mg Hydroxyzine HCl (Hydroxyzine Hcl 25 Mg Tablet) 25 mg PO Q6H PRN PRN Reason: Anxiety, itch, rash Last Admin: 01/26/23 18:49 Dose: 25 mg Ibuprofen (Ibuprofen 600 Mg Tablet) 600 mg PO Q6H PRN PRN Reason: Pain, Moderate(Pain Scale 4-6) Last Admin: 01/28/23 11:27 Dose: 600 mg Levothyroxine Sodium (Levothyroxine Sodium 50 Mcg Tablet) 50 mcg PO DAILY@0600 [facility] Last Admin: 01/29/23 06:23 Dose: 50 mcg Magnesium Hydroxide (Milk Of Magnesia 30 Ml Oral.Susp) 30 ml PO DAILY PRN PRN Reason: Constipation Methadone HCl (Methadone Hcl 20 Mg/2 Ml Oral.Conc) 140 mg PO DAILY [facility] Last Admin: 01/29/23 08:08 Dose: 140 mg Multi-Ingred Cream/Lotion/Oil/Oint (Mineral Oil/Petrolatum,White 106 Gm Tube) 1 appl TOPICAL BEDTIME [facility]; Protocol Last Admin: 01/28/23 21:28 Dose: Not Given Nicotine (Nicotine 14 Mg Patch.Td24) 14 mg TRANSDERMA DAILY PRN PRN Reason: smoking cessation Nicotine Polacrilex (Nicotine Polacrilex 2 Mg Gum) 4 mg BUCCAL Q2H PRN PRN Reason: Nicotine Cravings Nicotine Polacrilex (Nicotine Polacrilex Lozenge 4 Mg Lozenge) 4 mg BUCCAL Q2H PRN PRN Reason: Nicotine Cravings Last Admin: 01/26/23 12:35 Dose: 4 mg Non-Formulary Medication (Lisdexamfetamine [Vyvanse]) 10 mg PO DAILY [facility] Omeprazole (Omeprazole 20 Mg Capsule.Dr) 20 mg PO DAILY@0630 [facility] Last Admin: 01/29/23 06:56 Dose: 20 mg Prazosin HCl (Prazosin Hcl 1 Mg Capsule) 2 mg PO BEDTIME [facility]; Protocol Last Admin: 01/28/23 20:29 Dose: 2 mg Promethazine HCl (Promethazine Hcl 25 Mg Tablet) 25 mg PO Q8H PRN PRN Reason: Nausea and Vomiting Last Admin: 01/29/23 08:15 Dose: 25 mg Quetiapine Fumarate (Quetiapine Fumarate 25 Mg Tablet) 25 mg PO QID PRN PRN Reason: anxiety Last Admin: 01/28/23 12:38 Dose: 25 mg Quetiapine Fumarate (Quetiapine Fumarate 100 Mg Tablet) 100 mg PO BEDTIME [facility] Last Admin: 01/28/23 20:31 Dose: 100 mg Triamcinolone Acetonide (Triamcinolone Acet 0.1 % Cream 15 Gm Tube) 1 appl TOPICAL DAILY [facility]; Protocol Last Admin: 01/29/23 08:16 Dose: 1 appl Allergies Allergies Allergy/AdvReac Type Severity Reaction Status Date / Time azithromycin Allergy Fever Verified 01/24/23 15:58 lamotrigine [From Lamictal] AdvReac Fever Verified 01/24/23 15:58 trazodone AdvReac Restless Verified 01/24/23 15:58 legs geodon AdvReac Severe spasm, Uncoded 01/24/23 15:58 headache, fever Assessment & Plan Assessment & Plan (1) PTSD (post-traumatic stress disorder): Status: Acute Code(s): F43.10 - Post-traumatic stress disorder, unspecified (2) Bipolar disorder: Status: Acute Code(s): F31.9 - Bipolar disorder, unspecified Plan obtain hospitalist consult re dermatologic complaints as well as recent h/o abnml CXR with suggestion to perhaps obtain chest CT. start wellbutrin XL 150 mg daily for depression. start remeron 15 mg QHS for depression and insomnia, MR X 1. increase methadone to 140 mg daily (from 135) due to craving and recent heroin use. utox benzo positive is c/w taking more than 2 mg klonopin daily; pt is prescribed 1 mg daily and had urine POS tox screen. referrals for [facility]. 01/27: Clonidine 0.1 mg TID PRN anxiety. Restart Omeprazole. 01/28: DC Remeron. restart Seroquel 100 mg HS. 01/29: Continue current regimen and plans Patient educated on: medication risk/benefits Reason for continued inpatient stay Substantial Risk for: med/psych decompensation Time Spent With Patient Time: Total time managing care of this patient today ____ minutes.
[2023-01-29 18:38] VITALS: BP 114/76; PULSE 82; TEMP 36.7; O2SAT 97
[2023-01-29 21:55] VITALS: BP 110/74; PULSE 77; O2SAT 96
[2023-01-30 02:10] VITALS: BP 107/66; PULSE 84
[2023-01-30 08:30] VITALS: BP 124/73; PULSE 88; RESP 18; TEMP 36.6; O2SAT 97
--- NOTE | 2023-01-30 14:32 | HO.PSYCHPN ---
Subjective Subjective Date of Service: 01/30/23 Reason For Visit: SI Interim History: calm, cooperative. states she had a difficult weekend. feeling very alone, without supports outside the hospital. discussed working with SW to get referrals to [facility]. poor sleep, prefers seroquel to vraylar, asks vraylar be DCed. agreeable to increase prazosin and wellbutrin. per staff, pleasant, cooperative. mood better. appears to have slept well. Mental Status Exam Mental Status Exam Narrative: Pt is alert and oriented; behavior is cooperative, friendly and calm; patient is not in distress; dressed in casual attire with adequate hygiene; mood is described as better and affect congruent, normo-intense, non-labile; eye contact appropriate; Speech is normal rate, volume and prosody and not pressured; no psychomotor retardation present; thought process is organized and goal directed; Thought content is on mental healthcare and sobriety; otherwise pertinent to relevant topics and without any delusional content, paranoid ideations or grandiosity; no SI/SIBI/HI/AVH expressed. There is no evidence of perceptual disturbance. Patients insight and judgment fair. Diagnostics Vital Signs (24Hr): Vital Signs - 24 hr 01/29/23 18:38 01/29/23 21:55 01/30/23 02:10 Temperature 98.0 F Pulse Rate 82 77 84 Respiratory Rate Blood Pressure 114/76 110/74 107/66 Pulse Oximetry 97 96 Oxygen Delivery Method Room Air Room Air 01/30/23 08:30 Temperature 97.8 F Pulse Rate 88 Respiratory Rate 18 Blood Pressure 124/73 Pulse Oximetry 97 Oxygen Delivery Method Room Air BMI result Body Mass Index 26.5 Labs 01/24/23 16:06 01/24/23 16:06 Labs: Laboratory Results - last 48 hr 01/24/23 16:22 U Alprazolam Cnf GC/MS NEGATIVE U Benzodiaz Conf Cmmnt SEE NOTE Urine Clonazepam 347 (H) Ur Nordiazepam NEGATIVE Flurazepam Metabolite NEGATIVE Ur Lorazepam (GC/MS) NEGATIVE U Oxazepam Confm GC/MS 139 (H) Urine Temazepam NEGATIVE U a-Hydroxytriazolam NEGATIVE U [id number] NEGATIVE Medications Medications Current Medications Acetaminophen (Acetaminophen 325 Mg Tablet) 650 mg PO Q6H PRN PRN Reason: Headache/Pain Mild Scale (1-3) Last Admin: 01/27/23 08:31 Dose: 650 mg Acyclovir (Acyclovir 200 Mg Capsule) 400 mg PO BID [facility] Last Admin: 01/30/23 08:35 Dose: 400 mg Al Hydroxide/Mg Hydroxide (Magnesium Hydrox/Alum Hydrox 30 Ml Oral.Susp) 30 ml PO Q6H PRN PRN Reason: Heartburn/Nausea Last Admin: 01/27/23 11:42 Dose: 30 ml Bupropion HCl (Bupropion Hcl Xl 300 Mg Tab.Er.24h) 300 mg PO DAILY [facility] Clonazepam (Clonazepam 0.5 Mg Tablet) 0.25 mg PO BID [facility] Clonidine HCl (Clonidine Hcl 0.1 Mg Tablet) 0.1 mg PO TID PRN; Protocol PRN Reason: Anxiety Last Admin: 01/30/23 02:19 Dose: 0.1 mg Gabapentin (Gabapentin 400 Mg Capsule) 800 mg PO TID [facility] Last Admin: 01/30/23 14:29 Dose: 800 mg Hydroxyzine HCl (Hydroxyzine Hcl 25 Mg Tablet) 25 mg PO Q6H PRN PRN Reason: Anxiety, itch, rash Last Admin: 01/26/23 18:49 Dose: 25 mg Ibuprofen (Ibuprofen 600 Mg Tablet) 600 mg PO Q6H PRN PRN Reason: Pain, Moderate(Pain Scale 4-6) Last Admin: 01/28/23 11:27 Dose: 600 mg Levothyroxine Sodium (Levothyroxine Sodium 50 Mcg Tablet) 50 mcg PO DAILY@0600 [facility] Last Admin: 01/30/23 06:48 Dose: 50 mcg Magnesium Hydroxide (Milk Of Magnesia 30 Ml Oral.Susp) 30 ml PO DAILY PRN PRN Reason: Constipation Methadone HCl (Methadone Hcl 20 Mg/2 Ml Oral.Conc) 140 mg PO DAILY [facility] Last Admin: 01/30/23 08:37 Dose: 140 mg Multi-Ingred Cream/Lotion/Oil/Oint (Mineral Oil/Petrolatum,White 106 Gm Tube) 1 appl TOPICAL BEDTIME [facility]; Protocol Last Admin: 01/29/23 22:11 Dose: 1 appl Nicotine (Nicotine 14 Mg Patch.Td24) 14 mg TRANSDERMA DAILY PRN PRN Reason: smoking cessation Nicotine Polacrilex (Nicotine Polacrilex 2 Mg Gum) 4 mg BUCCAL Q2H PRN PRN Reason: Nicotine Cravings Nicotine Polacrilex (Nicotine Polacrilex Lozenge 4 Mg Lozenge) 4 mg BUCCAL Q2H PRN PRN Reason: Nicotine Cravings Last Admin: 01/26/23 12:35 Dose: 4 mg Non-Formulary Medication (Lisdexamfetamine [Vyvanse]) 10 mg PO DAILY [facility] Omeprazole (Omeprazole 20 Mg Capsule.Dr) 20 mg PO DAILY@0630 [facility] Last Admin: 01/30/23 08:37 Dose: 20 mg Prazosin HCl (Prazosin Hcl 1 Mg Capsule) 3 mg PO BEDTIME [facility]; Protocol Promethazine HCl (Promethazine Hcl 25 Mg Tablet) 25 mg PO Q8H PRN PRN Reason: Nausea and Vomiting Last Admin: 01/30/23 08:45 Dose: 25 mg Quetiapine Fumarate (Quetiapine Fumarate 25 Mg Tablet) 25 mg PO QID PRN PRN Reason: anxiety Last Admin: 01/30/23 02:16 Dose: 25 mg Quetiapine Fumarate (Quetiapine Fumarate 100 Mg Tablet) 100 mg PO BEDTIME [facility] Last Admin: 01/29/23 22:09 Dose: 100 mg Triamcinolone Acetonide (Triamcinolone Acet 0.1 % Cream 15 Gm Tube) 1 appl TOPICAL DAILY [facility]; Protocol Last Admin: 01/30/23 08:47 Dose: 1 appl Allergies Allergies Allergy/AdvReac Type Severity Reaction Status Date / Time azithromycin Allergy Fever Verified 01/24/23 15:58 lamotrigine [From Lamictal] AdvReac Fever Verified 01/24/23 15:58 trazodone AdvReac Restless Verified 01/24/23 15:58 legs geodon AdvReac Severe spasm, Uncoded 01/24/23 15:58 headache, fever Assessment & Plan Assessment & Plan (1) PTSD (post-traumatic stress disorder): Status: Acute Code(s): F43.10 - Post-traumatic stress disorder, unspecified (2) Bipolar disorder: Status: Acute Code(s): F31.9 - Bipolar disorder, unspecified Plan obtain hospitalist consult re dermatologic complaints as well as recent h/o abnml CXR with suggestion to perhaps obtain chest CT. start wellbutrin XL 150 mg daily for depression. start remeron 15 mg QHS for depression and insomnia, MR X 1. increase methadone to 140 mg daily (from 135) due to craving and recent heroin use. utox benzo positive is c/w taking more than 2 mg klonopin daily; pt is prescribed 1 mg daily and had urine POS tox screen. referrals for [facility]. 01/27: Clonidine 0.1 mg TID PRN anxiety. Restart Omeprazole. 01/28: DC Remeron. restart Seroquel 100 mg HS. 01/29: Continue current regimen and plans 01/30: D/C vraylar per pt preference. continue seroquel at HS. increase HS prazosin to 3 mg and wellbutrin to 300 mg. cut klonopin to 0.25 mg BID in light of benzo confirmation showing oxazepam + urine (in addition to the expected klonopin). call placed to outpt provider bárbara's office. Reason for continued inpatient stay Substantial Risk for: inability to function and rapid decompensation Time Spent With Patient Time: Total time managing care of this patient today __35__ minutes.
[2023-01-30 14:40] VITALS: BP 114/61; PULSE 70; RESP 16; O2SAT 97
[2023-01-30 21:20] VITALS: BP 124/64; PULSE 81; RESP 16; TEMP 36.6; O2SAT 96
[2023-01-31 08:39] VITALS: BP 106/68; PULSE 91; RESP 16; TEMP 36.7; O2SAT 98
[2023-01-31 11:22] VITALS: BP 126/86
--- NOTE | 2023-01-31 14:11 | HO.PSYCHPN ---
Subjective Subjective Date of Service: 01/31/23 Reason For Visit: SI Interim History: calm, cooperative. grieving the loss of klonopin. glad to have been accepted for [facility] for sunday. per staff, meds and meals compliant. depressed and anxious, no SI. Mental Status Exam Mental Status Exam Narrative: Pt is alert and oriented; behavior is cooperative, friendly and calm; patient is not in distress; dressed in casual attire with adequate hygiene; mood is described as anxious and affect congruent, normo-intense, non-labile; eye contact appropriate; Speech is normal rate, volume and prosody and not pressured; no psychomotor retardation present; thought process is organized and goal directed; Thought content is on mental healthcare and sobriety; otherwise pertinent to relevant topics and without any delusional content, paranoid ideations or grandiosity; no SI/SIBI/HI/AVH expressed. There is no evidence of perceptual disturbance. Patients insight and judgment fair. Diagnostics Vital Signs (24Hr): Vital Signs - 24 hr 01/30/23 14:40 01/30/23 21:20 01/31/23 08:39 Temperature 97.9 F 98.0 F Pulse Rate 70 81 91 Respiratory Rate 16 16 16 Blood Pressure 114/61 124/64 106/68 Pulse Oximetry 97 96 98 Oxygen Delivery Method Room Air Room Air Room Air 01/31/23 11:22 Temperature Pulse Rate Respiratory Rate Blood Pressure 126/86 Pulse Oximetry Oxygen Delivery Method BMI result Body Mass Index 26.5 Labs 01/24/23 16:06 01/24/23 16:06 Labs: Laboratory Results - last 48 hr 01/24/23 16:22 U Alprazolam Cnf GC/MS NEGATIVE U Benzodiaz Conf Cmmnt SEE NOTE Urine Clonazepam 347 (H) Ur Nordiazepam NEGATIVE Flurazepam Metabolite NEGATIVE Ur Lorazepam (GC/MS) NEGATIVE U Oxazepam Confm GC/MS 139 (H) Urine Temazepam NEGATIVE U a-Hydroxytriazolam NEGATIVE U [id number] NEGATIVE Medications Medications Current Medications Acetaminophen (Acetaminophen 325 Mg Tablet) 650 mg PO Q6H PRN PRN Reason: Headache/Pain Mild Scale (1-3) Last Admin: 01/30/23 21:24 Dose: 650 mg Acyclovir (Acyclovir 200 Mg Capsule) 400 mg PO BID [facility] Last Admin: 01/31/23 08:39 Dose: 400 mg Al Hydroxide/Mg Hydroxide (Magnesium Hydrox/Alum Hydrox 30 Ml Oral.Susp) 30 ml PO Q6H PRN PRN Reason: Heartburn/Nausea Last Admin: 01/27/23 11:42 Dose: 30 ml Bupropion HCl (Bupropion Hcl Xl 300 Mg Tab.Er.24h) 300 mg PO DAILY [facility] Last Admin: 01/31/23 08:38 Dose: 300 mg Clonidine HCl (Clonidine Hcl 0.1 Mg Tablet) 0.1 mg PO TID PRN; Protocol PRN Reason: Anxiety Last Admin: 01/31/23 11:21 Dose: 0.1 mg Gabapentin (Gabapentin 400 Mg Capsule) 800 mg PO TID [facility] Last Admin: 01/31/23 08:39 Dose: 800 mg Hydroxyzine HCl (Hydroxyzine Hcl 25 Mg Tablet) 25 mg PO Q6H PRN PRN Reason: Anxiety, itch, rash Last Admin: 01/30/23 14:37 Dose: 25 mg Ibuprofen (Ibuprofen 600 Mg Tablet) 600 mg PO Q6H PRN PRN Reason: Pain, Moderate(Pain Scale 4-6) Last Admin: 01/28/23 11:27 Dose: 600 mg Levothyroxine Sodium (Levothyroxine Sodium 50 Mcg Tablet) 50 mcg PO DAILY@0600 [facility] Last Admin: 01/31/23 06:37 Dose: 50 mcg Magnesium Hydroxide (Milk Of Magnesia 30 Ml Oral.Susp) 30 ml PO DAILY PRN PRN Reason: Constipation Methadone HCl (Methadone Hcl 20 Mg/2 Ml Oral.Conc) 140 mg PO DAILY [facility] Last Admin: 01/31/23 08:40 Dose: 140 mg Multi-Ingred Cream/Lotion/Oil/Oint (Mineral Oil/Petrolatum,White 106 Gm Tube) 1 appl TOPICAL BEDTIME [facility]; Protocol Last Admin: 01/30/23 21:26 Dose: Not Given Nicotine (Nicotine 14 Mg Patch.Td24) 14 mg TRANSDERMA DAILY PRN PRN Reason: smoking cessation Nicotine Polacrilex (Nicotine Polacrilex 2 Mg Gum) 4 mg BUCCAL Q2H PRN PRN Reason: Nicotine Cravings Nicotine Polacrilex (Nicotine Polacrilex Lozenge 4 Mg Lozenge) 4 mg BUCCAL Q2H PRN PRN Reason: Nicotine Cravings Last Admin: 01/26/23 12:35 Dose: 4 mg Non-Formulary Medication (Lisdexamfetamine [Vyvanse]) 10 mg PO DAILY [facility] Omeprazole (Omeprazole 20 Mg Capsule.) 20 mg PO DAILY@0630 [facility] Last Admin: 01/31/23 08:38 Dose: 20 mg Prazosin HCl (Prazosin Hcl 1 Mg Capsule) 3 mg PO BEDTIME [facility]; Protocol Last Admin: 01/30/23 21:22 Dose: 3 mg Promethazine HCl (Promethazine Hcl 25 Mg Tablet) 25 mg PO Q8H PRN PRN Reason: Nausea and Vomiting Last Admin: 01/31/23 09:18 Dose: 25 mg Quetiapine Fumarate (Quetiapine Fumarate 25 Mg Tablet) 25 mg PO QID PRN PRN Reason: anxiety Last Admin: 01/30/23 18:37 Dose: 25 mg Quetiapine Fumarate (Quetiapine Fumarate 100 Mg Tablet) 100 mg PO BEDTIME [facility] Last Admin: 01/30/23 21:22 Dose: 100 mg Triamcinolone Acetonide (Triamcinolone Acet 0.1 % Cream 15 Gm Tube) 1 appl TOPICAL DAILY [facility]; Protocol Last Admin: 01/31/23 09:31 Dose: Not Given Allergies Allergies Allergy/AdvReac Type Severity Reaction Status Date / Time azithromycin Allergy Fever Verified 01/24/23 15:58 lamotrigine [From Lamictal] AdvReac Fever Verified 01/24/23 15:58 trazodone AdvReac Restless Verified 01/24/23 15:58 legs geodon AdvReac Severe spasm, Uncoded 01/24/23 15:58 headache, fever Assessment & Plan Assessment & Plan (1) PTSD (post-traumatic stress disorder): Status: Acute Code(s): F43.10 - Post-traumatic stress disorder, unspecified (2) Bipolar disorder: Status: Acute Code(s): F31.9 - Bipolar disorder, unspecified Plan obtain hospitalist consult re dermatologic complaints as well as recent h/o abnml CXR with suggestion to perhaps obtain chest CT. start wellbutrin XL 150 mg daily for depression. start remeron 15 mg QHS for depression and insomnia, MR X 1. increase methadone to 140 mg daily (from 135) due to craving and recent heroin use. utox benzo positive is c/w taking more than 2 mg klonopin daily; pt is prescribed 1 mg daily and had urine POS tox screen. referrals for [facility]. 01/27: Clonidine 0.1 mg TID PRN anxiety. Restart Omeprazole. 01/28: ANA Remeron. restart Seroquel 100 mg HS. 01/29: Continue current regimen and plans 01/30: D/C vraylar per pt preference. continue seroquel at HS. increase HS prazosin to 3 mg and wellbutrin to 300 mg. cut klonopin to 0.25 mg BID in light of benzo confirmation showing oxazepam + urine (in addition to the expected klonopin). call placed to outpt provider b[facility]bara's office. 01/31: ANA klonopin. continue current mgmt otherwise. accepted to [facility] for sunday. Reason for continued inpatient stay Substantial Risk for: inability to function and rapid decompensation Time Spent With Patient Time: Total time managing care of this patient today __25__ minutes.
[2023-01-31] MEDS: Acyclovir 200 MG CAPSULE 400 MG PO (21:03)
[2023-01-31] MEDS: Gabapentin 400 MG CAPSULE 800 MG PO (21:03)
[2023-01-31] MEDS: QUEtiapine Fumarate 100 MG TABLET PO (21:03)
[2023-01-31] MEDS: Prazosin HCL 1 MG CAPSULE 3 MG PO (21:03)
[2023-01-31] MEDS: Acetaminophen 325 MG TABLET 650 MG PO (21:04)
[2023-01-31] MEDS: Ibuprofen 600 MG TABLET PO (21:04)
[2023-01-31 21:15] VITALS: BP 116/67; PULSE 81; RESP 16; TEMP 36.3; O2SAT 97
[2023-02-01 06:00] VITALS: BP 115/74; PULSE 92; RESP 18; TEMP 36.6; O2SAT 98
[2023-02-01] MEDS: Levothyroxine Sodium 50 MCG TABLET PO (06:35)
[2023-02-01] MEDS: Promethazine HCL 25 MG TABLET PO (07:58)
[2023-02-01] MEDS: Omeprazole 20 MG CAPSULE.DR PO (07:58)
[2023-02-01] MEDS: Acyclovir 200 MG CAPSULE 400 MG PO ×2 (08:00→20:54)
[2023-02-01] MEDS: Gabapentin 400 MG CAPSULE 800 MG PO ×3 (08:00→20:54)
[2023-02-01] MEDS: buPROPion HCl XL 300 MG TAB.ER.24H PO (08:01)
[2023-02-01] MEDS: methADONE HCl 20 MG/2 ML ORAL.CONC 140 MG PO (08:02)
--- NOTE | 2023-02-01 08:49 | P.PNPSI_ITS ---
Subjective Subjective Date of Service: 02/01/23 Reason For Visit: SI Interim History: met with patient; discussed with team Patient reports doing better overall. She is still very anxious about going to [facility] program tomorrow but knows that she needs the help to remain sober. Patient reports struggling with having come off clonazepam which she says she has been on for 20 years. She asked for some Ativan to help with the taper, knowing she would not be discharged with any but just to help her get through the next day. However program required person to be off all benzos for an extended period of time prior to admission to the program which patient accepted. Business Continuity Management Director discussed the problems with benzodiazepines in general given patient's history of substance abuse and PTSD and patient agreed it is preferable to be able to cope without this class of medication. Otherwise patient was optimistic and ready for discharge. Discussed some of the tumultuous events that led to this readmission Mental Status Exam Mental Status Exam Narrative: Pt is alert and oriented; behavior is cooperative, friendly and calm; patient is not in distress; dressed in casual attire with adequate hygiene; mood is described as anxious and affect congruent, normo-intense, non-labile; eye contact appropriate; Speech is normal rate, volume and prosody and not pressured; no psychomotor retardation present; thought process is organized and goal directed; Thought content is on discharge and sobriety; otherwise pertinent to relevant topics and without any delusional content, paranoid ideations or grandiosity; no SI/SIBI/HI/AVH expressed. There is no evidence of perceptual disturbance. Patients insight and judgment fair. Diagnostics Vital Signs (24Hr): Vital Signs - 24 hr 01/31/23 11:22 01/31/23 21:15 02/01/23 06:00 Temperature 97.3 F 97.9 F Pulse Rate 81 92 Respiratory Rate 16 18 Blood Pressure 126/86 116/67 115/74 Pulse Oximetry 97 98 Oxygen Delivery Method Room Air Room Air BMI result Body Mass Index 26.5 Labs 01/24/23 16:06 01/24/23 16:06 Labs: Laboratory Results - last 48 hr 01/24/23 16:22 U Alprazolam Cnf GC/MS NEGATIVE U Benzodiaz Conf Cmmnt SEE NOTE Urine Clonazepam 347 (H) Ur Nordiazepam NEGATIVE Flurazepam Metabolite NEGATIVE Ur Lorazepam (GC/MS) NEGATIVE U Oxazepam Confm GC/MS 139 (H) Urine Temazepam NEGATIVE U a-Hydroxytriazolam NEGATIVE U [id number] NEGATIVE Medications Medications Current Medications Acetaminophen (Acetaminophen 325 Mg Tablet) 650 mg PO Q6H PRN PRN Reason: Headache/Pain Mild Scale (1-3) Last Admin: 01/31/23 21:04 Dose: 650 mg Acyclovir (Acyclovir 200 Mg Capsule) 400 mg PO BID [facility] Last Admin: 02/01/23 08:00 Dose: 400 mg Al Hydroxide/Mg Hydroxide (Magnesium Hydrox/Alum Hydrox 30 Ml Oral.Susp) 30 ml PO Q6H PRN PRN Reason: Heartburn/Nausea Last Admin: 01/27/23 11:42 Dose: 30 ml Bupropion HCl (Bupropion Hcl Xl 300 Mg Tab.Er.24h) 300 mg PO DAILY [facility] Last Admin: 02/01/23 08:01 Dose: 300 mg Clonidine HCl (Clonidine Hcl 0.1 Mg Tablet) 0.1 mg PO TID PRN; Protocol PRN Reason: Anxiety Last Admin: 01/31/23 11:21 Dose: 0.1 mg Gabapentin (Gabapentin 400 Mg Capsule) 800 mg PO TID [facility] Last Admin: 02/01/23 08:00 Dose: 800 mg Hydroxyzine HCl (Hydroxyzine Hcl 25 Mg Tablet) 25 mg PO Q6H PRN PRN Reason: Anxiety, itch, rash Last Admin: 01/30/23 14:37 Dose: 25 mg Ibuprofen (Ibuprofen 600 Mg Tablet) 600 mg PO Q6H PRN PRN Reason: Pain, Moderate(Pain Scale 4-6) Last Admin: 01/31/23 21:04 Dose: 600 mg Levothyroxine Sodium (Levothyroxine Sodium 50 Mcg Tablet) 50 mcg PO DAILY@0600 [facility] Last Admin: 02/01/23 06:35 Dose: 50 mcg Lorazepam (Lorazepam 0.5 Mg Tablet) 0.5 mg PO TID [facility] Stop: 02/01/23 23:50 Lorazepam (Lorazepam 0.5 Mg Tablet) 0.5 mg PO ONCE ONE Stop: 02/02/23 09:01 Magnesium Hydroxide (Milk Of Magnesia 30 Ml Oral.Susp) 30 ml PO DAILY PRN PRN Reason: Constipation Methadone HCl (Methadone Hcl 20 Mg/2 Ml Oral.Conc) 140 mg PO DAILY [facility] Last Admin: 02/01/23 08:02 Dose: 140 mg Multi-Ingred Cream/Lotion/Oil/Oint (Mineral Oil/Petrolatum,White 106 Gm Tube) 1 appl TOPICAL BEDTIME PATRICK; Protocol Last Admin: 01/31/23 21:07 Dose: Not Given Nicotine (Nicotine 14 Mg Patch.Td24) 14 mg TRANSDERMA DAILY PRN PRN Reason: smoking cessation Nicotine Polacrilex (Nicotine Polacrilex 2 Mg Gum) 4 mg BUCCAL Q2H PRN PRN Reason: Nicotine Cravings Nicotine Polacrilex (Nicotine Polacrilex Lozenge 4 Mg Lozenge) 4 mg BUCCAL Q2H PRN PRN Reason: Nicotine Cravings Last Admin: 01/26/23 12:35 Dose: 4 mg Non-Formulary Medication (Lisdexamfetamine [Vyvanse]) 10 mg PO DAILY PATRICK Omeprazole (Omeprazole 20 Mg Capsule.Dr) 20 mg PO DAILY@0630 PATRICK Last Admin: 02/01/23 07:58 Dose: 20 mg Prazosin HCl (Prazosin Hcl 1 Mg Capsule) 3 mg PO BEDTIME PATRICK; Protocol Last Admin: 01/31/23 21:03 Dose: 3 mg Promethazine HCl (Promethazine Hcl 25 Mg Tablet) 25 mg PO Q8H PRN PRN Reason: Nausea and Vomiting Last Admin: 02/01/23 07:58 Dose: 25 mg Quetiapine Fumarate (Quetiapine Fumarate 25 Mg Tablet) 25 mg PO QID PRN PRN Reason: anxiety Last Admin: 01/31/23 14:39 Dose: 25 mg Quetiapine Fumarate (Quetiapine Fumarate 100 Mg Tablet) 100 mg PO BEDTIME PATRICK Last Admin: 01/31/23 21:03 Dose: 100 mg Triamcinolone Acetonide (Triamcinolone Acet 0.1 % Cream 15 Gm Tube) 1 appl TOPICAL DAILY PATRICK; Protocol Last Admin: 02/01/23 08:04 Dose: Not Given Allergies Allergies Allergy/AdvReac Type Severity Reaction Status Date / Time azithromycin Allergy Fever Verified 01/24/23 15:58 lamotrigine [From Lamictal] AdvReac Fever Verified 01/24/23 15:58 trazodone AdvReac Restless Verified 01/24/23 15:58 legs geodon AdvReac Severe spasm, Uncoded 01/24/23 15:58 headache, fever Assessment & Plan Assessment & Plan (1) PTSD (post-traumatic stress disorder): Status: Acute Code(s): F43.10 - Post-traumatic stress disorder, unspecified (2) Bipolar disorder: Status: Acute Code(s): F31.9 - Bipolar disorder, unspecified Plan obtain hospitalist consult re dermatologic complaints as well as recent h/o abnml CXR with suggestion to perhaps obtain chest CT. start wellbutrin XL 150 mg daily for depression. start remeron 15 mg QHS for depression and insomnia, MR X 1. increase methadone to 140 mg daily (from 135) due to craving and recent heroin use. utox benzo positive is c/w taking more than 2 mg klonopin daily; pt is prescribed 1 mg daily and had urine POS tox screen. referrals for CSS. 01/27: Clonidine 0.1 mg TID PRN anxiety. Restart Omeprazole. 01/28: DC Remeron. restart Seroquel 100 mg HS. 01/29: Continue current regimen and plans 01/30: D/C vraylar per pt preference. continue seroquel at HS. increase HS prazosin to 3 mg and wellbutrin to 300 mg. cut klonopin to 0.25 mg BID in light of benzo confirmation showing oxazepam + urine (in addition to the expected klonopin). call placed to outpt provider bárbara's office. 01/31: DC klonopin. continue current mgmt otherwise. accepted to [facility] for sunday. 02/01 continue current treatment plan; patient preparing for discharge Patient educated on: diagnosis, medication risk/benefits, substance abuse and therapeutic strategies Informed Consent: understands Reason for continued inpatient stay Substantial Risk for: stable for discharge Time Spent With Patient Time: Total time managing care of this patient today ____ minutes.
[2023-02-01 09:49] VITALS: BMI 26.8
[2023-02-01] MEDS: cloNIDine HCL 0.1 MG TABLET PO ×2 (09:57→16:18)
[2023-02-01 09:59] VITALS: BP 114/70; RESP 16
[2023-02-01] MEDS: QUEtiapine Fumarate 25 MG TABLET PO ×2 (12:40→18:23)
[2023-02-01 20:45] VITALS: BP 113/72; PULSE 76; RESP 18; TEMP 36.3; O2SAT 97
[2023-02-01] MEDS: Prazosin HCL 1 MG CAPSULE 3 MG PO (20:54)
[2023-02-01] MEDS: QUEtiapine Fumarate 100 MG TABLET PO (20:54)
[2023-02-01] MEDS: hydrOXYzine HCL 25 MG TABLET PO (20:54)
[2023-02-02] MEDS: Levothyroxine Sodium 50 MCG TABLET PO (06:40)
[2023-02-02 08:00] VITALS: BP 112/74; PULSE 86; RESP 16; TEMP 36.6; O2SAT 96
[2023-02-02] MEDS: Omeprazole 20 MG CAPSULE.DR PO (08:13)
[2023-02-02] MEDS: Gabapentin 400 MG CAPSULE 800 MG PO (08:13)
[2023-02-02] MEDS: Acyclovir 200 MG CAPSULE 400 MG PO (08:14)
[2023-02-02] MEDS: buPROPion HCl XL 300 MG TAB.ER.24H PO (08:14)
[2023-02-02] MEDS: methADONE HCl 20 MG/2 ML ORAL.CONC 140 MG PO (08:15)
[2023-02-02] MEDS: cloNIDine HCL 0.1 MG TABLET PO (08:22)
[2023-02-02] MEDS: Promethazine HCL 25 MG TABLET PO (09:42)
--- NOTE | 2023-02-02 10:11 | P.DS_ITS ---
DS: Providers Provider Date of Service: 02/02/23 Date of admission: 01/25/23 15:55 Primary care physician: Unknown Physician Consults: 01/26/23 13:21 Consult to Hospitalist Routine Comment: Consulting Provider: Hospitalist Reason For Exam: dermatologic complaint, F/U abnml CXR. need CT? DS: Diagnosis Discharge Diagnosis (1) PTSD (post-traumatic stress disorder): Status: Acute (2) Bipolar disorder: Status: Acute DS: Medications Discharge Medications Home Medications: Home Medications Medication Instructions Recorded Confirmed methadone 5 mg/5 mL oral solution 135 mg PO DAILY 01/24/23 01/24/23 Previous Rx's Medication Instructions Recorded bupropion HCl 300 mg 24 hr tablet, 300 mg PO DAILY 30 days #30 tabs 02/02/23 extended release clonidine HCl 0.1 mg tablet 0.1 mg PO TID PRN Anxiety 30 days 02/02/23 #90 tabs gabapentin 800 mg tablet 800 mg PO TID 30 days #90 tabs 02/02/23 levothyroxine 50 mcg tablet 50 mcg PO QAM 30 days #30 tabs 02/02/23 lisdexamfetamine 10 mg capsule 10 mg PO DAILY 30 days #30 caps 02/02/23 (Vyvanse) omeprazole 20 mg capsule,delayed 20 mg PO DAILY@0630 30 days #30 02/02/23 release caps prazosin 1 mg capsule 3 mg PO BEDTIME 30 days #90 caps 02/02/23 promethazine 25 mg tablet 25 mg PO DAILY PRN Nausea And 02/02/23 Vomiting 30 days #30 tabs quetiapine 100 mg tablet 100 mg PO BEDTIME 30 days #30 tabs 02/02/23 quetiapine 25 mg tablet 25 mg PO TID PRN anxiety 30 days 02/02/23 #90 tabs triamcinolone acetonide 0.1 % 1 appl topical DAILY 30 days #80 02/02/23 topical cream grams white petrolatum-mineral oil 1 appl topical BEDTIME 30 days 02/02/23 topical cream (Dermacerin topical #100 grams cream) Mental Status Exam Mental Status Exam Narrative: Pt is alert and oriented; behavior is cooperative, friendly and calm; patient is not in distress; dressed in casual attire with adequate hygiene; mood is described as miserable and affect somnolent, hypo-intense, non-labile; eye contact decreased; Speech is normal rate, volume and prosody and not pressured; no psychomotor retardation present; thought process is organized and goal directed; Thought content is on mental healthcare and sobriety; otherwise pertinent to relevant topics and without any delusional content, paranoid ideations or grandiosity; no SI/SIBI/HI/AVH. There is no evidence of perceptual disturbance. Patient's insight and judgment fair. Data Data Completed and Pending Completed studies during hospitalization [Text1]: 01/24/23 16:22 U Alprazolam Cnf GC/MS NEGATIVE U Benzodiaz Conf Cmmnt SEE NOTE Urine Clonazepam 347 (H) Ur Nordiazepam NEGATIVE Flurazepam Metabolite NEGATIVE Ur Lorazepam (GC/MS) NEGATIVE U Oxazepam Confm GC/MS 139 (H) Urine Temazepam NEGATIVE U a-Hydroxytriazolam NEGATIVE U [id number] NEGATIVE DS: Summary Hospital Course Hospital Course: per 01/26 admission note: per CARE team assessment, pt self-presented to ED c/o SI with plan to overdose on heroin. she had also produced an abrasion on her arm with a sharp object. she also was found to have concealed a needle, a crack pipe, and some drug baggies in her bra. she reported poor sleep and appetite, nightmares and flashbacks. she informed staff she had recently become homeless. on interview with MD on psych unit pt endorsed insomnia, anergia/amotivation, guilt, anergia, decreased concentration, adequate appetite, and SI. she identified as her three target symptoms depression, housing, and recovery. she was informed housing cannot be much helped, but she is interested in following up with referrals to [facility] and using that as a stepping stone to housing. re depression, she agreed to start wellbutrin XL 150 mg daily, which she has been helped on in the past per her report. for sleep and depression she agreed to start remeron (also which has been helpful for her in the past) at bedtime. lastly, to address opioid craving, she requested to increase methadone from 135 mg daily to 140 mg daily, which was accommodated. she also c/o itchy rash on palms and chest as well as recent h/o abnml CXR. MD agreed to enter hospitalist consult. Past Psychiatric History: IP: 3, [facility], August 2021,[facility] [place], 11/2022. reports h/o about 10 inpatient stays. SA: reports h/o 4 SA. OD on her mother's pills at 16 yo, cutting x1, 2 other via intentional OD on heroin. SIB: h/o cutting, hitting self. MRE cutting the other day. OP: sees Dr. Mobley [place] for psychopharmacology. believes she was recently assigned a therapist through [facility]. reports Dx of PTSD, ADHD, Bipolar Disorder/MDD. Medical Evaluation Reviewed: Yes [facility] Medical History Opioid abuse with opioid-induced disorder PTSD (post-traumatic stress disorder) Bipolar disorder Family History: mother - depression, opioids father - depression, opioids, polysubstance abuse Social History: Pt is an only child. Describes her childhood as difficult and traumatic. Born in [place], raised [place] by mother/step-father Both parents had substance abuse issues. Mother 2005. No contact with step- father Father had mental health issues One child, a son Legal- hx of ~9 years of incarceration for various issues. Substance History: h/o detoxes/rehabs tobacco - 5-10 cigs/day alcohol - denies cannabis - uses 1 x/wk cocaine - crack cocaine daily opioids - IV heroin, daily stimulants - has Rx for vyvanse benzos - has script for klonopin. denies use of other benzos or not taking medication as prescribed. Trauma History: Affirms, beginning in her childhood Precis: 01/26: obtain hospitalist consult re dermatologic complaints as well as recent h/o abnml CXR with suggestion to perhaps obtain chest CT. start wellbutrin XL 150 mg daily for depression. start remeron 15 mg QHS for depression and insomnia, MR X 1. increase methadone to 140 mg daily (from 135) due to craving and recent heroin use. utox benzo positive is c/w taking more than 2 mg klonopin daily; pt is prescribed 1 mg daily and had urine POS tox screen. referrals for CSS. 01/27: Clonidine 0.1 mg TID PRN anxiety. Restart Omeprazole. 01/28: DC Remeron. restart Seroquel 100 mg HS. 01/29: Continue current regimen and plans 01/30: D/C hernandor per pt preference. continue seroquel at HS. increase HS prazosin to 3 mg and wellbutrin to 300 mg. cut klonopin to 0.25 mg BID in light of benzo confirmation showing oxazepam + urine (in addition to the expected klonopin). call placed to outpt provider bárbara's office. 01/31: DC klonopin. continue current mgmt otherwise. accepted to [facility] for sunday. 02/01: continue current treatment plan; patient preparing for discharge. 02/02: stable. [facility]. meds reviewed, reconciled, prescribed. Time Spent with Patient Time attestation: Total time managing care of this patient today ____ minutes. Time spent: Greater than 30 minutes Discharge Plan Discharge Anticipated Discharge Date/Time: 02/02/23 10:08 Patient Disposition: Xfer Inpatient Rehab Fac Discharge Diagnosis: PTSD, Chronic Polysubstance Use Disorder Referrals: Physician,Unknown J [Primary Care Provider] - 1 Week (Pt will schedule own appointment with pcp Dr Hunter Discharge scheduled today to [facility]. Pt states she will f/u at that facility medically if needed. ) Discharge Medications: New clonidine HCl 0.1 mg Tablet 0.1 mg PO TID PRN (Reason: Anxiety) 30 Days Qty: 90 0RF Protocol: Hold for SBP< HOLD for SBP < : 90 prazosin 1 mg Capsule 3 mg PO BEDTIME 30 Days Qty: 90 0RF Protocol: Hold for SBP< HOLD for SBP < : 90 quetiapine 100 mg Tablet 100 mg PO BEDTIME 30 Days Qty: 30 0RF triamcinolone acetonide 0.1 % Cream 1 appl topical DAILY 30 Days Qty: 80 0RF Protocol: Apply to: Apply to: hands/fingers promethazine 25 mg Tablet 25 mg PO DAILY PRN (Reason: Nausea And Vomiting) 30 Days Qty: 30 0RF omeprazole 20 mg Capsule,Delayed Release(Dr/Ec) 20 mg PO DAILY@0630 30 Days Qty: 30 0RF Dermacerin Cream 1 appl topical BEDTIME 30 Days Qty: 100 0RF Protocol: Apply to: Apply to: hands, rash bupropion HCl 300 mg Tablet Extended Release 24 Hr 300 mg PO DAILY 30 Days Qty: 30 0RF Continued methadone 5 mg/5 mL Solution 135 mg PO DAILY Patient Comments: [facility] gabapentin 800 mg tablet 800 mg PO TID 30 Days Qty: 90 0RF levothyroxine 50 mcg tablet 50 mcg PO QAM 30 Days Qty: 30 0RF lisdexamfetamine [Vyvanse] 10 mg capsule 10 mg PO DAILY 30 Days Qty: 30 0RF Changed quetiapine 25 mg tablet 25 mg PO TID PRN (Reason: anxiety) 30 Days Qty: 90 0RF Discontinued clonazepam 0.5 mg tablet 0.5 mg PO BID prazosin 2 mg capsule 2 mg PO BEDTIME Vraylar 3 mg capsule 3 mg PO DAILY Discharge Orders: Discharge Order (Routine); Ordered 02/02/23 Ordered By: Nikolas Townsend Diet: Advance to usual diet Activity on Discharge: As tolerated Stand Alone Forms: Patient Portal Discharge page, Community Support Care Plan Goals: remain safe, stable, and sober in the outpatient treatment setting Health Concerns: none Plan of Treatment: take medications as prescribed, attend inpatient substance use treatment program Assessment: not at imminent risk of harm to self or others Discharge Date/Time: 02/02/23 10:55
== END 2023-02-02 10:55 | DRG 753 ==
LOC: HO.ED 16:34 → HO.PADLT16 01-25 16:09
PROVIDERS: Physician Assistant; Admitting Provider Psychiatry & Neurology Psychiatry; Emergency Provider Emergency Medicine; Visit Provider Psychiatry & Neurology Psychiatry
DX: F31.9 Bipolar disorder, unspecified (principal); R45.851 Suicidal ideations; L20.9 Atopic dermatitis, unspecified; F43.10 Post-traumatic stress disorder, unspecified; F11.20 Opioid dependence, uncomplicated; F17.210 Nicotine dependence, cigarettes, uncomplicated; Z20.822 Contact with and (suspected) exposure to COVID-19; Z71.6 Tobacco abuse counseling; Z59.02 Unsheltered homelessness; Z79.899 Other long term (current) drug therapy
CPT/HCPCS: 36415; 80048; 80076; 80143; 80179; 80307; 80346; 81001; 81025; 85027; 87635; 93005; 99285; S9485

== ENCOUNTER → 2023-01-25 15:55 | Outpatient (BNV) | payer OTHER, SELFPAY | PROVIDERS: Admitting Provider Psychiatry & Neurology Psychiatry; Emergency Provider Emergency Medicine; Visit Provider Psychiatry & Neurology Psychiatry | DX: F43.10 Post-traumatic stress disorder, unspecified (principal); F31.9 Bipolar disorder, unspecified | CPT/HCPCS: 99231; 99232; 99233 ==

== ENCOUNTER 2023-02-17 22:59 | Emergency (ER) | payer OTHER, SELFPAY ==
--- NOTE | ~2023-02-17 | XR_ITS ---
EXAMINATION: XR CHEST CLINICAL INFORMATION: Fall with chest trauma COMPARISON: None available. TECHNIQUE: Frontal view of the chest was obtained. FINDINGS: No significant abnormality is noted involving the heart, lungs, mediastinum, bony thorax or soft tissues. Previously seen right lower lobe nodule is not identified on this study. XR/XR chest 1V IMPRESSION: Unremarkable examination.
--- NOTE | ~2023-02-17 | CT_ITS ---
EXAMINATION: NONCONTRAST HEAD CT NONCONTRAST CERVICAL SPINE CT INDICATION INFORMATION: Fall with pain COMPARISON: None TECHNIQUE: Separate noncontrast CT examinations of the head and cervical spine were performed. Coronal head CT images and coronal and sagittal cervical spine images were created at the technologist workstation. DLP: 849 mGy-cm DOSE LOWERING TECHNIQUES: This CT examination was performed using dose optimization techniques as appropriate, variously including the following: - Automated exposure control - Adjustment of mA and/or kV according to patient size (this includes techniques or standardized protocols for targeted exams were dose is matched to indication/reason for exam; i.e. extremities or head) - Use of iterative reconstruction technique FINDINGS: Head: There is no evidence of acute intracranial hemorrhage or territorial infarction. No abnormal mass-effect or midline shift is seen. Mclean to white matter differentiation is well preserved. No extra-axial fluid collections are identified. The ventricles are normal in size. There is no abnormal attenuation within the brain parenchyma. The osseous structures and soft tissues are normal. The mastoid air cells and visualized portions of the paranasal sinuses are well-aerated. Cervical spine: There is reversal of the normal cervical lordosis which could be chronic or secondary to positioning/muscle spasm. Vertebral body heights are maintained. There is disc space narrowing and endplate osteophyte formation/irregularity throughout the cervical spine. There is facet arthropathy of the upper to mid cervical spine. No evidence of acute fracture. No prevertebral soft tissue swelling. Visualized portions of the lung apices are unremarkable. There is a 0.8 cm left thyroid nodule. Incidental thyroid nodules up to 1.5 cm in diameter in patients 35 years of age or older are statistically overwhelmingly not clinically significant and no followup imaging recommended. Reference: J Am Alcides Radiol 2015 b; 12(2): 143-50. CT/CT cervical spine wo IV con IMPRESSION: HEAD: No acute intracranial findings. CERVICAL SPINE: No acute findings identified. Degenerative changes as noted above.
[2023-02-17 23:01] VITALS: BP 137/87; PULSE 75; RESP 16; TEMP 36.4; O2SAT 95; BMI 26.7
--- NOTE | 2023-02-17 23:16 | ED_ITS ---
HPI - General Adult General Chief complaint: General Medical Stated complaint: withdrawals Time Seen by Provider: 02/17/23 23:10 Source: patient Mode of arrival: ambulatory Limitations: no limitations History of Present Illness HPI narrative: Patient is a 47-year-old female with a PMH of polysubstance use, IVDA and PTSD presenting with concern of benzo withdrawal & racing thoughts. States she hasn't taken her clonazepam in 2.5 days. She also states that she fell today and denies headstrike but unclear if LOC. Patient tells me that shes withdrawling because she ran out of her benzo about a week ago, she has a script for a refil but is unable to pick it up because she lost her ID, also hasnt taken her gabapentin. Reports diffuse body aches and pains and just generalized malaise. No si or hi. No CP,sob, n/v/d, abd pain, headache, vision changes. Related Data Home Medications Medication Instructions Recorded Confirmed methadone 5 mg/5 mL oral solution 135 mg PO DAILY 01/24/23 01/24/23 Previous Rx's Medication Instructions Recorded bupropion HCl 300 mg 24 hr tablet, 300 mg PO DAILY 30 days #30 tabs 02/02/23 extended release clonidine HCl 0.1 mg tablet 0.1 mg PO TID PRN Anxiety 30 days 02/02/23 #90 tabs gabapentin 800 mg tablet 800 mg PO TID 30 days #90 tabs 02/02/23 levothyroxine 50 mcg tablet 50 mcg PO QAM 30 days #30 tabs 02/02/23 lisdexamfetamine 10 mg capsule 10 mg PO DAILY 30 days #30 caps 02/02/23 (Vyvanse) omeprazole 20 mg capsule,delayed 20 mg PO DAILY@0630 30 days #30 02/02/23 release caps prazosin 1 mg capsule 3 mg PO BEDTIME 30 days #90 caps 02/02/23 promethazine 25 mg tablet 25 mg PO DAILY PRN Nausea And 02/02/23 Vomiting 30 days #30 tabs quetiapine 100 mg tablet 100 mg PO BEDTIME 30 days #30 tabs 02/02/23 quetiapine 25 mg tablet 25 mg PO TID PRN anxiety 30 days 02/02/23 #90 tabs triamcinolone acetonide 0.1 % 1 appl topical DAILY 30 days #80 02/02/23 topical cream grams white petrolatum-mineral oil 1 appl topical BEDTIME 30 days 02/02/23 topical cream (Dermacerin topical #100 grams cream) Allergies Allergy/AdvReac Type Severity Reaction Status Date / Time azithromycin Allergy Fever Verified 01/24/23 15:58 lamotrigine [From Lamictal] AdvReac Fever Verified 01/24/23 15:58 trazodone AdvReac Restless Verified 01/24/23 15:58 legs geodon AdvReac Severe spasm, Uncoded 01/24/23 15:58 headache, fever Review of Systems 2 Review of Systems: Constitutional : No Weight loss, No Fever, No Chills, + Fatigue, + Malaise ENT/Mouth : No sore throat, No Rhinorrhea Eyes: No Eye Pain, No Swelling, No Redness Cardiovascular : No Chest Pain, No SOB, No Dyspnea on Exertion, No Orthopnea, No Edema, No Palpitations Respiratory : No Cough, No Sputum, No Wheezing Gastrointestinal : No Nausea, No Vomiting, No Diarrhea, No Constipation, No abdominal Pain, No Hematochezia, No Melena Genitourinary : No Dysuria, No Urinary Frequency, No Hematuria, Musculoskeletal : No joint pain, + Myalgias, No Joint Swelling Skin : No Skin Lesions, No rash Neuro : No Weakness, No Numbness, No Dizziness, No Headache Psych : No Anxiety/Panic, No Depression All other systems reviewed and are negative Yes all other systems are reviewed and are negative PMFSH Past Medical History Attestation statement: The following information was validated with the patient. Source: old records reviewed and nursing notes reviewed Medical History Opioid abuse with opioid-induced disorder PTSD (post-traumatic stress disorder) Bipolar disorder Social History Social History Household Members: None Housing: Homeless Do you presently have visiting nurse or other home services: No Patient Tobacco Use Status: Current everyday Tobacco user Tobacco use type: Cigarette Cigarette Packs Per Day: 0.25 Cigarettes Per Day: 7 Years Smoked: 37 years e-Cigarette/Vaping Use: Currently Using Second Hand Smoke Exposure: Yes (Yes from others smoking) Substance Use Type: Crack/Cocaine, Heroin, Marijuana and Opiates Advance Directives: No Advance Directives Information Provided: No service: No Sexual orientation: Straight/Heterosexual Physical Exam ED Vital Signs: Vital Signs - 24 hr 02/17/23 23:01 Temperature 97.6 F Pulse Rate 75 Respiratory Rate 16 Blood Pressure 137/87 Pulse Oximetry 95 Oxygen Delivery Method Room Air BMI result Body Mass Index 26.7 vss Appearance: Alert.? Oriented X3.? No acute distress.? Head: Normocephalic, atraumatic, no step-offs or deformities Eyes: Pupils equal, round and reactive to light.? CVS: Normal heart rate and rhythm.? Pulses normal.? Respiratory: No respiratory distress.? Breath sounds normal.? Abdomen: Soft and nontender.? Skin: Skin warm and dry.? Normal skin color.? Normal skin turgor.? Extremities: No lower extremity edema.? No calf ttp. 5/5 strength to bilateral upper and lower extremities Neuro: Oriented X 3.? No motor deficit.? No sensory deficit. CN 2-12 intact Course Reevaluation(s) Reevaluation #1: Patient is noted to have a leukopenia and CBC, this appears to be around her baseline. Chronically low MCV 77.3 today. Chemistry unremarkable. Slightly elevated BUN when compared to baseline however likely secondary to poor p.o. intake/dehydration however patient tolerating p.o., drinking chinyere romero at this time. EKG nonischemic showing sinus bradycardia with a prolonged QT, normal IL, QRS. No ST elevations or inversions concerning for acute ischemia. Ethanol level negative. Urine toxicology pending. CT head, cervical spine and chest x- ray pending at this time. Patient is reporting racing thoughts and like she is having hard time thinking she reports slow thoughts in her head at times intrusive. Has not taken her meds in the past few days. Patient would benefit from care consult. Time: 00:16 Reevaluation #2: CT head unremarkable. CT cervical spine no acute findings. Degenerative changes noted. Chest x-ray no acute findings. Patient feeling better. Common cooperative. At this time will place patient to observation to allow patient to be seen by care team. Time: 00:47 Medications Administered Discontinued Medications Generic Name Dose Route Start Last Admin Trade Name Freq PRN Reason Stop Dose Admin Acetaminophen 975 mg 02/17/23 23:26 02/17/23 23:47 Acetaminophen 325 Mg Tablet PO 02/17/23 23:27 975 mg ONCE ONE Administration Clonazepam 0.5 mg 02/17/23 23:26 02/17/23 23:47 Clonazepam 0.5 Mg Tablet PO 02/17/23 23:27 0.5 mg ONCE ONE Administration Gabapentin 600 mg 02/17/23 23:26 02/17/23 23:47 Gabapentin 600 Mg Tablet PO 02/17/23 23:27 600 mg ONCE ONE Administration Ondansetron HCl 4 mg 02/17/23 23:26 02/17/23 23:47 Ondansetron Odt 4 Mg Tab.Rapdis TRANSLINGU 02/17/23 23:27 4 mg ONCE ONE Administration Medical Decision Making Medical Decision Making MDM Narrative: 1130 39-year-old female presents stating she has ran out of however benzoin gabapentin prescription unable to still secondary to not having an ID. Also reporting racing thoughts Physical exam benign Aches and pains likely secondary to benzo withdrawal/gabapentin withdrawal vs bipolar do, unlikely from viral illness. Headache likely secondary to concussion unlikely intracranial hemorrhage, stroke, posterior stroke that also be experiencing headache secondary to withdrawal. Unlikely meningitis, encephalitis. No signs of traumatic injury to chest, abdomen or pelvis. Plan at this time will give her her gabapentin and clonazepam. I did check on patient's mass patent she last filled her prescriptions on 01/11/2023 she filled clonazepam number 60 for 30 days 0.5 mg, and gabapentin 800 mg number 90 for 30 days. She has been feeling these meds for a while. Differential Diagnosis Differential Diagnoses: The differential diagnosis associated with the presentation includes Aches and pains likely secondary to benzo withdrawal/gabapentin withdrawal vs bipolar dc, unlikely from viral illness. Headache likely secondary to concussion unlikely intracranial hemorrhage, stroke, posterior stroke that also be experiencing headache secondary to withdrawal. Unlikely meningitis, encephalitis.No signs of traumatic injury to chest, abdomen or pelvis. Admission/Observation Consideration of admission/observation: Escalation of care including admission/observation considered Unlikely Lab Data MDM Lab Attestation statement: I reviewed the patient's lab results. 02/17/23 23:38 02/17/23 23:38 Labs: Lab Results 02/17/23 Range/Units 23:38 WBC 3.8 L (4.8-10.8) X10*3/uL RBC 4.97 (4.20-5.50) X10*6/uL Hgb 12.6 (12.0-16.0) g/dl Hct 38.4 (37.0-47.0) % MCV 77.3 L (80.0-98.0) fL MCH 25.4 L (27.0-33.0) pg MCHC 32.8 (31.0-35.0) g/dl RDW 13.7 (11.0-16.0) % Plt Count 183 (160-400) X10*3/uL MPV 9.2 L (9.4-12.3) fL Immature Gran % (Auto) 0.3 (0.0-0.4) % Neut % (Auto) 69.3 (45-73) % Lymph % (Auto) 23.6 (20-40) % Prowers % (Auto) 6.0 (2-11) % Eos % (Auto) 0.5 (0-4) % Baso % (Auto) 0.3 (0-2) % Lymph # (Auto) 0.9 L (1.2-4.9) X10*3/uL [place] # (Auto) 0.2 (0.1-1.2) X10*3/uL Eos # (Auto) 0.0 (0.0-0.4) X10*3/uL Baso # (Auto) 0.0 (0.0-0.2) X10*3/uL Abs Immat Gran (auto) 0.01 (0.00-0.03) X10*3/uL Absolute Neuts (auto) 2.6 (2.0-8.3) x10*3/uL Absolute Nucleated RBC 0.000 (0.0-0.012) X10*3/uL Nucleated RBC % (auto) 0.0 (0.0-0.2) /100WBC Smear Tech's Comments VERIFIED Sodium 136 (135-145) mmol/L Potassium 4.0 (3.3-5.1) mmol/L Chloride 101 (96-108) mmol/L Carbon Dioxide 23 (22-29) mmol/L Anion Gap 16 (12-20) BUN 20 H (9-16) mg/dL Creatinine 0.82 (0.5-1.4) mg/dL Estim Creat Clear Calc 71.8 Estimated GFR > 60 Random Glucose 85 (60-115) mg/dL Calcium 9.4 (8.4-10.2) mg/dL Magnesium 2.1 (1.6-2.6) mg/dL Total Bilirubin 0.5 (0.0-1.0) mg/dL AST 21 (5-31) U/L ALT 12 (0-31) U/L Alkaline Phosphatase 69 (39-117) U/L Total Protein 8.1 H (6.5-8.0) g/dL Albumin 4.4 (3.5-5.0) g/dL Ethyl Alcohol < 10 mg/dL Independent Interpretation I performed an independent interpretation of an: EKG (ventricular rate of 58, IL normal, qrs normal, qt/qtc no stte or inversions. ), Plain X-Ray (XR/XR chest 1V IMPRESSION: Unremarkable examination.) and CT Scan (CT/CT cervical spine wo IV con IMPRESSION: HEAD: No acute intracranial findings. CERVICAL SPINE: No acute findings identified. Degenerative changes as noted above.) Radiology Impression Discussion of test interpretation with radiology: I have reviewed the radiologist's reading. External Record Review External record reviewed: Inpatient record, Office record, Outpatient record, Prior outpatient labs, Prior outpatient radiology, Primary care record and Outside ED record Chronic Conditions Patient?s care impacted by: Other (PTSD, Depression, beth, ) Critical Care Time Critical Care Time Critical Care Time: No Discharge Plan Discharge Clinical Impression: Benzodiazepine withdrawal, Depression, Beth Patient Disposition: Still a Patient Prescriptions: No Action methadone 5 mg/5 mL Solution 135 mg PO DAILY Patient Comments: [facility] clonidine HCl 0.1 mg Tablet 0.1 mg PO TID PRN (Reason: Anxiety) 30 Days Qty: 90 0RF Protocol: Hold for SBP< HOLD for SBP < : 90 prazosin 1 mg Capsule 3 mg PO BEDTIME 30 Days Qty: 90 0RF Protocol: Hold for SBP< HOLD for SBP < : 90 quetiapine 100 mg Tablet 100 mg PO BEDTIME 30 Days Qty: 30 0RF triamcinolone acetonide 0.1 % Cream 1 appl topical DAILY 30 Days Qty: 80 0RF Protocol: Apply to: Apply to: hands/fingers promethazine 25 mg Tablet 25 mg PO DAILY PRN (Reason: Nausea And Vomiting) 30 Days Qty: 30 0RF omeprazole 20 mg Capsule,Delayed Release(Dr/Ec) 20 mg PO DAILY@0630 30 Days Qty: 30 0RF Dermacerin Cream 1 appl topical BEDTIME 30 Days Qty: 100 0RF Protocol: Apply to: Apply to: hands, rash bupropion HCl 300 mg Tablet Extended Release 24 Hr 300 mg PO DAILY 30 Days Qty: 30 0RF quetiapine 25 mg tablet 25 mg PO TID PRN (Reason: anxiety) 30 Days Qty: 90 0RF gabapentin 800 mg tablet 800 mg PO TID 30 Days Qty: 90 0RF levothyroxine 50 mcg tablet 50 mcg PO QAM 30 Days Qty: 30 0RF lisdexamfetamine [Vyvanse] 10 mg capsule 10 mg PO DAILY 30 Days Qty: 30 0RF
--- NOTE | 2023-02-17 23:22 | PC.NURSE ---
Pt ca&ox4, no signs of distress. Pt reports she has not had benzos n kilo in 2 days and feels like shes in withdrawals. Pt reports she also fell outside and hit her head on a rock and hurt her knee Pt reports n/v/dizziness for the past couple of hours. Pt reports she just left [place] 3 days ago Pt denies SI/HI Plan of care ongoing.
[2023-02-17 23:42] LABS: Basophils Percent Auto 0.3 % (0-2); Eosinophils Percent Auto 0.5 % (0-4); Hematocrit 38.4 % (37.0-47.0); Hemoglobin 12.6 g/dl (12.0-16.0); Imm Gran Abs Auto 0.01 X10*3/uL (0.00-0.03); Imm Gran Pct Auto 0.3 % (0.0-0.4); Lymphocytes Absolute Auto 0.9 X10*3/uL (1.2-4.9); Lymphocytes Percent Auto 23.6 % (20-40); MANUAL DIFF FLAG SCAN; Mean Corpuscular HGB Conc 32.8 g/dl (31.0-35.0); Mean Corpuscular Hemoglobin 25.4 pg (27.0-33.0); Mean Corpuscular Volume 77.3 fL (80.0-98.0); Mean Platelet Volume 9.2 fL (9.4-12.3); Monocytes Absolute Auto 0.2 X10*3/uL (0.1-1.2); Neutrophils Absolute Auto 2.6 x10*3/uL (2.0-8.3); Neutrophils Percent Auto 69.3 % (45-73); Platelet Count 183 X10*3/uL (160-400); Red Blood Count 4.97 X10*6/uL (4.20-5.50); Red Cell Distribution Width 13.7 % (11.0-16.0); SCAN SMEAR FLAG 1; White Blood Count 3.8 X10*3/uL (4.8-10.8)
[2023-02-17] MEDS: Ondansetron ODT 4 MG TAB.RAPDIS TRANSLINGU (23:47)
[2023-02-17] MEDS: Gabapentin 600 MG TABLET PO (23:47)
[2023-02-17] MEDS: clonazePAM 0.5 MG TABLET PO (23:47)
[2023-02-17] MEDS: Acetaminophen 325 MG TABLET 975 MG PO (23:47)
--- NOTE | 2023-02-17 23:52 | ECG_ITS ---
Test Reason : CP Blood Pressure : / mmHG Vent. Rate : 058 BPM Atrial Rate : 058 BPM P-R Int : 148 ms QRS Dur : 092 ms QT Int : 510 ms P-R-T Axes : 025 031 030 degrees QTc Int : 500 ms Sinus bradycardia Prolonged QT Abnormal ECG When compared with ECG of 24-JAN-2023 20:51, Nonspecific T wave abnormality no longer evident in Anterior leads Referred By: Michael Ayoub Electronically Signed By:MICHELLE FLORES MD
--- NOTE | 2023-02-17 23:52 | PC.NURSE ---
Pt medicated per mar. Provider Debby with pt. Plan of care ongoing.
[2023-02-18 00:06] LABS: SLIDE REVIEW VERIFIED
[2023-02-18 00:09] LABS: Alanine Aminotransferase 12 U/L (0-31); Albumin Level 4.4 g/dL (3.5-5.0); Alkaline Phosphatase 69 U/L (39-117); Anion Gap 16 (12-20); Aspartate Amino Transferase 21 U/L (5-31); Bilirubin Total 0.5 mg/dL (0.0-1.0); Blood Urea Nitrogen 20 mg/dL (9-16); Calcium 9.4 mg/dL (8.4-10.2); Carbon Dioxide 23 mmol/L (22-29); Chloride 101 mmol/L (96-108); Creatinine Clr Calc Pharmacy 71.8; Estimated Glomerular Filt Rate > 60; Ethanol < 10 mg/dL; Glucose Random 85 mg/dL (60-115); Magnesium 2.1 mg/dL (1.6-2.6); Sodium 136 mmol/L (135-145); Total Protein 8.1 g/dL (6.5-8.0)
[2023-02-18 00:46] LABS: Troponin-I High Sensitivity < 2.7 ng/L (<3.5-17.0)
[2023-02-18 04:02] VITALS: BP 114/65; PULSE 66; RESP 12; TEMP 36.5; O2SAT 90
[2023-02-18 04:23] LABS: Amphetamine Screen Urine Not Detected (Not Detect); Barbiturates, Urine Not Detected (Not Detect); Benzodiazepines Screen Urine Not Detected (Not Detect); Cannabinoid Screen Urine Not Detected (Not Detect); Cocaine Screen Urine POSITIVE (Not Detect); Fentanyl, urine POSITIVE (Not Detect); Opiate Screen Urine POSITIVE (Not Detect); Phencyclidine Screen Urine Not Detected (Not Detect)
[2023-02-18 06:12] VITALS: BP 111/61; PULSE 56; RESP 16; TEMP 36.7; O2SAT 92
[2023-02-18 07:37] LABS: Appearance Urine Clear; Color Urine Yellow; Glucose Urine UA Negative (Negative); Leukocyte Esterase Urine Small (1+) (Negative); Nitrite Urine Negative (Negative); UMIC TRIGGER UACC YES; Urine Blood Negative (Negative); Urine Ketones Negative (Negative); Urine Protein Negative (Neg-Trace)
[2023-02-18 07:47] LABS: Bacteria Urine None Seen (None Seen); Hyaline Casts Urine 0-2 /LPF (0-2); RBC Urine 0-2 /HPF (0-2); Squamous Epithelial Cell Urine 0-2 /HPF (0-2); UACC Culture Trigger YES; WBC Urine 0-5 /HPF (0-5)
--- NOTE | 2023-02-18 08:51 | HE.PHANOTE ---
re[facility] for 140 mg on 02/17/23 @1768
[2023-02-18] MEDS: methADONE HCl 20 MG/2 ML ORAL.CONC 140 MG PO (09:06)
--- NOTE | 2023-02-18 12:24 | PHA.MEDREC ---
Pharmacy Consult ? Medication Reconciliation Pharmacy has completed the medication reconciliation. [facility] to complete med rec. lissethpin was DCed per most recent discharge summary however she was [facility] and reports still taking it. She confirmed still taking prazosin and wellbutrin which [facility] list. Her seroquel was increased to 200mg [facility] and she confirmed this as well. She reports not taking vraylar and vyvanse at this time.
[2023-02-18] MEDS: clonazePAM 0.5 MG TABLET PO (13:10)
[2023-02-18] MEDS: Levothyroxine Sodium 50 MCG TABLET PO (13:16)
[2023-02-18] MEDS: Gabapentin 400 MG CAPSULE 800 MG PO ×2 (14:40→20:05)
--- NOTE | 2023-02-18 15:03 | MHC.CARE ---
Patient's Adult Crisis Stabilization Unit referral faxed to [facility] in [place]. They have received the assessment, it's in review, pending ability to accommodate her need to be dosed at [facility], which is the [facility], whose dosing hours on the weekend are 7a-10a and weekdays 545a-12p [phone]. [facility] will call back with final determination as to whether patient is accepted. If accepted she will be transported via [employer].
--- NOTE | 2023-02-18 15:53 | PC.NURSE ---
Miladis was transferred to the POD from the main ED. Methadone dose verified with [facility]. Paperwork sent to pharmacy. Med rec completed. Appetite is good. Miladis is denying SI/HI/AVH. Reports she needs a way to get an ID and turkey picker my medications . Calm and cooperative this shift with staff and other patients. Resting most of the shift.
[2023-02-18] MEDS: QUEtiapine Fumarate 50 MG TABLET PO (17:16)
[2023-02-18 18:28] VITALS: RESP 18
[2023-02-18] MEDS: QUEtiapine Fumarate 200 MG TABLET PO (20:04)
[2023-02-18 20:09] VITALS: BP 138/76; PULSE 58; RESP 18; TEMP 36.8; O2SAT 96
[2023-02-18] MEDS: cloNIDine HCL 0.1 MG TABLET PO (23:48)
[2023-02-18 23:50] VITALS: BP 117/83; PULSE 90; RESP 17; TEMP 36.9; O2SAT 97
--- NOTE | 2023-02-19 06:08 | PC.NURSE ---
Patient slept through the night, no distress observed/reported, medication compliant, behavior non concerning, disposition per care team is respite bed search, labs completed/resulted, VSS, will continue to monitor.
[2023-02-19] MEDS: Levothyroxine Sodium 50 MCG TABLET PO (06:19)
--- NOTE | 2023-02-19 07:06 | PC.NURSE ---
patient appears to remain asleep at present respirations are even and unlabored patient appears in no distress
--- NOTE | 2023-02-19 07:32 | HE.PHANOTE ---
RE: METHADONE DOSE Last dose of methadone was given on 02/17/23 at 1028 per Deanna IQBAL at [facility] (via faxed methadone verification form).
[2023-02-19 08:00] VITALS: BP 132/84; PULSE 73; RESP 14; O2SAT 98
[2023-02-19] MEDS: clonazePAM 0.5 MG TABLET PO (08:04)
[2023-02-19] MEDS: Gabapentin 400 MG CAPSULE 800 MG PO ×2 (08:04→15:47)
[2023-02-19] MEDS: buPROPion HCl XL 300 MG TAB.ER.24H PO (08:05)
[2023-02-19] MEDS: Omeprazole 20 MG CAPSULE.DR PO (08:05)
[2023-02-19] MEDS: methADONE HCl 20 MG/2 ML ORAL.CONC 140 MG PO (08:45)
[2023-02-19] MEDS: cloNIDine HCL 0.1 MG TABLET PO (11:31)
[2023-02-19] MEDS: QUEtiapine Fumarate 50 MG TABLET PO (11:48)
[2023-02-19 15:06] LABS: Thyroid Stimulating Hormone 2.31 uIU/mL (0.32-4.0)
== END 2023-02-19 15:59 ==
PROVIDERS: Physician Assistant; Student in an Organized Health Care Education/Training Program; Emergency Provider Internal Medicine
DX: F13.239 Sedative, hypnotic or anxiolytic dependence with withdrawal, unspecified (principal); R53.81 Other malaise; T42.4X5A Adverse effect of benzodiazepines, initial encounter; Y92.9 Unspecified place or not applicable; F11.20 Opioid dependence, uncomplicated; F31.9 Bipolar disorder, unspecified; F43.10 Post-traumatic stress disorder, unspecified; F17.210 Nicotine dependence, cigarettes, uncomplicated; Z79.899 Other long term (current) drug therapy
CPT/HCPCS: 36415; 70450; 71045; 72125; 80053; 80307; 81001; 83735; 84443; 84484; 85025; 87086; 93005; 99285; S9485

== ENCOUNTER 2023-05-26 11:28 | Inpatient (IN) | payer MEDICAID, OTHER, SELFPAY ==
--- NOTE | ~2023-05-26 | XR_ITS ---
EXAMINATION: XR CHEST CLINICAL INFORMATION: Productive cough COMPARISON: 02/17/2023 TECHNIQUE: 2 views of the chest were obtained. FINDINGS: The lungs are well expanded. There is no focal consolidation, edema, or effusion. No pneumothorax. The cardiomediastinal silhouette is within normal limits. No acute osseous abnormality. XR/XR chest 2V IMPRESSION: Clear lungs.
--- NOTE | ~2023-05-26 | XR_ITS ---
EXAMINATION: XR KNEE, LEFT CLINICAL INFORMATION: Edema. Pain. COMPARISON: None available. TECHNIQUE: Four views of the left knee. FINDINGS: No fracture or subluxation. Compartmental joint spaces are maintained. No joint effusion. Enthesophyte at the superior pole of the patella. Soft tissues unremarkable otherwise. XR/XR knee LT 4V IMPRESSION: No acute abnormality. No significant arthritic changes.
[2023-05-26 12:05] VITALS: BP 144/83; PULSE 96; RESP 18; TEMP 36.8; O2SAT 98; BMI 24.8
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
--- NOTE | 2023-05-26 12:11 | ECG_ITS ---
Test Reason : medical clearence Blood Pressure : / mmHG Vent. Rate : 067 BPM Atrial Rate : 067 BPM P-R Int : 132 ms QRS Dur : 086 ms QT Int : 448 ms P-R-T Axes : 054 068 067 degrees QTc Int : 473 ms Normal sinus rhythm with sinus arrhythmia Normal ECG When compared with ECG of 18-FEB-2023 00:05, No significant change was found Referred By: Charity Oviedo Electronically Signed By:PANDA HADLEY MD
--- NOTE | 2023-05-26 12:51 | HE.PHANOTE ---
RE METHADONE PT GETS 140MG FROM [facility], LAST DOSED 05/21/23 CATHERINE
[2023-05-26 12:58] LABS: MANUAL DIFF FLAG NO
[2023-05-26 12:59] LABS: COVID-19 Test Negative (Negative); IDNOW Serial# 08D9AD1C
[2023-05-26 13:00] LABS: Basophils Percent Auto 0.2 % (0-2); Hematocrit 35.5 % (37.0-47.0); Hemoglobin 11.9 g/dl (12.0-16.0); Imm Gran Abs Auto 0.02 X10*3/uL (0.00-0.03); Imm Gran Pct Auto 0.4 % (0.0-0.4); Lymphocytes Absolute Auto 0.6 X10*3/uL (1.2-4.9); Lymphocytes Percent Auto 11.8 % (20-40); Mean Corpuscular HGB Conc 33.5 g/dl (31.0-35.0); Mean Corpuscular Hemoglobin 25.4 pg (27.0-33.0); Mean Corpuscular Volume 75.9 fL (80.0-98.0); Mean Platelet Volume 9.6 fL (9.4-12.3); Monocytes Absolute Auto 0.2 X10*3/uL (0.1-1.2); Monocytes Percent Auto 3.9 % (2-11); Neutrophils Absolute Auto 4.6 x10*3/uL (2.0-8.3); Neutrophils Percent Auto 83.7 % (45-73); Platelet Count 127 X10*3/uL (160-400); Red Blood Count 4.68 X10*6/uL (4.20-5.50); Red Cell Distribution Width 14.6 % (11.0-16.0); White Blood Count 5.4 X10*3/uL (4.8-10.8)
--- NOTE | 2023-05-26 13:03 | PC.NURSE ---
Miladis self presented to the ED with SI and a plan to OD and jump off a bridge . Miladis reports she was recently in [facility] and then in a program in [place]. Miladis states she has not had her methadone in a couple days . Called [facility] and they confirmed her last dose of methadone was on 05/21/23 at 140mg's this was confirmed by Velma Agosto RN. Miladis has been calm and cooperative.
[2023-05-26 13:23] LABS: Anion Gap 18 (12-20); Blood Urea Nitrogen 10 mg/dL (9-16); Calcium 9.4 mg/dL (8.4-10.2); Carbon Dioxide 23 mmol/L (22-29); Chloride 103 mmol/L (96-108); Creatinine Clr Calc Pharmacy 78.1; Estimated Glomerular Filt Rate > 60; Ethanol < 10 mg/dL; Glucose Random 98 mg/dL (60-115); HCG Quantitative < 2 mIU/mL; Potassium 3.8 mmol/L (3.3-5.1); Sodium 140 mmol/L (135-145)
[2023-05-26 16:25] LABS: Appearance Urine Clear; Color Urine Yellow; Glucose Urine UA Negative (Negative); Leukocyte Esterase Urine Trace (Negative); Nitrite Urine Negative (Negative); UMIC TRIGGER UACC YES; Urine Blood Negative (Negative); Urine Ketones 40 mg/dL (Negative); Urine Protein Negative (Neg-Trace)
[2023-05-26 16:29] LABS: Bacteria Urine None Seen (None Seen); Hyaline Casts Urine 0-2 /LPF (0-2); RBC Urine 0-2 /HPF (0-2); Squamous Epithelial Cell Urine 0-2 /HPF (0-2); WBC Urine 0-5 /HPF (0-5)
[2023-05-26 16:30] LABS: Amphetamine Screen Urine Not Detected (Not Detect); Barbiturates, Urine Not Detected (Not Detect); Benzodiazepines Screen Urine POSITIVE (Not Detect); Cannabinoid Screen Urine Not Detected (Not Detect); Cocaine Screen Urine POSITIVE (Not Detect); Fentanyl, urine POSITIVE (Not Detect); Opiate Screen Urine POSITIVE (Not Detect); Phencyclidine Screen Urine Not Detected (Not Detect)
[2023-05-26] MEDS: Gabapentin 400 MG CAPSULE 800 MG PO ×2 (16:46→19:53)
[2023-05-26] MEDS: methADONE HCl 20 MG/2 ML ORAL.CONC 140 MG PO (16:46)
[2023-05-26 17:15] VITALS: RESP 18
--- NOTE | 2023-05-26 19:12 | PC.NURSE ---
patient appears to remain at rest at present respirations are even and unlabored patient appears in no distress.
[2023-05-26] MEDS: QUEtiapine Fumarate 50 MG TABLET PO (19:21)
[2023-05-26] MEDS: clonazePAM 0.5 MG TABLET PO (19:53)
[2023-05-26] MEDS: QUEtiapine Fumarate 200 MG TABLET PO (19:54)
[2023-05-26] MEDS: Mirtazapine 7.5 MG TABLET PO (19:54)
[2023-05-27] MEDS: methADONE HCl 20 MG/2 ML ORAL.CONC 140 MG PO (10:40)
[2023-05-27] MEDS: QUEtiapine Fumarate 50 MG TABLET PO (10:40)
[2023-05-27] MEDS: Gabapentin 400 MG CAPSULE 800 MG PO ×3 (10:40→20:02)
[2023-05-27] MEDS: clonazePAM 0.5 MG TABLET PO (15:41)
--- NOTE | 2023-05-27 16:57 | PC.NURSE ---
Miladis BEAVER this shift and engaged in milieu observed socializing with peers and staff. Adherent with medications and req/rec PRN Clonazepam for anxiety. No behavioral concerns. Appetite good.
[2023-05-27 17:00] VITALS: RESP 18
[2023-05-27] MEDS: cloNIDine HCL 0.1 MG TABLET PO (19:07)
[2023-05-27] MEDS: QUEtiapine Fumarate 200 MG TABLET PO (20:02)
[2023-05-27] MEDS: Mirtazapine 7.5 MG TABLET PO (20:02)
[2023-05-28 05:09] VITALS: BP 148/87; PULSE 76; RESP 16; TEMP 36.2; O2SAT 100
[2023-05-28] MEDS: cloNIDine HCL 0.1 MG TABLET PO (06:53)
[2023-05-28] MEDS: methADONE HCl 20 MG/2 ML ORAL.CONC 140 MG PO (09:36)
[2023-05-28] MEDS: Gabapentin 400 MG CAPSULE 800 MG PO ×3 (09:36→20:07)
[2023-05-28] MEDS: clonazePAM 0.5 MG TABLET PO ×3 (10:43→20:07)
[2023-05-28] MEDS: QUEtiapine Fumarate 50 MG TABLET PO (11:08)
[2023-05-28 11:38] VITALS: BP 108/68; PULSE 70; RESP 20; TEMP 37.1; O2SAT 96
--- NOTE | 2023-05-28 12:10 | MHC.CARE ---
Rad Team completed a statewide daul bed search for Pt. The following facilities were called and reported no beds [facility], [facility], [facility], [facility], [place] as well as [facility]. The dual bed search is exhausted for today. Care Team notified.
--- NOTE | 2023-05-28 15:15 | PC.NURSE ---
Assumed care of patient at 1100, patient has been clam and cooperative thus far, offering no complaints to this RN. Now resting on couch in 8. Respirations even and unlabored, no apparent distress
--- NOTE | 2023-05-28 16:18 | PHA.MEDREC ---
Addendum entered by Katty Lopez RPh 05/28/23 18:54: patient typically on levothyroxine 50 mg and prazosin 2 mg when here. patient reports getting them from a [facility], therefore not on claim history. Patient did report a recent increase in prazosin to 3 mg Original Note: Pharmacy Consult ? Medication Reconciliation Pharmacy has reviewed the medication reconciliation completed by
[2023-05-28] MEDS: Mirtazapine 7.5 MG TABLET PO (20:07)
[2023-05-28] MEDS: QUEtiapine Fumarate 200 MG TABLET PO (20:07)
[2023-05-28 23:36] VITALS: BP 117/78; PULSE 87; TEMP 36.6; O2SAT 96
[2023-05-29 09:08] VITALS: BP 135/97; PULSE 85; RESP 16; TEMP 36.8; O2SAT 98
[2023-05-29] MEDS: clonazePAM 0.5 MG TABLET PO ×3 (09:26→21:18)
[2023-05-29] MEDS: Gabapentin 400 MG CAPSULE 800 MG PO ×3 (09:26→21:18)
[2023-05-29] MEDS: methADONE HCl 20 MG/2 ML ORAL.CONC 140 MG PO (09:27)
[2023-05-29] MEDS: QUEtiapine Fumarate 50 MG TABLET PO (10:26)
[2023-05-29] MEDS: Levothyroxine Sodium 50 MCG TABLET PO (11:50)
[2023-05-29 18:00] VITALS: BP 132/80; PULSE 69; RESP 18; TEMP 36.6; O2SAT 98
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
[2023-05-29] MEDS: QUEtiapine Fumarate 200 MG TABLET PO (21:17)
[2023-05-29] MEDS: Prazosin HCL 1 MG CAPSULE 3 MG PO (21:18)
[2023-05-29] MEDS: Mirtazapine 7.5 MG TABLET PO (21:19)
[2023-05-29] MEDS: cloNIDine HCL 0.1 MG TABLET PO (21:19)
[2023-05-30] MEDS: Levothyroxine Sodium 50 MCG TABLET PO (06:17)
[2023-05-30] MEDS: Gabapentin 400 MG CAPSULE 800 MG PO ×3 (08:26→22:10)
[2023-05-30] MEDS: clonazePAM 0.5 MG TABLET PO ×3 (08:27→22:11)
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
[2023-05-30] MEDS: methADONE HCl 20 MG/2 ML ORAL.CONC 140 MG PO (08:46)
[2023-05-30 08:53] VITALS: BP 132/80; PULSE 66; RESP 16; TEMP 36.6; O2SAT 96
[2023-05-30] MEDS: Nicotine Polacrilex 2 MG GUM 4 MG BUCCAL (11:03)
[2023-05-30] MEDS: QUEtiapine Fumarate 50 MG TABLET PO ×2 (11:03→14:06)
[2023-05-30] MEDS: cephALEXin 250 MG CAPSULE PO ×2 (13:19→22:11)
[2023-05-30 15:51] LABS: CT PCR NOT DETECTED (Not Detect.); NG PCR NOT DETECTED (Not Detect.)
[2023-05-30 16:00] VITALS: BP 114/73; PULSE 82; RESP 15; TEMP 36.6; O2SAT 96
[2023-05-30] MEDS: Omeprazole 20 MG CAPSULE.DR PO (17:17)
--- NOTE | 2023-05-30 20:11 | PC.NURSE ---
Assumed care of this pt at 19:30, laying in bed with eyes closed, resp even and unlabored. Plan of care ongoing.
[2023-05-30] MEDS: Prazosin HCL 1 MG CAPSULE 3 MG PO (22:11)
[2023-05-30] MEDS: QUEtiapine Fumarate 200 MG TABLET PO (22:11)
[2023-05-30] MEDS: Mirtazapine 7.5 MG TABLET PO (22:11)
[2023-05-31] MEDS: Levothyroxine Sodium 50 MCG TABLET PO (05:58)
[2023-05-31] MEDS: Omeprazole 20 MG CAPSULE.DR PO ×2 (06:39→15:53)
[2023-05-31 07:00] VITALS: BMI 25.1
[2023-05-31] MEDS: clonazePAM 0.5 MG TABLET PO ×3 (08:18→19:40)
[2023-05-31] MEDS: Gabapentin 400 MG CAPSULE 800 MG PO ×3 (08:18→19:38)
[2023-05-31] MEDS: buPROPion HCl XL 150 MG TAB.ER.24H 450 MG PO (08:19)
[2023-05-31] MEDS: methADONE HCl 20 MG/2 ML ORAL.CONC 140 MG PO (08:19)
[2023-05-31 08:56] VITALS: BP 115/84; PULSE 99; RESP 18; TEMP 36.8; O2SAT 96
[2023-05-31] MEDS: cephALEXin 250 MG CAPSULE PO ×2 (09:13→19:38)
[2023-05-31 09:38] LABS: Estimated Average Glucose 103 mg/dL; Hemoglobin A1c % 5.2 % (<6.0)
[2023-05-31 10:07] LABS: Alanine Aminotransferase 10 U/L (0-31); Alkaline Phosphatase 84 U/L (39-117); Anion Gap 12 (12-20); Aspartate Amino Transferase 15 U/L (5-31); Bilirubin Direct 0.1 mg/dL (0.0-0.5); Bilirubin Total 0.3 mg/dL (0.0-1.0); Blood Urea Nitrogen 13 mg/dL (9-16); Calcium 9.8 mg/dL (8.4-10.2); Carbon Dioxide 25 mmol/L (22-29); Chloride 102 mmol/L (96-108); Cholesterol 146 mg/dL (<200); Creatinine Clr Calc Pharmacy 76.2; Estimated Glomerular Filt Rate > 60; Glucose Fasting 126 mg/dL (60-99); HDL Cholesterol 27 mg/dL (>40); HIV AB/AG Nonreactive (Nonreactive); HIV Num 1 0.07 S/CO (0.00-0.99); Iron 55 mcg/dL (30-160); LDL Cholesterol Calculated 63 mg/dL (<100); Magnesium 1.8 mg/dL (1.6-2.6); Percent Iron Saturation 23 % (15-50); Potassium 4.3 mmol/L (3.3-5.1); Sodium 135 mmol/L (135-145); Total Iron Binding Capacity 243 mcg/dL (228-428); Total Protein 8.1 g/dL (6.5-8.0); Triglycerides 281 mg/dL (<150); Unsaturated Iron Binding 188 ug/dL
[2023-05-31 10:08] LABS: Free T4 (Free Thyroxine) 0.92 ng/dL (0.71-1.85); Thyroid Stimulating Hormone 4.14 uIU/mL (0.32-4.0)
[2023-05-31 10:13] LABS: Syphilis Screen Reactive (Nonreactive)
[2023-05-31 10:15] LABS: Folate 9.1 ng/mL (> or = 4.0); Vitamin B12 400 pg/mL (200-900)
[2023-05-31] MEDS: QUEtiapine Fumarate 50 MG TABLET PO ×3 (10:41→23:56)
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
[2023-05-31] MEDS: Nicotine Polacrilex 2 MG GUM 4 MG BUCCAL (14:36)
[2023-05-31] MEDS: cloNIDine HCL 0.1 MG TABLET PO (15:54)
[2023-05-31 16:14] VITALS: BP 103/65; PULSE 95; RESP 17; TEMP 36.7; O2SAT 97
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
[2023-05-31] MEDS: Prazosin HCL 1 MG CAPSULE 3 MG PO (19:36)
[2023-05-31] MEDS: QUEtiapine Fumarate 200 MG TABLET PO (19:38)
[2023-05-31] MEDS: Mirtazapine 7.5 MG TABLET PO (19:39)
[2023-05-31] MEDS: Atorvastatin Calcium 10 MG TABLET PO (19:39)
[2023-06-01] MEDS: Levothyroxine Sodium 50 MCG TABLET PO (06:21)
[2023-06-01] MEDS: Omeprazole 20 MG CAPSULE.DR PO ×2 (06:21→17:21)
[2023-06-01 08:05] VITALS: BP 112/73; PULSE 83; RESP 18; TEMP 36.3; O2SAT 97
[2023-06-01] MEDS: Gabapentin 400 MG CAPSULE 800 MG PO (08:07)
[2023-06-01] MEDS: cephALEXin 250 MG CAPSULE PO ×2 (08:07→19:50)
[2023-06-01] MEDS: buPROPion HCl XL 150 MG TAB.ER.24H 450 MG PO (08:07)
[2023-06-01] MEDS: ARIPiprazole 5 MG TABLET PO (08:08)
[2023-06-01] MEDS: clonazePAM 0.5 MG TABLET PO ×3 (08:08→19:51)
[2023-06-01] MEDS: methADONE HCl 20 MG/2 ML ORAL.CONC 140 MG PO (08:08)
[2023-06-01 08:41] LABS: BV Int Neg Control Negative (Negative); BV Int Pos Control Positive (Positive)
--- NOTE | 2023-06-01 09:57 | HO.PSYCHPN ---
Subjective Subjective Date of Service: 06/01/23 Reason For Visit: PTSD Bipolar Disorder Opiate use Disorder Methadon Subjective Notes: Conditional Voluntary Healthcare Proxy: No Guardianship: No Medical Problems Affecting Mental Status: No Interim History: Pt seen, discussed in team meeting. Team reports pt to be overmedicated-Gabapentin decreased to 600 mg tid, Seroquel decreased to 100 mg HS, Abilify discontinued. No changes in Methadone made at this time. Positive and symptomatic for Haemophilus Influenzae, ordered support medications-cough medication, mucinex Resting this afternoon. Room change for isolation until virus has passed. Medication Compliance: Yes Side effects from medications: No Attending Groups: No Review of Systems Acute medical concerns: No Medical Review of Systems: unchanged Review of Systems Review of Systems Positive and symptomatic for Haemophilus Influenzae Mental Status Exam Mental Status Exam Patient Appearance: Fatigued Patient Orientation: Person, Place, Time and Situation Level of Consciousness: Alert Patient Behavior: Talkative, Cooperative, Passive, Anxious, Fatigued, Distractible, Isolative, Crying and Poor Eye Contact Mood Description: Depressed Affect Description: Flat Patient Cognition Impaired: No Ability to Follow Directions: Good Speech Pattern: Spontaneous Speech Memory Description: Intact Hallucinations: None Delusions: Not Present Perceptual Disturbances: Depersonalization and Derealization Thought Process: Rumination Thought Content: positive for Circumstantial, positive for Perseveration, positive for Poverty of Content, positive for Slowed Thinking and positive for Suicidal Ideation Depressive Symptoms: Insomnia, Difficulty Sleeping, Changes in Appetite, Crying Spells, Loss of Int. in Activity, Feelings of Worthlessness, Hopelessness, Isolating-Friends/Family, Unhappiness, Increased Fatigue, Thoughts of /Suicide, Low Self Esteem, Loss of Energy and Difficulty Concentrating Judgement: Fair Diagnostics Vital Signs (24Hr): Vital Signs - 24 hr 05/31/23 16:14 06/01/23 08:05 Temperature 98.0 F 97.3 F Pulse Rate 95 83 Respiratory Rate 17 18 Blood Pressure 103/65 112/73 Pulse Oximetry 97 97 Oxygen Delivery Method Room Air Room Air BMI result Body Mass Index 25.1 Labs 05/26/23 12:52 05/31/23 09:10 Labs: Laboratory Results - last 48 hr 05/30/23 05/31/23 05/31/23 13:00 09:10 13:15 Sodium 135 Potassium 4.3 Chloride 102 Carbon Dioxide 25 Anion Gap 12 BUN 13 Creatinine 0.81 Estim Creat Clear Calc 76.2 Estimated GFR > 60 Fasting Glucose 126 H Estimat Average Glucose 103 Hemoglobin A1c % 5.2 Calcium 9.8 Magnesium 1.8 Iron 55 TIBC 243 % Saturation 23 Unsat Iron Binding 188 Total Bilirubin 0.3 Direct Bilirubin 0.1 AST 15 ALT 10 Alkaline Phosphatase 84 Total Protein 8.1 H Albumin 4.0 Triglycerides 281 H Cholesterol 146 LDL Cholesterol, Calc 63 HDL Cholesterol 27 L Vitamin B12 400 Folate 9.1 TSH 4.14 H Free T4 0.92 T.pallidum Ab (EIA) Reactive A Macey species DNA Negative Chlam trachomat DNA PCR NOT DETECTED Gardnerella DNA Probe Positive A HIV 1&2 Ab/P24 Ag 4thGn Nonreactive N.gonorrhoeae DNA (PCR) NOT DETECTED Trichomonas DNA Probe Negative Imaging Radiology Impressions: ITS Impressions Chest X-Ray 05/30/23 13:36 IMPRESSION: Clear lungs. Knee X-Ray 05/30/23 13:36 IMPRESSION: No acute abnormality. No significant arthritic changes. Medications Medications Current Medications Acetaminophen (Acetaminophen 325 Mg Tablet) 650 mg PO Q6H PRN PRN Reason: Headache/Pain Mild Scale (1-3) Al Hydroxide/Mg Hydroxide (Magnesium Hydrox/Alum Hydrox 30 Ml Oral.Susp) 30 ml PO Q6H PRN PRN Reason: Heartburn/Nausea Aripiprazole (Aripiprazole 5 Mg Tablet) 5 mg PO DAILY [facility] Last Admin: 06/01/23 08:08 Dose: 5 mg Atorvastatin Calcium (Atorvastatin Calcium 10 Mg Tablet) 10 mg PO BEDTIME [facility] Last Admin: 05/31/23 19:39 Dose: 10 mg Bupropion HCl (Bupropion Hcl Xl 150 Mg Tab.Er.24h) 450 mg PO DAILY [facility] Last Admin: 06/01/23 08:07 Dose: 450 mg Cephalexin HCl (Cephalexin 250 Mg Capsule) 250 mg PO BID [facility] Last Admin: 06/01/23 08:07 Dose: 250 mg Clonazepam (Clonazepam 0.5 Mg Tablet) 0.5 mg PO RQ6H WHILE AWAKE [facility] Last Admin: 06/01/23 08:08 Dose: 0.5 mg Clonidine HCl (Clonidine Hcl 0.1 Mg Tablet) 0.1 mg PO BID PRN; Protocol PRN Reason: Anxiety Last Admin: 05/31/23 15:54 Dose: 0.1 mg Gabapentin (Gabapentin 400 Mg Capsule) 800 mg PO TID [facility] Last Admin: 06/01/23 08:07 Dose: 800 mg Hydroxyzine HCl (Hydroxyzine Hcl 25 Mg Tablet) 25 mg PO Q6H PRN PRN Reason: Anxiety Levothyroxine Sodium (Levothyroxine Sodium 50 Mcg Tablet) 50 mcg PO DAILY@0600 [facility] Last Admin: 06/01/23 06:21 Dose: 50 mcg Magnesium Hydroxide (Milk Of Magnesia 30 Ml Oral.Susp) 30 ml PO DAILY PRN PRN Reason: Constipation Methadone HCl (Methadone Hcl 20 Mg/2 Ml Oral.Conc) 140 mg PO DAILY [facility] Last Admin: 06/01/23 08:08 Dose: 140 mg Mirtazapine (Mirtazapine 7.5 Mg Tablet) 7.5 mg PO BEDTIME [facility] Last Admin: 05/31/23 19:39 Dose: 7.5 mg Nicotine (Nicotine 21 Mg Patch.Td24) 21 mg TRANSDERMA DAILY [facility] Last Admin: 06/01/23 08:09 Dose: Not Given Nicotine Polacrilex (Nicotine Polacrilex 2 Mg Gum) 4 mg BUCCAL Q2H PRN PRN Reason: Nicotine Cravings Last Admin: 05/31/23 14:36 Dose: 4 mg Omeprazole (Omeprazole 20 Mg Capsule.Dr) 20 mg PO BID@0630,1630 [facility] Last Admin: 06/01/23 06:21 Dose: 20 mg Prazosin HCl (Prazosin Hcl 1 Mg Capsule) 3 mg PO BEDTIME [facility]; Protocol Last Admin: 05/31/23 19:36 Dose: 3 mg Quetiapine Fumarate (Quetiapine Fumarate 200 Mg Tablet) 200 mg PO BEDTIME [facility] Last Admin: 05/31/23 19:38 Dose: 200 mg Quetiapine Fumarate (Quetiapine Fumarate 50 Mg Tablet) 50 mg PO TID PRN PRN Reason: anxiety Last Admin: 05/31/23 23:56 Dose: 50 mg Sodium Chloride (Sodium Chloride 0.65 % Nasal 44 Ml Sprbtl) 1 spray NOSTRIL-B Q1H PRN PRN Reason: Nasal Congestion Allergies Allergies Allergy/AdvReac Type Severity Reaction Status Date / Time azithromycin Allergy Fever Verified 05/26/23 12:09 lamotrigine [From Lamictal] AdvReac Fever Verified 05/26/23 12:09 trazodone AdvReac Restless Verified 05/26/23 12:09 legs geovern AdvReac Severe spasm, Uncoded 05/26/23 12:09 headache, fever Assessment & Plan Assessment & Plan (1) PTSD (post-traumatic stress disorder): Status: Acute Code(s): F43.10 - Post-traumatic stress disorder, unspecified (2) Bipolar disorder: Status: Acute Code(s): F31.9 - Bipolar disorder, unspecified (3) Opioid use disorder: Status: Acute Code(s): F11.90 - Opioid use, unspecified, uncomplicated (4) Polysubstance use disorder: Status: Acute Code(s): F19.90 - Other psychoactive substance use, unspecified, uncomplicated (5) Suicidal ideation: Status: Acute Code(s): R45.851 - Suicidal ideations Plan 05/31/23: Abilify 5 mg a.m Atorvastatin 10 mg HS Pt asks that we consider a [facility] referral for ongoing support in community 06/01/23: Positive and symptomatic for Haemophilus Influenzae- Mucinex/Robitussin/Cough Drops ordered Appearing overmedicated to team-decrease Gabapentin to 600 mg tid decrease Seroquel to 100 mg hs discontinue Ability Patient educated on: therapeutic strategies and medical condition Informed Consent: understands and further education needed Reason for continued inpatient stay Substantial Risk for: rapid decompensation and med/psych decompensation Time Spent With Patient Time: Total time managing care of this patient today ____ minutes.
[2023-06-01] MEDS: guaiFENesin 100 MG/5 ML LIQUID PO (12:00)
[2023-06-01] MEDS: QUEtiapine Fumarate 50 MG TABLET PO ×2 (12:01→17:28)
[2023-06-01] MEDS: guaiFENesin DM 600/30 1 TAB TAB.ER.12H PO (12:01)
[2023-06-01] MEDS: Gabapentin 300 MG CAPSULE 600 MG PO ×2 (14:01→19:50)
[2023-06-01 19:40] VITALS: BP 105/76; PULSE 101; TEMP 2.6; TEMP 36.7
[2023-06-01] MEDS: Atorvastatin Calcium 10 MG TABLET PO (19:47)
[2023-06-01] MEDS: Acetaminophen 325 MG TABLET 650 MG PO (19:47)
[2023-06-01] MEDS: Prazosin HCL 1 MG CAPSULE 3 MG PO (19:48)
[2023-06-01] MEDS: Mirtazapine 7.5 MG TABLET PO (19:51)
[2023-06-01] MEDS: QUEtiapine Fumarate 100 MG TABLET PO (19:52)
[2023-06-01 21:50] VITALS: BP 122/85; PULSE 106
[2023-06-01] MEDS: cloNIDine HCL 0.1 MG TABLET PO (21:58)
[2023-06-02] MEDS: Omeprazole 20 MG CAPSULE.DR PO ×2 (06:06→17:02)
[2023-06-02] MEDS: Levothyroxine Sodium 50 MCG TABLET PO (06:06)
[2023-06-02 07:45] VITALS: BP 125/69; PULSE 67; RESP 16; TEMP 36.2; O2SAT 97
[2023-06-02] MEDS: buPROPion HCl XL 150 MG TAB.ER.24H 450 MG PO (08:26)
[2023-06-02] MEDS: Gabapentin 300 MG CAPSULE 600 MG PO ×2 (08:27→14:47)
[2023-06-02] MEDS: methADONE HCl 20 MG/2 ML ORAL.CONC 140 MG PO (08:27)
[2023-06-02] MEDS: clonazePAM 0.5 MG TABLET PO ×3 (08:27→20:01)
[2023-06-02] MEDS: cephALEXin 250 MG CAPSULE PO ×2 (09:24→20:01)
[2023-06-02] MEDS: Docusate Sodium 100 MG CAPSULE PO (09:24)
--- NOTE | 2023-06-02 10:33 | P.PNPSI_ITS ---
Subjective Subjective Date of Service: 06/02/23 Reason For Visit: PTSD Bipolar Disorder Opiate use Disorder Methadon Subjective Notes: Conditional Voluntary Healthcare Proxy: No Guardianship: No Medical Problems Affecting Mental Status: No Interim History: Reports decrease in sedation with Abilify discontinuation. Improved URI sx reported as well Discussed returning to previous Gabapentin and Seroquel doses which we will do. Continues with SI, hopelessness and not having any will to go on. Medication Compliance: Yes Side effects from medications: No Attending Groups: Intermittent Review of Systems Acute medical concerns: No Medical Review of Systems: unchanged Mental Status Exam Mental Status Exam Patient Appearance: Fatigued Patient Orientation: Person, Place, Time and Situation Level of Consciousness: Alert Patient Behavior: Talkative, Cooperative, Passive, Anxious, Fatigued, Distractible, Isolative, Crying and Poor Eye Contact Mood Description: Depressed Affect Description: Flat Patient Cognition Impaired: No Ability to Follow Directions: Good Speech Pattern: Spontaneous Speech Memory Description: Intact Hallucinations: None Delusions: Not Present Perceptual Disturbances: Depersonalization and Derealization Thought Process: Rumination Thought Content: positive for Circumstantial, positive for Perseveration, positive for Poverty of Content, positive for Slowed Thinking and positive for Suicidal Ideation Depressive Symptoms: Insomnia, Difficulty Sleeping, Changes in Appetite, Crying Spells, Loss of Int. in Activity, Feelings of Worthlessness, Hopelessness, Isolating-Friends/Family, Unhappiness, Increased Fatigue, Thoughts of /Suicide, Low Self Esteem, Loss of Energy and Difficulty Concentrating Judgement: Fair Diagnostics Vital Signs (24Hr): Vital Signs - 24 hr 06/01/23 19:40 06/01/23 21:50 Temperature 36.7 F L Pulse Rate 101 H 106 H Blood Pressure 105/76 122/85 BMI result Body Mass Index 25.1 Labs 05/26/23 12:52 05/31/23 09:10 Labs: Laboratory Results - last 48 hr 05/31/23 13:15 Macey species DNA Negative Gardnerella DNA Probe Positive A Trichomonas DNA Probe Negative Imaging Radiology Impressions: ITS Impressions Chest X-Ray 05/30/23 13:36 IMPRESSION: Clear lungs. Knee X-Ray 05/30/23 13:36 IMPRESSION: No acute abnormality. No significant arthritic changes. Medications Medications Current Medications Acetaminophen (Acetaminophen 325 Mg Tablet) 650 mg PO Q6H PRN PRN Reason: Headache/Pain Mild Scale (1-3) Last Admin: 06/01/23 19:47 Dose: 650 mg Al Hydroxide/Mg Hydroxide (Magnesium Hydrox/Alum Hydrox 30 Ml Oral.Susp) 30 ml PO Q6H PRN PRN Reason: Heartburn/Nausea Atorvastatin Calcium (Atorvastatin Calcium 10 Mg Tablet) 10 mg PO BEDTIME [facility] Last Admin: 06/01/23 19:47 Dose: 10 mg Benzocaine (Throat Lozenge, Medicated Lozenge) 1 lozenge MUCOUS MEM Q2H PRN PRN Reason: Sore Throat Bupropion HCl (Bupropion Hcl Xl 150 Mg Tab.Er.24h) 450 mg PO DAILY [facility] Last Admin: 06/02/23 08:26 Dose: 450 mg Cephalexin HCl (Cephalexin 250 Mg Capsule) 250 mg PO BID [facility] Last Admin: 06/02/23 09:24 Dose: 250 mg Clonazepam (Clonazepam 0.5 Mg Tablet) 0.5 mg PO RQ6H WHILE AWAKE [facility] Last Admin: 06/02/23 08:27 Dose: 0.5 mg Clonidine HCl (Clonidine Hcl 0.1 Mg Tablet) 0.1 mg PO BID PRN; Protocol PRN Reason: Anxiety Last Admin: 06/01/23 21:58 Dose: 0.1 mg Docusate Sodium (Docusate Sodium 100 Mg Capsule) 100 mg PO BID PRN PRN Reason: Constipation Last Admin: 06/02/23 09:24 Dose: 100 mg Gabapentin (Gabapentin 300 Mg Capsule) 600 mg PO TID [facility] Last Admin: 06/02/23 08:27 Dose: 600 mg Guaifenesin (Guaifenesin 100 Mg/5 Ml Liquid) 5 ml PO Q6H PRN PRN Reason: Cough Last Admin: 06/01/23 12:00 Dose: 5 ml Guaifenesin/Dextromethorphan (Guaifenesin Dm 600/30 1 Tab Tab.Er.12h) 1 tab PO BID PRN PRN Reason: Congestion Last Admin: 06/01/23 12:01 Dose: 1 tab Hydroxyzine HCl (Hydroxyzine Hcl 25 Mg Tablet) 25 mg PO Q6H PRN PRN Reason: Anxiety Levothyroxine Sodium (Levothyroxine Sodium 50 Mcg Tablet) 50 mcg PO DAILY@0600 [facility] Last Admin: 06/02/23 06:06 Dose: 50 mcg Magnesium Hydroxide (Milk Of Magnesia 30 Ml Oral.Susp) 30 ml PO DAILY PRN PRN Reason: Constipation Methadone HCl (Methadone Hcl 20 Mg/2 Ml Oral.Conc) 140 mg PO DAILY [facility] Last Admin: 06/02/23 08:27 Dose: 140 mg Mirtazapine (Mirtazapine 7.5 Mg Tablet) 7.5 mg PO BEDTIME [facility] Last Admin: 06/01/23 19:51 Dose: 7.5 mg Nicotine (Nicotine 21 Mg Patch.Td24) 21 mg TRANSDERMA DAILY [facility] Last Admin: 06/02/23 09:17 Dose: Not Given Nicotine Polacrilex (Nicotine Polacrilex 2 Mg Gum) 4 mg BUCCAL Q2H PRN PRN Reason: Nicotine Cravings Last Admin: 05/31/23 14:36 Dose: 4 mg Omeprazole (Omeprazole 20 Mg Capsule.Dr) 20 mg PO BID@0630,1630 [facility] Last Admin: 06/02/23 06:06 Dose: 20 mg Prazosin HCl (Prazosin Hcl 1 Mg Capsule) 3 mg PO BEDTIME [facility]; Protocol Last Admin: 06/01/23 19:48 Dose: 3 mg Quetiapine Fumarate (Quetiapine Fumarate 50 Mg Tablet) 50 mg PO TID PRN PRN Reason: anxiety Last Admin: 06/01/23 17:28 Dose: 50 mg Quetiapine Fumarate (Quetiapine Fumarate 100 Mg Tablet) 100 mg PO BEDTIME [facility] Last Admin: 06/01/23 19:52 Dose: 100 mg Sodium Chloride (Sodium Chloride 0.65 % Nasal 44 Ml Sprbtl) 1 spray NOSTRIL-B Q1H PRN PRN Reason: Nasal Congestion Allergies Allergies Allergy/AdvReac Type Severity Reaction Status Date / Time azithromycin Allergy Fever Verified 05/26/23 12:09 lamotrigine [From Lamictal] AdvReac Fever Verified 05/26/23 12:09 trazodone AdvReac Restless Verified 05/26/23 12:09 legs geodon AdvReac Severe spasm, Uncoded 05/26/23 12:09 headache, fever Assessment & Plan Assessment & Plan (1) PTSD (post-traumatic stress disorder): Status: Acute Code(s): F43.10 - Post-traumatic stress disorder, unspecified (2) Bipolar disorder: Status: Acute Code(s): F31.9 - Bipolar disorder, unspecified (3) Opioid use disorder: Status: Acute Code(s): F11.90 - Opioid use, unspecified, uncomplicated (4) Polysubstance use disorder: Status: Acute Code(s): F19.90 - Other psychoactive substance use, unspecified, uncomplicated (5) Suicidal ideation: Status: Acute Code(s): R45.851 - Suicidal ideations Plan 05/31/23: Abilify 5 mg a.m Atorvastatin 10 mg HS Pt asks that we consider a [facility] referral for ongoing support in community 06/01/23: Positive and symptomatic for Haemophilus Influenzae- Mucinex/Robitussin/Cough Drops ordered Appearing overmedicated to team-decrease Gabapentin to 600 mg tid decrease Seroquel to 100 mg hs discontinue Ability 06/02/23: Increase Gabapentin to 800 mg tid Increase Seroquel to 200 mg hs Patient educated on: medication risk/benefits and therapeutic strategies Informed Consent: understands Reason for continued inpatient stay Substantial Risk for: rapid decompensation Time Spent With Patient Time: Total time managing care of this patient today ____ minutes.
[2023-06-02] MEDS: QUEtiapine Fumarate 50 MG TABLET PO ×2 (13:22→17:58)
[2023-06-02 16:44] VITALS: BP 123/74; PULSE 82; RESP 16; TEMP 36.8; O2SAT 97
[2023-06-02] MEDS: Acetaminophen 325 MG TABLET 650 MG PO (17:02)
[2023-06-02] MEDS: Gabapentin 400 MG CAPSULE 800 MG PO (20:00)
[2023-06-02] MEDS: Atorvastatin Calcium 10 MG TABLET PO (20:01)
[2023-06-02] MEDS: QUEtiapine Fumarate 200 MG TABLET PO (20:01)
[2023-06-02] MEDS: Mirtazapine 7.5 MG TABLET PO (20:02)
[2023-06-02] MEDS: Prazosin HCL 1 MG CAPSULE 3 MG PO (20:02)
[2023-06-03] MEDS: Levothyroxine Sodium 50 MCG TABLET PO (05:42)
[2023-06-03] MEDS: Throat Lozenge, Medicated LOZENGE 1 LOZENGE MUCOUS MEM (05:45)
[2023-06-03] MEDS: Omeprazole 20 MG CAPSULE.DR PO ×2 (05:51→18:07)
[2023-06-03 07:46] VITALS: BP 122/77; PULSE 79; RESP 18; TEMP 36.2; O2SAT 96
[2023-06-03] MEDS: buPROPion HCl XL 150 MG TAB.ER.24H 450 MG PO (08:38)
[2023-06-03] MEDS: methADONE HCl 20 MG/2 ML ORAL.CONC 140 MG PO (08:39)
[2023-06-03] MEDS: clonazePAM 0.5 MG TABLET PO ×3 (08:39→20:07)
[2023-06-03] MEDS: Gabapentin 400 MG CAPSULE 800 MG PO ×3 (08:39→20:41)
[2023-06-03] MEDS: cephALEXin 250 MG CAPSULE PO ×2 (09:23→20:07)
[2023-06-03] MEDS: cloNIDine HCL 0.1 MG TABLET PO (12:19)
[2023-06-03] MEDS: hydrOXYzine HCL 25 MG TABLET PO (12:19)
[2023-06-03 12:20] VITALS: BP 145/91; PULSE 93
[2023-06-03] MEDS: Milk of Magnesia 30 ML ORAL.SUSP PO (14:35)
[2023-06-03] MEDS: Magnesium Hydrox/Alum Hydrox 30 ML ORAL.SUSP PO (14:35)
[2023-06-03] MEDS: Docusate Sodium 100 MG CAPSULE PO (14:35)
[2023-06-03] MEDS: bisacodyL 5 MG TABLET.DR 10 MG PO (15:35)
[2023-06-03 16:52] VITALS: BP 114/80; PULSE 84; RESP 18; TEMP 36.7; O2SAT 94
[2023-06-03] MEDS: Promethazine HCL 25 MG TABLET PO (16:55)
--- NOTE | 2023-06-03 19:31 | P.PNPSI_ITS ---
Subjective Subjective Date of Service: 06/03/23 Reason For Visit: PTSD Bipolar Disorder Opiate use Disorder Methadon Subjective Notes: Conditional Voluntary Interim History: Continues with depressive sx and suicidal thoughts. Discussed Vraylar, a trial we did a few admits ago. Pt found it helpful, as a result, we will restart. Review of sputum culture results with pt. Will do a PCN trial beginning 06/04 as pt is on a another abx at this time. She agrees. Currently not future oriented, without goals- to be just I guess Medication Compliance: Yes Side effects from medications: No Attending Groups: Yes Review of Systems Acute medical concerns: No Medical Review of Systems: unchanged Review of Systems Review of Systems Yes all other systems are reviewed and are negative Mental Status Exam Mental Status Exam Patient Appearance: Fatigued Patient Orientation: Person, Place, Time and Situation Level of Consciousness: Alert Patient Behavior: Talkative, Cooperative, Passive, Anxious, Fatigued, Distractible, Isolative, Crying and Poor Eye Contact Mood Description: Depressed Affect Description: Flat Patient Cognition Impaired: No Ability to Follow Directions: Good Speech Pattern: Spontaneous Speech Memory Description: Intact Hallucinations: None Delusions: Not Present Perceptual Disturbances: Depersonalization and Derealization Thought Process: Rumination Thought Content: positive for Circumstantial, positive for Perseveration, positive for Poverty of Content, positive for Slowed Thinking and positive for Suicidal Ideation Depressive Symptoms: Insomnia, Difficulty Sleeping, Changes in Appetite, Crying Spells, Loss of Int. in Activity, Feelings of Worthlessness, Hopelessness, Isolating-Friends/Family, Unhappiness, Increased Fatigue, Thoughts of /Suicide, Low Self Esteem, Loss of Energy and Difficulty Concentrating Judgement: Fair Diagnostics Vital Signs (24Hr): Vital Signs - 24 hr 06/03/23 07:46 06/03/23 12:20 06/03/23 16:52 Temperature 97.2 F 98.1 F Pulse Rate 79 93 84 Respiratory Rate 18 18 Blood Pressure 122/77 145/91 H 114/80 Pulse Oximetry 96 94 Oxygen Delivery Method Room Air Room Air BMI result Body Mass Index 25.1 Labs 05/26/23 12:52 05/31/23 09:10 Imaging Radiology Impressions: ITS Impressions Chest X-Ray 05/30/23 13:36 IMPRESSION: Clear lungs. Knee X-Ray 05/30/23 13:36 IMPRESSION: No acute abnormality. No significant arthritic changes. Medications Medications Current Medications Acetaminophen (Acetaminophen 325 Mg Tablet) 650 mg PO Q6H PRN PRN Reason: Headache/Pain Mild Scale (1-3) Last Admin: 06/02/23 17:02 Dose: 650 mg Al Hydroxide/Mg Hydroxide (Magnesium Hydrox/Alum Hydrox 30 Ml Oral.Susp) 30 ml PO Q6H PRN PRN Reason: Heartburn/Nausea Last Admin: 06/03/23 14:35 Dose: 30 ml Atorvastatin Calcium (Atorvastatin Calcium 10 Mg Tablet) 10 mg PO BEDTIME [facility] Last Admin: 06/02/23 20:01 Dose: 10 mg Benzocaine (Throat Lozenge, Medicated Lozenge) 1 lozenge MUCOUS MEM Q2H PRN PRN Reason: Sore Throat Last Admin: 06/03/23 05:45 Dose: 1 lozenge Bisacodyl (Bisacodyl 5 Mg Tablet.Dr) 10 mg PO DAILY PRN PRN Reason: Constipation Last Admin: 06/03/23 15:35 Dose: 10 mg Bupropion HCl (Bupropion Hcl Xl 150 Mg Tab.Er.24h) 450 mg PO DAILY [facility] Last Admin: 06/03/23 08:38 Dose: 450 mg Cariprazine (Cariprazine Hcl 1.5 Mg Capsule) 1.5 mg PO DAILY [facility] Cephalexin HCl (Cephalexin 250 Mg Capsule) 250 mg PO BID [facility] Last Admin: 06/03/23 09:23 Dose: 250 mg Clonazepam (Clonazepam 0.5 Mg Tablet) 0.5 mg PO RQ6H WHILE AWAKE [facility] Last Admin: 06/03/23 14:06 Dose: 0.5 mg Clonidine HCl (Clonidine Hcl 0.1 Mg Tablet) 0.1 mg PO BID PRN; Protocol PRN Reason: Anxiety Last Admin: 06/03/23 12:19 Dose: 0.1 mg Docusate Sodium (Docusate Sodium 100 Mg Capsule) 100 mg PO BID PRN PRN Reason: Constipation Last Admin: 06/03/23 14:35 Dose: 100 mg Gabapentin (Gabapentin 400 Mg Capsule) 800 mg PO TID [facility] Last Admin: 06/03/23 14:04 Dose: 800 mg Guaifenesin (Guaifenesin 100 Mg/5 Ml Liquid) 5 ml PO Q6H PRN PRN Reason: Cough Last Admin: 06/01/23 12:00 Dose: 5 ml Guaifenesin/Dextromethorphan (Guaifenesin Dm 600/30 1 Tab Tab.Er.12h) 1 tab PO BID PRN PRN Reason: Congestion Last Admin: 06/01/23 12:01 Dose: 1 tab Hydroxyzine HCl (Hydroxyzine Hcl 25 Mg Tablet) 25 mg PO Q6H PRN PRN Reason: Anxiety Last Admin: 06/03/23 12:19 Dose: 25 mg Levothyroxine Sodium (Levothyroxine Sodium 50 Mcg Tablet) 50 mcg PO DAILY@0600 [facility] Last Admin: 06/03/23 05:42 Dose: 50 mcg Magnesium Hydroxide (Milk Of Magnesia 30 Ml Oral.Susp) 30 ml PO DAILY PRN PRN Reason: Constipation Last Admin: 06/03/23 14:35 Dose: 30 ml Methadone HCl (Methadone Hcl 20 Mg/2 Ml Oral.Conc) 140 mg PO DAILY [facility] Last Admin: 06/03/23 08:39 Dose: 140 mg Mirtazapine (Mirtazapine 7.5 Mg Tablet) 7.5 mg PO BEDTIME [facility] Last Admin: 06/02/23 20:02 Dose: 7.5 mg Nicotine (Nicotine 21 Mg Patch.Td24) 21 mg TRANSDERMA DAILY [facility] Last Admin: 06/03/23 08:41 Dose: Not Given Nicotine Polacrilex (Nicotine Polacrilex 2 Mg Gum) 4 mg BUCCAL Q2H PRN PRN Reason: Nicotine Cravings Last Admin: 05/31/23 14:36 Dose: 4 mg Omeprazole (Omeprazole 20 Mg Capsule.Dr) 20 mg PO BID@0630,1630 [facility] Last Admin: 06/03/23 18:07 Dose: 20 mg Prazosin HCl (Prazosin Hcl 1 Mg Capsule) 3 mg PO BEDTIME [facility]; Protocol Last Admin: 06/02/23 20:02 Dose: 3 mg Quetiapine Fumarate (Quetiapine Fumarate 50 Mg Tablet) 50 mg PO TID PRN PRN Reason: anxiety Last Admin: 06/02/23 17:58 Dose: 50 mg Quetiapine Fumarate (Quetiapine Fumarate 200 Mg Tablet) 200 mg PO BEDTIME [facility] Last Admin: 06/02/23 20:01 Dose: 200 mg Sodium Chloride (Sodium Chloride 0.65 % Nasal 44 Ml Sprbtl) 1 spray NOSTRIL-B Q1H PRN PRN Reason: Nasal Congestion Allergies Allergies Allergy/AdvReac Type Severity Reaction Status Date / Time azithromycin Allergy Fever Verified 05/26/23 12:09 lamotrigine [From Lamictal] AdvReac Fever Verified 05/26/23 12:09 trazodone AdvReac Restless Verified 05/26/23 12:09 legs geodon AdvReac Severe spasm, Uncoded 05/26/23 12:09 headache, fever Assessment & Plan Assessment & Plan (1) PTSD (post-traumatic stress disorder): Status: Acute Code(s): F43.10 - Post-traumatic stress disorder, unspecified (2) Bipolar disorder: Status: Acute Code(s): F31.9 - Bipolar disorder, unspecified (3) Opioid use disorder: Status: Acute Code(s): F11.90 - Opioid use, unspecified, uncomplicated (4) Polysubstance use disorder: Status: Acute Code(s): F19.90 - Other psychoactive substance use, unspecified, uncomplicated (5) Suicidal ideation: Status: Acute Code(s): R45.851 - Suicidal ideations Plan 05/31/23: Abilify 5 mg a.m Atorvastatin 10 mg HS Pt asks that we consider a [facility] referral for ongoing support in community 06/01/23: Positive and symptomatic for Haemophilus Influenzae- Mucinex/Robitussin/Cough Drops ordered Appearing overmedicated to team-decrease Gabapentin to 600 mg tid decrease Seroquel to 100 mg hs discontinue Ability 06/02/23: Increase Gabapentin to 800 mg tid Increase Seroquel to 200 mg hs 06/03/23: PCN to begin 06/04 to address sputum culture results-pt concurs. Informed Consent: understands Reason for continued inpatient stay Substantial Risk for: rapid decompensation Time Spent With Patient Time: Total time managing care of this patient today ____ minutes.
[2023-06-03] MEDS: Mirtazapine 7.5 MG TABLET PO (20:07)
[2023-06-03] MEDS: Prazosin HCL 1 MG CAPSULE 3 MG PO (20:07)
[2023-06-03] MEDS: Atorvastatin Calcium 10 MG TABLET PO (20:07)
[2023-06-03] MEDS: QUEtiapine Fumarate 200 MG TABLET PO (20:07)
[2023-06-04] MEDS: hydrOXYzine HCL 25 MG TABLET PO ×2 (05:30→17:10)
[2023-06-04] MEDS: Levothyroxine Sodium 50 MCG TABLET PO (05:30)
[2023-06-04] MEDS: Omeprazole 20 MG CAPSULE.DR PO ×2 (05:30→17:06)
[2023-06-04] MEDS: QUEtiapine Fumarate 50 MG TABLET PO ×3 (05:30→22:40)
[2023-06-04 08:00] VITALS: BP 110/73; RESP 18; TEMP 36.7; O2SAT 97
[2023-06-04] MEDS: Cariprazine HCl 1.5 MG CAPSULE PO (09:00)
[2023-06-04] MEDS: Gabapentin 400 MG CAPSULE 800 MG PO ×3 (09:00→20:09)
[2023-06-04] MEDS: cephALEXin 250 MG CAPSULE PO ×2 (09:00→20:09)
[2023-06-04] MEDS: clonazePAM 0.5 MG TABLET PO ×3 (09:00→20:08)
[2023-06-04] MEDS: methADONE HCl 20 MG/2 ML ORAL.CONC 140 MG PO (09:01)
[2023-06-04] MEDS: buPROPion HCl XL 150 MG TAB.ER.24H 450 MG PO (09:01)
--- NOTE | 2023-06-04 09:57 | HO.PSYCHPN ---
Subjective Subjective Date of Service: 06/04/23 Reason For Visit: PTSD Bipolar Disorder Opiate use Disorder Methadon Interim History: Met with patient; discussed with team; reviewed chart pt says she is doing real bad... says she does not want to live anymore and says i'm done... -was recently started on Vryalar and so does not think ready for increase yet -c/o left knee pain which she says has been hurting for about a month; reviewed xray with her Mental Status Exam Mental Status Exam Patient Appearance: Fatigued Patient Orientation: Person, Place, Time and Situation Level of Consciousness: Alert Patient Behavior: Talkative, Cooperative, Passive, Anxious, Fatigued, Distractible, Isolative, Crying and Poor Eye Contact Mood Description: Depressed Affect Description: Flat Patient Cognition Impaired: No Ability to Follow Directions: Good Speech Pattern: Spontaneous Speech Memory Description: Intact Hallucinations: None Delusions: Not Present Perceptual Disturbances: Depersonalization and Derealization Thought Process: Rumination Thought Content: positive for Circumstantial, positive for Perseveration, positive for Poverty of Content, positive for Slowed Thinking and positive for Suicidal Ideation Depressive Symptoms: Insomnia, Difficulty Sleeping, Changes in Appetite, Crying Spells, Loss of Int. in Activity, Feelings of Worthlessness, Hopelessness, Isolating-Friends/Family, Unhappiness, Increased Fatigue, Thoughts of /Suicide, Low Self Esteem, Loss of Energy and Difficulty Concentrating Abnormal Motor Activity Signs and Symptoms: Psychomotor Retardation Judgement and Insight: impaired Diagnostics Vital Signs (24Hr): Vital Signs - 24 hr 06/03/23 12:20 06/03/23 16:52 Temperature 98.1 F Pulse Rate 93 84 Respiratory Rate 18 Blood Pressure 145/91 H 114/80 Pulse Oximetry 94 Oxygen Delivery Method Room Air BMI result Body Mass Index 25.1 Labs 05/26/23 12:52 05/31/23 09:10 Imaging Radiology Impressions: ITS Impressions Chest X-Ray 05/30/23 13:36 IMPRESSION: Clear lungs. Knee X-Ray 05/30/23 13:36 IMPRESSION: No acute abnormality. No significant arthritic changes. Medications Medications Current Medications Acetaminophen (Acetaminophen 325 Mg Tablet) 650 mg PO Q6H PRN PRN Reason: Headache/Pain Mild Scale (1-3) Last Admin: 06/02/23 17:02 Dose: 650 mg Al Hydroxide/Mg Hydroxide (Magnesium Hydrox/Alum Hydrox 30 Ml Oral.Susp) 30 ml PO Q6H PRN PRN Reason: Heartburn/Nausea Last Admin: 06/03/23 14:35 Dose: 30 ml Atorvastatin Calcium (Atorvastatin Calcium 10 Mg Tablet) 10 mg PO BEDTIME [facility] Last Admin: 06/03/23 20:07 Dose: 10 mg Benzocaine (Throat Lozenge, Medicated Lozenge) 1 lozenge MUCOUS MEM Q2H PRN PRN Reason: Sore Throat Last Admin: 06/03/23 05:45 Dose: 1 lozenge Bisacodyl (Bisacodyl 5 Mg Tablet.Dr) 10 mg PO DAILY PRN PRN Reason: Constipation Last Admin: 06/03/23 15:35 Dose: 10 mg Bupropion HCl (Bupropion Hcl Xl 150 Mg Tab.Er.24h) 450 mg PO DAILY [facility] Last Admin: 06/04/23 09:01 Dose: 450 mg Cariprazine (Cariprazine Hcl 1.5 Mg Capsule) 1.5 mg PO DAILY [facility] Last Admin: 06/04/23 09:00 Dose: 1.5 mg Cephalexin HCl (Cephalexin 250 Mg Capsule) 250 mg PO BID [facility] Last Admin: 06/04/23 09:00 Dose: 250 mg Clonazepam (Clonazepam 0.5 Mg Tablet) 0.5 mg PO RQ6H WHILE AWAKE [facility] Last Admin: 06/04/23 09:00 Dose: 0.5 mg Clonidine HCl (Clonidine Hcl 0.1 Mg Tablet) 0.1 mg PO BID PRN; Protocol PRN Reason: Anxiety Last Admin: 06/03/23 12:19 Dose: 0.1 mg Docusate Sodium (Docusate Sodium 100 Mg Capsule) 100 mg PO BID PRN PRN Reason: Constipation Last Admin: 06/03/23 14:35 Dose: 100 mg Gabapentin (Gabapentin 400 Mg Capsule) 800 mg PO TID [facility] Last Admin: 06/04/23 09:00 Dose: 800 mg Guaifenesin (Guaifenesin 100 Mg/5 Ml Liquid) 5 ml PO Q6H PRN PRN Reason: Cough Last Admin: 06/01/23 12:00 Dose: 5 ml Guaifenesin/Dextromethorphan (Guaifenesin Dm 600/30 1 Tab Tab.Er.12h) 1 tab PO BID PRN PRN Reason: Congestion Last Admin: 06/01/23 12:01 Dose: 1 tab Hydroxyzine HCl (Hydroxyzine Hcl 25 Mg Tablet) 25 mg PO Q6H PRN PRN Reason: Anxiety Last Admin: 06/04/23 05:30 Dose: 25 mg Levothyroxine Sodium (Levothyroxine Sodium 50 Mcg Tablet) 50 mcg PO DAILY@0600 [facility] Last Admin: 06/04/23 05:30 Dose: 50 mcg Magnesium Hydroxide (Milk Of Magnesia 30 Ml Oral.Susp) 30 ml PO DAILY PRN PRN Reason: Constipation Last Admin: 06/03/23 14:35 Dose: 30 ml Methadone HCl (Methadone Hcl 20 Mg/2 Ml Oral.Conc) 140 mg PO DAILY [facility] Last Admin: 06/04/23 09:01 Dose: 140 mg Mirtazapine (Mirtazapine 7.5 Mg Tablet) 7.5 mg PO BEDTIME [facility] Last Admin: 06/03/23 20:07 Dose: 7.5 mg Nicotine (Nicotine 21 Mg Patch.Td24) 21 mg TRANSDERMA DAILY [facility] Last Admin: 06/03/23 08:41 Dose: Not Given Nicotine Polacrilex (Nicotine Polacrilex 2 Mg Gum) 4 mg BUCCAL Q2H PRN PRN Reason: Nicotine Cravings Last Admin: 05/31/23 14:36 Dose: 4 mg Omeprazole (Omeprazole 20 Mg Capsule.Dr) 20 mg PO BID@0630,1630 [facility] Last Admin: 06/04/23 05:30 Dose: 20 mg Prazosin HCl (Prazosin Hcl 1 Mg Capsule) 3 mg PO BEDTIME [facility]; Protocol Last Admin: 06/03/23 20:07 Dose: 3 mg Quetiapine Fumarate (Quetiapine Fumarate 50 Mg Tablet) 50 mg PO TID PRN PRN Reason: anxiety Last Admin: 06/04/23 05:30 Dose: 50 mg Quetiapine Fumarate (Quetiapine Fumarate 200 Mg Tablet) 200 mg PO BEDTIME [facility] Last Admin: 06/03/23 20:07 Dose: 200 mg Sodium Chloride (Sodium Chloride 0.65 % Nasal 44 Ml Sprbtl) 1 spray NOSTRIL-B Q1H PRN PRN Reason: Nasal Congestion Allergies Allergies Allergy/AdvReac Type Severity Reaction Status Date / Time azithromycin Allergy Fever Verified 05/26/23 12:09 lamotrigine [From Lamictal] AdvReac Fever Verified 05/26/23 12:09 trazodone AdvReac Restless Verified 05/26/23 12:09 legs geodon AdvReac Severe spasm, Uncoded 05/26/23 12:09 headache, fever Assessment & Plan Assessment & Plan (1) PTSD (post-traumatic stress disorder): Status: Acute Code(s): F43.10 - Post-traumatic stress disorder, unspecified (2) Bipolar disorder: Status: Acute Code(s): F31.9 - Bipolar disorder, unspecified (3) Opioid use disorder: Status: Acute Code(s): F11.90 - Opioid use, unspecified, uncomplicated (4) Polysubstance use disorder: Status: Acute Code(s): F19.90 - Other psychoactive substance use, unspecified, uncomplicated (5) Suicidal ideation: Status: Acute Code(s): R45.851 - Suicidal ideations Plan 05/31/23: Abilify 5 mg a.m Atorvastatin 10 mg HS Pt asks that we consider a [facility] referral for ongoing support in community 06/01/23: Positive and symptomatic for Haemophilus Influenzae- Mucinex/Robitussin/Cough Drops ordered Appearing overmedicated to team-decrease Gabapentin to 600 mg tid decrease Seroquel to 100 mg hs discontinue Ability 06/02/23: Increase Gabapentin to 800 mg tid Increase Seroquel to 200 mg hs 06/04 continue current tx plan Patient educated on: diagnosis and medication risk/benefits Informed Consent: understands Reason for continued inpatient stay Substantial Risk for: harm to self and rapid decompensation Time Spent With Patient Time: Total time managing care of this patient today ____ minutes.
[2023-06-04 12:19] VITALS: BP 112/79; PULSE 86; RESP 18
[2023-06-04] MEDS: Penicillin V Potassium 250 MG TABLET 500 MG PO ×3 (12:20→22:36)
[2023-06-04] MEDS: bisacodyL 5 MG TABLET.DR 10 MG PO (12:20)
[2023-06-04] MEDS: cloNIDine HCL 0.1 MG TABLET PO (12:20)
[2023-06-04] MEDS: polyethylene glycoL 3350 17 GM POWD.PACK PO (12:29)
[2023-06-04] MEDS: Throat Lozenge, Medicated LOZENGE 1 LOZENGE MUCOUS MEM (18:46)
[2023-06-04 20:05] VITALS: BP 116/72; PULSE 91; RESP 16; TEMP 36.7; O2SAT 96
[2023-06-04] MEDS: Prazosin HCL 1 MG CAPSULE 3 MG PO (20:09)
[2023-06-04] MEDS: QUEtiapine Fumarate 200 MG TABLET PO (20:09)
[2023-06-04] MEDS: Mirtazapine 7.5 MG TABLET PO (20:09)
[2023-06-04] MEDS: Atorvastatin Calcium 10 MG TABLET PO (20:09)
[2023-06-05] MEDS: Levothyroxine Sodium 50 MCG TABLET PO (05:50)
[2023-06-05] MEDS: Penicillin V Potassium 250 MG TABLET 500 MG PO ×3 (05:50→16:13)
[2023-06-05] MEDS: Omeprazole 20 MG CAPSULE.DR PO ×2 (05:50→16:14)
[2023-06-05 09:00] VITALS: BP 117/69; PULSE 89; RESP 18; TEMP 36.6; O2SAT 97
[2023-06-05] MEDS: Cariprazine HCl 1.5 MG CAPSULE PO (09:32)
[2023-06-05] MEDS: buPROPion HCl XL 150 MG TAB.ER.24H 450 MG PO (09:32)
[2023-06-05] MEDS: clonazePAM 0.5 MG TABLET PO ×3 (09:33→20:03)
[2023-06-05] MEDS: cephALEXin 250 MG CAPSULE PO ×2 (09:33→20:03)
[2023-06-05] MEDS: Gabapentin 400 MG CAPSULE 800 MG PO ×3 (09:33→20:03)
[2023-06-05] MEDS: methADONE HCl 20 MG/2 ML ORAL.CONC 140 MG PO (09:34)
[2023-06-05] MEDS: QUEtiapine Fumarate 50 MG TABLET PO (16:14)
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
[2023-06-05 18:00] VITALS: BP 120/97; PULSE 91; RESP 16; TEMP 36.8; O2SAT 96
--- NOTE | 2023-06-05 18:08 | PM.EVENT ---
Event Note Date of Service: 06/05/23 Event Note: Pt with conjunctival injection and sticky purulent drainage from L eye since this morning. Pt reports crusting of the eye upon waking. R eye is unaffected. Denies blurred vision. No eye pain. Not a contact lens wearer. Exam reveals conjunctival injection L eye without any observed purulent drainage. Prescribed corticosporin drops q3h while awake x 1 week for L eye. Treat R if becomes symptomatic. Advised to wash hands frequently and avoid touching the eye. Time Spent With Patient Time: Total time managing care of this patient today ____ minutes.
[2023-06-05] MEDS: Prazosin HCL 1 MG CAPSULE 3 MG PO (20:03)
[2023-06-05] MEDS: Atorvastatin Calcium 10 MG TABLET PO (20:03)
[2023-06-05] MEDS: QUEtiapine Fumarate 200 MG TABLET PO (20:03)
[2023-06-05] MEDS: Mirtazapine 15 MG TABLET PO (20:04)
[2023-06-06] MEDS: Penicillin V Potassium 250 MG TABLET 500 MG PO ×4 (00:43→16:18)
[2023-06-06] MEDS: QUEtiapine Fumarate 50 MG TABLET PO ×3 (00:43→18:37)
[2023-06-06] MEDS: Levothyroxine Sodium 50 MCG TABLET PO (06:08)
[2023-06-06] MEDS: Omeprazole 20 MG CAPSULE.DR PO ×2 (06:08→16:18)
[2023-06-06] MEDS: methADONE HCl 20 MG/2 ML ORAL.CONC 140 MG PO (09:06)
[2023-06-06] MEDS: Gabapentin 400 MG CAPSULE 800 MG PO ×3 (09:06→20:13)
[2023-06-06] MEDS: buPROPion HCl XL 300 MG TAB.ER.24H PO (09:06)
[2023-06-06] MEDS: clonazePAM 0.5 MG TABLET PO ×3 (09:07→20:14)
[2023-06-06] MEDS: cephALEXin 250 MG CAPSULE PO (09:07)
[2023-06-06] MEDS: Cariprazine HCl 1.5 MG CAPSULE PO (09:07)
[2023-06-06 09:10] VITALS: BP 121/83; PULSE 84; RESP 16; TEMP 36.4; O2SAT 94
--- NOTE | 2023-06-06 09:59 | HO.PSYCHPN ---
Subjective Subjective Date of Service: 06/06/23 Reason For Visit: PTSD Bipolar Disorder Opiate use Disorder Methadon Interim History: met with patient; discussed with team Patient reports that her mood is getting little better though she still struggles with depression and hopelessness. Patient shared about the challenges of remaining sober; the challenges of dealing with her impulsivity and emotional reactivity. Patient had a bout of hopelessness today and started superficially scratching her arm (very minimally so), which she showed rewriter. She says she is done with that now. She also said she could probably start journaling instead of scratching her arm which she agrees is a better coping skill. Still struggles with staying asleep and patient agreed to increase frequency of clonidine made available. dx pink eye, started on abx Mental Status Exam Mental Status Exam Patient Appearance: Appropriate Patient Orientation: Person, Place, Time and Situation Level of Consciousness: Alert Patient Behavior: Talkative, Cooperative, Anxious, Distractible and Good Eye Contact Behavior Comments: Briefly engaged in superficial self-harm Mood Description: Depressed (Though little better) and Anxious Affect Description: Anxious Patient Cognition Impaired: No Ability to Follow Directions: Good Speech Pattern: Spontaneous Speech Memory Description: Intact Hallucinations: None Delusions: Not Present Perceptual Disturbances: Depersonalization and Derealization Thought Process: Rumination Thought Content: positive for Intact (On trying to stay sober; no SI/HI) Depressive Symptoms: Insomnia, Difficulty Sleeping, Changes in Appetite, Crying Spells, Loss of Int. in Activity, Feelings of Worthlessness, Hopelessness, Isolating-Friends/Family, Unhappiness, Increased Fatigue, Thoughts of /Suicide, Low Self Esteem, Loss of Energy and Difficulty Concentrating Abnormal Motor Activity Signs and Symptoms: Psychomotor Retardation Judgement and Insight: impaired but improving Diagnostics Vital Signs (24Hr): Vital Signs - 24 hr 06/05/23 18:00 06/06/23 09:10 Temperature 98.2 F 97.5 F Pulse Rate 91 84 Respiratory Rate 16 16 Blood Pressure 120/97 H 121/83 Pulse Oximetry 96 94 Oxygen Delivery Method Room Air Room Air BMI result Body Mass Index 25.1 Labs 05/26/23 12:52 05/31/23 09:10 Imaging Radiology Impressions: ITS Impressions Chest X-Ray 05/30/23 13:36 IMPRESSION: Clear lungs. Knee X-Ray 05/30/23 13:36 IMPRESSION: No acute abnormality. No significant arthritic changes. Medications Medications Current Medications Acetaminophen (Acetaminophen 325 Mg Tablet) 650 mg PO Q6H PRN PRN Reason: Headache/Pain Mild Scale (1-3) Last Admin: 06/02/23 17:02 Dose: 650 mg Al Hydroxide/Mg Hydroxide (Magnesium Hydrox/Alum Hydrox 30 Ml Oral.Susp) 30 ml PO Q6H PRN PRN Reason: Heartburn/Nausea Last Admin: 06/03/23 14:35 Dose: 30 ml Atorvastatin Calcium (Atorvastatin Calcium 10 Mg Tablet) 10 mg PO BEDTIME [facility] Last Admin: 06/05/23 20:03 Dose: 10 mg Benzocaine (Throat Lozenge, Medicated Lozenge) 1 lozenge MUCOUS MEM Q2H PRN PRN Reason: Sore Throat Last Admin: 06/04/23 18:46 Dose: 1 lozenge Bisacodyl (Bisacodyl 5 Mg Tablet.Dr) 10 mg PO DAILY PRN PRN Reason: Constipation Last Admin: 06/04/23 12:20 Dose: 10 mg Bupropion HCl (Bupropion Hcl Xl 300 Mg Tab.Er.24h) 300 mg PO DAILY [facility] Last Admin: 06/06/23 09:06 Dose: 300 mg Cariprazine (Cariprazine Hcl 1.5 Mg Capsule) 1.5 mg PO DAILY [facility] Last Admin: 06/06/23 09:07 Dose: 1.5 mg Clonazepam (Clonazepam 0.5 Mg Tablet) 0.5 mg PO RQ6H WHILE AWAKE [facility] Last Admin: 06/06/23 09:07 Dose: 0.5 mg Clonidine HCl (Clonidine Hcl 0.1 Mg Tablet) 0.1 mg PO BID PRN; Protocol PRN Reason: Anxiety Last Admin: 06/04/23 12:20 Dose: 0.1 mg Docusate Sodium (Docusate Sodium 100 Mg Capsule) 100 mg PO BID PRN PRN Reason: Constipation Last Admin: 06/03/23 14:35 Dose: 100 mg Gabapentin (Gabapentin 400 Mg Capsule) 800 mg PO TID [facility] Last Admin: 06/06/23 09:06 Dose: 800 mg Guaifenesin (Guaifenesin 100 Mg/5 Ml Liquid) 5 ml PO Q6H PRN PRN Reason: Cough Last Admin: 06/01/23 12:00 Dose: 5 ml Guaifenesin/Dextromethorphan (Guaifenesin Dm 600/30 1 Tab Tab.Er.12h) 1 tab PO BID PRN PRN Reason: Congestion Last Admin: 06/01/23 12:01 Dose: 1 tab Hydroxyzine HCl (Hydroxyzine Hcl 25 Mg Tablet) 25 mg PO Q6H PRN PRN Reason: Anxiety Last Admin: 06/04/23 17:10 Dose: 25 mg Levothyroxine Sodium (Levothyroxine Sodium 50 Mcg Tablet) 50 mcg PO DAILY@0600 [facility] Last Admin: 06/06/23 06:08 Dose: 50 mcg Magnesium Hydroxide (Milk Of Magnesia 30 Ml Oral.Susp) 30 ml PO DAILY PRN PRN Reason: Constipation Last Admin: 06/03/23 14:35 Dose: 30 ml Methadone HCl (Methadone Hcl 20 Mg/2 Ml Oral.Conc) 140 mg PO DAILY [facility] Last Admin: 06/06/23 09:06 Dose: 140 mg Mirtazapine (Mirtazapine 15 Mg Tablet) 15 mg PO BEDTIME [facility] Last Admin: 06/05/23 20:04 Dose: 15 mg Neomycin/Polymyxin/Hydrocortisone (Neomycin/Polymyxin/Hc Oph Susp 7.5 Ml Bottle) 1 drop EYE-LEFT Q3H [facility] Last Admin: 06/06/23 09:50 Dose: 1 drop Nicotine (Nicotine 21 Mg Patch.Td24) 21 mg TRANSDERMA DAILY [facility] Last Admin: 06/06/23 09:51 Dose: Not Given Nicotine Polacrilex (Nicotine Polacrilex 2 Mg Gum) 4 mg BUCCAL Q2H PRN PRN Reason: Nicotine Cravings Last Admin: 05/31/23 14:36 Dose: 4 mg Omeprazole (Omeprazole 20 Mg Capsule.Dr) 20 mg PO BID@0630,1630 [facility] Last Admin: 06/06/23 06:08 Dose: 20 mg Penicillin V Potassium (Penicillin V Potassium 250 Mg Tablet) 500 mg PO Q6H [facility] Stop: 06/10/23 09:00 Last Admin: 06/06/23 06:07 Dose: 500 mg Polyethylene Glycol (Polyethylene Glycol 3350 17 Gm Powd.Pack) 17 gm PO DAILY [facility] Last Admin: 06/06/23 09:50 Dose: Not Given Prazosin HCl (Prazosin Hcl 1 Mg Capsule) 3 mg PO BEDTIME [facility]; Protocol Last Admin: 06/05/23 20:03 Dose: 3 mg Quetiapine Fumarate (Quetiapine Fumarate 50 Mg Tablet) 50 mg PO TID PRN PRN Reason: anxiety Last Admin: 06/06/23 00:43 Dose: 50 mg Quetiapine Fumarate (Quetiapine Fumarate 200 Mg Tablet) 200 mg PO BEDTIME [facility] Last Admin: 06/05/23 20:03 Dose: 200 mg Sodium Chloride (Sodium Chloride 0.65 % Nasal 44 Ml Sprbtl) 1 spray NOSTRIL-B Q1H PRN PRN Reason: Nasal Congestion Allergies Allergies Allergy/AdvReac Type Severity Reaction Status Date / Time azithromycin Allergy Fever Verified 05/26/23 12:09 lamotrigine [From Lamictal] AdvReac Fever Verified 05/26/23 12:09 trazodone AdvReac Restless Verified 05/26/23 12:09 legs geodon AdvReac Severe spasm, Uncoded 05/26/23 12:09 headache, fever Assessment & Plan Assessment & Plan (1) PTSD (post-traumatic stress disorder): Status: Acute Code(s): F43.10 - Post-traumatic stress disorder, unspecified (2) Bipolar disorder: Status: Acute Code(s): F31.9 - Bipolar disorder, unspecified (3) Opioid use disorder: Status: Acute Code(s): F11.90 - Opioid use, unspecified, uncomplicated (4) Polysubstance use disorder: Status: Acute Code(s): F19.90 - Other psychoactive substance use, unspecified, uncomplicated (5) Suicidal ideation: Status: Acute Code(s): R45.851 - Suicidal ideations Plan 05/31/23: Abilify 5 mg a.m Atorvastatin 10 mg HS Pt asks that we consider a [facility] referral for ongoing support in community 06/01/23: Positive and symptomatic for Haemophilus Influenzae- Mucinex/Robitussin/Cough Drops ordered Appearing overmedicated to team-decrease Gabapentin to 600 mg tid decrease Seroquel to 100 mg hs discontinue Ability 06/02/23: Increase Gabapentin to 800 mg tid Increase Seroquel to 200 mg hs 06/04 continue current tx plan 06/05 Decrease Wellbutrin to 300 mg XR a.m. Increase Remeron to 15 mg hs 06/06 Mood a little better; trying to be hopeful; brief superficial self-harm by scratching, minimally so and self resolved conjunctival injection L eye without any observed purulent drainage. -Started corticosporin drops q3h while awake x 1 week for L eye. Patient educated on: diagnosis, medication risk/benefits, substance abuse and therapeutic strategies Informed Consent: understands Reason for continued inpatient stay Substantial Risk for: rapid decompensation Time Spent With Patient Time: Total time managing care of this patient today ____ minutes.
[2023-06-06] MEDS: hydrOXYzine HCL 25 MG TABLET PO (11:25)
[2023-06-06] MEDS: cloNIDine HCL 0.1 MG TABLET PO (16:21)
[2023-06-06 16:48] VITALS: BP 113/76; PULSE 88; RESP 16; TEMP 37; O2SAT 96
[2023-06-06] MEDS: Atorvastatin Calcium 10 MG TABLET PO (20:13)
[2023-06-06] MEDS: Prazosin HCL 1 MG CAPSULE 3 MG PO (20:13)
[2023-06-06] MEDS: QUEtiapine Fumarate 200 MG TABLET PO (20:14)
[2023-06-06] MEDS: Mirtazapine 15 MG TABLET PO (20:14)
[2023-06-07] MEDS: Penicillin V Potassium 250 MG TABLET 500 MG PO ×5 (00:16→23:59)
[2023-06-07] MEDS: QUEtiapine Fumarate 50 MG TABLET PO (00:41)
[2023-06-07] MEDS: cloNIDine HCL 0.1 MG TABLET PO ×2 (00:41→13:12)
[2023-06-07] MEDS: Levothyroxine Sodium 50 MCG TABLET PO (05:38)
[2023-06-07] MEDS: Omeprazole 20 MG CAPSULE.DR PO ×2 (05:38→16:59)
[2023-06-07] MEDS: Cariprazine HCl 1.5 MG CAPSULE PO (08:36)
[2023-06-07] MEDS: methADONE HCl 20 MG/2 ML ORAL.CONC 140 MG PO (08:36)
[2023-06-07] MEDS: clonazePAM 0.5 MG TABLET PO ×3 (08:36→20:39)
[2023-06-07] MEDS: Gabapentin 400 MG CAPSULE 800 MG PO ×3 (08:36→20:39)
[2023-06-07] MEDS: buPROPion HCl XL 300 MG TAB.ER.24H PO (08:36)
[2023-06-07 08:58] VITALS: BP 93/55; PULSE 79; RESP 16; TEMP 37.1; O2SAT 92
[2023-06-07 13:14] VITALS: BP 120/74; PULSE 101
--- NOTE | 2023-06-07 15:19 | P.PNPSI_ITS ---
Subjective Subjective Date of Service: 06/07/23 Reason For Visit: PTSD Bipolar Disorder Opiate use Disorder Methadon Subjective Notes: Conditional Voluntary Healthcare Proxy: No Guardianship: No Medical Problems Affecting Mental Status: No Interim History: Reports depression-isolative, in her room a great deal. Today discussed TSS, [facility], self-care. Some SIBS to ground, discussed options for mgt Longer discussion about people who have hurt her and how to move forward with her goals, not in others shadows who have harmed her. Medication Compliance: Yes Side effects from medications: No Attending Groups: Intermittent Review of Systems Acute medical concerns: No Medical Review of Systems: unchanged Review of Systems Review of Systems Yes all other systems are reviewed and are negative Mental Status Exam Mental Status Exam Patient Appearance: Appropriate Patient Orientation: Person, Place, Time and Situation Level of Consciousness: Alert Patient Behavior: Talkative, Cooperative, Anxious, Distractible and Good Eye Contact Behavior Comments: Briefly engaged in superficial self-harm Mood Description: Depressed (Though little better) and Anxious Affect Description: Anxious Patient Cognition Impaired: No Ability to Follow Directions: Good Speech Pattern: Spontaneous Speech Memory Description: Intact Hallucinations: None Delusions: Not Present Perceptual Disturbances: Depersonalization and Derealization Thought Process: Rumination Thought Content: positive for Intact (On trying to stay sober; no SI/HI) Depressive Symptoms: Insomnia, Difficulty Sleeping, Changes in Appetite, Crying Spells, Loss of Int. in Activity, Feelings of Worthlessness, Hopelessness, Isolating-Friends/Family, Unhappiness, Increased Fatigue, Thoughts of /Suicide, Low Self Esteem, Loss of Energy and Difficulty Concentrating Abnormal Motor Activity Signs and Symptoms: Psychomotor Retardation Judgement and Insight: impaired but improving Diagnostics Vital Signs (24Hr): Vital Signs - 24 hr 06/06/23 16:48 06/07/23 08:58 06/07/23 13:14 Temperature 98.6 F 98.8 F Pulse Rate 88 79 101 H Respiratory Rate 16 16 Blood Pressure 113/76 93/55 L 120/74 Pulse Oximetry 96 92 Oxygen Delivery Method Room Air Room Air BMI result Body Mass Index 25.1 Labs 05/26/23 12:52 05/31/23 09:10 Imaging Radiology Impressions: ITS Impressions Chest X-Ray 05/30/23 13:36 IMPRESSION: Clear lungs. Knee X-Ray 05/30/23 13:36 IMPRESSION: No acute abnormality. No significant arthritic changes. Medications Medications Current Medications Acetaminophen (Acetaminophen 325 Mg Tablet) 650 mg PO Q6H PRN PRN Reason: Headache/Pain Mild Scale (1-3) Last Admin: 06/02/23 17:02 Dose: 650 mg Al Hydroxide/Mg Hydroxide (Magnesium Hydrox/Alum Hydrox 30 Ml Oral.Susp) 30 ml PO Q6H PRN PRN Reason: Heartburn/Nausea Last Admin: 06/03/23 14:35 Dose: 30 ml Atorvastatin Calcium (Atorvastatin Calcium 10 Mg Tablet) 10 mg PO BEDTIME [facility] Last Admin: 06/06/23 20:13 Dose: 10 mg Benzocaine (Throat Lozenge, Medicated Lozenge) 1 lozenge MUCOUS MEM Q2H PRN PRN Reason: Sore Throat Last Admin: 06/04/23 18:46 Dose: 1 lozenge Bisacodyl (Bisacodyl 5 Mg Tablet.Dr) 10 mg PO DAILY PRN PRN Reason: Constipation Last Admin: 06/04/23 12:20 Dose: 10 mg Bupropion HCl (Bupropion Hcl Xl 300 Mg Tab.Er.24h) 300 mg PO DAILY [facility] Last Admin: 06/07/23 08:36 Dose: 300 mg Cariprazine (Cariprazine Hcl 1.5 Mg Capsule) 1.5 mg PO DAILY [facility] Last Admin: 06/07/23 08:36 Dose: 1.5 mg Clonazepam (Clonazepam 0.5 Mg Tablet) 0.5 mg PO RQ6H WHILE AWAKE [facility] Last Admin: 06/07/23 14:14 Dose: 0.5 mg Clonidine HCl (Clonidine Hcl 0.1 Mg Tablet) 0.1 mg PO Q4H PRN; Protocol PRN Reason: Anxiety Last Admin: 06/07/23 13:12 Dose: 0.1 mg Docusate Sodium (Docusate Sodium 100 Mg Capsule) 100 mg PO BID PRN PRN Reason: Constipation Last Admin: 06/03/23 14:35 Dose: 100 mg Gabapentin (Gabapentin 400 Mg Capsule) 800 mg PO TID [facility] Last Admin: 06/07/23 14:14 Dose: 800 mg Guaifenesin (Guaifenesin 100 Mg/5 Ml Liquid) 5 ml PO Q6H PRN PRN Reason: Cough Last Admin: 06/01/23 12:00 Dose: 5 ml Guaifenesin/Dextromethorphan (Guaifenesin Dm 600/30 1 Tab Tab.Er.12h) 1 tab PO BID PRN PRN Reason: Congestion Last Admin: 06/01/23 12:01 Dose: 1 tab Levothyroxine Sodium (Levothyroxine Sodium 50 Mcg Tablet) 50 mcg PO DAILY@0600 [facility] Last Admin: 06/07/23 05:38 Dose: 50 mcg Magnesium Hydroxide (Milk Of Magnesia 30 Ml Oral.Susp) 30 ml PO DAILY PRN PRN Reason: Constipation Last Admin: 06/03/23 14:35 Dose: 30 ml Methadone HCl (Methadone Hcl 20 Mg/2 Ml Oral.Conc) 140 mg PO DAILY [facility] Last Admin: 06/07/23 08:36 Dose: 140 mg Neomycin/Polymyxin/Hydrocortisone (Neomycin/Polymyxin/Hc Oph Susp 7.5 Ml Bottle) 1 drop EYE-BOTH QID [facility] Nicotine (Nicotine 21 Mg Patch.Td24) 21 mg TRANSDERMA DAILY [facility] Last Admin: 06/07/23 08:55 Dose: Not Given Nicotine Polacrilex (Nicotine Polacrilex 2 Mg Gum) 4 mg BUCCAL Q2H PRN PRN Reason: Nicotine Cravings Last Admin: 05/31/23 14:36 Dose: 4 mg Omeprazole (Omeprazole 20 Mg Capsule.Dr) 20 mg PO BID@0630,1630 [facility] Last Admin: 06/07/23 05:38 Dose: 20 mg Penicillin V Potassium (Penicillin V Potassium 250 Mg Tablet) 500 mg PO Q6H [facility] Stop: 06/10/23 09:00 Last Admin: 06/07/23 10:30 Dose: 500 mg Polyethylene Glycol (Polyethylene Glycol 3350 17 Gm Powd.Pack) 17 gm PO DAILY [facility] Last Admin: 06/07/23 08:55 Dose: Not Given Prazosin HCl (Prazosin Hcl 1 Mg Capsule) 3 mg PO BEDTIME [facility]; Protocol Last Admin: 06/06/23 20:13 Dose: 3 mg Quetiapine Fumarate (Quetiapine Fumarate 50 Mg Tablet) 50 mg PO TID PRN PRN Reason: anxiety Last Admin: 06/07/23 00:41 Dose: 50 mg Quetiapine Fumarate (Quetiapine Fumarate 200 Mg Tablet) 200 mg PO BEDTIME [facility] Last Admin: 06/06/23 20:14 Dose: 200 mg Sodium Chloride (Sodium Chloride 0.65 % Nasal 44 Ml Sprbtl) 1 spray NOSTRIL-B Q1H PRN PRN Reason: Nasal Congestion Allergies Allergies Allergy/AdvReac Type Severity Reaction Status Date / Time azithromycin Allergy Fever Verified 05/26/23 12:09 lamotrigine [From Lamictal] AdvReac Fever Verified 05/26/23 12:09 trazodone AdvReac Restless Verified 05/26/23 12:09 legs geodon AdvReac Severe spasm, Uncoded 05/26/23 12:09 headache, fever Assessment & Plan Assessment & Plan (1) PTSD (post-traumatic stress disorder): Status: Acute Code(s): F43.10 - Post-traumatic stress disorder, unspecified (2) Bipolar disorder: Status: Acute Code(s): F31.9 - Bipolar disorder, unspecified (3) Opioid use disorder: Status: Acute Code(s): F11.90 - Opioid use, unspecified, uncomplicated (4) Polysubstance use disorder: Status: Acute Code(s): F19.90 - Other psychoactive substance use, unspecified, uncomplicated (5) Suicidal ideation: Status: Acute Code(s): R45.851 - Suicidal ideations Plan 05/31/23: Abilify 5 mg a.m Atorvastatin 10 mg HS Pt asks that we consider a [facility] referral for ongoing support in community 06/01/23: Positive and symptomatic for Haemophilus Influenzae- Mucinex/Robitussin/Cough Drops ordered Appearing overmedicated to team-decrease Gabapentin to 600 mg tid decrease Seroquel to 100 mg hs discontinue Ability 06/02/23: Increase Gabapentin to 800 mg tid Increase Seroquel to 200 mg hs 06/04 continue current tx plan 06/05 Decrease Wellbutrin to 300 mg XR a.m. Increase Remeron to 15 mg hs 06/06 conjunctival injection L eye without any observed purulent drainage. -Started corticosporin drops q3h while awake x 1 week for L eye. 06/07/23 continue tx Informed Consent: understands Reason for continued inpatient stay Substantial Risk for: harm to self and rapid decompensation Time Spent With Patient Time: Total time managing care of this patient today ____ minutes.
[2023-06-07 17:56] VITALS: BP 109/72; PULSE 92; RESP 18; TEMP 36.7; O2SAT 95
[2023-06-07] MEDS: Atorvastatin Calcium 10 MG TABLET PO (20:39)
[2023-06-07] MEDS: Prazosin HCL 1 MG CAPSULE 3 MG PO (20:39)
[2023-06-07] MEDS: QUEtiapine Fumarate 200 MG TABLET PO (20:40)
[2023-06-08] MEDS: cloNIDine HCL 0.1 MG TABLET PO ×2 (00:20→16:32)
[2023-06-08] MEDS: Penicillin V Potassium 250 MG TABLET 500 MG PO ×4 (04:13→22:12)
[2023-06-08] MEDS: Levothyroxine Sodium 50 MCG TABLET PO (05:27)
[2023-06-08] MEDS: Omeprazole 20 MG CAPSULE.DR PO ×2 (05:49→16:32)
[2023-06-08] MEDS: methADONE HCl 20 MG/2 ML ORAL.CONC 140 MG PO (09:13)
[2023-06-08] MEDS: buPROPion HCl XL 300 MG TAB.ER.24H PO (09:14)
[2023-06-08] MEDS: clonazePAM 0.5 MG TABLET PO ×3 (09:14→19:42)
[2023-06-08] MEDS: Gabapentin 400 MG CAPSULE 800 MG PO ×3 (09:14→19:41)
[2023-06-08] MEDS: Cariprazine HCl 1.5 MG CAPSULE PO (09:14)
[2023-06-08 09:23] VITALS: BP 114/72; PULSE 75; RESP 18; TEMP 36.2; O2SAT 94
--- NOTE | 2023-06-08 12:11 | HO.PSYCHPN ---
Subjective Subjective Date of Service: 06/08/23 Reason For Visit: PTSD Bipolar Disorder Opiate use Disorder Methadon Subjective Notes: Conditional Voluntary Healthcare Proxy: No Guardianship: No Medical Problems Affecting Mental Status: No Interim History: Continues with depressed mood, affect. Discussed sertraline trial, increase of Vraylar with pt Medication Compliance: Yes Side effects from medications: No Attending Groups: No Review of Systems Acute medical concerns: No Medical Review of Systems: unchanged Review of Systems Review of Systems Yes all other systems are reviewed and are negative Mental Status Exam Mental Status Exam Patient Appearance: Appropriate Patient Orientation: Person, Place, Time and Situation Level of Consciousness: Alert Patient Behavior: Talkative, Cooperative, Anxious, Distractible and Good Eye Contact Mood Description: Depressed (Though little better) and Anxious Affect Description: Anxious Patient Cognition Impaired: No Ability to Follow Directions: Good Speech Pattern: Spontaneous Speech Memory Description: Intact Hallucinations: None Delusions: Not Present Perceptual Disturbances: Depersonalization and Derealization Thought Process: Rumination Thought Content: positive for Intact (On trying to stay sober; no SI/HI) Depressive Symptoms: Insomnia, Difficulty Sleeping, Changes in Appetite, Crying Spells, Loss of Int. in Activity, Feelings of Worthlessness, Hopelessness, Isolating-Friends/Family, Unhappiness, Increased Fatigue, Thoughts of /Suicide, Low Self Esteem, Loss of Energy and Difficulty Concentrating Abnormal Motor Activity Signs and Symptoms: Psychomotor Retardation Judgement: Fair Judgement and Insight: impaired but improving Diagnostics Vital Signs (24Hr): Vital Signs - 24 hr 06/07/23 13:14 06/07/23 17:56 06/08/23 09:23 Temperature 98.1 F 97.2 F Pulse Rate 101 H 92 75 Respiratory Rate 18 18 Blood Pressure 120/74 109/72 114/72 Pulse Oximetry 95 94 Oxygen Delivery Method Room Air Room Air BMI result Body Mass Index 25.1 Labs 05/26/23 12:52 05/31/23 09:10 Imaging Radiology Impressions: ITS Impressions Chest X-Ray 05/30/23 13:36 IMPRESSION: Clear lungs. Knee X-Ray 05/30/23 13:36 IMPRESSION: No acute abnormality. No significant arthritic changes. Medications Medications Current Medications Acetaminophen (Acetaminophen 325 Mg Tablet) 650 mg PO Q6H PRN PRN Reason: Headache/Pain Mild Scale (1-3) Last Admin: 06/02/23 17:02 Dose: 650 mg Al Hydroxide/Mg Hydroxide (Magnesium Hydrox/Alum Hydrox 30 Ml Oral.Susp) 30 ml PO Q6H PRN PRN Reason: Heartburn/Nausea Last Admin: 06/03/23 14:35 Dose: 30 ml Atorvastatin Calcium (Atorvastatin Calcium 10 Mg Tablet) 10 mg PO BEDTIME [facility] Last Admin: 06/07/23 20:39 Dose: 10 mg Benzocaine (Throat Lozenge, Medicated Lozenge) 1 lozenge MUCOUS MEM Q2H PRN PRN Reason: Sore Throat Last Admin: 06/04/23 18:46 Dose: 1 lozenge Bisacodyl (Bisacodyl 5 Mg Tablet.Dr) 10 mg PO DAILY PRN PRN Reason: Constipation Last Admin: 06/04/23 12:20 Dose: 10 mg Bupropion HCl (Bupropion Hcl Xl 300 Mg Tab.Er.24h) 300 mg PO DAILY [facility] Last Admin: 06/08/23 09:14 Dose: 300 mg Cariprazine (Cariprazine Hcl 1.5 Mg Capsule) 1.5 mg PO DAILY [facility] Last Admin: 06/08/23 09:14 Dose: 1.5 mg Clonazepam (Clonazepam 0.5 Mg Tablet) 0.5 mg PO RQ6H WHILE AWAKE [facility] Last Admin: 06/08/23 09:14 Dose: 0.5 mg Clonidine HCl (Clonidine Hcl 0.1 Mg Tablet) 0.1 mg PO Q4H PRN; Protocol PRN Reason: Anxiety Last Admin: 06/08/23 00:20 Dose: 0.1 mg Docusate Sodium (Docusate Sodium 100 Mg Capsule) 100 mg PO BID PRN PRN Reason: Constipation Last Admin: 06/03/23 14:35 Dose: 100 mg Gabapentin (Gabapentin 400 Mg Capsule) 800 mg PO TID [facility] Last Admin: 06/08/23 09:14 Dose: 800 mg Guaifenesin (Guaifenesin 100 Mg/5 Ml Liquid) 5 ml PO Q6H PRN PRN Reason: Cough Last Admin: 06/01/23 12:00 Dose: 5 ml Guaifenesin/Dextromethorphan (Guaifenesin Dm 600/30 1 Tab Tab.Er.12h) 1 tab PO BID PRN PRN Reason: Congestion Last Admin: 06/01/23 12:01 Dose: 1 tab Levothyroxine Sodium (Levothyroxine Sodium 50 Mcg Tablet) 50 mcg PO DAILY@0600 [facility] Last Admin: 06/08/23 05:27 Dose: 50 mcg Magnesium Hydroxide (Milk Of Magnesia 30 Ml Oral.Susp) 30 ml PO DAILY PRN PRN Reason: Constipation Last Admin: 06/03/23 14:35 Dose: 30 ml Methadone HCl (Methadone Hcl 20 Mg/2 Ml Oral.Conc) 140 mg PO DAILY [facility] Last Admin: 06/08/23 09:13 Dose: 140 mg Neomycin/Polymyxin/Hydrocortisone (Neomycin/Polymyxin/Hc Oph Susp 7.5 Ml Bottle) 1 drop EYE-BOTH QID [facility] Last Admin: 06/08/23 09:17 Dose: 1 drop Nicotine (Nicotine 21 Mg Patch.Td24) 21 mg TRANSDERMA DAILY [facility] Last Admin: 06/08/23 09:15 Dose: Not Given Nicotine Polacrilex (Nicotine Polacrilex 2 Mg Gum) 4 mg BUCCAL Q2H PRN PRN Reason: Nicotine Cravings Last Admin: 05/31/23 14:36 Dose: 4 mg Omeprazole (Omeprazole 20 Mg Capsule.Dr) 20 mg PO BID@0630,1630 [facility] Last Admin: 06/08/23 05:49 Dose: 20 mg Penicillin V Potassium (Penicillin V Potassium 250 Mg Tablet) 500 mg PO Q6H [facility] Stop: 06/10/23 09:00 Last Admin: 06/08/23 10:53 Dose: 500 mg Polyethylene Glycol (Polyethylene Glycol 3350 17 Gm Powd.Pack) 17 gm PO DAILY [facility] Last Admin: 06/08/23 09:19 Dose: Not Given Prazosin HCl (Prazosin Hcl 1 Mg Capsule) 3 mg PO BEDTIME [facility]; Protocol Last Admin: 06/07/23 20:39 Dose: 3 mg Quetiapine Fumarate (Quetiapine Fumarate 50 Mg Tablet) 50 mg PO TID PRN PRN Reason: anxiety Last Admin: 06/07/23 00:41 Dose: 50 mg Quetiapine Fumarate (Quetiapine Fumarate 200 Mg Tablet) 200 mg PO BEDTIME [facility] Last Admin: 06/07/23 20:40 Dose: 200 mg Sodium Chloride (Sodium Chloride 0.65 % Nasal 44 Ml Sprbtl) 1 spray NOSTRIL-B Q1H PRN PRN Reason: Nasal Congestion Allergies Allergies Allergy/AdvReac Type Severity Reaction Status Date / Time azithromycin Allergy Fever Verified 05/26/23 12:09 lamotrigine [From Lamictal] AdvReac Fever Verified 05/26/23 12:09 trazodone AdvReac Restless Verified 05/26/23 12:09 legs geodon AdvReac Severe spasm, Uncoded 05/26/23 12:09 headache, fever Assessment & Plan Assessment & Plan (1) PTSD (post-traumatic stress disorder): Status: Acute Code(s): F43.10 - Post-traumatic stress disorder, unspecified (2) Bipolar disorder: Status: Acute Code(s): F31.9 - Bipolar disorder, unspecified (3) Opioid use disorder: Status: Acute Code(s): F11.90 - Opioid use, unspecified, uncomplicated (4) Polysubstance use disorder: Status: Acute Code(s): F19.90 - Other psychoactive substance use, unspecified, uncomplicated (5) Suicidal ideation: Status: Acute Code(s): R45.851 - Suicidal ideations Plan 05/31/23: Abilify 5 mg a.m Atorvastatin 10 mg HS Pt asks that we consider a [facility] referral for ongoing support in community 06/01/23: Positive and symptomatic for Haemophilus Influenzae- Mucinex/Robitussin/Cough Drops ordered Appearing overmedicated to team-decrease Gabapentin to 600 mg tid decrease Seroquel to 100 mg hs discontinue Ability 06/02/23: Increase Gabapentin to 800 mg tid Increase Seroquel to 200 mg hs 06/04 continue current tx plan 06/05 Decrease Wellbutrin to 300 mg XR a.m. Increase Remeron to 15 mg hs 06/06 Mood a little better; trying to be hopeful; brief superficial self-harm by scratching, minimally so and self resolved conjunctival injection L eye without any observed purulent drainage. -Started corticosporin drops q3h while awake x 1 week for L eye. 06/08/23 Increase Vraylar to 3 mg daily Sertraline 12.5 mg daily Informed Consent: understands Reason for continued inpatient stay Substantial Risk for: rapid decompensation Time Spent With Patient Time: Total time managing care of this patient today ____ minutes.
[2023-06-08] MEDS: QUEtiapine Fumarate 50 MG TABLET PO (13:27)
[2023-06-08 18:00] VITALS: BP 118/66; PULSE 87; RESP 16; TEMP 36.3; O2SAT 96
[2023-06-08] MEDS: Prazosin HCL 1 MG CAPSULE 3 MG PO (19:41)
[2023-06-08] MEDS: Atorvastatin Calcium 10 MG TABLET PO (19:42)
[2023-06-08] MEDS: QUEtiapine Fumarate 200 MG TABLET PO (19:42)
[2023-06-09] MEDS: cloNIDine HCL 0.1 MG TABLET PO ×3 (00:39→16:04)
[2023-06-09] MEDS: QUEtiapine Fumarate 50 MG TABLET PO ×2 (00:39→16:03)
[2023-06-09 00:41] VITALS: BP 107/72; PULSE 93; RESP 16
[2023-06-09] MEDS: Omeprazole 20 MG CAPSULE.DR PO ×2 (06:14→16:05)
[2023-06-09] MEDS: Penicillin V Potassium 250 MG TABLET 500 MG PO ×4 (06:14→22:02)
[2023-06-09] MEDS: Levothyroxine Sodium 50 MCG TABLET PO (06:14)
--- NOTE | 2023-06-09 08:39 | P.PNPSI_ITS ---
Subjective Subjective Date of Service: 06/09/23 Reason For Visit: PTSD Bipolar Disorder Opiate use Disorder Methadon Subjective Notes: Conditional Voluntary Interim History: Patient was seen and discussed in rounds today. Records and plans were reviewed. She continues to be guarded, depressed but engaged. Moderate anxiety persisting. No complaints or side effects. Eating and sleeping adequately. She is med compliant. No changes were made today Review of Systems Review of Systems Yes all other systems are reviewed and are negative Mental Status Exam Mental Status Exam Patient Appearance: Appropriate Patient Orientation: Person, Place, Time and Situation Level of Consciousness: Alert Patient Behavior: Talkative, Cooperative, Anxious, Distractible and Good Eye Contact Mood Description: Depressed (Though little better) and Anxious Affect Description: Anxious Patient Cognition Impaired: No Ability to Follow Directions: Good Speech Pattern: Spontaneous Speech Memory Description: Intact Hallucinations: None Delusions: Not Present Perceptual Disturbances: Depersonalization and Derealization Thought Process: Rumination Thought Content: positive for Intact (On trying to stay sober; no SI/HI) Depressive Symptoms: Insomnia, Difficulty Sleeping, Changes in Appetite, Crying Spells, Loss of Int. in Activity, Feelings of Worthlessness, Hopelessness, Isolating-Friends/Family, Unhappiness, Increased Fatigue, Thoughts of /Suicide, Low Self Esteem, Loss of Energy and Difficulty Concentrating Abnormal Motor Activity Signs and Symptoms: Psychomotor Retardation Judgement: Fair Judgement and Insight: impaired but improving Diagnostics Vital Signs (24Hr): Vital Signs - 24 hr 06/08/23 09:23 06/08/23 18:00 06/09/23 00:41 Temperature 97.2 F 97.3 F Pulse Rate 75 87 93 Respiratory Rate 18 16 16 Blood Pressure 114/72 118/66 107/72 Pulse Oximetry 94 96 Oxygen Delivery Method Room Air BMI result Body Mass Index 25.1 Labs 05/26/23 12:52 05/31/23 09:10 Imaging Radiology Impressions: ITS Impressions Chest X-Ray 05/30/23 13:36 IMPRESSION: Clear lungs. Knee X-Ray 05/30/23 13:36 IMPRESSION: No acute abnormality. No significant arthritic changes. Medications Medications Current Medications Acetaminophen (Acetaminophen 325 Mg Tablet) 650 mg PO Q6H PRN PRN Reason: Headache/Pain Mild Scale (1-3) Last Admin: 06/02/23 17:02 Dose: 650 mg Al Hydroxide/Mg Hydroxide (Magnesium Hydrox/Alum Hydrox 30 Ml Oral.Susp) 30 ml PO Q6H PRN PRN Reason: Heartburn/Nausea Last Admin: 06/03/23 14:35 Dose: 30 ml Atorvastatin Calcium (Atorvastatin Calcium 10 Mg Tablet) 10 mg PO BEDTIME [facility] Last Admin: 06/08/23 19:42 Dose: 10 mg Benzocaine (Throat Lozenge, Medicated Lozenge) 1 lozenge MUCOUS MEM Q2H PRN PRN Reason: Sore Throat Last Admin: 06/04/23 18:46 Dose: 1 lozenge Bisacodyl (Bisacodyl 5 Mg Tablet.Dr) 10 mg PO DAILY PRN PRN Reason: Constipation Last Admin: 06/04/23 12:20 Dose: 10 mg Bupropion HCl (Bupropion Hcl Xl 300 Mg Tab.Er.24h) 300 mg PO DAILY [facility] Last Admin: 06/08/23 09:14 Dose: 300 mg Cariprazine (Cariprazine Hcl 3 Mg Capsule) 3 mg PO DAILY [facility] Clonazepam (Clonazepam 0.5 Mg Tablet) 0.5 mg PO RQ6H WHILE AWAKE [facility] Last Admin: 06/08/23 19:42 Dose: 0.5 mg Clonidine HCl (Clonidine Hcl 0.1 Mg Tablet) 0.1 mg PO Q4H PRN; Protocol PRN Reason: Anxiety Last Admin: 06/09/23 00:39 Dose: 0.1 mg Docusate Sodium (Docusate Sodium 100 Mg Capsule) 100 mg PO BID PRN PRN Reason: Constipation Last Admin: 06/03/23 14:35 Dose: 100 mg Gabapentin (Gabapentin 400 Mg Capsule) 800 mg PO TID [facility] Last Admin: 06/08/23 19:41 Dose: 800 mg Guaifenesin (Guaifenesin 100 Mg/5 Ml Liquid) 5 ml PO Q6H PRN PRN Reason: Cough Last Admin: 06/01/23 12:00 Dose: 5 ml Guaifenesin/Dextromethorphan (Guaifenesin Dm 600/30 1 Tab Tab.Er.12h) 1 tab PO BID PRN PRN Reason: Congestion Last Admin: 06/01/23 12:01 Dose: 1 tab Levothyroxine Sodium (Levothyroxine Sodium 50 Mcg Tablet) 50 mcg PO DAILY@0600 [facility] Last Admin: 06/09/23 06:14 Dose: 50 mcg Magnesium Hydroxide (Milk Of Magnesia 30 Ml Oral.Susp) 30 ml PO DAILY PRN PRN Reason: Constipation Last Admin: 06/03/23 14:35 Dose: 30 ml Methadone HCl (Methadone Hcl 20 Mg/2 Ml Oral.Conc) 140 mg PO DAILY [facility] Last Admin: 06/08/23 09:13 Dose: 140 mg Neomycin/Polymyxin/Hydrocortisone (Neomycin/Polymyxin/Hc Oph Susp 7.5 Ml Bottle) 1 drop EYE-BOTH QID [facility] Last Admin: 06/08/23 22:12 Dose: 1 drop Nicotine (Nicotine 21 Mg Patch.Td24) 21 mg TRANSDERMA DAILY [facility] Last Admin: 06/08/23 09:15 Dose: Not Given Nicotine Polacrilex (Nicotine Polacrilex 2 Mg Gum) 4 mg BUCCAL Q2H PRN PRN Reason: Nicotine Cravings Last Admin: 05/31/23 14:36 Dose: 4 mg Omeprazole (Omeprazole 20 Mg Capsule.Dr) 20 mg PO BID@0630,1630 [facility] Last Admin: 06/09/23 06:14 Dose: 20 mg Penicillin V Potassium (Penicillin V Potassium 250 Mg Tablet) 500 mg PO Q6H [facility] Stop: 06/10/23 09:00 Last Admin: 06/09/23 06:14 Dose: 500 mg Polyethylene Glycol (Polyethylene Glycol 3350 17 Gm Powd.Pack) 17 gm PO DAILY [facility] Last Admin: 06/08/23 09:19 Dose: Not Given Prazosin HCl (Prazosin Hcl 1 Mg Capsule) 3 mg PO BEDTIME [facility]; Protocol Last Admin: 06/08/23 19:41 Dose: 3 mg Quetiapine Fumarate (Quetiapine Fumarate 50 Mg Tablet) 50 mg PO TID PRN PRN Reason: anxiety Last Admin: 06/09/23 00:39 Dose: 50 mg Quetiapine Fumarate (Quetiapine Fumarate 200 Mg Tablet) 200 mg PO BEDTIME [facility] Last Admin: 06/08/23 19:42 Dose: 200 mg Sertraline HCl (Sertraline Hcl 25 Mg Tablet) 12.5 mg PO DAILY [facility] Sodium Chloride (Sodium Chloride 0.65 % Nasal 44 Ml Sprbtl) 1 spray NOSTRIL-B Q1H PRN PRN Reason: Nasal Congestion Allergies Allergies Allergy/AdvReac Type Severity Reaction Status Date / Time azithromycin Allergy Fever Verified 05/26/23 12:09 lamotrigine [From Lamictal] AdvReac Fever Verified 05/26/23 12:09 trazodone AdvReac Restless Verified 05/26/23 12:09 legs geodon AdvReac Severe spasm, Uncoded 05/26/23 12:09 headache, fever Assessment & Plan Assessment & Plan (1) PTSD (post-traumatic stress disorder): Status: Acute Code(s): F43.10 - Post-traumatic stress disorder, unspecified (2) Bipolar disorder: Status: Acute Code(s): F31.9 - Bipolar disorder, unspecified (3) Opioid use disorder: Status: Acute Code(s): F11.90 - Opioid use, unspecified, uncomplicated (4) Polysubstance use disorder: Status: Acute Code(s): F19.90 - Other psychoactive substance use, unspecified, uncomplicated (5) Suicidal ideation: Status: Acute Code(s): R45.851 - Suicidal ideations Plan 05/31/23: Abilify 5 mg a.m Atorvastatin 10 mg HS Pt asks that we consider a [facility] referral for ongoing support in community 06/01/23: Positive and symptomatic for Haemophilus Influenzae- Mucinex/Robitussin/Cough Drops ordered Appearing overmedicated to team-decrease Gabapentin to 600 mg tid decrease Seroquel to 100 mg hs discontinue Ability 06/02/23: Increase Gabapentin to 800 mg tid Increase Seroquel to 200 mg hs 06/04 continue current tx plan 06/05 Decrease Wellbutrin to 300 mg XR a.m. Increase Remeron to 15 mg hs 06/06 Mood a little better; trying to be hopeful; brief superficial self-harm by scratching, minimally so and self resolved conjunctival injection L eye without any observed purulent drainage. -Started corticosporin drops q3h while awake x 1 week for L eye. 06/08/23 Increase Vraylar to 3 mg daily Sertraline 12.5 mg daily 06/09: Continue current regimen and plans Reason for continued inpatient stay Substantial Risk for: med/psych decompensation Time Spent With Patient Time: Total time managing care of this patient today ____ minutes.
[2023-06-09] MEDS: Cariprazine HCl 3 MG CAPSULE PO (09:06)
[2023-06-09] MEDS: methADONE HCl 20 MG/2 ML ORAL.CONC 140 MG PO (09:06)
[2023-06-09] MEDS: Gabapentin 400 MG CAPSULE 800 MG PO ×3 (09:06→20:37)
[2023-06-09] MEDS: clonazePAM 0.5 MG TABLET PO ×3 (09:07→20:37)
[2023-06-09] MEDS: buPROPion HCl XL 300 MG TAB.ER.24H PO (09:07)
[2023-06-09] MEDS: Sertraline HCL 25 MG TABLET 12.5 MG PO (09:07)
[2023-06-09 09:21] VITALS: BP 129/67; PULSE 83; RESP 18; TEMP 36.3; O2SAT 92
[2023-06-09 10:52] VITALS: TEMP 38
[2023-06-09] MEDS: Acetaminophen 325 MG TABLET 650 MG PO ×2 (10:55→17:06)
[2023-06-09] MEDS: Ondansetron ODT 4 MG TAB.RAPDIS TRANSLINGU ×2 (11:55→16:04)
[2023-06-09 11:58] VITALS: TEMP 39.1
[2023-06-09] MEDS: guaiFENesin DM 600/30 1 TAB TAB.ER.12H PO (16:05)
[2023-06-09 18:00] VITALS: BP 121/81; PULSE 93; RESP 18; TEMP 36.8; O2SAT 92
[2023-06-09] MEDS: QUEtiapine Fumarate 200 MG TABLET PO (20:36)
[2023-06-09] MEDS: Prazosin HCL 1 MG CAPSULE 3 MG PO (20:36)
[2023-06-09] MEDS: Atorvastatin Calcium 10 MG TABLET PO (20:37)
[2023-06-10] MEDS: Levothyroxine Sodium 50 MCG TABLET PO (05:41)
[2023-06-10] MEDS: QUEtiapine Fumarate 50 MG TABLET PO ×2 (05:41→15:08)
[2023-06-10] MEDS: Omeprazole 20 MG CAPSULE.DR PO ×2 (05:41→16:41)
[2023-06-10] MEDS: Penicillin V Potassium 250 MG TABLET 500 MG PO (05:41)
--- NOTE | 2023-06-10 08:44 | P.PNPSI_ITS ---
Subjective Subjective Date of Service: 06/10/23 Reason For Visit: PTSD Bipolar Disorder Opiate use Disorder Methadon Subjective Notes: Conditional Voluntary Interim History: Patient was seen and discussed in rounds today. Records and plans were reviewed. She continues to have blunted affect. PRNs or used with good effect. She continues to feel sick from possibly the flu but is afebrile but did have a fever yesterday. Eating and sleeping adequately. No changes were made today Review of Systems Review of Systems Flu symptoms Yes all other systems are reviewed and are negative Mental Status Exam Mental Status Exam Patient Appearance: Appropriate Patient Orientation: Person, Place, Time and Situation Level of Consciousness: Alert Patient Behavior: Talkative, Cooperative, Anxious, Distractible and Good Eye Contact Mood Description: Depressed (Though little better) and Anxious Affect Description: Anxious Patient Cognition Impaired: No Ability to Follow Directions: Good Speech Pattern: Spontaneous Speech Memory Description: Intact Hallucinations: None Delusions: Not Present Perceptual Disturbances: Depersonalization and Derealization Thought Process: Rumination Thought Content: positive for Intact (On trying to stay sober; no SI/HI) Depressive Symptoms: Insomnia, Difficulty Sleeping, Changes in Appetite, Crying Spells, Loss of Int. in Activity, Feelings of Worthlessness, Hopelessness, Isolating-Friends/Family, Unhappiness, Increased Fatigue, Thoughts of /Suicide, Low Self Esteem, Loss of Energy and Difficulty Concentrating Abnormal Motor Activity Signs and Symptoms: Psychomotor Retardation Judgement: Fair Judgement and Insight: impaired but improving Diagnostics Vital Signs (24Hr): Vital Signs - 24 hr 06/09/23 09:21 06/09/23 10:52 06/09/23 11:58 Temperature 97.3 F 100.4 F 102.4 F H Pulse Rate 83 Respiratory Rate 18 Blood Pressure 129/67 Pulse Oximetry 92 Oxygen Delivery Method Room Air 06/09/23 18:00 Temperature 98.2 F Pulse Rate 93 Respiratory Rate 18 Blood Pressure 121/81 Pulse Oximetry 92 Oxygen Delivery Method Room Air BMI result Body Mass Index 25.1 Labs 05/26/23 12:52 05/31/23 09:10 Imaging Radiology Impressions: ITS Impressions Chest X-Ray 05/30/23 13:36 IMPRESSION: Clear lungs. Knee X-Ray 05/30/23 13:36 IMPRESSION: No acute abnormality. No significant arthritic changes. Medications Medications Current Medications Acetaminophen (Acetaminophen 325 Mg Tablet) 650 mg PO Q6H PRN PRN Reason: Headache/Pain Mild Scale (1-3) Last Admin: 06/09/23 17:06 Dose: 650 mg Al Hydroxide/Mg Hydroxide (Magnesium Hydrox/Alum Hydrox 30 Ml Oral.Susp) 30 ml PO Q6H PRN PRN Reason: Heartburn/Nausea Last Admin: 06/03/23 14:35 Dose: 30 ml Atorvastatin Calcium (Atorvastatin Calcium 10 Mg Tablet) 10 mg PO BEDTIME [facility] Last Admin: 06/09/23 20:37 Dose: 10 mg Benzocaine (Throat Lozenge, Medicated Lozenge) 1 lozenge MUCOUS MEM Q2H PRN PRN Reason: Sore Throat Last Admin: 06/04/23 18:46 Dose: 1 lozenge Bisacodyl (Bisacodyl 5 Mg Tablet.Dr) 10 mg PO DAILY PRN PRN Reason: Constipation Last Admin: 06/04/23 12:20 Dose: 10 mg Bupropion HCl (Bupropion Hcl Xl 300 Mg Tab.Er.24h) 300 mg PO DAILY [facility] Last Admin: 06/09/23 09:07 Dose: 300 mg Cariprazine (Cariprazine Hcl 3 Mg Capsule) 3 mg PO DAILY [facility] Last Admin: 06/09/23 09:06 Dose: 3 mg Clonazepam (Clonazepam 0.5 Mg Tablet) 0.5 mg PO RQ6H WHILE AWAKE [facility] Last Admin: 06/09/23 20:37 Dose: 0.5 mg Clonidine HCl (Clonidine Hcl 0.1 Mg Tablet) 0.1 mg PO Q4H PRN; Protocol PRN Reason: Anxiety Last Admin: 06/09/23 16:04 Dose: 0.1 mg Docusate Sodium (Docusate Sodium 100 Mg Capsule) 100 mg PO BID PRN PRN Reason: Constipation Last Admin: 06/03/23 14:35 Dose: 100 mg Gabapentin (Gabapentin 400 Mg Capsule) 800 mg PO TID [facility] Last Admin: 06/09/23 20:37 Dose: 800 mg Guaifenesin (Guaifenesin 100 Mg/5 Ml Liquid) 5 ml PO Q6H PRN PRN Reason: Cough Last Admin: 06/01/23 12:00 Dose: 5 ml Guaifenesin/Dextromethorphan (Guaifenesin Dm 600/30 1 Tab Tab.Er.12h) 1 tab PO BID PRN PRN Reason: Congestion Last Admin: 06/09/23 16:05 Dose: 1 tab Levothyroxine Sodium (Levothyroxine Sodium 50 Mcg Tablet) 50 mcg PO DAILY@0600 [facility] Last Admin: 06/10/23 05:41 Dose: 50 mcg Magnesium Hydroxide (Milk Of Magnesia 30 Ml Oral.Susp) 30 ml PO DAILY PRN PRN Reason: Constipation Last Admin: 06/03/23 14:35 Dose: 30 ml Methadone HCl (Methadone Hcl 20 Mg/2 Ml Oral.Conc) 140 mg PO DAILY [facility] Last Admin: 06/09/23 09:06 Dose: 140 mg Neomycin/Polymyxin/Hydrocortisone (Neomycin/Polymyxin/Hc Oph Susp 7.5 Ml Bottle) 1 drop EYE-BOTH QID [facility] Last Admin: 06/09/23 20:36 Dose: 1 drop Nicotine (Nicotine 21 Mg Patch.Td24) 21 mg TRANSDERMA DAILY [facility] Last Admin: 06/09/23 09:13 Dose: Not Given Nicotine Polacrilex (Nicotine Polacrilex 2 Mg Gum) 4 mg BUCCAL Q2H PRN PRN Reason: Nicotine Cravings Last Admin: 05/31/23 14:36 Dose: 4 mg Omeprazole (Omeprazole 20 Mg Capsule.Dr) 20 mg PO BID@0630,1630 [facility] Last Admin: 06/10/23 05:41 Dose: 20 mg Ondansetron HCl (Ondansetron Odt 4 Mg Tab.Rapdis) 4 mg TRANSLINGU Q4H PRN PRN Reason: Nausea Last Admin: 06/09/23 16:04 Dose: 4 mg Penicillin V Potassium (Penicillin V Potassium 250 Mg Tablet) 500 mg PO Q6H [facility] Stop: 06/10/23 09:00 Last Admin: 06/10/23 05:41 Dose: 500 mg Polyethylene Glycol (Polyethylene Glycol 3350 17 Gm Powd.Pack) 17 gm PO DAILY [facility] Last Admin: 06/09/23 09:18 Dose: Not Given Prazosin HCl (Prazosin Hcl 1 Mg Capsule) 3 mg PO BEDTIME [facility]; Protocol Last Admin: 06/09/23 20:36 Dose: 3 mg Quetiapine Fumarate (Quetiapine Fumarate 50 Mg Tablet) 50 mg PO TID PRN PRN Reason: anxiety Last Admin: 06/10/23 05:41 Dose: 50 mg Quetiapine Fumarate (Quetiapine Fumarate 200 Mg Tablet) 200 mg PO BEDTIME [facility] Last Admin: 06/09/23 20:36 Dose: 200 mg Sertraline HCl (Sertraline Hcl 25 Mg Tablet) 12.5 mg PO DAILY [facility] Last Admin: 06/09/23 09:07 Dose: 12.5 mg Sodium Chloride (Sodium Chloride 0.65 % Nasal 44 Ml Sprbtl) 1 spray NOSTRIL-B Q1H PRN PRN Reason: Nasal Congestion Allergies Allergies Allergy/AdvReac Type Severity Reaction Status Date / Time azithromycin Allergy Fever Verified 05/26/23 12:09 lamotrigine [From Lamictal] AdvReac Fever Verified 05/26/23 12:09 trazodone AdvReac Restless Verified 05/26/23 12:09 legs geodon AdvReac Severe spasm, Uncoded 05/26/23 12:09 headache, fever Assessment & Plan Assessment & Plan (1) PTSD (post-traumatic stress disorder): Status: Acute Code(s): F43.10 - Post-traumatic stress disorder, unspecified (2) Bipolar disorder: Status: Acute Code(s): F31.9 - Bipolar disorder, unspecified (3) Opioid use disorder: Status: Acute Code(s): F11.90 - Opioid use, unspecified, uncomplicated (4) Polysubstance use disorder: Status: Acute Code(s): F19.90 - Other psychoactive substance use, unspecified, uncomplicated (5) Suicidal ideation: Status: Acute Code(s): R45.851 - Suicidal ideations Plan 05/31/23: Abilify 5 mg a.m Atorvastatin 10 mg HS Pt asks that we consider a [facility] referral for ongoing support in community 06/01/23: Positive and symptomatic for Haemophilus Influenzae- Mucinex/Robitussin/Cough Drops ordered Appearing overmedicated to team-decrease Gabapentin to 600 mg tid decrease Seroquel to 100 mg hs discontinue Ability 06/02/23: Increase Gabapentin to 800 mg tid Increase Seroquel to 200 mg hs 06/04 continue current tx plan 06/05 Decrease Wellbutrin to 300 mg XR a.m. Increase Remeron to 15 mg hs 06/06 Mood a little better; trying to be hopeful; brief superficial self-harm by scratching, minimally so and self resolved conjunctival injection L eye without any observed purulent drainage. -Started corticosporin drops q3h while awake x 1 week for L eye. 06/08/23 Increase Vraylar to 3 mg daily Sertraline 12.5 mg daily 06/09: Continue current regimen and plans 06/10: Continue current regimen and plans Reason for continued inpatient stay Substantial Risk for: med/psych decompensation Time Spent With Patient Time: Total time managing care of this patient today ____ minutes.
[2023-06-10] MEDS: buPROPion HCl XL 300 MG TAB.ER.24H PO (09:15)
[2023-06-10] MEDS: clonazePAM 0.5 MG TABLET PO ×3 (09:15→20:09)
[2023-06-10] MEDS: Gabapentin 400 MG CAPSULE 800 MG PO ×3 (09:16→20:09)
[2023-06-10] MEDS: Sertraline HCL 25 MG TABLET 12.5 MG PO (09:16)
[2023-06-10] MEDS: methADONE HCl 20 MG/2 ML ORAL.CONC 140 MG PO (09:16)
[2023-06-10] MEDS: Cariprazine HCl 3 MG CAPSULE PO (09:16)
[2023-06-10 09:20] VITALS: BP 96/61; PULSE 84; RESP 16; TEMP 36.2; O2SAT 94
[2023-06-10 11:10] LABS: RPR Quantitative Non-Reactive (Nonreactive); T.Pallidum Particle Agg Test Non-Reactive (Nonreactive)
[2023-06-10 18:00] VITALS: BP 123/79; PULSE 84; RESP 18; TEMP 36.7; O2SAT 96
[2023-06-10] MEDS: Prazosin HCL 1 MG CAPSULE 3 MG PO (20:09)
[2023-06-10] MEDS: Atorvastatin Calcium 10 MG TABLET PO (20:09)
[2023-06-10] MEDS: Ondansetron ODT 4 MG TAB.RAPDIS TRANSLINGU (20:09)
[2023-06-10] MEDS: guaiFENesin DM 600/30 1 TAB TAB.ER.12H PO (20:09)
[2023-06-10] MEDS: QUEtiapine Fumarate 200 MG TABLET PO (20:09)
[2023-06-11] MEDS: cloNIDine HCL 0.1 MG TABLET PO (02:38)
[2023-06-11] MEDS: QUEtiapine Fumarate 50 MG TABLET PO ×2 (02:38→14:31)
[2023-06-11] MEDS: Levothyroxine Sodium 50 MCG TABLET PO (05:47)
[2023-06-11] MEDS: Omeprazole 20 MG CAPSULE.DR PO ×2 (05:47→16:22)
[2023-06-11 07:50] VITALS: BP 108/68; PULSE 89; RESP 19; TEMP 36.3; O2SAT 92
[2023-06-11] MEDS: Gabapentin 400 MG CAPSULE 800 MG PO ×3 (08:59→19:30)
[2023-06-11] MEDS: Cariprazine HCl 3 MG CAPSULE PO (08:59)
[2023-06-11] MEDS: buPROPion HCl XL 300 MG TAB.ER.24H PO (08:59)
[2023-06-11] MEDS: Sertraline HCL 25 MG TABLET 12.5 MG PO (08:59)
[2023-06-11] MEDS: clonazePAM 0.5 MG TABLET PO ×3 (08:59→19:30)
[2023-06-11] MEDS: methADONE HCl 20 MG/2 ML ORAL.CONC 140 MG PO (09:01)
--- NOTE | 2023-06-11 12:42 | HO.PSYCHPN ---
Subjective Subjective Date of Service: 06/11/23 Reason For Visit: PTSD Bipolar Disorder Opiate use Disorder Methadon Subjective Notes: Conditional Voluntary Interim History: Patient was seen and discussed in rounds today. Records and plans were reviewed. She is doing much better with her flu symptoms. Complaing of her eyes still crusting. She does have Neomycine drops which was D/C'd and the ointment ordered Review of Systems Review of Systems eyes crusting Yes all other systems are reviewed and are negative Mental Status Exam Mental Status Exam Patient Appearance: Appropriate Patient Orientation: Person, Place, Time and Situation Level of Consciousness: Alert Patient Behavior: Talkative, Cooperative, Anxious, Distractible and Good Eye Contact Mood Description: Depressed (Though little better) and Anxious Affect Description: Anxious Patient Cognition Impaired: No Ability to Follow Directions: Good Speech Pattern: Spontaneous Speech Memory Description: Intact Hallucinations: None Delusions: Not Present Perceptual Disturbances: Depersonalization and Derealization Thought Process: Rumination Thought Content: positive for Intact (On trying to stay sober; no SI/HI) Depressive Symptoms: Insomnia, Difficulty Sleeping, Changes in Appetite, Crying Spells, Loss of Int. in Activity, Feelings of Worthlessness, Hopelessness, Isolating-Friends/Family, Unhappiness, Increased Fatigue, Thoughts of /Suicide, Low Self Esteem, Loss of Energy and Difficulty Concentrating Abnormal Motor Activity Signs and Symptoms: Psychomotor Retardation Judgement: Fair Judgement and Insight: impaired but improving Diagnostics Vital Signs (24Hr): Vital Signs - 24 hr 06/10/23 18:00 06/11/23 07:50 Temperature 98.1 F 97.3 F Pulse Rate 84 89 Respiratory Rate 18 19 Blood Pressure 123/79 108/68 Pulse Oximetry 96 92 Oxygen Delivery Method Room Air Room Air BMI result Body Mass Index 25.1 Labs 05/26/23 12:52 05/31/23 09:10 Labs: Laboratory Results - last 48 hr 05/31/23 09:10 RPR Non-Reactive T.pallidum Particle Agg Non-Reactive Imaging Radiology Impressions: ITS Impressions Chest X-Ray 05/30/23 13:36 IMPRESSION: Clear lungs. Knee X-Ray 05/30/23 13:36 IMPRESSION: No acute abnormality. No significant arthritic changes. Medications Medications Current Medications Acetaminophen (Acetaminophen 325 Mg Tablet) 650 mg PO Q6H PRN PRN Reason: Headache/Pain Mild Scale (1-3) Last Admin: 06/09/23 17:06 Dose: 650 mg Al Hydroxide/Mg Hydroxide (Magnesium Hydrox/Alum Hydrox 30 Ml Oral.Susp) 30 ml PO Q6H PRN PRN Reason: Heartburn/Nausea Last Admin: 06/03/23 14:35 Dose: 30 ml Atorvastatin Calcium (Atorvastatin Calcium 10 Mg Tablet) 10 mg PO BEDTIME [facility] Last Admin: 06/10/23 20:09 Dose: 10 mg Benzocaine (Throat Lozenge, Medicated Lozenge) 1 lozenge MUCOUS MEM Q2H PRN PRN Reason: Sore Throat Last Admin: 06/04/23 18:46 Dose: 1 lozenge Bisacodyl (Bisacodyl 5 Mg Tablet.Dr) 10 mg PO DAILY PRN PRN Reason: Constipation Last Admin: 06/04/23 12:20 Dose: 10 mg Bupropion HCl (Bupropion Hcl Xl 300 Mg Tab.Er.24h) 300 mg PO DAILY [facility] Last Admin: 06/11/23 08:59 Dose: 300 mg Cariprazine (Cariprazine Hcl 3 Mg Capsule) 3 mg PO DAILY [facility] Last Admin: 06/11/23 08:59 Dose: 3 mg Clonazepam (Clonazepam 0.5 Mg Tablet) 0.5 mg PO RQ6H WHILE AWAKE [facility] Last Admin: 06/11/23 08:59 Dose: 0.5 mg Clonidine HCl (Clonidine Hcl 0.1 Mg Tablet) 0.1 mg PO Q4H PRN; Protocol PRN Reason: Anxiety Last Admin: 06/11/23 02:38 Dose: 0.1 mg Docusate Sodium (Docusate Sodium 100 Mg Capsule) 100 mg PO BID PRN PRN Reason: Constipation Last Admin: 06/03/23 14:35 Dose: 100 mg Gabapentin (Gabapentin 400 Mg Capsule) 800 mg PO TID [facility] Last Admin: 06/11/23 08:59 Dose: 800 mg Guaifenesin (Guaifenesin 100 Mg/5 Ml Liquid) 5 ml PO Q6H PRN PRN Reason: Cough Last Admin: 06/01/23 12:00 Dose: 5 ml Guaifenesin/Dextromethorphan (Guaifenesin Dm 600/30 1 Tab Tab.Er.12h) 1 tab PO BID PRN PRN Reason: Congestion Last Admin: 06/10/23 20:09 Dose: 1 tab Levothyroxine Sodium (Levothyroxine Sodium 50 Mcg Tablet) 50 mcg PO DAILY@0600 [facility] Last Admin: 06/11/23 05:47 Dose: 50 mcg Magnesium Hydroxide (Milk Of Magnesia 30 Ml Oral.Susp) 30 ml PO DAILY PRN PRN Reason: Constipation Last Admin: 06/03/23 14:35 Dose: 30 ml Methadone HCl (Methadone Hcl 20 Mg/2 Ml Oral.Conc) 140 mg PO DAILY [facility] Last Admin: 06/11/23 09:01 Dose: 140 mg Neomycin/Polymyxin/Hydrocortisone (Neomycin/Polymyxin/Hc Oph Susp 7.5 Ml Bottle) 1 drop EYE-BOTH QID [facility] Last Admin: 06/11/23 09:05 Dose: 1 drop Nicotine (Nicotine 21 Mg Patch.Td24) 21 mg TRANSDERMA DAILY [facility] Last Admin: 06/11/23 09:25 Dose: Not Given Nicotine Polacrilex (Nicotine Polacrilex 2 Mg Gum) 4 mg BUCCAL Q2H PRN PRN Reason: Nicotine Cravings Last Admin: 05/31/23 14:36 Dose: 4 mg Omeprazole (Omeprazole 20 Mg Capsule.Dr) 20 mg PO BID@0630,1630 [facility] Last Admin: 06/11/23 05:47 Dose: 20 mg Ondansetron HCl (Ondansetron Odt 4 Mg Tab.Rapdis) 4 mg TRANSLINGU Q4H PRN PRN Reason: Nausea Last Admin: 06/10/23 20:09 Dose: 4 mg Polyethylene Glycol (Polyethylene Glycol 3350 17 Gm Powd.Pack) 17 gm PO DAILY [facility] Last Admin: 06/11/23 09:25 Dose: Not Given Prazosin HCl (Prazosin Hcl 1 Mg Capsule) 3 mg PO BEDTIME [facility]; Protocol Last Admin: 06/10/23 20:09 Dose: 3 mg Quetiapine Fumarate (Quetiapine Fumarate 50 Mg Tablet) 50 mg PO TID PRN PRN Reason: anxiety Last Admin: 06/11/23 02:38 Dose: 50 mg Quetiapine Fumarate (Quetiapine Fumarate 200 Mg Tablet) 200 mg PO BEDTIME [facility] Last Admin: 06/10/23 20:09 Dose: 200 mg Sertraline HCl (Sertraline Hcl 25 Mg Tablet) 12.5 mg PO DAILY [facility] Last Admin: 06/11/23 08:59 Dose: 12.5 mg Sodium Chloride (Sodium Chloride 0.65 % Nasal 44 Ml Sprbtl) 1 spray NOSTRIL-B Q1H PRN PRN Reason: Nasal Congestion Allergies Allergies Allergy/AdvReac Type Severity Reaction Status Date / Time azithromycin Allergy Fever Verified 05/26/23 12:09 lamotrigine [From Lamictal] AdvReac Fever Verified 05/26/23 12:09 trazodone AdvReac Restless Verified 05/26/23 12:09 legs geodon AdvReac Severe spasm, Uncoded 05/26/23 12:09 headache, fever Assessment & Plan Assessment & Plan (1) PTSD (post-traumatic stress disorder): Status: Acute Code(s): F43.10 - Post-traumatic stress disorder, unspecified (2) Bipolar disorder: Status: Acute Code(s): F31.9 - Bipolar disorder, unspecified (3) Opioid use disorder: Status: Acute Code(s): F11.90 - Opioid use, unspecified, uncomplicated (4) Polysubstance use disorder: Status: Acute Code(s): F19.90 - Other psychoactive substance use, unspecified, uncomplicated (5) Suicidal ideation: Status: Acute Code(s): R45.851 - Suicidal ideations Plan 05/31/23: Abilify 5 mg a.m Atorvastatin 10 mg HS Pt asks that we consider a [facility] referral for ongoing support in community 06/01/23: Positive and symptomatic for Haemophilus Influenzae- Mucinex/Robitussin/Cough Drops ordered Appearing overmedicated to team-decrease Gabapentin to 600 mg tid decrease Seroquel to 100 mg hs discontinue Ability 06/02/23: Increase Gabapentin to 800 mg tid Increase Seroquel to 200 mg hs 06/04 continue current tx plan 06/05 Decrease Wellbutrin to 300 mg XR a.m. Increase Remeron to 15 mg hs 06/06 Mood a little better; trying to be hopeful; brief superficial self-harm by scratching, minimally so and self resolved conjunctival injection L eye without any observed purulent drainage. -Started corticosporin drops q3h while awake x 1 week for L eye. 06/08/23 Increase Vraylar to 3 mg daily Sertraline 12.5 mg daily 06/09: Continue current regimen and plans 06/10: Continue current regimen and plans 06/11: Continue current plans and regimen Patient educated on: medication risk/benefits Reason for continued inpatient stay Substantial Risk for: med/psych decompensation Time Spent With Patient Time: Total time managing care of this patient today ____ minutes.
[2023-06-11] MEDS: Milk of Magnesia 30 ML ORAL.SUSP PO (18:21)
[2023-06-11] MEDS: Ondansetron ODT 4 MG TAB.RAPDIS TRANSLINGU (18:22)
[2023-06-11 19:25] VITALS: BP 122/71; PULSE 81; RESP 16; TEMP 36.8; O2SAT 97
[2023-06-11] MEDS: QUEtiapine Fumarate 200 MG TABLET PO (19:30)
[2023-06-11] MEDS: Atorvastatin Calcium 10 MG TABLET PO (19:30)
[2023-06-11] MEDS: Prazosin HCL 1 MG CAPSULE 3 MG PO (19:31)
[2023-06-12] MEDS: QUEtiapine Fumarate 50 MG TABLET PO ×2 (04:07→15:29)
[2023-06-12] MEDS: Levothyroxine Sodium 50 MCG TABLET PO (06:05)
[2023-06-12] MEDS: Omeprazole 20 MG CAPSULE.DR PO ×2 (06:05→15:29)
[2023-06-12 07:59] VITALS: BP 116/74; PULSE 77; RESP 18; TEMP 36.2; O2SAT 93
[2023-06-12] MEDS: buPROPion HCl XL 300 MG TAB.ER.24H PO (08:11)
[2023-06-12] MEDS: Cariprazine HCl 3 MG CAPSULE PO (08:11)
[2023-06-12] MEDS: clonazePAM 0.5 MG TABLET PO ×3 (08:11→20:13)
[2023-06-12] MEDS: Gabapentin 400 MG CAPSULE 800 MG PO ×3 (08:11→20:13)
[2023-06-12] MEDS: Sertraline HCL 25 MG TABLET 12.5 MG PO (08:11)
[2023-06-12] MEDS: methADONE HCl 20 MG/2 ML ORAL.CONC 140 MG PO (08:12)
[2023-06-12] MEDS: Acetaminophen 325 MG TABLET 650 MG PO (08:43)
[2023-06-12] MEDS: NeoMY/Polymyx/Dexameth Oph Oin 3.5 GM TUBE 0.5 INCH EYE-BOTH (08:44)
--- NOTE | 2023-06-12 16:28 | P.PNPSI_ITS ---
Subjective Subjective Date of Service: 06/12/23 Reason For Visit: PTSD Bipolar Disorder Opiate use Disorder Methadon Subjective Notes: Conditional Voluntary Healthcare Proxy: No Guardianship: No Medical Problems Affecting Mental Status: No Interim History: Pt declined for [facility]. Agrees to [facility] if available. Discussed increase in Vraylar which pt agrees with. Will ask addictions to see pt as she wants to discuss a Methadone increase. Medication Compliance: Yes Side effects from medications: No Attending Groups: Intermittent Review of Systems Acute medical concerns: No Medical Review of Systems: unchanged Review of Systems Review of Systems Yes all other systems are reviewed and are negative Mental Status Exam Mental Status Exam Patient Appearance: Appropriate Patient Orientation: Person, Place, Time and Situation Level of Consciousness: Alert Patient Behavior: Talkative, Cooperative, Anxious, Distractible and Good Eye Contact Mood Description: Depressed (Though little better) and Anxious Affect Description: Anxious Patient Cognition Impaired: No Ability to Follow Directions: Good Speech Pattern: Spontaneous Speech Memory Description: Intact Hallucinations: None Delusions: Not Present Perceptual Disturbances: Depersonalization and Derealization Thought Process: Rumination Thought Content: positive for Intact (On trying to stay sober; no SI/HI) Depressive Symptoms: Insomnia, Difficulty Sleeping, Changes in Appetite, Crying Spells, Loss of Int. in Activity, Feelings of Worthlessness, Hopelessness, Isolating-Friends/Family, Unhappiness, Increased Fatigue, Thoughts of /Suicide, Low Self Esteem, Loss of Energy and Difficulty Concentrating Abnormal Motor Activity Signs and Symptoms: Psychomotor Retardation Judgement: Fair Judgement and Insight: impaired but improving Diagnostics Vital Signs (24Hr): Vital Signs - 24 hr 06/11/23 19:25 06/12/23 07:59 Temperature 98.2 F 97.2 F Pulse Rate 81 77 Respiratory Rate 16 18 Blood Pressure 122/71 116/74 Pulse Oximetry 97 93 Oxygen Delivery Method Room Air Room Air BMI result Body Mass Index 25.1 Labs 05/26/23 12:52 05/31/23 09:10 Imaging Radiology Impressions: ITS Impressions Chest X-Ray 05/30/23 13:36 IMPRESSION: Clear lungs. Knee X-Ray 05/30/23 13:36 IMPRESSION: No acute abnormality. No significant arthritic changes. Medications Medications Current Medications Acetaminophen (Acetaminophen 325 Mg Tablet) 650 mg PO Q6H PRN PRN Reason: Headache/Pain Mild Scale (1-3) Last Admin: 06/12/23 08:43 Dose: 650 mg Al Hydroxide/Mg Hydroxide (Magnesium Hydrox/Alum Hydrox 30 Ml Oral.Susp) 30 ml PO Q6H PRN PRN Reason: Heartburn/Nausea Last Admin: 06/03/23 14:35 Dose: 30 ml Atorvastatin Calcium (Atorvastatin Calcium 10 Mg Tablet) 10 mg PO BEDTIME [facility] Last Admin: 06/11/23 19:30 Dose: 10 mg Benzocaine (Throat Lozenge, Medicated Lozenge) 1 lozenge MUCOUS MEM Q2H PRN PRN Reason: Sore Throat Last Admin: 06/04/23 18:46 Dose: 1 lozenge Bisacodyl (Bisacodyl 5 Mg Tablet.Dr) 10 mg PO DAILY PRN PRN Reason: Constipation Last Admin: 06/04/23 12:20 Dose: 10 mg Bupropion HCl (Bupropion Hcl Xl 300 Mg Tab.Er.24h) 300 mg PO DAILY [facility] Last Admin: 06/12/23 08:11 Dose: 300 mg Cariprazine (Cariprazine Hcl 3 Mg Capsule) 3 mg PO DAILY [facility] Last Admin: 06/12/23 08:11 Dose: 3 mg Clonazepam (Clonazepam 0.5 Mg Tablet) 0.5 mg PO RQ6H WHILE AWAKE [facility] Last Admin: 06/12/23 14:16 Dose: 0.5 mg Clonidine HCl (Clonidine Hcl 0.1 Mg Tablet) 0.1 mg PO Q4H PRN; Protocol PRN Reason: Anxiety Last Admin: 06/11/23 02:38 Dose: 0.1 mg Docusate Sodium (Docusate Sodium 100 Mg Capsule) 100 mg PO BID PRN PRN Reason: Constipation Last Admin: 06/03/23 14:35 Dose: 100 mg Gabapentin (Gabapentin 400 Mg Capsule) 800 mg PO TID [facility] Last Admin: 06/12/23 14:16 Dose: 800 mg Guaifenesin (Guaifenesin 100 Mg/5 Ml Liquid) 5 ml PO Q6H PRN PRN Reason: Cough Last Admin: 06/01/23 12:00 Dose: 5 ml Guaifenesin/Dextromethorphan (Guaifenesin Dm 600/30 1 Tab Tab.Er.12h) 1 tab PO BID PRN PRN Reason: Congestion Last Admin: 06/10/23 20:09 Dose: 1 tab Levothyroxine Sodium (Levothyroxine Sodium 50 Mcg Tablet) 50 mcg PO DAILY@0600 [facility] Last Admin: 06/12/23 06:05 Dose: 50 mcg Magnesium Hydroxide (Milk Of Magnesia 30 Ml Oral.Susp) 30 ml PO DAILY PRN PRN Reason: Constipation Last Admin: 06/11/23 18:21 Dose: 30 ml Methadone HCl (Methadone Hcl 20 Mg/2 Ml Oral.Conc) 140 mg PO DAILY [facility] Last Admin: 06/12/23 08:12 Dose: 140 mg Neomycin/Polymyxin/Dexamethasone (Neomy/Polymyx/Dexameth Oph Oin 3.5 Gm Tube) 0.5 inch EYE-BOTH BID [facility] Last Admin: 06/12/23 08:44 Dose: 0.5 inch Nicotine (Nicotine 21 Mg Patch.Td24) 21 mg TRANSDERMA DAILY [facility] Last Admin: 06/12/23 08:15 Dose: Not Given Nicotine Polacrilex (Nicotine Polacrilex 2 Mg Gum) 4 mg BUCCAL Q2H PRN PRN Reason: Nicotine Cravings Last Admin: 05/31/23 14:36 Dose: 4 mg Omeprazole (Omeprazole 20 Mg Capsule.Dr) 20 mg PO BID@0630,1630 [facility] Last Admin: 06/12/23 15:29 Dose: 20 mg Ondansetron HCl (Ondansetron Odt 4 Mg Tab.Rapdis) 4 mg TRANSLINGU Q4H PRN PRN Reason: Nausea Last Admin: 06/11/23 18:22 Dose: 4 mg Polyethylene Glycol (Polyethylene Glycol 3350 17 Gm Powd.Pack) 17 gm PO DAILY [facility] Last Admin: 06/12/23 08:42 Dose: Not Given Prazosin HCl (Prazosin Hcl 1 Mg Capsule) 3 mg PO BEDTIME [facility]; Protocol Last Admin: 06/11/23 19:31 Dose: 3 mg Quetiapine Fumarate (Quetiapine Fumarate 50 Mg Tablet) 50 mg PO TID PRN PRN Reason: anxiety Last Admin: 06/12/23 15:29 Dose: 50 mg Quetiapine Fumarate (Quetiapine Fumarate 200 Mg Tablet) 200 mg PO BEDTIME [facility] Last Admin: 06/11/23 19:30 Dose: 200 mg Sertraline HCl (Sertraline Hcl 25 Mg Tablet) 12.5 mg PO DAILY [facility] Last Admin: 06/12/23 08:11 Dose: 12.5 mg Sodium Chloride (Sodium Chloride 0.65 % Nasal 44 Ml Sprbtl) 1 spray NOSTRIL-B Q1H PRN PRN Reason: Nasal Congestion Allergies Allergies Allergy/AdvReac Type Severity Reaction Status Date / Time azithromycin Allergy Fever Verified 05/26/23 12:09 lamotrigine [From Lamictal] AdvReac Fever Verified 05/26/23 12:09 trazodone AdvReac Restless Verified 05/26/23 12:09 legs geodon AdvReac Severe spasm, Uncoded 05/26/23 12:09 headache, fever Assessment & Plan Assessment & Plan (1) PTSD (post-traumatic stress disorder): Status: Acute Code(s): F43.10 - Post-traumatic stress disorder, unspecified (2) Bipolar disorder: Status: Acute Code(s): F31.9 - Bipolar disorder, unspecified (3) Opioid use disorder: Status: Acute Code(s): F11.90 - Opioid use, unspecified, uncomplicated (4) Polysubstance use disorder: Status: Acute Code(s): F19.90 - Other psychoactive substance use, unspecified, uncomplicated (5) Suicidal ideation: Status: Acute Code(s): R45.851 - Suicidal ideations Plan 05/31/23: Abilify 5 mg a.m Atorvastatin 10 mg HS Pt asks that we consider a [facility] referral for ongoing support in community 06/01/23: Positive and symptomatic for Haemophilus Influenzae- Mucinex/Robitussin/Cough Drops ordered Appearing overmedicated to team-decrease Gabapentin to 600 mg tid decrease Seroquel to 100 mg hs discontinue Ability 06/02/23: Increase Gabapentin to 800 mg tid Increase Seroquel to 200 mg hs 06/04 continue current tx plan 06/05 Decrease Wellbutrin to 300 mg XR a.m. Increase Remeron to 15 mg hs 06/06 Mood a little better; trying to be hopeful; brief superficial self-harm by scratching, minimally so and self resolved conjunctival injection L eye without any observed purulent drainage. -Started corticosporin drops q3h while awake x 1 week for L eye. 06/08/23 Increase Vraylar to 3 mg daily Sertraline 12.5 mg daily 06/09: Continue current regimen and plans 06/10: Continue current regimen and plans 06/11: Continue current plans and regimen 06/12: Continue current tx plan Addiction consult Increase Vraylar to 4.5 mg daily on 06/13/23, Informed Consent: understands Reason for continued inpatient stay Substantial Risk for: harm to self and rapid decompensation Time Spent With Patient Time: Total time managing care of this patient today ____ minutes.
[2023-06-12 18:00] VITALS: BP 112/71; PULSE 89; RESP 18; TEMP 36.5; O2SAT 98
[2023-06-12] MEDS: Ondansetron ODT 4 MG TAB.RAPDIS TRANSLINGU (18:18)
[2023-06-12] MEDS: Atorvastatin Calcium 10 MG TABLET PO (20:13)
[2023-06-12] MEDS: Prazosin HCL 1 MG CAPSULE 3 MG PO (20:13)
[2023-06-12] MEDS: QUEtiapine Fumarate 200 MG TABLET PO (20:13)
[2023-06-13] MEDS: QUEtiapine Fumarate 50 MG TABLET PO ×2 (01:27→16:42)
[2023-06-13] MEDS: cloNIDine HCL 0.1 MG TABLET PO ×2 (01:28→11:39)
[2023-06-13] MEDS: Levothyroxine Sodium 50 MCG TABLET PO (06:36)
[2023-06-13] MEDS: Omeprazole 20 MG CAPSULE.DR PO ×2 (06:36→16:29)
[2023-06-13] MEDS: methADONE HCl 20 MG/2 ML ORAL.CONC 140 MG PO (08:41)
[2023-06-13] MEDS: Cariprazine HCl 1.5 MG CAPSULE 4.5 MG PO (08:41)
[2023-06-13] MEDS: buPROPion HCl XL 300 MG TAB.ER.24H PO (08:42)
[2023-06-13] MEDS: Sertraline HCL 25 MG TABLET 12.5 MG PO (08:42)
[2023-06-13] MEDS: clonazePAM 0.5 MG TABLET PO ×3 (08:42→20:01)
[2023-06-13] MEDS: Gabapentin 400 MG CAPSULE 800 MG PO ×3 (08:42→20:00)
[2023-06-13] MEDS: NeoMY/Polymyx/Dexameth Oph Oin 3.5 GM TUBE 0.5 INCH EYE-BOTH (08:44)
[2023-06-13 08:50] VITALS: BP 103/71; PULSE 83; RESP 16; TEMP 36.2; O2SAT 96
[2023-06-13 11:40] VITALS: BP 126/62; PULSE 126
[2023-06-13] MEDS: Ondansetron ODT 4 MG TAB.RAPDIS TRANSLINGU (16:42)
--- NOTE | 2023-06-13 18:55 | P.PNPSI_ITS ---
Subjective Subjective Date of Service: 06/13/23 Reason For Visit: PTSD Bipolar Disorder Opiate use Disorder Methadon Subjective Notes: Conditional Voluntary Healthcare Proxy: No Guardianship: No Medical Problems Affecting Mental Status: No Interim History: Reports some relief of depressive sx. She has been talking with another pt and asks for ECT consultation. Will pursue. Medication Compliance: Yes Side effects from medications: No Attending Groups: Intermittent Review of Systems Acute medical concerns: No Medical Review of Systems: unchanged Review of Systems Review of Systems Yes all other systems are reviewed and are negative Mental Status Exam Mental Status Exam Patient Appearance: Appropriate Patient Orientation: Person, Place, Time and Situation Level of Consciousness: Alert Patient Behavior: Talkative, Cooperative, Anxious, Distractible and Good Eye Contact Mood Description: Depressed (Though little better) and Anxious Affect Description: Anxious Patient Cognition Impaired: No Ability to Follow Directions: Good Speech Pattern: Spontaneous Speech Memory Description: Intact Hallucinations: None Delusions: Not Present Perceptual Disturbances: Depersonalization and Derealization Thought Process: Rumination Thought Content: positive for Intact (On trying to stay sober; no SI/HI) Depressive Symptoms: Insomnia, Difficulty Sleeping, Changes in Appetite, Crying Spells, Loss of Int. in Activity, Feelings of Worthlessness, Hopelessness, Isolating-Friends/Family, Unhappiness, Increased Fatigue, Thoughts of /Suicide, Low Self Esteem, Loss of Energy and Difficulty Concentrating Abnormal Motor Activity Signs and Symptoms: Psychomotor Retardation Judgement: Fair Judgement and Insight: impaired but improving Diagnostics Vital Signs (24Hr): Vital Signs - 24 hr 06/13/23 08:50 06/13/23 11:40 Temperature 97.2 F Pulse Rate 83 126 H Respiratory Rate 16 Blood Pressure 103/71 126/62 Pulse Oximetry 96 Oxygen Delivery Method Room Air BMI result Body Mass Index 25.1 Labs 05/26/23 12:52 05/31/23 09:10 Imaging Radiology Impressions: ITS Impressions Chest X-Ray 05/30/23 13:36 IMPRESSION: Clear lungs. Knee X-Ray 05/30/23 13:36 IMPRESSION: No acute abnormality. No significant arthritic changes. Medications Medications Current Medications Acetaminophen (Acetaminophen 325 Mg Tablet) 650 mg PO Q6H PRN PRN Reason: Headache/Pain Mild Scale (1-3) Last Admin: 06/12/23 08:43 Dose: 650 mg Al Hydroxide/Mg Hydroxide (Magnesium Hydrox/Alum Hydrox 30 Ml Oral.Susp) 30 ml PO Q6H PRN PRN Reason: Heartburn/Nausea Last Admin: 06/03/23 14:35 Dose: 30 ml Atorvastatin Calcium (Atorvastatin Calcium 10 Mg Tablet) 10 mg PO BEDTIME [facility] Last Admin: 06/12/23 20:13 Dose: 10 mg Benzocaine (Throat Lozenge, Medicated Lozenge) 1 lozenge MUCOUS MEM Q2H PRN PRN Reason: Sore Throat Last Admin: 06/04/23 18:46 Dose: 1 lozenge Bisacodyl (Bisacodyl 5 Mg Tablet.Dr) 10 mg PO DAILY PRN PRN Reason: Constipation Last Admin: 06/04/23 12:20 Dose: 10 mg Bupropion HCl (Bupropion Hcl Xl 300 Mg Tab.Er.24h) 300 mg PO DAILY [facility] Last Admin: 06/13/23 08:42 Dose: 300 mg Cariprazine (Cariprazine Hcl 1.5 Mg Capsule) 4.5 mg PO DAILY [facility] Last Admin: 06/13/23 08:41 Dose: 4.5 mg Clonazepam (Clonazepam 0.5 Mg Tablet) 0.5 mg PO RQ6H WHILE AWAKE [facility] Last Admin: 06/13/23 14:29 Dose: 0.5 mg Clonidine HCl (Clonidine Hcl 0.1 Mg Tablet) 0.1 mg PO Q4H PRN; Protocol PRN Reason: Anxiety Last Admin: 06/13/23 11:39 Dose: 0.1 mg Docusate Sodium (Docusate Sodium 100 Mg Capsule) 100 mg PO BID PRN PRN Reason: Constipation Last Admin: 06/03/23 14:35 Dose: 100 mg Gabapentin (Gabapentin 400 Mg Capsule) 800 mg PO TID [facility] Last Admin: 06/13/23 14:29 Dose: 800 mg Guaifenesin (Guaifenesin 100 Mg/5 Ml Liquid) 5 ml PO Q6H PRN PRN Reason: Cough Last Admin: 06/01/23 12:00 Dose: 5 ml Guaifenesin/Dextromethorphan (Guaifenesin Dm 600/30 1 Tab Tab.Er.12h) 1 tab PO BID PRN PRN Reason: Congestion Last Admin: 06/10/23 20:09 Dose: 1 tab Levothyroxine Sodium (Levothyroxine Sodium 50 Mcg Tablet) 50 mcg PO DAILY@0600 [facility] Last Admin: 06/13/23 06:36 Dose: 50 mcg Magnesium Hydroxide (Milk Of Magnesia 30 Ml Oral.Susp) 30 ml PO DAILY PRN PRN Reason: Constipation Last Admin: 06/11/23 18:21 Dose: 30 ml Methadone HCl (Methadone Hcl 20 Mg/2 Ml Oral.Conc) 140 mg PO DAILY [facility] Last Admin: 06/13/23 08:41 Dose: 140 mg Neomycin/Polymyxin/Dexamethasone (Neomy/Polymyx/Dexameth Oph Oin 3.5 Gm Tube) 0.5 inch EYE-BOTH BID [facility] Last Admin: 06/13/23 08:44 Dose: 0.5 inch Nicotine (Nicotine 21 Mg Patch.Td24) 21 mg TRANSDERMA DAILY [facility] Last Admin: 06/13/23 08:46 Dose: Not Given Nicotine Polacrilex (Nicotine Polacrilex 2 Mg Gum) 4 mg BUCCAL Q2H PRN PRN Reason: Nicotine Cravings Last Admin: 05/31/23 14:36 Dose: 4 mg Omeprazole (Omeprazole 20 Mg Capsule.Dr) 20 mg PO BID@0630,1630 [facility] Last Admin: 06/13/23 16:29 Dose: 20 mg Ondansetron HCl (Ondansetron Odt 4 Mg Tab.Rapdis) 4 mg TRANSLINGU Q4H PRN PRN Reason: Nausea Last Admin: 06/13/23 16:42 Dose: 4 mg Polyethylene Glycol (Polyethylene Glycol 3350 17 Gm Powd.Pack) 17 gm PO DAILY [facility] Last Admin: 06/13/23 08:46 Dose: Not Given Prazosin HCl (Prazosin Hcl 1 Mg Capsule) 3 mg PO BEDTIME [facility]; Protocol Last Admin: 06/12/23 20:13 Dose: 3 mg Quetiapine Fumarate (Quetiapine Fumarate 50 Mg Tablet) 50 mg PO TID PRN PRN Reason: anxiety Last Admin: 06/13/23 16:42 Dose: 50 mg Quetiapine Fumarate (Quetiapine Fumarate 200 Mg Tablet) 200 mg PO BEDTIME [facility] Last Admin: 06/12/23 20:13 Dose: 200 mg Sertraline HCl (Sertraline Hcl 25 Mg Tablet) 12.5 mg PO DAILY [facility] Last Admin: 06/13/23 08:42 Dose: 12.5 mg Sodium Chloride (Sodium Chloride 0.65 % Nasal 44 Ml Sprbtl) 1 spray NOSTRIL-B Q1H PRN PRN Reason: Nasal Congestion Allergies Allergies Allergy/AdvReac Type Severity Reaction Status Date / Time azithromycin Allergy Fever Verified 05/26/23 12:09 lamotrigine [From Lamictal] AdvReac Fever Verified 05/26/23 12:09 trazodone AdvReac Restless Verified 05/26/23 12:09 legs geodon AdvReac Severe spasm, Uncoded 05/26/23 12:09 headache, fever Assessment & Plan Assessment & Plan (1) PTSD (post-traumatic stress disorder): Status: Acute Code(s): F43.10 - Post-traumatic stress disorder, unspecified (2) Bipolar disorder: Status: Acute Code(s): F31.9 - Bipolar disorder, unspecified (3) Opioid use disorder: Status: Acute Code(s): F11.90 - Opioid use, unspecified, uncomplicated (4) Polysubstance use disorder: Status: Acute Code(s): F19.90 - Other psychoactive substance use, unspecified, uncomplicated (5) Suicidal ideation: Status: Acute Code(s): R45.851 - Suicidal ideations Plan 05/31/23: Abilify 5 mg a.m Atorvastatin 10 mg HS Pt asks that we consider a [facility] referral for ongoing support in community 06/01/23: Positive and symptomatic for Haemophilus Influenzae- Mucinex/Robitussin/Cough Drops ordered Appearing overmedicated to team-decrease Gabapentin to 600 mg tid decrease Seroquel to 100 mg hs discontinue Ability 06/02/23: Increase Gabapentin to 800 mg tid Increase Seroquel to 200 mg hs 06/04 continue current tx plan 06/05 Decrease Wellbutrin to 300 mg XR a.m. Increase Remeron to 15 mg hs 06/06 Mood a little better; trying to be hopeful; brief superficial self-harm by scratching, minimally so and self resolved conjunctival injection L eye without any observed purulent drainage. -Started corticosporin drops q3h while awake x 1 week for L eye. 06/08/23 Increase Vraylar to 3 mg daily Sertraline 12.5 mg daily 06/09: Continue current regimen and plans 06/10: Continue current regimen and plans 06/11: Continue current plans and regimen 06/12: Continue current tx plan Addiction consult Increase Vraylar to 4.5 mg daily on 06/13/23, 06/13: ECT Consult Patient educated on: medication risk/benefits, ECT and therapeutic strategies Informed Consent: understands and further education needed Reason for continued inpatient stay Substantial Risk for: rapid decompensation Time Spent With Patient Time: Total time managing care of this patient today ____ minutes.
[2023-06-13 20:00] VITALS: BP 102/73; PULSE 84; TEMP 36.6; O2SAT 94
[2023-06-13] MEDS: QUEtiapine Fumarate 200 MG TABLET PO (20:00)
[2023-06-13] MEDS: Atorvastatin Calcium 10 MG TABLET PO (20:00)
[2023-06-13] MEDS: Prazosin HCL 1 MG CAPSULE 3 MG PO (20:00)
[2023-06-14] MEDS: cloNIDine HCL 0.1 MG TABLET PO ×2 (00:22→18:18)
[2023-06-14] MEDS: QUEtiapine Fumarate 50 MG TABLET PO ×2 (00:22→14:23)
[2023-06-14] MEDS: Omeprazole 20 MG CAPSULE.DR PO ×2 (06:15→16:25)
[2023-06-14] MEDS: Levothyroxine Sodium 50 MCG TABLET PO (06:15)
[2023-06-14 07:00] VITALS: BMI 26.8
[2023-06-14] MEDS: buPROPion HCl XL 300 MG TAB.ER.24H PO (08:25)
[2023-06-14] MEDS: clonazePAM 0.5 MG TABLET PO ×3 (08:25→20:33)
[2023-06-14] MEDS: Sertraline HCL 25 MG TABLET 12.5 MG PO (08:25)
[2023-06-14] MEDS: Cariprazine HCl 1.5 MG CAPSULE 4.5 MG PO (08:25)
[2023-06-14] MEDS: Gabapentin 400 MG CAPSULE 800 MG PO ×3 (08:25→20:31)
[2023-06-14] MEDS: methADONE HCl 20 MG/2 ML ORAL.CONC 140 MG PO (08:25)
[2023-06-14 08:31] VITALS: BP 113/70; PULSE 88; RESP 18; TEMP 36.4; O2SAT 97
[2023-06-14] MEDS: NeoMY/Polymyx/Dexameth Oph Oin 3.5 GM TUBE 0.5 INCH EYE-BOTH (10:24)
--- NOTE | 2023-06-14 12:06 | P.PNPSI_ITS ---
Subjective Subjective Date of Service: 06/14/23 Reason For Visit: PTSD Bipolar Disorder Opiate use Disorder Methadon Subjective Notes: Conditional Voluntary Healthcare Proxy: No Guardianship: No Medical Problems Affecting Mental Status: No Interim History: Pt's care was reviewed with Dr. Pacheco for ECT consult. He suggests pt continue regime as she is beginning to have benefit, continue to gather increased time in sobriety and if these interventions are not a success she may request to be seen for eval for ECT. She concurs. Discussed visit with ex-partner. Discussed wanting to apply for [employer] and Sandie Preston Discussed Sertraline titration. Discussed setting some goals for herself in terms of what she would like for her life. Medication Compliance: Yes Side effects from medications: No Attending Groups: Intermittent Review of Systems Acute medical concerns: No Medical Review of Systems: unchanged Review of Systems Review of Systems Yes all other systems are reviewed and are negative Mental Status Exam Mental Status Exam Patient Appearance: Appropriate Patient Orientation: Person, Place, Time and Situation Level of Consciousness: Alert Patient Behavior: Talkative, Cooperative, Anxious, Distractible and Good Eye Contact Mood Description: Depressed (Though little better) and Anxious Affect Description: Anxious Patient Cognition Impaired: No Ability to Follow Directions: Good Speech Pattern: Spontaneous Speech Memory Description: Intact Hallucinations: None Delusions: Not Present Perceptual Disturbances: Depersonalization and Derealization Thought Process: Rumination Thought Content: positive for Intact (On trying to stay sober; no SI/HI) Depressive Symptoms: Insomnia, Difficulty Sleeping, Changes in Appetite, Crying Spells, Loss of Int. in Activity, Feelings of Worthlessness, Hopelessness, Isolating-Friends/Family, Unhappiness, Increased Fatigue, Thoughts of /Suicide, Low Self Esteem, Loss of Energy and Difficulty Concentrating Abnormal Motor Activity Signs and Symptoms: Psychomotor Retardation Judgement: Fair Judgement and Insight: impaired but improving Diagnostics Vital Signs (24Hr): Vital Signs - 24 hr 06/13/23 20:00 06/14/23 08:31 Temperature 97.9 F 97.5 F Pulse Rate 84 88 Respiratory Rate 18 Blood Pressure 102/73 113/70 Pulse Oximetry 94 97 Oxygen Delivery Method Room Air Room Air BMI result Body Mass Index 26.8 Labs 05/26/23 12:52 05/31/23 09:10 Imaging Radiology Impressions: ITS Impressions Chest X-Ray 05/30/23 13:36 IMPRESSION: Clear lungs. Knee X-Ray 05/30/23 13:36 IMPRESSION: No acute abnormality. No significant arthritic changes. Medications Medications Current Medications Acetaminophen (Acetaminophen 325 Mg Tablet) 650 mg PO Q6H PRN PRN Reason: Headache/Pain Mild Scale (1-3) Last Admin: 06/12/23 08:43 Dose: 650 mg Al Hydroxide/Mg Hydroxide (Magnesium Hydrox/Alum Hydrox 30 Ml Oral.Susp) 30 ml PO Q6H PRN PRN Reason: Heartburn/Nausea Last Admin: 06/03/23 14:35 Dose: 30 ml Atorvastatin Calcium (Atorvastatin Calcium 10 Mg Tablet) 10 mg PO BEDTIME [facility] Last Admin: 06/13/23 20:00 Dose: 10 mg Benzocaine (Throat Lozenge, Medicated Lozenge) 1 lozenge MUCOUS MEM Q2H PRN PRN Reason: Sore Throat Last Admin: 06/04/23 18:46 Dose: 1 lozenge Bisacodyl (Bisacodyl 5 Mg Tablet.Dr) 10 mg PO DAILY PRN PRN Reason: Constipation Last Admin: 06/04/23 12:20 Dose: 10 mg Bupropion HCl (Bupropion Hcl Xl 300 Mg Tab.Er.24h) 300 mg PO DAILY [facility] Last Admin: 06/14/23 08:25 Dose: 300 mg Cariprazine (Cariprazine Hcl 1.5 Mg Capsule) 4.5 mg PO DAILY [facility] Last Admin: 06/14/23 08:25 Dose: 4.5 mg Clonazepam (Clonazepam 0.5 Mg Tablet) 0.5 mg PO RQ6H WHILE AWAKE [facility] Last Admin: 06/14/23 08:25 Dose: 0.5 mg Clonidine HCl (Clonidine Hcl 0.1 Mg Tablet) 0.1 mg PO Q4H PRN; Protocol PRN Reason: Anxiety Last Admin: 06/14/23 00:22 Dose: 0.1 mg Docusate Sodium (Docusate Sodium 100 Mg Capsule) 100 mg PO BID PRN PRN Reason: Constipation Last Admin: 06/03/23 14:35 Dose: 100 mg Gabapentin (Gabapentin 400 Mg Capsule) 800 mg PO TID [facility] Last Admin: 06/14/23 08:25 Dose: 800 mg Guaifenesin (Guaifenesin 100 Mg/5 Ml Liquid) 5 ml PO Q6H PRN PRN Reason: Cough Last Admin: 06/01/23 12:00 Dose: 5 ml Guaifenesin/Dextromethorphan (Guaifenesin Dm 600/30 1 Tab Tab.Er.12h) 1 tab PO BID PRN PRN Reason: Congestion Last Admin: 06/10/23 20:09 Dose: 1 tab Levothyroxine Sodium (Levothyroxine Sodium 50 Mcg Tablet) 50 mcg PO DAILY@0600 [facility] Last Admin: 06/14/23 06:15 Dose: 50 mcg Magnesium Hydroxide (Milk Of Magnesia 30 Ml Oral.Susp) 30 ml PO DAILY PRN PRN Reason: Constipation Last Admin: 06/11/23 18:21 Dose: 30 ml Methadone HCl (Methadone Hcl 20 Mg/2 Ml Oral.Conc) 140 mg PO DAILY [facility] Last Admin: 06/14/23 08:25 Dose: 140 mg Neomycin/Polymyxin/Dexamethasone (Neomy/Polymyx/Dexameth Oph Oin 3.5 Gm Tube) 0.5 inch EYE-BOTH BID [facility] Last Admin: 06/14/23 10:24 Dose: 0.5 inch Nicotine (Nicotine 21 Mg Patch.Td24) 21 mg TRANSDERMA DAILY [facility] Last Admin: 06/14/23 08:35 Dose: Not Given Nicotine Polacrilex (Nicotine Polacrilex 2 Mg Gum) 4 mg BUCCAL Q2H PRN PRN Reason: Nicotine Cravings Last Admin: 05/31/23 14:36 Dose: 4 mg Omeprazole (Omeprazole 20 Mg Capsule.Dr) 20 mg PO BID@0630,1630 [facility] Last Admin: 06/14/23 06:15 Dose: 20 mg Ondansetron HCl (Ondansetron Odt 4 Mg Tab.Rapdis) 4 mg TRANSLINGU Q4H PRN PRN Reason: Nausea Last Admin: 06/13/23 16:42 Dose: 4 mg Polyethylene Glycol (Polyethylene Glycol 3350 17 Gm Powd.Pack) 17 gm PO DAILY [facility] Last Admin: 06/14/23 08:35 Dose: Not Given Prazosin HCl (Prazosin Hcl 1 Mg Capsule) 3 mg PO BEDTIME [facility]; Protocol Last Admin: 06/13/23 20:00 Dose: 3 mg Quetiapine Fumarate (Quetiapine Fumarate 50 Mg Tablet) 50 mg PO TID PRN PRN Reason: anxiety Last Admin: 06/14/23 00:22 Dose: 50 mg Quetiapine Fumarate (Quetiapine Fumarate 200 Mg Tablet) 200 mg PO BEDTIME [facility] Last Admin: 06/13/23 20:00 Dose: 200 mg Sertraline HCl (Sertraline Hcl 25 Mg Tablet) 12.5 mg PO DAILY [facility] Last Admin: 06/14/23 08:25 Dose: 12.5 mg Sodium Chloride (Sodium Chloride 0.65 % Nasal 44 Ml Sprbtl) 1 spray NOSTRIL-B Q1H PRN PRN Reason: Nasal Congestion Allergies Allergies Allergy/AdvReac Type Severity Reaction Status Date / Time azithromycin Allergy Fever Verified 05/26/23 12:09 lamotrigine [From Lamictal] AdvReac Fever Verified 05/26/23 12:09 trazodone AdvReac Restless Verified 05/26/23 12:09 legs geodon AdvReac Severe spasm, Uncoded 05/26/23 12:09 headache, fever Assessment & Plan Assessment & Plan (1) PTSD (post-traumatic stress disorder): Status: Acute Code(s): F43.10 - Post-traumatic stress disorder, unspecified (2) Bipolar disorder: Status: Acute Code(s): F31.9 - Bipolar disorder, unspecified (3) Opioid use disorder: Status: Acute Code(s): F11.90 - Opioid use, unspecified, uncomplicated (4) Polysubstance use disorder: Status: Acute Code(s): F19.90 - Other psychoactive substance use, unspecified, uncomplicated (5) Suicidal ideation: Status: Acute Code(s): R45.851 - Suicidal ideations Plan 05/31/23: Abilify 5 mg a.m Atorvastatin 10 mg HS Pt asks that we consider a [facility] referral for ongoing support in community 06/01/23: Positive and symptomatic for Haemophilus Influenzae- Mucinex/Robitussin/Cough Drops ordered Appearing overmedicated to team-decrease Gabapentin to 600 mg tid decrease Seroquel to 100 mg hs discontinue Ability 06/02/23: Increase Gabapentin to 800 mg tid Increase Seroquel to 200 mg hs 06/04 continue current tx plan 06/05 Decrease Wellbutrin to 300 mg XR a.m. Increase Remeron to 15 mg hs 06/06 Mood a little better; trying to be hopeful; brief superficial self-harm by scratching, minimally so and self resolved conjunctival injection L eye without any observed purulent drainage. -Started corticosporin drops q3h while awake x 1 week for L eye. 06/08/23 Increase Vraylar to 3 mg daily Sertraline 12.5 mg daily 06/09: Continue current regimen and plans 06/10: Continue current regimen and plans 06/11: Continue current plans and regimen 06/12: Continue current tx plan Addiction consult Increase Vraylar to 4.5 mg daily on 06/13/23, 06/14: Increase Sertraline to 25 mg daily Patient educated on: medication risk/benefits and therapeutic strategies Informed Consent: understands and further education needed Reason for continued inpatient stay Substantial Risk for: rapid decompensation Time Spent With Patient Time: Total time managing care of this patient today ____ minutes.
--- NOTE | 2023-06-14 12:55 | MHC.RECOVRN ---
Met with pt after consult placed to Addiction Medicine after pt requesting methadone increase. Pt had presented to the ED with SI with plan to overdose and jump off a bridge as well as substance use. Upon evaluation, pt admitted to for PTSD, bipolar disorder, XOCHITL. Pt laying in bed, asleep, wakes to voice, drowsy, does not appear to be experiencing withdrawal. Pt is currently receiving 140 mg methadone daily through [facility]. Pt reports she has been on methadone x 3 years. Pt reports she was using heroin/fentanyl prior to admission, day prior had used 4 bundles, IV. Pt reports feeling restless after midnight, spoke with pts RN who does not corroborate. Pt denies other withdrawal symptoms. Discussed with Amy Jeong APRN, plan to maintain pt at 140 mg daily. RN aware.
[2023-06-14 18:15] VITALS: BP 105/88; PULSE 88; TEMP 36.2
[2023-06-14 20:20] VITALS: BP 115/71; PULSE 82; TEMP 36.5
[2023-06-14] MEDS: Prazosin HCL 1 MG CAPSULE 3 MG PO (20:30)
[2023-06-14] MEDS: Atorvastatin Calcium 10 MG TABLET PO (20:32)
[2023-06-14] MEDS: QUEtiapine Fumarate 200 MG TABLET PO (20:33)
[2023-06-15] MEDS: Levothyroxine Sodium 50 MCG TABLET PO (06:17)
[2023-06-15] MEDS: Omeprazole 20 MG CAPSULE.DR PO ×2 (06:17→19:37)
[2023-06-15] MEDS: Cariprazine HCl 1.5 MG CAPSULE 4.5 MG PO (08:40)
[2023-06-15] MEDS: methADONE HCl 20 MG/2 ML ORAL.CONC 140 MG PO (08:40)
[2023-06-15] MEDS: clonazePAM 0.5 MG TABLET PO ×3 (08:41→19:37)
[2023-06-15] MEDS: Gabapentin 400 MG CAPSULE 800 MG PO ×3 (08:41→19:36)
[2023-06-15] MEDS: buPROPion HCl XL 300 MG TAB.ER.24H PO (08:41)
[2023-06-15] MEDS: Sertraline HCL 25 MG TABLET PO (08:41)
[2023-06-15] MEDS: NeoMY/Polymyx/Dexameth Oph Oin 3.5 GM TUBE 0.5 INCH EYE-BOTH ×2 (09:52→19:40)
[2023-06-15 09:54] VITALS: BP 104/67; PULSE 75; RESP 16; TEMP 36.3; O2SAT 93
[2023-06-15] MEDS: QUEtiapine Fumarate 50 MG TABLET PO ×2 (11:19→18:27)
--- NOTE | 2023-06-15 16:11 | HO.PSYCHPN ---
Subjective Subjective Date of Service: 06/15/23 Reason For Visit: PTSD Bipolar Disorder Opiate use Disorder Methadon Subjective Notes: Conditional Voluntary Healthcare Proxy: No Guardianship: No Medical Problems Affecting Mental Status: No Interim History: Clonidine increased to 0.2 mg q 4 prn anxiety. Pt completed her homework-setting goals for herself. These include 1. 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 Save [id number], have her own apartment/condo 4. Succeed at her job 5. Obtain 1 year of sobriety so she will be able to visit with her son and step father. 6. Establish a foundation of sober living 7. Volunteer time to homelessness issues weekly 8. Be able to say I don't have cravings. 9. Be consistent with 1-8 above. 10. Set a foundation for relationships with son, family, sober living and progress in the higher power. States best friend has offered her to share an apartment. I need to get to a program first I think . Medication Compliance: Yes Side effects from medications: No Attending Groups: Yes Review of Systems Acute medical concerns: No Medical Review of Systems: unchanged Review of Systems Review of Systems Yes all other systems are reviewed and are negative Mental Status Exam Mental Status Exam Patient Appearance: Appropriate Patient Orientation: Person, Place, Time and Situation Level of Consciousness: Alert Patient Behavior: Talkative, Cooperative, Anxious, Distractible and Good Eye Contact Mood Description: Depressed (Though little better) and Anxious Affect Description: Anxious Patient Cognition Impaired: No Ability to Follow Directions: Good Speech Pattern: Spontaneous Speech Memory Description: Intact Hallucinations: None Delusions: Not Present Perceptual Disturbances: Depersonalization and Derealization Thought Process: Rumination Thought Content: positive for Intact (On trying to stay sober; no SI/HI) Depressive Symptoms: Insomnia, Difficulty Sleeping, Changes in Appetite, Crying Spells, Loss of Int. in Activity, Feelings of Worthlessness, Hopelessness, Isolating-Friends/Family, Unhappiness, Increased Fatigue, Thoughts of /Suicide, Low Self Esteem, Loss of Energy and Difficulty Concentrating Abnormal Motor Activity Signs and Symptoms: Psychomotor Retardation Judgement: Fair Judgement and Insight: impaired but improving Diagnostics Vital Signs (24Hr): Vital Signs - 24 hr 06/14/23 18:15 06/14/23 20:20 06/15/23 09:54 Temperature 97.2 F 97.7 F 97.4 F Pulse Rate 88 82 75 Respiratory Rate 16 Blood Pressure 105/88 115/71 104/67 Pulse Oximetry 93 Oxygen Delivery Method Room Air BMI result Body Mass Index 26.8 Labs 05/26/23 12:52 05/31/23 09:10 Imaging Radiology Impressions: ITS Impressions Chest X-Ray 05/30/23 13:36 IMPRESSION: Clear lungs. Knee X-Ray 05/30/23 13:36 IMPRESSION: No acute abnormality. No significant arthritic changes. Medications Medications Current Medications Acetaminophen (Acetaminophen 325 Mg Tablet) 650 mg PO Q6H PRN PRN Reason: Headache/Pain Mild Scale (1-3) Last Admin: 06/12/23 08:43 Dose: 650 mg Al Hydroxide/Mg Hydroxide (Magnesium Hydrox/Alum Hydrox 30 Ml Oral.Susp) 30 ml PO Q6H PRN PRN Reason: Heartburn/Nausea Last Admin: 06/03/23 14:35 Dose: 30 ml Atorvastatin Calcium (Atorvastatin Calcium 10 Mg Tablet) 10 mg PO BEDTIME [facility] Last Admin: 06/14/23 20:32 Dose: 10 mg Benzocaine (Throat Lozenge, Medicated Lozenge) 1 lozenge MUCOUS MEM Q2H PRN PRN Reason: Sore Throat Last Admin: 06/04/23 18:46 Dose: 1 lozenge Bisacodyl (Bisacodyl 5 Mg Tablet.Dr) 10 mg PO DAILY PRN PRN Reason: Constipation Last Admin: 06/04/23 12:20 Dose: 10 mg Bupropion HCl (Bupropion Hcl Xl 300 Mg Tab.Er.24h) 300 mg PO DAILY [facility] Last Admin: 06/15/23 08:41 Dose: 300 mg Cariprazine (Cariprazine Hcl 1.5 Mg Capsule) 4.5 mg PO DAILY [facility] Last Admin: 06/15/23 08:40 Dose: 4.5 mg Clonazepam (Clonazepam 0.5 Mg Tablet) 0.5 mg PO RQ6H WHILE AWAKE [facility] Last Admin: 06/15/23 14:01 Dose: 0.5 mg Clonidine HCl (Clonidine Hcl 0.2 Mg Tablet) 0.2 mg PO Q4H PRN; Protocol PRN Reason: Anxiety Docusate Sodium (Docusate Sodium 100 Mg Capsule) 100 mg PO BID PRN PRN Reason: Constipation Last Admin: 06/03/23 14:35 Dose: 100 mg Gabapentin (Gabapentin 400 Mg Capsule) 800 mg PO TID [facility] Last Admin: 06/15/23 14:01 Dose: 800 mg Guaifenesin (Guaifenesin 100 Mg/5 Ml Liquid) 5 ml PO Q6H PRN PRN Reason: Cough Last Admin: 06/01/23 12:00 Dose: 5 ml Guaifenesin/Dextromethorphan (Guaifenesin Dm 600/30 1 Tab Tab.Er.12h) 1 tab PO BID PRN PRN Reason: Congestion Last Admin: 06/10/23 20:09 Dose: 1 tab Levothyroxine Sodium (Levothyroxine Sodium 50 Mcg Tablet) 50 mcg PO DAILY@0600 [facility] Last Admin: 06/15/23 06:17 Dose: 50 mcg Magnesium Hydroxide (Milk Of Magnesia 30 Ml Oral.Susp) 30 ml PO DAILY PRN PRN Reason: Constipation Last Admin: 06/11/23 18:21 Dose: 30 ml Methadone HCl (Methadone Hcl 20 Mg/2 Ml Oral.Conc) 140 mg PO DAILY [facility] Last Admin: 06/15/23 08:40 Dose: 140 mg Neomycin/Polymyxin/Dexamethasone (Neomy/Polymyx/Dexameth Oph Oin 3.5 Gm Tube) 0.5 inch EYE-BOTH BID [facility] Last Admin: 06/15/23 09:52 Dose: 0.5 inch Nicotine (Nicotine 21 Mg Patch.Td24) 21 mg TRANSDERMA DAILY [facility] Last Admin: 06/15/23 08:44 Dose: Not Given Nicotine Polacrilex (Nicotine Polacrilex 2 Mg Gum) 4 mg BUCCAL Q2H PRN PRN Reason: Nicotine Cravings Last Admin: 05/31/23 14:36 Dose: 4 mg Omeprazole (Omeprazole 20 Mg Capsule.Dr) 20 mg PO BID@0630,1630 [facility] Last Admin: 06/15/23 06:17 Dose: 20 mg Ondansetron HCl (Ondansetron Odt 4 Mg Tab.Rapdis) 4 mg TRANSLINGU Q4H PRN PRN Reason: Nausea Last Admin: 06/13/23 16:42 Dose: 4 mg Polyethylene Glycol (Polyethylene Glycol 3350 17 Gm Powd.Pack) 17 gm PO DAILY [facility] Last Admin: 06/15/23 08:44 Dose: Not Given Prazosin HCl (Prazosin Hcl 1 Mg Capsule) 3 mg PO BEDTIME [facility]; Protocol Last Admin: 06/14/23 20:30 Dose: 3 mg Quetiapine Fumarate (Quetiapine Fumarate 50 Mg Tablet) 50 mg PO TID PRN PRN Reason: anxiety Last Admin: 06/15/23 11:19 Dose: 50 mg Quetiapine Fumarate (Quetiapine Fumarate 200 Mg Tablet) 200 mg PO BEDTIME [facility] Last Admin: 06/14/23 20:33 Dose: 200 mg Sertraline HCl (Sertraline Hcl 25 Mg Tablet) 25 mg PO DAILY [facility] Last Admin: 06/15/23 08:41 Dose: 25 mg Sodium Chloride (Sodium Chloride 0.65 % Nasal 44 Ml Sprbtl) 1 spray NOSTRIL-B Q1H PRN PRN Reason: Nasal Congestion Allergies Allergies Allergy/AdvReac Type Severity Reaction Status Date / Time azithromycin Allergy Fever Verified 05/26/23 12:09 lamotrigine [From Lamictal] AdvReac Fever Verified 05/26/23 12:09 trazodone AdvReac Restless Verified 05/26/23 12:09 legs geodon AdvReac Severe spasm, Uncoded 05/26/23 12:09 headache, fever Assessment & Plan Assessment & Plan (1) PTSD (post-traumatic stress disorder): Status: Acute Code(s): F43.10 - Post-traumatic stress disorder, unspecified (2) Bipolar disorder: Status: Acute Code(s): F31.9 - Bipolar disorder, unspecified (3) Opioid use disorder: Status: Acute Code(s): F11.90 - Opioid use, unspecified, uncomplicated (4) Polysubstance use disorder: Status: Acute Code(s): F19.90 - Other psychoactive substance use, unspecified, uncomplicated (5) Suicidal ideation: Status: Acute Code(s): R45.851 - Suicidal ideations Plan 05/31/23: Abilify 5 mg a.m Atorvastatin 10 mg HS Pt asks that we consider a [facility] referral for ongoing support in community 06/01/23: Positive and symptomatic for Haemophilus Influenzae- Mucinex/Robitussin/Cough Drops ordered Appearing overmedicated to team-decrease Gabapentin to 600 mg tid decrease Seroquel to 100 mg hs discontinue Ability 06/02/23: Increase Gabapentin to 800 mg tid Increase Seroquel to 200 mg hs 06/04 continue current tx plan 06/05 Decrease Wellbutrin to 300 mg XR a.m. Increase Remeron to 15 mg hs 06/06 Mood a little better; trying to be hopeful; brief superficial self-harm by scratching, minimally so and self resolved conjunctival injection L eye without any observed purulent drainage. -Started corticosporin drops q3h while awake x 1 week for L eye. 06/08/23 Increase Vraylar to 3 mg daily Sertraline 12.5 mg daily 06/09: Continue current regimen and plans 06/10: Continue current regimen and plans 06/11: Continue current plans and regimen 06/12: Continue current tx plan Addiction consult Increase Vraylar to 4.5 mg daily on 06/13/23, 06/14: Increase Sertraline to 25 mg daily 06/15/23: Increase Clonidine to 0.2 mg q 4 h prn anxiety Informed Consent: understands Reason for continued inpatient stay Substantial Risk for: rapid decompensation Time Spent With Patient Time: Total time managing care of this patient today ____ minutes.
[2023-06-15 18:00] VITALS: BP 110/70; PULSE 86; RESP 17; TEMP 36.7; O2SAT 98
[2023-06-15] MEDS: cloNIDine HCL 0.2 MG TABLET PO (18:27)
[2023-06-15] MEDS: Prazosin HCL 1 MG CAPSULE 3 MG PO (19:36)
[2023-06-15] MEDS: Atorvastatin Calcium 10 MG TABLET PO (19:37)
[2023-06-15] MEDS: QUEtiapine Fumarate 200 MG TABLET PO (19:37)
[2023-06-16] MEDS: cloNIDine HCL 0.2 MG TABLET PO ×2 (03:16→13:27)
[2023-06-16] MEDS: QUEtiapine Fumarate 50 MG TABLET PO ×2 (03:16→13:26)
[2023-06-16] MEDS: Omeprazole 20 MG CAPSULE.DR PO ×2 (05:59→16:27)
[2023-06-16] MEDS: Levothyroxine Sodium 50 MCG TABLET PO (06:00)
[2023-06-16 08:20] VITALS: BP 109/67; PULSE 68; RESP 16; TEMP 36.2; O2SAT 99
[2023-06-16] MEDS: Cariprazine HCl 1.5 MG CAPSULE 4.5 MG PO (08:42)
[2023-06-16] MEDS: methADONE HCl 20 MG/2 ML ORAL.CONC 140 MG PO (08:42)
[2023-06-16] MEDS: clonazePAM 0.5 MG TABLET PO ×3 (08:43→19:47)
[2023-06-16] MEDS: Gabapentin 400 MG CAPSULE 800 MG PO ×3 (08:43→19:47)
[2023-06-16] MEDS: buPROPion HCl XL 300 MG TAB.ER.24H PO (08:43)
[2023-06-16] MEDS: Sertraline HCL 25 MG TABLET PO (08:43)
[2023-06-16 13:22] VITALS: BP 102/69; PULSE 81
--- NOTE | 2023-06-16 13:28 | PC.NURSE ---
Pt would like help remembering to take Maalox before bed to prevent acid reflux
--- NOTE | 2023-06-16 14:53 | HO.PSYCHPN ---
Subjective Subjective Date of Service: 06/16/23 Reason For Visit: PTSD Bipolar Disorder Opiate use Disorder Methadon Interim History: Patient seen. She reports she is having stress incontinence when she coughs. Says she has reflux at night, then she coughs and has urine incontinence. Discussed using Maalox before bed. Patient's mood has been stable. She has intermittent passive SI. Denies active thoughts of self harm. Denies AVH. Appears sedated late AM. Review of Systems Review of Systems eyes crusting Yes all other systems are reviewed and are negative Constitutional: Reports as per HPI Eyes: Reports blurry vision, Reports eye discharge, Reports irritation and Reports itchy eyes Allergic/Immunologic: Reports itchy eyes Mental Status Exam Mental Status Exam Patient Appearance: Appropriate Patient Orientation: Person, Place, Time and Situation Level of Consciousness: Alert Patient Behavior: Talkative, Cooperative, Anxious, Distractible and Good Eye Contact Behavior Comments: Briefly engaged in superficial self-harm Mood Description: Depressed (Though little better) and Anxious Affect Description: Anxious Patient Cognition Impaired: No Ability to Follow Directions: Good Speech Pattern: Spontaneous Speech Memory Description: Intact Diagnostics Vital Signs (24Hr): Vital Signs - 24 hr 06/15/23 18:00 06/16/23 08:20 06/16/23 13:22 Temperature 98.0 F 97.2 F Pulse Rate 86 68 81 Respiratory Rate 17 16 Blood Pressure 110/70 109/67 102/69 Pulse Oximetry 98 99 Oxygen Delivery Method Room Air Room Air BMI result Body Mass Index 26.8 Labs 05/26/23 12:52 05/31/23 09:10 Imaging Radiology Impressions: ITS Impressions Chest X-Ray 05/30/23 13:36 IMPRESSION: Clear lungs. Knee X-Ray 05/30/23 13:36 IMPRESSION: No acute abnormality. No significant arthritic changes. Medications Medications Current Medications Acetaminophen (Acetaminophen 325 Mg Tablet) 650 mg PO Q6H PRN PRN Reason: Headache/Pain Mild Scale (1-3) Last Admin: 06/12/23 08:43 Dose: 650 mg Al Hydroxide/Mg Hydroxide (Magnesium Hydrox/Alum Hydrox 30 Ml Oral.Susp) 30 ml PO Q6H PRN PRN Reason: Heartburn/Nausea Last Admin: 06/03/23 14:35 Dose: 30 ml Atorvastatin Calcium (Atorvastatin Calcium 10 Mg Tablet) 10 mg PO BEDTIME [facility] Last Admin: 06/15/23 19:37 Dose: 10 mg Benzocaine (Throat Lozenge, Medicated Lozenge) 1 lozenge MUCOUS MEM Q2H PRN PRN Reason: Sore Throat Last Admin: 06/04/23 18:46 Dose: 1 lozenge Bisacodyl (Bisacodyl 5 Mg Tablet.Dr) 10 mg PO DAILY PRN PRN Reason: Constipation Last Admin: 06/04/23 12:20 Dose: 10 mg Bupropion HCl (Bupropion Hcl Xl 300 Mg Tab.Er.24h) 300 mg PO DAILY [facility] Last Admin: 06/16/23 08:43 Dose: 300 mg Cariprazine (Cariprazine Hcl 1.5 Mg Capsule) 4.5 mg PO DAILY [facility] Last Admin: 06/16/23 08:42 Dose: 4.5 mg Clonazepam (Clonazepam 0.5 Mg Tablet) 0.5 mg PO RQ6H WHILE AWAKE [facility] Last Admin: 06/16/23 13:26 Dose: 0.5 mg Clonidine HCl (Clonidine Hcl 0.2 Mg Tablet) 0.2 mg PO Q4H PRN; Protocol PRN Reason: Anxiety Last Admin: 06/16/23 13:27 Dose: 0.2 mg Docusate Sodium (Docusate Sodium 100 Mg Capsule) 100 mg PO BID PRN PRN Reason: Constipation Last Admin: 06/03/23 14:35 Dose: 100 mg Gabapentin (Gabapentin 400 Mg Capsule) 800 mg PO TID [facility] Last Admin: 06/16/23 14:15 Dose: 800 mg Guaifenesin (Guaifenesin 100 Mg/5 Ml Liquid) 5 ml PO Q6H PRN PRN Reason: Cough Last Admin: 06/01/23 12:00 Dose: 5 ml Guaifenesin/Dextromethorphan (Guaifenesin Dm 600/30 1 Tab Tab.Er.12h) 1 tab PO BID PRN PRN Reason: Congestion Last Admin: 06/10/23 20:09 Dose: 1 tab Levothyroxine Sodium (Levothyroxine Sodium 50 Mcg Tablet) 50 mcg PO DAILY@0600 [facility] Last Admin: 06/16/23 06:00 Dose: 50 mcg Magnesium Hydroxide (Milk Of Magnesia 30 Ml Oral.Susp) 30 ml PO DAILY PRN PRN Reason: Constipation Last Admin: 02/19/24 18:21 Dose: 30 ml Methadone HCl (Methadone Hcl 20 Mg/2 Ml Oral.Conc) 140 mg PO DAILY [facility] Last Admin: 06/16/23 08:42 Dose: 140 mg Neomycin/Polymyxin/Dexamethasone (Neomy/Polymyx/Dexameth Oph Oin 3.5 Gm Tube) 0.5 inch EYE-BOTH BID [facility] Last Admin: 06/16/23 10:03 Dose: Not Given Nicotine (Nicotine 21 Mg Patch.Td24) 21 mg TRANSDERMA DAILY [facility] Last Admin: 06/16/23 09:23 Dose: Not Given Nicotine Polacrilex (Nicotine Polacrilex 2 Mg Gum) 4 mg BUCCAL Q2H PRN PRN Reason: Nicotine Cravings Last Admin: 05/31/23 14:36 Dose: 4 mg Omeprazole (Omeprazole 20 Mg Capsule.Dr) 20 mg PO BID@0630,1630 [facility] Last Admin: 06/16/23 05:59 Dose: 20 mg Ondansetron HCl (Ondansetron Odt 4 Mg Tab.Rapdis) 4 mg TRANSLINGU Q4H PRN PRN Reason: Nausea Last Admin: 06/13/23 16:42 Dose: 4 mg Polyethylene Glycol (Polyethylene Glycol 3350 17 Gm Powd.Pack) 17 gm PO DAILY [facility] Last Admin: 06/16/23 09:23 Dose: Not Given Prazosin HCl (Prazosin Hcl 1 Mg Capsule) 3 mg PO BEDTIME [facility]; Protocol Last Admin: 06/15/23 19:36 Dose: 3 mg Quetiapine Fumarate (Quetiapine Fumarate 50 Mg Tablet) 50 mg PO TID PRN PRN Reason: anxiety Last Admin: 06/16/23 13:26 Dose: 50 mg Quetiapine Fumarate (Quetiapine Fumarate 200 Mg Tablet) 200 mg PO BEDTIME [facility] Last Admin: 06/15/23 19:37 Dose: 200 mg Sertraline HCl (Sertraline Hcl 25 Mg Tablet) 25 mg PO DAILY [facility] Last Admin: 06/16/23 08:43 Dose: 25 mg Sodium Chloride (Sodium Chloride 0.65 % Nasal 44 Ml Sprbtl) 1 spray NOSTRIL-B Q1H PRN PRN Reason: Nasal Congestion Allergies Allergies Allergy/AdvReac Type Severity Reaction Status Date / Time azithromycin Allergy Fever Verified 05/26/23 12:09 lamotrigine [From Lamictal] AdvReac Fever Verified 05/26/23 12:09 trazodone AdvReac Restless Verified 05/26/23 12:09 legs geodon AdvReac Severe spasm, Uncoded 05/26/23 12:09 headache, fever Assessment & Plan Assessment & Plan (1) PTSD (post-traumatic stress disorder): Status: Acute Code(s): F43.10 - Post-traumatic stress disorder, unspecified (2) Bipolar disorder: Status: Acute Code(s): F31.9 - Bipolar disorder, unspecified (3) Opioid use disorder: Status: Acute Code(s): F11.90 - Opioid use, unspecified, uncomplicated (4) Polysubstance use disorder: Status: Acute Code(s): F19.90 - Other psychoactive substance use, unspecified, uncomplicated (5) Suicidal ideation: Status: Acute Code(s): R45.851 - Suicidal ideations Plan 05/31/23: Abilify 5 mg a.m Atorvastatin 10 mg HS Pt asks that we consider a [facility] referral for ongoing support in community 06/01/23: Positive and symptomatic for Haemophilus Influenzae- Mucinex/Robitussin/Cough Drops ordered Appearing overmedicated to team-decrease Gabapentin to 600 mg tid decrease Seroquel to 100 mg hs discontinue Ability 06/02/23: Increase Gabapentin to 800 mg tid Increase Seroquel to 200 mg hs 06/04 continue current tx plan 06/05 Decrease Wellbutrin to 300 mg XR a.m. Increase Remeron to 15 mg hs 06/06 Mood a little better; trying to be hopeful; brief superficial self-harm by scratching, minimally so and self resolved conjunctival injection L eye without any observed purulent drainage. -Started corticosporin drops q3h while awake x 1 week for L eye. 06/08/23 Increase Vraylar to 3 mg daily Sertraline 12.5 mg daily 06/09: Continue current regimen and plans 06/10: Continue current regimen and plans 06/11: Continue current plans and regimen 06/12: Continue current tx plan Addiction consult Increase Vraylar to 4.5 mg daily on 06/13/23, 06/14: Increase Sertraline to 25 mg daily 06/15/23: Increase Clonidine to 0.2 mg q 4 h prn anxiety 06/16: Continue current management and treatment plan. Reason for continued inpatient stay Substantial Risk for: harm to self, inability to function and rapid decompensation Time Spent With Patient Time: Total time managing care of this patient today ____ minutes.
[2023-06-16 16:50] VITALS: BP 87/60; PULSE 72; RESP 16; TEMP 36.4; O2SAT 95
[2023-06-16 19:45] VITALS: BP 136/84; PULSE 68; RESP 16; TEMP 36.6; O2SAT 95
[2023-06-16] MEDS: Prazosin HCL 1 MG CAPSULE 3 MG PO (19:46)
[2023-06-16] MEDS: QUEtiapine Fumarate 200 MG TABLET PO (19:47)
[2023-06-16] MEDS: Atorvastatin Calcium 10 MG TABLET PO (19:47)
[2023-06-17] MEDS: QUEtiapine Fumarate 50 MG TABLET PO ×2 (02:03→16:02)
[2023-06-17] MEDS: cloNIDine HCL 0.2 MG TABLET PO (02:03)
[2023-06-17] MEDS: Omeprazole 20 MG CAPSULE.DR PO ×2 (06:26→16:02)
[2023-06-17] MEDS: Levothyroxine Sodium 50 MCG TABLET PO (06:26)
[2023-06-17 08:33] VITALS: BP 106/67; PULSE 65; RESP 16; TEMP 36.3; O2SAT 95
[2023-06-17] MEDS: Cariprazine HCl 1.5 MG CAPSULE 4.5 MG PO (08:36)
[2023-06-17] MEDS: Gabapentin 400 MG CAPSULE 800 MG PO ×3 (08:36→20:11)
[2023-06-17] MEDS: clonazePAM 0.5 MG TABLET PO ×2 (08:37→20:12)
[2023-06-17] MEDS: methADONE HCl 20 MG/2 ML ORAL.CONC 140 MG PO (08:37)
[2023-06-17] MEDS: buPROPion HCl XL 300 MG TAB.ER.24H PO (08:37)
[2023-06-17] MEDS: Sertraline HCL 25 MG TABLET PO (08:37)
--- NOTE | 2023-06-17 14:48 | P.PNPSI_ITS ---
Subjective Subjective Date of Service: 06/17/23 Reason For Visit: PTSD Bipolar Disorder Opiate use Disorder Methadon Interim History: Patient seen. Didn't take the Maalox last night. Says she forgot to ask for it. Discussed making it a standing order to see if her reflux and cough at night improves so she doesn't experience stress incontinence. Patient's mood has been stable. She has intermittent passive SI. Denies active thoughts of self harm. Denies AVH. Appears sedated late AM. Review of Systems Review of Systems eyes crusting Yes all other systems are reviewed and are negative Constitutional: Reports as per HPI Eyes: Reports blurry vision, Reports eye discharge, Reports irritation and Reports itchy eyes Allergic/Immunologic: Reports itchy eyes Mental Status Exam Mental Status Exam Patient Appearance: Appropriate Patient Orientation: Person, Place, Time and Situation Level of Consciousness: Alert Patient Behavior: Talkative, Cooperative, Anxious, Distractible and Good Eye Contact Behavior Comments: Briefly engaged in superficial self-harm Mood Description: Depressed (Though little better) and Anxious Affect Description: Anxious Patient Cognition Impaired: No Ability to Follow Directions: Good Speech Pattern: Spontaneous Speech Memory Description: Intact Diagnostics Vital Signs (24Hr): Vital Signs - 24 hr 06/16/23 16:50 06/16/23 19:45 06/17/23 08:33 Temperature 97.6 F 97.8 F 97.4 F Pulse Rate 72 68 65 Respiratory Rate 16 16 16 Blood Pressure 87/60 L 136/84 106/67 Pulse Oximetry 95 95 95 Oxygen Delivery Method Room Air Room Air Room Air BMI result Body Mass Index 26.8 Labs 05/26/23 12:52 05/31/23 09:10 Imaging Radiology Impressions: ITS Impressions Chest X-Ray 05/30/23 13:36 IMPRESSION: Clear lungs. Knee X-Ray 05/30/23 13:36 IMPRESSION: No acute abnormality. No significant arthritic changes. Medications Medications Current Medications Acetaminophen (Acetaminophen 325 Mg Tablet) 650 mg PO Q6H PRN PRN Reason: Headache/Pain Mild Scale (1-3) Last Admin: 06/12/23 08:43 Dose: 650 mg Al Hydroxide/Mg Hydroxide (Magnesium Hydrox/Alum Hydrox 30 Ml Oral.Susp) 30 ml PO BEDTIME [facility] Atorvastatin Calcium (Atorvastatin Calcium 10 Mg Tablet) 10 mg PO BEDTIME [facility] Last Admin: 06/16/23 19:47 Dose: 10 mg Benzocaine (Throat Lozenge, Medicated Lozenge) 1 lozenge MUCOUS MEM Q2H PRN PRN Reason: Sore Throat Last Admin: 06/04/23 18:46 Dose: 1 lozenge Bisacodyl (Bisacodyl 5 Mg Tablet.Dr) 10 mg PO DAILY PRN PRN Reason: Constipation Last Admin: 06/04/23 12:20 Dose: 10 mg Bupropion HCl (Bupropion Hcl Xl 300 Mg Tab.Er.24h) 300 mg PO DAILY [facility] Last Admin: 06/17/23 08:37 Dose: 300 mg Cariprazine (Cariprazine Hcl 1.5 Mg Capsule) 4.5 mg PO DAILY [facility] Last Admin: 06/17/23 08:36 Dose: 4.5 mg Clonazepam (Clonazepam 0.5 Mg Tablet) 0.5 mg PO RQ6H WHILE AWAKE [facility] Last Admin: 06/17/23 08:37 Dose: 0.5 mg Clonidine HCl (Clonidine Hcl 0.2 Mg Tablet) 0.2 mg PO Q4H PRN; Protocol PRN Reason: Anxiety Last Admin: 06/17/23 02:03 Dose: 0.2 mg Docusate Sodium (Docusate Sodium 100 Mg Capsule) 100 mg PO BID PRN PRN Reason: Constipation Last Admin: 06/03/23 14:35 Dose: 100 mg Gabapentin (Gabapentin 400 Mg Capsule) 800 mg PO TID [facility] Last Admin: 06/17/23 08:36 Dose: 800 mg Guaifenesin (Guaifenesin 100 Mg/5 Ml Liquid) 5 ml PO Q6H PRN PRN Reason: Cough Last Admin: 06/01/23 12:00 Dose: 5 ml Guaifenesin/Dextromethorphan (Guaifenesin Dm 600/30 1 Tab Tab.Er.12h) 1 tab PO BID PRN PRN Reason: Congestion Last Admin: 06/10/23 20:09 Dose: 1 tab Levothyroxine Sodium (Levothyroxine Sodium 50 Mcg Tablet) 50 mcg PO DAILY@0600 [facility] Last Admin: 06/17/23 06:26 Dose: 50 mcg Magnesium Hydroxide (Milk Of Magnesia 30 Ml Oral.Susp) 30 ml PO DAILY PRN PRN Reason: Constipation Last Admin: 06/11/23 18:21 Dose: 30 ml Methadone HCl (Methadone Hcl 20 Mg/2 Ml Oral.Conc) 140 mg PO DAILY [facility] Last Admin: 06/17/23 08:37 Dose: 140 mg Neomycin/Polymyxin/Dexamethasone (Neomy/Polymyx/Dexameth Oph Oin 3.5 Gm Tube) 0.5 inch EYE-BOTH BID [facility] Last Admin: 06/17/23 08:41 Dose: Not Given Nicotine (Nicotine 21 Mg Patch.Td24) 21 mg TRANSDERMA DAILY [facility] Last Admin: 06/17/23 08:41 Dose: Not Given Nicotine Polacrilex (Nicotine Polacrilex 2 Mg Gum) 4 mg BUCCAL Q2H PRN PRN Reason: Nicotine Cravings Last Admin: 05/31/23 14:36 Dose: 4 mg Omeprazole (Omeprazole 20 Mg Capsule.Dr) 20 mg PO BID@0630,1630 [facility] Last Admin: 06/17/23 06:26 Dose: 20 mg Ondansetron HCl (Ondansetron Odt 4 Mg Tab.Rapdis) 4 mg TRANSLINGU Q4H PRN PRN Reason: Nausea Last Admin: 06/13/23 16:42 Dose: 4 mg Polyethylene Glycol (Polyethylene Glycol 3350 17 Gm Powd.Pack) 17 gm PO DAILY [facility] Last Admin: 06/17/23 08:41 Dose: Not Given Prazosin HCl (Prazosin Hcl 1 Mg Capsule) 3 mg PO BEDTIME [facility]; Protocol Last Admin: 06/16/23 19:46 Dose: 3 mg Quetiapine Fumarate (Quetiapine Fumarate 50 Mg Tablet) 50 mg PO TID PRN PRN Reason: anxiety Last Admin: 06/17/23 02:03 Dose: 50 mg Quetiapine Fumarate (Quetiapine Fumarate 200 Mg Tablet) 200 mg PO BEDTIME [facility] Last Admin: 06/16/23 19:47 Dose: 200 mg Sertraline HCl (Sertraline Hcl 25 Mg Tablet) 25 mg PO DAILY [facility] Last Admin: 06/17/23 08:37 Dose: 25 mg Sodium Chloride (Sodium Chloride 0.65 % Nasal 44 Ml Sprbtl) 1 spray NOSTRIL-B Q1H PRN PRN Reason: Nasal Congestion Allergies Allergies Allergy/AdvReac Type Severity Reaction Status Date / Time azithromycin Allergy Fever Verified 05/26/23 12:09 lamotrigine [From Lamictal] AdvReac Fever Verified 05/26/23 12:09 trazodone AdvReac Restless Verified 05/26/23 12:09 legs geodon AdvReac Severe spasm, Uncoded 05/26/23 12:09 headache, fever Assessment & Plan Assessment & Plan (1) PTSD (post-traumatic stress disorder): Status: Acute Code(s): F43.10 - Post-traumatic stress disorder, unspecified (2) Bipolar disorder: Status: Acute Code(s): F31.9 - Bipolar disorder, unspecified (3) Opioid use disorder: Status: Acute Code(s): F11.90 - Opioid use, unspecified, uncomplicated (4) Polysubstance use disorder: Status: Acute Code(s): F19.90 - Other psychoactive substance use, unspecified, uncomplicated (5) Suicidal ideation: Status: Acute Code(s): R45.851 - Suicidal ideations Plan 05/31/23: Abilify 5 mg a.m Atorvastatin 10 mg HS Pt asks that we consider a [facility] referral for ongoing support in community 06/01/23: Positive and symptomatic for Haemophilus Influenzae- Mucinex/Robitussin/Cough Drops ordered Appearing overmedicated to team-decrease Gabapentin to 600 mg tid decrease Seroquel to 100 mg hs discontinue Ability 06/02/23: Increase Gabapentin to 800 mg tid Increase Seroquel to 200 mg hs 06/04 continue current tx plan 06/05 Decrease Wellbutrin to 300 mg XR a.m. Increase Remeron to 15 mg hs 06/06 Mood a little better; trying to be hopeful; brief superficial self-harm by scratching, minimally so and self resolved conjunctival injection L eye without any observed purulent drainage. -Started corticosporin drops q3h while awake x 1 week for L eye. 06/08/23 Increase Vraylar to 3 mg daily Sertraline 12.5 mg daily 06/09: Continue current regimen and plans 06/10: Continue current regimen and plans 06/11: Continue current plans and regimen 06/12: Continue current tx plan Addiction consult Increase Vraylar to 4.5 mg daily on 06/13/23, 06/14: Increase Sertraline to 25 mg daily 06/15/23: Increase Clonidine to 0.2 mg q 4 h prn anxiety 06/16: Continue current management and treatment plan. 06/17: Schedule Maalox at bedtime. Continue current management and treatment plan. Reason for continued inpatient stay Substantial Risk for: harm to self, inability to function and rapid decompensation Time Spent With Patient Time: Total time managing care of this patient today ____ minutes.
[2023-06-17 17:25] VITALS: BP 120/72; PULSE 77; RESP 18; TEMP 36.8; O2SAT 95
[2023-06-17] MEDS: Prazosin HCL 1 MG CAPSULE 3 MG PO (20:09)
[2023-06-17] MEDS: Atorvastatin Calcium 10 MG TABLET PO (20:11)
[2023-06-17] MEDS: QUEtiapine Fumarate 200 MG TABLET PO (20:12)
[2023-06-17] MEDS: Magnesium Hydrox/Alum Hydrox 30 ML ORAL.SUSP PO (20:14)
[2023-06-18] MEDS: QUEtiapine Fumarate 50 MG TABLET PO ×3 (01:53→18:16)
[2023-06-18] MEDS: Omeprazole 20 MG CAPSULE.DR PO ×2 (07:00→16:18)
[2023-06-18] MEDS: Levothyroxine Sodium 50 MCG TABLET PO (07:00)
[2023-06-18] MEDS: methADONE HCl 20 MG/2 ML ORAL.CONC 140 MG PO (08:12)
[2023-06-18] MEDS: Sertraline HCL 25 MG TABLET PO (08:13)
[2023-06-18] MEDS: clonazePAM 0.5 MG TABLET PO ×3 (08:13→19:56)
[2023-06-18] MEDS: Cariprazine HCl 1.5 MG CAPSULE 4.5 MG PO (08:13)
[2023-06-18] MEDS: Gabapentin 400 MG CAPSULE 800 MG PO ×3 (08:13→19:56)
[2023-06-18] MEDS: buPROPion HCl XL 300 MG TAB.ER.24H PO (08:13)
[2023-06-18 08:45] VITALS: BP 99/59; PULSE 70; RESP 18; TEMP 36.4; O2SAT 95
[2023-06-18 15:26] VITALS: BP 125/73; PULSE 90
[2023-06-18] MEDS: cloNIDine HCL 0.2 MG TABLET PO (15:26)
[2023-06-18 17:28] VITALS: BP 127/74; PULSE 106; RESP 18; TEMP 36.8
--- NOTE | 2023-06-18 18:31 | HO.PSYCHPN ---
Subjective Subjective Date of Service: 06/18/23 Reason For Visit: PTSD Bipolar Disorder Opiate use Disorder Methadon Subjective Notes: Conditional Voluntary Healthcare Proxy: No Guardianship: No Medical Problems Affecting Mental Status: No Interim History: Pt discussed decreasing Vraylar and Sertraline, as she is reporting SE. Planning discharge 06/20 to [place]. She is pleased with this placement opportunity for herself. Medication Compliance: Yes Side effects from medications: Yes Attending Groups: Intermittent Review of Systems Acute medical concerns: No Medical Review of Systems: unchanged Review of Systems Review of Systems Yes all other systems are reviewed and are negative Mental Status Exam Mental Status Exam Patient Appearance: Appropriate Patient Orientation: Person, Place, Time and Situation Level of Consciousness: Alert Patient Behavior: Talkative, Cooperative, Anxious, Distractible and Good Eye Contact Mood Description: Depressed (Though little better) and Anxious Affect Description: Anxious Patient Cognition Impaired: No Ability to Follow Directions: Good Speech Pattern: Spontaneous Speech Memory Description: Intact Diagnostics Vital Signs (24Hr): Vital Signs - 24 hr 06/18/23 08:45 06/18/23 15:26 06/18/23 17:28 Temperature 97.5 F 98.2 F Pulse Rate 70 90 106 H Respiratory Rate 18 18 Blood Pressure 99/59 L 125/73 127/74 Pulse Oximetry 95 Oxygen Delivery Method Room Air Room Air BMI result Body Mass Index 26.8 Labs 05/26/23 12:52 05/31/23 09:10 Imaging Radiology Impressions: ITS Impressions Chest X-Ray 05/30/23 13:36 IMPRESSION: Clear lungs. Knee X-Ray 05/30/23 13:36 IMPRESSION: No acute abnormality. No significant arthritic changes. Medications Medications Current Medications Acetaminophen (Acetaminophen 325 Mg Tablet) 650 mg PO Q6H PRN PRN Reason: Headache/Pain Mild Scale (1-3) Last Admin: 06/12/23 08:43 Dose: 650 mg Al Hydroxide/Mg Hydroxide (Magnesium Hydrox/Alum Hydrox 30 Ml Oral.Susp) 30 ml PO BEDTIME [facility] Last Admin: 06/17/23 20:14 Dose: 30 ml Atorvastatin Calcium (Atorvastatin Calcium 10 Mg Tablet) 10 mg PO BEDTIME [facility] Last Admin: 06/17/23 20:11 Dose: 10 mg Benzocaine (Throat Lozenge, Medicated Lozenge) 1 lozenge MUCOUS MEM Q2H PRN PRN Reason: Sore Throat Last Admin: 06/04/23 18:46 Dose: 1 lozenge Bisacodyl (Bisacodyl 5 Mg Tablet.Dr) 10 mg PO DAILY PRN PRN Reason: Constipation Last Admin: 06/04/23 12:20 Dose: 10 mg Bupropion HCl (Bupropion Hcl Xl 300 Mg Tab.Er.24h) 300 mg PO DAILY [facility] Last Admin: 06/18/23 08:13 Dose: 300 mg Cariprazine (Cariprazine Hcl 1.5 Mg Capsule) 4.5 mg PO DAILY [facility] Last Admin: 06/18/23 08:13 Dose: 4.5 mg Clonazepam (Clonazepam 0.5 Mg Tablet) 0.5 mg PO RQ6H WHILE AWAKE [facility] Last Admin: 06/18/23 13:45 Dose: 0.5 mg Clonidine HCl (Clonidine Hcl 0.2 Mg Tablet) 0.2 mg PO Q4H PRN; Protocol PRN Reason: Anxiety Last Admin: 06/18/23 15:26 Dose: 0.2 mg Docusate Sodium (Docusate Sodium 100 Mg Capsule) 100 mg PO BID PRN PRN Reason: Constipation Last Admin: 06/03/23 14:35 Dose: 100 mg Gabapentin (Gabapentin 400 Mg Capsule) 800 mg PO TID [facility] Last Admin: 06/18/23 14:05 Dose: 800 mg Guaifenesin (Guaifenesin 100 Mg/5 Ml Liquid) 5 ml PO Q6H PRN PRN Reason: Cough Last Admin: 06/01/23 12:00 Dose: 5 ml Guaifenesin/Dextromethorphan (Guaifenesin Dm 600/30 1 Tab Tab.Er.12h) 1 tab PO BID PRN PRN Reason: Congestion Last Admin: 06/10/23 20:09 Dose: 1 tab Levothyroxine Sodium (Levothyroxine Sodium 50 Mcg Tablet) 50 mcg PO DAILY@0600 [facility] Last Admin: 06/18/23 07:00 Dose: 50 mcg Magnesium Hydroxide (Milk Of Magnesia 30 Ml Oral.Susp) 30 ml PO DAILY PRN PRN Reason: Constipation Last Admin: 06/11/23 18:21 Dose: 30 ml Methadone HCl (Methadone Hcl 20 Mg/2 Ml Oral.Conc) 140 mg PO DAILY [facility] Last Admin: 06/18/23 08:12 Dose: 140 mg Neomycin/Polymyxin/Dexamethasone (Neomy/Polymyx/Dexameth Oph Oin 3.5 Gm Tube) 0.5 inch EYE-BOTH BID [facility] Last Admin: 06/18/23 08:13 Dose: Not Given Nicotine (Nicotine 21 Mg Patch.Td24) 21 mg TRANSDERMA DAILY [facility] Last Admin: 06/18/23 08:13 Dose: Not Given Nicotine Polacrilex (Nicotine Polacrilex 2 Mg Gum) 4 mg BUCCAL Q2H PRN PRN Reason: Nicotine Cravings Last Admin: 05/31/23 14:36 Dose: 4 mg Omeprazole (Omeprazole 20 Mg Capsule.Dr) 20 mg PO BID@0630,1630 [facility] Last Admin: 06/18/23 16:18 Dose: 20 mg Ondansetron HCl (Ondansetron Odt 4 Mg Tab.Rapdis) 4 mg TRANSLINGU Q4H PRN PRN Reason: Nausea Last Admin: 06/13/23 16:42 Dose: 4 mg Polyethylene Glycol (Polyethylene Glycol 3350 17 Gm Powd.Pack) 17 gm PO DAILY [facility] Last Admin: 06/18/23 08:14 Dose: Not Given Prazosin HCl (Prazosin Hcl 1 Mg Capsule) 3 mg PO BEDTIME [facility]; Protocol Last Admin: 06/17/23 20:09 Dose: 3 mg Quetiapine Fumarate (Quetiapine Fumarate 50 Mg Tablet) 50 mg PO TID PRN PRN Reason: anxiety Last Admin: 06/18/23 18:16 Dose: 50 mg Quetiapine Fumarate (Quetiapine Fumarate 200 Mg Tablet) 200 mg PO BEDTIME [facility] Last Admin: 06/17/23 20:12 Dose: 200 mg Sertraline HCl (Sertraline Hcl 25 Mg Tablet) 25 mg PO DAILY [facility] Last Admin: 06/18/23 08:13 Dose: 25 mg Sodium Chloride (Sodium Chloride 0.65 % Nasal 44 Ml Sprbtl) 1 spray NOSTRIL-B Q1H PRN PRN Reason: Nasal Congestion Allergies Allergies Allergy/AdvReac Type Severity Reaction Status Date / Time azithromycin Allergy Fever Verified 05/26/23 12:09 lamotrigine [From Lamictal] AdvReac Fever Verified 05/26/23 12:09 trazodone AdvReac Restless Verified 05/26/23 12:09 legs geodon AdvReac Severe spasm, Uncoded 05/26/23 12:09 headache, fever Assessment & Plan Assessment & Plan (1) PTSD (post-traumatic stress disorder): Status: Acute Code(s): F43.10 - Post-traumatic stress disorder, unspecified (2) Bipolar disorder: Status: Acute Code(s): F31.9 - Bipolar disorder, unspecified (3) Opioid use disorder: Status: Acute Code(s): F11.90 - Opioid use, unspecified, uncomplicated (4) Polysubstance use disorder: Status: Acute Code(s): F19.90 - Other psychoactive substance use, unspecified, uncomplicated (5) Suicidal ideation: Status: Acute Code(s): R45.851 - Suicidal ideations Plan 05/31/23: Abilify 5 mg a.m Atorvastatin 10 mg HS Pt asks that we consider a [facility] referral for ongoing support in community 06/01/23: Positive and symptomatic for Haemophilus Influenzae- Mucinex/Robitussin/Cough Drops ordered Appearing overmedicated to team-decrease Gabapentin to 600 mg tid decrease Seroquel to 100 mg hs discontinue Ability 06/02/23: Increase Gabapentin to 800 mg tid Increase Seroquel to 200 mg hs 06/04 continue current tx plan 06/05 Decrease Wellbutrin to 300 mg XR a.m. Increase Remeron to 15 mg hs 06/06 Mood a little better; trying to be hopeful; brief superficial self-harm by scratching, minimally so and self resolved conjunctival injection L eye without any observed purulent drainage. -Started corticosporin drops q3h while awake x 1 week for L eye. 06/08/23 Increase Vraylar to 3 mg daily Sertraline 12.5 mg daily 06/09: Continue current regimen and plans 06/10: Continue current regimen and plans 06/11: Continue current plans and regimen 06/12: Continue current tx plan Addiction consult Increase Vraylar to 4.5 mg daily on 06/13/23, 06/14: Increase Sertraline to 25 mg daily 06/15/23: Increase Clonidine to 0.2 mg q 4 h prn anxiety 06/16: Continue current management and treatment plan. 06/17: Schedule Maalox at bedtime. Continue current management and treatment plan. 06/18: Continue tx. Decrease Vraylar to 3 mg daily Decrease Sertraline to 12.5 mg daily Patient educated on: medication risk/benefits Informed Consent: understands Reason for continued inpatient stay Substantial Risk for: rapid decompensation Time Spent With Patient Time: Total time managing care of this patient today ____ minutes.
[2023-06-18] MEDS: Ondansetron ODT 4 MG TAB.RAPDIS TRANSLINGU (18:46)
[2023-06-18] MEDS: Magnesium Hydrox/Alum Hydrox 30 ML ORAL.SUSP PO (19:55)
[2023-06-18] MEDS: Prazosin HCL 1 MG CAPSULE 3 MG PO (19:56)
[2023-06-18] MEDS: Atorvastatin Calcium 10 MG TABLET PO (19:56)
[2023-06-18] MEDS: QUEtiapine Fumarate 200 MG TABLET PO (19:56)
[2023-06-19] MEDS: Levothyroxine Sodium 50 MCG TABLET PO (06:04)
[2023-06-19] MEDS: Omeprazole 20 MG CAPSULE.DR PO ×2 (06:04→17:06)
[2023-06-19 08:05] VITALS: BP 121/68; PULSE 89; RESP 18; TEMP 36.4; O2SAT 97
[2023-06-19] MEDS: Sertraline HCL 25 MG TABLET 12.5 MG PO (08:07)
[2023-06-19] MEDS: Gabapentin 400 MG CAPSULE 800 MG PO ×3 (08:08→19:54)
[2023-06-19] MEDS: clonazePAM 0.5 MG TABLET PO ×3 (08:08→19:54)
[2023-06-19] MEDS: buPROPion HCl XL 300 MG TAB.ER.24H PO (08:08)
[2023-06-19] MEDS: Cariprazine HCl 3 MG CAPSULE PO (08:09)
[2023-06-19] MEDS: methADONE HCl 20 MG/2 ML ORAL.CONC 140 MG PO (08:09)
[2023-06-19] MEDS: QUEtiapine Fumarate 50 MG TABLET PO ×2 (09:56→18:25)
--- NOTE | 2023-06-19 09:56 | P.PNPSI_ITS ---
Subjective Subjective Date of Service: 06/19/23 Reason For Visit: PTSD Bipolar Disorder Opiate use Disorder Methadon Subjective Notes: Conditional Voluntary Healthcare Proxy: No Guardianship: No Medical Problems Affecting Mental Status: No Interim History: Pt excited, apprehensive and anxious about discharge. Visited by ex partner today. Terminating with peers, team. Review of medications, plan of care which she is in agreement with. Medication Compliance: Yes Side effects from medications: No Attending Groups: Yes Review of Systems Acute medical concerns: No Medical Review of Systems: unchanged Review of Systems Review of Systems Yes all other systems are reviewed and are negative Mental Status Exam Mental Status Exam Patient Appearance: Appropriate Patient Orientation: Person, Place, Time and Situation Level of Consciousness: Alert Patient Behavior: Talkative, Cooperative, Anxious, Distractible and Good Eye Contact Mood Description: Depressed (Though little better) and Anxious Affect Description: Anxious Patient Cognition Impaired: No Ability to Follow Directions: Good Speech Pattern: Spontaneous Speech Memory Description: Intact Diagnostics Vital Signs (24Hr): Vital Signs - 24 hr 06/18/23 15:26 06/18/23 17:28 06/19/23 08:05 Temperature 98.2 F 97.5 F Pulse Rate 90 106 H 89 Respiratory Rate 18 18 Blood Pressure 125/73 127/74 121/68 Pulse Oximetry 97 Oxygen Delivery Method Room Air Room Air BMI result Body Mass Index 26.8 Labs 05/26/23 12:52 05/31/23 09:10 Imaging Radiology Impressions: ITS Impressions Chest X-Ray 05/30/23 13:36 IMPRESSION: Clear lungs. Knee X-Ray 05/30/23 13:36 IMPRESSION: No acute abnormality. No significant arthritic changes. Medications Medications Current Medications Acetaminophen (Acetaminophen 325 Mg Tablet) 650 mg PO Q6H PRN PRN Reason: Headache/Pain Mild Scale (1-3) Last Admin: 06/12/23 08:43 Dose: 650 mg Al Hydroxide/Mg Hydroxide (Magnesium Hydrox/Alum Hydrox 30 Ml Oral.Susp) 30 ml PO BEDTIME PATRICK Last Admin: 06/18/23 19:55 Dose: 30 ml Atorvastatin Calcium (Atorvastatin Calcium 10 Mg Tablet) 10 mg PO BEDTIME PATRICK Last Admin: 06/18/23 19:56 Dose: 10 mg Benzocaine (Throat Lozenge, Medicated Lozenge) 1 lozenge MUCOUS MEM Q2H PRN PRN Reason: Sore Throat Last Admin: 06/04/23 18:46 Dose: 1 lozenge Bisacodyl (Bisacodyl 5 Mg Tablet.Dr) 10 mg PO DAILY PRN PRN Reason: Constipation Last Admin: 06/04/23 12:20 Dose: 10 mg Bupropion HCl (Bupropion Hcl Xl 300 Mg Tab.Er.24h) 300 mg PO DAILY [facility] Last Admin: 06/19/23 08:08 Dose: 300 mg Cariprazine (Cariprazine Hcl 3 Mg Capsule) 3 mg PO DAILY [facility] Last Admin: 06/19/23 08:09 Dose: 3 mg Clonazepam (Clonazepam 0.5 Mg Tablet) 0.5 mg PO RQ6H WHILE AWAKE [facility] Last Admin: 06/19/23 08:08 Dose: 0.5 mg Clonidine HCl (Clonidine Hcl 0.2 Mg Tablet) 0.2 mg PO Q4H PRN; Protocol PRN Reason: Anxiety Last Admin: 06/18/23 15:26 Dose: 0.2 mg Docusate Sodium (Docusate Sodium 100 Mg Capsule) 100 mg PO BID PRN PRN Reason: Constipation Last Admin: 06/03/23 14:35 Dose: 100 mg Gabapentin (Gabapentin 400 Mg Capsule) 800 mg PO TID [facility] Last Admin: 06/19/23 08:08 Dose: 800 mg Guaifenesin (Guaifenesin 100 Mg/5 Ml Liquid) 5 ml PO Q6H PRN PRN Reason: Cough Last Admin: 06/01/23 12:00 Dose: 5 ml Guaifenesin/Dextromethorphan (Guaifenesin Dm 600/30 1 Tab Tab.Er.12h) 1 tab PO BID PRN PRN Reason: Congestion Last Admin: 06/10/23 20:09 Dose: 1 tab Levothyroxine Sodium (Levothyroxine Sodium 50 Mcg Tablet) 50 mcg PO DAILY@0600 [facility] Last Admin: 06/19/23 06:04 Dose: 50 mcg Magnesium Hydroxide (Milk Of Magnesia 30 Ml Oral.Susp) 30 ml PO DAILY PRN PRN Reason: Constipation Last Admin: 06/11/23 18:21 Dose: 30 ml Methadone HCl (Methadone Hcl 20 Mg/2 Ml Oral.Conc) 140 mg PO DAILY [facility] Last Admin: 06/19/23 08:09 Dose: 140 mg Neomycin/Polymyxin/Dexamethasone (Neomy/Polymyx/Dexameth Oph Oin 3.5 Gm Tube) 0.5 inch EYE-BOTH BID [facility] Last Admin: 06/19/23 07:55 Dose: Not Given Nicotine (Nicotine 21 Mg Patch.Td24) 21 mg TRANSDERMA DAILY [facility] Last Admin: 06/19/23 07:55 Dose: Not Given Nicotine Polacrilex (Nicotine Polacrilex 2 Mg Gum) 4 mg BUCCAL Q2H PRN PRN Reason: Nicotine Cravings Last Admin: 05/31/23 14:36 Dose: 4 mg Omeprazole (Omeprazole 20 Mg Capsule.Dr) 20 mg PO BID@0630,1630 [facility] Last Admin: 06/19/23 06:04 Dose: 20 mg Ondansetron HCl (Ondansetron Odt 4 Mg Tab.Rapdis) 4 mg TRANSLINGU Q4H PRN PRN Reason: Nausea Last Admin: 06/18/23 18:46 Dose: 4 mg Polyethylene Glycol (Polyethylene Glycol 3350 17 Gm Powd.Pack) 17 gm PO DAILY [facility] Last Admin: 06/19/23 07:56 Dose: Not Given Prazosin HCl (Prazosin Hcl 1 Mg Capsule) 3 mg PO BEDTIME [facility]; Protocol Last Admin: 06/18/23 19:56 Dose: 3 mg Quetiapine Fumarate (Quetiapine Fumarate 50 Mg Tablet) 50 mg PO TID PRN PRN Reason: anxiety Last Admin: 06/18/23 18:16 Dose: 50 mg Quetiapine Fumarate (Quetiapine Fumarate 200 Mg Tablet) 200 mg PO BEDTIME [facility] Last Admin: 06/18/23 19:56 Dose: 200 mg Sertraline HCl (Sertraline Hcl 25 Mg Tablet) 12.5 mg PO DAILY [facility] Last Admin: 06/19/23 08:07 Dose: 12.5 mg Sodium Chloride (Sodium Chloride 0.65 % Nasal 44 Ml Sprbtl) 1 spray NOSTRIL-B Q1H PRN PRN Reason: Nasal Congestion Allergies Allergies Allergy/AdvReac Type Severity Reaction Status Date / Time azithromycin Allergy Fever Verified 05/26/23 12:09 lamotrigine [From Lamictal] AdvReac Fever Verified 05/26/23 12:09 trazodone AdvReac Restless Verified 05/26/23 12:09 legs geodon AdvReac Severe spasm, Uncoded 05/26/23 12:09 headache, fever Assessment & Plan Assessment & Plan (1) PTSD (post-traumatic stress disorder): Status: Acute Code(s): F43.10 - Post-traumatic stress disorder, unspecified (2) Bipolar disorder: Status: Acute Code(s): F31.9 - Bipolar disorder, unspecified (3) Opioid use disorder: Status: Acute Code(s): F11.90 - Opioid use, unspecified, uncomplicated (4) Polysubstance use disorder: Status: Acute Code(s): F19.90 - Other psychoactive substance use, unspecified, uncomplicated (5) Suicidal ideation: Status: Acute Code(s): R45.851 - Suicidal ideations Plan 05/31/23: Abilify 5 mg a.m Atorvastatin 10 mg HS Pt asks that we consider a [facility] referral for ongoing support in community 06/01/23: Positive and symptomatic for Haemophilus Influenzae- Mucinex/Robitussin/Cough Drops ordered Appearing overmedicated to team-decrease Gabapentin to 600 mg tid decrease Seroquel to 100 mg hs discontinue Ability 06/02/23: Increase Gabapentin to 800 mg tid Increase Seroquel to 200 mg hs 06/04 continue current tx plan 06/05 Decrease Wellbutrin to 300 mg XR a.m. Increase Remeron to 15 mg hs 06/06 Mood a little better; trying to be hopeful; brief superficial self-harm by scratching, minimally so and self resolved conjunctival injection L eye without any observed purulent drainage. -Started corticosporin drops q3h while awake x 1 week for L eye. 06/08/23 Increase Vraylar to 3 mg daily Sertraline 12.5 mg daily 06/09: Continue current regimen and plans 06/10: Continue current regimen and plans 06/11: Continue current plans and regimen 06/12: Continue current tx plan Addiction consult Increase Vraylar to 4.5 mg daily on 06/13/23, 06/14: Increase Sertraline to 25 mg daily 06/15/23: Increase Clonidine to 0.2 mg q 4 h prn anxiety 06/16: Continue current management and treatment plan. 06/17: Schedule Maalox at bedtime. Continue current management and treatment plan. 06/19: Discharge 06/20. Informed Consent: understands Reason for continued inpatient stay Substantial Risk for: stable for discharge Time Spent With Patient Time: Total time managing care of this patient today ____ minutes.
[2023-06-19 10:32] LABS: Influenza A PCR NEGATIVE (Negative); Influenza B PCR NEGATIVE (Negative); Resp Syncy Virus RNA Qual PCR NEGATIVE (Negative); SARS COV2 PCR INHOUSE NEGATIVE (Negative)
[2023-06-19 18:20] VITALS: BP 99/62; PULSE 91; TEMP 36.7
[2023-06-19] MEDS: cloNIDine HCL 0.2 MG TABLET PO (18:25)
[2023-06-19] MEDS: QUEtiapine Fumarate 200 MG TABLET PO (19:53)
[2023-06-19] MEDS: Prazosin HCL 1 MG CAPSULE 3 MG PO (19:53)
[2023-06-19] MEDS: Atorvastatin Calcium 10 MG TABLET PO (19:54)
[2023-06-19] MEDS: Magnesium Hydrox/Alum Hydrox 30 ML ORAL.SUSP PO (19:55)
[2023-06-20] MEDS: Omeprazole 20 MG CAPSULE.DR PO (05:41)
[2023-06-20] MEDS: Levothyroxine Sodium 50 MCG TABLET PO (05:41)
[2023-06-20 08:00] VITALS: BP 111/78; PULSE 89; RESP 18; TEMP 36.2; O2SAT 96
[2023-06-20] MEDS: buPROPion HCl XL 300 MG TAB.ER.24H PO (08:13)
[2023-06-20] MEDS: clonazePAM 0.5 MG TABLET PO (08:13)
[2023-06-20] MEDS: methADONE HCl 20 MG/2 ML ORAL.CONC 140 MG PO (08:13)
[2023-06-20] MEDS: Cariprazine HCl 3 MG CAPSULE PO (08:14)
[2023-06-20] MEDS: Gabapentin 400 MG CAPSULE 800 MG PO (08:14)
[2023-06-20] MEDS: Sertraline HCL 25 MG TABLET 12.5 MG PO (08:14)
[2023-06-20 10:55] VITALS: BP 127/75; PULSE 84
[2023-06-20] MEDS: QUEtiapine Fumarate 50 MG TABLET PO (10:58)
[2023-06-20] MEDS: cloNIDine HCL 0.2 MG TABLET PO (10:58)
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
== END 2023-06-20 11:36 | DRG 753 ==
LOC: HO.ED 05-27 00:57 → HO.PM5 05-29 12:58
PROVIDERS: Advanced Practice Midwife; Registered Nurse Emergency; Admitting Provider Clinical Nurse Specialist Psychiatric/Mental Health, Adult; Emergency Provider Emergency Medicine Emergency Medical Services; Visit Provider Clinical Nurse Specialist Psychiatric/Mental Health, Adult
DX: F31.9 Bipolar disorder, unspecified (principal); R45.851 Suicidal ideations; F90.9 Attention-deficit hyperactivity disorder, unspecified type; F43.10 Post-traumatic stress disorder, unspecified; F11.20 Opioid dependence, uncomplicated; B96.3 Hemophilus influenzae [H. influenzae] as the cause of diseases classified elsewhere; F19.90 Other psychoactive substance use, unspecified, uncomplicated; F17.210 Nicotine dependence, cigarettes, uncomplicated; Z71.6 Tobacco abuse counseling; Z23 Encounter for immunization; Z20.822 Contact with and (suspected) exposure to COVID-19; Z91.410 Personal history of adult physical and sexual abuse; Z59.02 Unsheltered homelessness; Z79.890 Hormone replacement therapy; Z79.899 Other long term (current) drug therapy
CPT/HCPCS: 0241U; 0353U; 36415; 71046; 73564; 80048; 80053; 80061; 80307; 81001; 82248; 82607; 82746; 83036; 83540; 83735; 84439; 84443; 84702; 85025; 86592; 86780; 87070; 87077; 87185; 87205; 87389; 87480; 87510; 87635; 87660; 90686; 93005; 99285; S9485

== ENCOUNTER → 2023-05-26 12:11 | Outpatient (BNV) | payer MEDICAID, SELFPAY | PROVIDERS: Emergency Provider Emergency Medicine Emergency Medical Services; Visit Provider Internal Medicine Cardiovascular Disease | DX: R45.851 Suicidal ideations (principal) | CPT/HCPCS: 93010 ==

== ENCOUNTER → 2023-05-29 10:47 | Outpatient (BNV) | payer OTHER, SELFPAY | PROVIDERS: Admitting Provider Clinical Nurse Specialist Psychiatric/Mental Health, Adult; Emergency Provider Emergency Medicine Emergency Medical Services; Visit Provider Clinical Nurse Specialist Psychiatric/Mental Health, Adult | DX: F31.4 Bipolar disorder, current episode depressed, severe, without psychotic features (principal); F43.11 Post-traumatic stress disorder, acute; F11.90 Opioid use, unspecified, uncomplicated; F19.90 Other psychoactive substance use, unspecified, uncomplicated; R45.851 Suicidal ideations | CPT/HCPCS: 99231; 99232; 99233 ==

== ENCOUNTER → 2023-05-29 10:47 | Outpatient (BNV) | payer MEDICAID, SELFPAY | PROVIDERS: Admitting Provider Clinical Nurse Specialist Psychiatric/Mental Health, Adult; Emergency Provider Emergency Medicine Emergency Medical Services; Visit Provider Advanced Practice Midwife | DX: Z20.2 Contact with and (suspected) exposure to infections with a predominantly sexual mode of transmission (principal); Z01.419 Encounter for gynecological examination (general) (routine) without abnormal findings | CPT/HCPCS: 99221 ==

== ENCOUNTER 2023-09-08 21:25 | Emergency (ER) | payer OTHER, SELFPAY ==
--- NOTE | ~2023-09-08 | XR_ITS ---
EXAMINATION: XR KNEE, LEFT CLINICAL INFORMATION: Knee pain COMPARISON: Left knee 05/30/2023 TECHNIQUE: Four views of the left knee. FINDINGS: No fracture or joint effusion. Alignment is anatomic. Joint spaces are maintained. No abnormal soft tissue calcification. Again noted is a small enthesophyte at the superior patella unchanged from prior. XR/XR knee LT 3V IMPRESSION: 1. No acute findings. 2. Small enthesophyte at the superior patella unchanged from prior.
[2023-09-08 21:29] VITALS: BP 102/68; PULSE 69; RESP 16; TEMP 36.5; O2SAT 98; BMI 24.6
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
--- NOTE | 2023-09-08 22:57 | MHC.EDTECH ---
Changed over with security and belongings were put into locker 9
[2023-09-09 00:59] VITALS: BP 92/50; PULSE 57; RESP 16; TEMP 36.7; O2SAT 97
[2023-09-09 01:23] LABS: MANUAL DIFF FLAG NO
[2023-09-09 01:24] LABS: Basophils Percent Auto 0.5 % (0-2); Eosinophils Absolute Auto 0.2 X10*3/uL (0.0-0.4); Eosinophils Percent Auto 3.7 % (0-4); Hematocrit 33.4 % (37.0-47.0); Imm Gran Abs Auto 0.01 X10*3/uL (0.00-0.03); Imm Gran Pct Auto 0.2 % (0.0-0.4); Lymphocytes Absolute Auto 1.4 X10*3/uL (1.2-4.9); Lymphocytes Percent Auto 32.3 % (20-40); Mean Corpuscular HGB Conc 32.9 g/dl (31.0-35.0); Mean Corpuscular Hemoglobin 25.4 pg (27.0-33.0); Mean Corpuscular Volume 77.1 fL (80.0-98.0); Mean Platelet Volume 8.8 fL (9.4-12.3); Monocytes Absolute Auto 0.3 X10*3/uL (0.1-1.2); Monocytes Percent Auto 5.9 % (2-11); Neutrophils Absolute Auto 2.5 x10*3/uL (2.0-8.3); Neutrophils Percent Auto 57.4 % (45-73); Platelet Count 199 X10*3/uL (160-400); Red Blood Count 4.33 X10*6/uL (4.20-5.50); Red Cell Distribution Width 13.6 % (11.0-16.0); White Blood Count 4.4 X10*3/uL (4.8-10.8)
[2023-09-09 01:40] LABS: Anion Gap 14 (12-20); Blood Urea Nitrogen 16 mg/dL (9-16); Carbon Dioxide 25 mmol/L (22-29); Chloride 102 mmol/L (96-108); Creatinine Clr Calc Pharmacy 72.2; Estimated Glomerular Filt Rate > 60; Ethanol < 10 mg/dL; Glucose Random 89 mg/dL (60-115); Potassium 3.2 mmol/L (3.3-5.1); Sodium 138 mmol/L (135-145)
[2023-09-09 01:54] LABS: HCG Quantitative < 2 mIU/mL
--- NOTE | 2023-09-09 03:07 | PC.NURSE ---
Per hold medications until all lab specimens are obtained.
[2023-09-09 04:06] VITALS: BP 90/61; PULSE 61; RESP 14; TEMP 36.5; O2SAT 95
[2023-09-09 04:21] LABS: Appearance Urine Clear; Color Urine Yellow; Glucose Urine UA Negative (Negative); Leukocyte Esterase Urine Negative (Negative); Nitrite Urine Negative (Negative); PH 5.5 (5.0-9.0); Urine Blood Negative (Negative); Urine Ketones 15 mg/dL (Negative); Urine Protein Negative (Neg-Trace)
[2023-09-09 04:26] LABS: Bacteria Urine None Seen (None Seen); Hyaline Casts Urine 0-2 /LPF (0-2); RBC Urine 0-2 /HPF (0-2); WBC Urine 0-5 /HPF (0-5)
[2023-09-09 04:36] LABS: Amphetamine Screen Urine Not Detected (Not Detect); Barbiturates, Urine Not Detected (Not Detect); Benzodiazepines Screen Urine Not Detected (Not Detect); Buprenorphine Scr Not Detected (Not Detect); Cannabinoid Screen Urine POSITIVE (Not Detect); Cocaine Screen Urine POSITIVE (Not Detect); Fentanyl, urine POSITIVE (Not Detect); Methadone Screen, Urine Positive (Not Detect); Opiate Screen Urine POSITIVE (Not Detect); Oxycodone Screen Urine Not Detected (Not Detect); Phencyclidine Screen Urine Not Detected (Not Detect)
[2023-09-09 06:30] LABS: CT PCR DETECTED (Not Detect.); NG PCR NOT DETECTED (Not Detect.)
[2023-09-09] MEDS: cefTRIAXone sodium 500 MG, Lidocaine HCl 1 % MPF 1 ML IM (07:12)
[2023-09-09] MEDS: Doxycycline Monohydrate 100 MG CAPSULE PO (07:12)
[2023-09-09] MEDS: levonorgestreL 1.5 MG TABLET PO (07:13)
--- NOTE | 2023-09-09 07:21 | PC.NURSE ---
Methadone dose verified with Susana Johnson LPN at [facility] , patient last dose 140mg given on 09/07 at 9am
--- NOTE | 2023-09-09 07:38 | HE.PHANOTE ---
METHADONE Patient receives from [facility] ([phone]). Per Susana Gaffney LPN, patient last received 140 mg 09/08/23 at 9am.
[2023-09-09] MEDS: methADONE HCl 20 MG/2 ML ORAL.CONC 140 MG PO (08:31)
[2023-09-09] MEDS: Potassium Chloride Packet 20 MEQ PACKET 40 MEQ PO (09:23)
--- NOTE | 2023-09-09 11:23 | PC.NURSE ---
pt states she takes multiple meds and has filled them at multiple pharmacies, Pharmacist Po was given the info that i had gotten from [facility] and from the pt belongings and completed the med rec
--- NOTE | 2023-09-09 11:36 | PHA.MEDREC ---
Pharmacy Consult ? Medication Reconciliation Pharmacy has completed the medication reconciliation.
[2023-09-09 12:10] VITALS: BP 120/71; PULSE 61; RESP 18; TEMP 36.1; O2SAT 97
[2023-09-09] MEDS: clonazePAM 0.5 MG TABLET PO (12:13)
[2023-09-09] MEDS: Gabapentin 400 MG CAPSULE 800 MG PO (14:11)
--- NOTE | 2023-09-09 16:41 | MHC.CARE ---
Pt accepted to [facility] dual unit @ [address], [place] [address] Berenice Vernon. Pt can be transferred JOV[facility].
[2023-09-09] MEDS: Omeprazole 20 MG CAPSULE.DR PO (17:05)
--- NOTE | 2023-09-09 17:26 | PC.NURSE ---
pt is accepted to [facility], transport around 1900
--- NOTE | 2023-09-09 17:34 | PC.NURSE ---
called [facility] alarcon to give a nurse to nurse report but the facility reports that they do not require a report
[2023-09-09 17:43] VITALS: BP 118/81; PULSE 61; RESP 16; TEMP 36.5; O2SAT 97
[2023-09-09 17:48] VITALS: BP 118/81; PULSE 61; RESP 16; TEMP 36.5; O2SAT 97
[2023-09-10 03:50] LABS: Syphilis Screen Nonreactive (Nonreactive)
[2023-09-10 03:59] LABS: HBS Num1 48.73 mIU/mL (0-7.99); HBc Num1 5.57 S/CO (0.00-0.79); HBsAGNum1 0.24 S/CO (0.00-0.99); HIV AB/AG Nonreactive (Nonreactive); HIV Num 1 0.05 S/CO (0.00-0.99); Hepatitis B Surface Antigen Negative (Negative); ~Hepatitis B Surface Antibody REACTIVE (Nonreactive)
[2023-09-10 04:48] LABS: HBc Num2 5.58 S/CO; HBc Num3 5.69 S/CO; Hepatitis B Core Antibody Reactive (Nonreactive)
== END 2023-09-09 17:50 ==
PROVIDERS: Emergency Provider Emergency Medicine Emergency Medical Services
DX: F11.188 Opioid abuse with other opioid-induced disorder (principal); F19.988 Other psychoactive substance use, unspecified with other psychoactive substance-induced disorder; T76.21XA Adult sexual abuse, suspected, initial encounter; Y99.8 Other external cause status; A74.9 Chlamydial infection, unspecified; R45.851 Suicidal ideations; M25.562 Pain in left knee; F31.9 Bipolar disorder, unspecified; F43.10 Post-traumatic stress disorder, unspecified; F17.210 Nicotine dependence, cigarettes, uncomplicated; Z79.899 Other long term (current) drug therapy; Z79.02 Long term (current) use of antithrombotics/antiplatelets
CPT/HCPCS: 0353U; 36415; 73562; 80048; 80307; 81001; 84702; 85025; 86704; 86706; 86780; 87340; 87389; 96372; 99285; J0696; S9485